=== PATIENT | female | born 1940 | race Caucasian/White ===

== ENCOUNTER → 2017-12-23 03:14 | Outpatient (CLI) | payer MEDICARE, OTHER, SELFPAY ==
[2017-12-23 12:11] LABS: TSH (W/Ref FT4) 1.69 uIU/mL (0.358-3.74)
--- NOTE | 2018-01-15 17:05 | ZIOP_ITS ---
ZIO PATCH REPORT Prescribing Clinician: Matheus Santana M.D. Primary Indication: I49.3 Enrollment: 12/23/17 until 01/05/18 Findings: 1. Baseline sinus rhythm, 47-154 bpm, average 70 bpm. 2. Rare PAC, < 1%, 18 SVT runs, fastest 11 beats at 146 bpm, longest 13 beats at 101 bpm, no atrial fibrillation. 3. Rare PVC, < 1%, one ventricular run, 5 beats, 88-154 bpm. 4. No significant pauses. 5. 40 trigger events, all sinus rhythm, 9 with brief SVT runs. 6. Symptoms: Three episodes: 2x fluttering/racing with sinus rhythm, 64 and 77 bpm, 1x skipped beats/shortness of breath, with sinus rhythm 67 bpm.
== END ==
PROVIDERS: PCP Family Medicine; Visit Provider Family Medicine
DX: I10 Essential (primary) hypertension (principal); E03.9 Hypothyroidism, unspecified; R79.89 Other specified abnormal findings of blood chemistry; R00.0 Tachycardia, unspecified; I49.3 Ventricular premature depolarization; R06.02 Shortness of breath
CPT/HCPCS: 0296T; 36415; 93225; 84443

== ENCOUNTER 2018-01-14 19:51 | Outpatient (CLI) | payer MEDICARE, OTHER, SELFPAY | END 2018-01-14 20:11 | PROVIDERS: PCP Family Medicine; Referring Provider Family Medicine; Visit Provider Internal Medicine Cardiovascular Disease | DX: I49.3 Ventricular premature depolarization (principal); I10 Essential (primary) hypertension; R00.0 Tachycardia, unspecified; E03.9 Hypothyroidism, unspecified | CPT/HCPCS: 0298T ==

== ENCOUNTER 2018-01-16 12:46 | Emergency (ER) | payer MEDICARE, OTHER, SELFPAY ==
[2018-01-16] VITALS (16 sets, daily range): BP systolic 126–184; BP diastolic 65–86; PULSE 54–78; RESP 13–29; TEMP 36.6–37.2; O2SAT 93–98
[2018-01-16 13:14] LABS: Abs Immature Grans 0.11 k/cumm (0.0-0.09); Absolute Basophil Count 0.07 k/cumm (0.0-0.2); Absolute Eosinophil Count 0.23 k/cumm (0.0-0.7); Absolute Lymphocyte Count 1.97 k/cumm (1.2-3.4); Absolute Monocyte Count 0.62 k/cumm (0.11-0.7); Basophils % 0.6; HGB 13.9 g/dL (12.0-15.5); Lymphocytes % 17.1; Mean Corp. HGB Concentration 32.3 g/dL (32.0-36.0); Mean Corpuscular Hemoglobin 28.3 pg (27.0-33.0); Mean Corpuscular Volume 87.4 fL (80-95); Mean Platelet Volume 11.8 fL (8.0-11.0); Monocytes % 5.4; Neutrophils % 73.9; Platelet Count 314 x1000/uL (130-400); RBC 4.92 m/cumm (4.00-5.20); RBC Distribution Width 16.2 % (11.7-14.6); White Blood Cell Count 11.54 k/cumm (4.4-10.8)
[2018-01-16 13:15] LABS: Absolute Neutrophil Count 8.53 k/cumm (1.2-6.7)
--- NOTE | 2018-01-16 13:20 | ED.GENADUL_ITS ---
Discharge Plan Disposition Patient Disposition: HOME Condition: Stable Discharge Details Chief Complaint: Palpitatns Clinical Impression: Palpitation Primary Care Provider: Joann Arreola ED Provider: Zhen Pichardo Home Meds and New Rx's Prescriptions: Continue aspirin [Ecotrin Low Strength] 81 MG tablet,delayed release (DR/EC) 81 mg PO DAILY RF: 0 nystatin 60 GM powder Topical BID Qty: 60 RF: 12 estradiol [Estrace] 42.5 GM cream 4 g Topical 2X /week Qty: 5 RF: 4 fluticasone [Flovent HFA] 12 GM HFA aerosol inhaler 110 mcg Inhalation 1 PUFF HS Qty: 3 RF: 4 rabeprazole [Aciphex] 20 MG tablet,delayed release (DR/EC) 20 mg PO BID Qty: 180 RF: 12 diltiazem HCl 120 MG capsule,extended release 12 hr 120 mg PO BID Qty: 180 RF: 4 escitalopram oxalate [Lexapro] 5 MG tablet 1 tab PO DAILY Qty: 180 RF: 12 magnesium oxide 400 MG capsule 400 mg PO DAILY Qty: 180 RF: 12 albuterol sulfate 2.5 MG/3 ML solution for nebulization 2.5 mg Inhalation QID PRNQty: 100 RF: 12 meloxicam 7.5 MG tablet 7.5 mg PO DAILY Qty: 90 RF: 12 albuterol sulfate [ProAir HFA] 8.5 GM HFA aerosol inhaler 1 - 2 puff Inhalation Q4H PRN Qty: 1 RF: 12 triamcinolone acetonide 80 GM ointment 2 - 4 gm Topical BID PRNQty: 80 RF: 2 lorazepam 0.5 MG tablet 0.5 mg PO HS PRNQty: 90 RF: 2 levothyroxine 75 MCG tablet 75 mcg PO DAILY Qty: 90 RF: 12 nebulizer and compressor [PulmoNeb LT Compressor Nebul] 1 EACH device 1 ea Miscellaneous PRN PRNRF: 0 Discharge Instructions Instructions: Palpitations (ED) Additional Instructions: You have premature atrial contractions that could be causing your symptoms if you have severe chest pain or pressure or difficulty breathing, return to the emergency department Discharge Data Discharge Physician: Zhen Pichardo Medical Decision Making MDM Narrative Medical decision making narrative: 77 yo female with hx of svt comes in with 2 weeks or so of palpitations. She states she feels her heart racing fast intermittently and intermittent skipped beats and is frustrated with the symptoms. Denies pain or pressur ein the chest, sob, fevers, cough, leg swelling. She is in no distress on exam laughing and joking and walking on her own with no pain or respiratory distress. she just had outpatient cardiac event monitor that did show she had pac's and intermittent svt. I suspect she is feeling her svt and pacs but on the monitor did notify that she was feeling palpitations with normal tele monitoring. No pain or pressure and no acute ischemic findings on ecg so doubt acs. No evidence of dvt, tachycardia or pleuritic chest pain or hypoxia so doubt pe. Will eval for anemia and electrolyte abnormalities and monitor pt remains stable, normal tele, labs unremarkable. Do not feel further testing indicated. she is still in no distress, ambulating with no symptoms and laughing in no distress. will have her f/u with pcp and return precautions given Differential Diagnosis svt, pac, afib Lab Data Lab results reviewed: Yes I reviewed the patient's lab results. Lab Results 01/16/18 Range/Units 12:55 WBC 11.54 H (4.4-10.8) k/cumm RBC 4.92 (4.00-5.20) m/cumm Hgb 13.9 (12.0-15.5) g/dL Hct 43.0 (36.0-46.0) % MCV 87.4 (80-95) fL MCH 28.3 (27.0-33.0) pg MCHC 32.3 (32.0-36.0) g/dL RDW 16.2 H (11.7-14.6) % Plt Count 314 (130-400) x1000/uL MPV 11.8 H (8.0-11.0) fL Immature Gran % 1.0 Neutrophils % 73.9 Lymphocytes % 17.1 Monocytes % 5.4 Eosinophils % 2.0 Basophils % 0.6 Absolute Neutrophils 8.53 H (1.2-6.7) k/cumm Absolute Lymphocytes 1.97 (1.2-3.4) k/cumm Absolute Monocytes 0.62 (0.11-0.7) k/cumm Absolute Eosinophils 0.23 (0.0-0.7) k/cumm Absolute Basophils 0.07 (0.0-0.2) k/cumm ECG Data Attestation: I personally reviewed and interpreted this ECG (s) as follows: Prior ECG tracings: not available for review Interpretation: normal sinus rhythm, rate of 72, normal pr, no acute st t wave changes HPI - General Adult General Mode of arrival: ambulatory . Date/Time Provider Initiated Documentation: 01/16/18 13:02 . Limitations to Documentation: no limitations . Information obtained by: patient . History of Present Illness 77 year old F presents to the emergency department with the chief complaint of palpitations, described as mild, with intensity rated at 2. Quality is described as other (intermittent skipping beats), and is localized to the chest. Patient reports no radiation. Patient started experiencing this week( s) (2) and it has been constant. No relieving factors improve symptom(s), No exacerbating factors reported . Patient notes no other symptoms.. Patient did receive the following treatments prior to arrival, none Related Data Home Medications Medication Instructions Recorded Confirmed aspirin [Ecotrin Low Strength] 81 mg PO DAILY 08/20/12 01/16/18 nebulizer and compressor [PulmoNeb 02/07/16 11/21/17 LT Compressor Nebul] Allergies Allergy/AdvReac Type Severity Reaction Status Date / Time hylan G-F 20 Allergy SWELLING Unverified 01/16/18 13:03 AND PAIN metronidazole [From Flagyl] Allergy Skin Rash Unverified 01/16/18 13:03 Pyrazoles Allergy Unverified 01/16/18 13:03 tolterodine Allergy DIFFICULTY Unverified 01/16/18 13:03 BREATHING hydromorphone AdvReac Mild Nausea Unverified 01/16/18 13:03 amitriptyline AdvReac NAUSEA Unverified 01/16/18 13:03 aspartame AdvReac HEART Unverified 01/16/18 13:03 RACING ondansetron HCl [From Zofran] AdvReac HALLUCINATI Unverified 01/16/18 13:03 ON General Stated Complaint: Palpitatns MANDY: 2 Review of Systems Review of Systems All systems reviewed & are unremarkable except as noted in HPI and below Constitutional Denies chills, Denies fever(s) and Denies weakness Eyes Patient Denies loss of vision ENT Denies change in voice Cardiovascular Denies chest pain and Denies dyspnea Respiratory Denies dyspnea Gastrointestinal Denies abdominal pain, Denies nausea and Denies vomiting Genitourinary Denies dysuria Musculoskeletal Denies joint swelling Integumentary/Breasts Denies rash Neurologic Denies loss of vision and Denies weakness Psychiatric Denies depression Endocrine Denies cold intolerance and Denies heat intolerance Allergic/Immunologic Reports urticaria PFSH Family History Mother Cerebrovascular accident Father Diabetes GI bleed Heart disease Sister Diabetes Essential hypertension Neoplasm Brother Macular degeneration Grandfather Heart disease Neoplasm Grandfather No problems noted. Grandmother Heart disease Grandmother Neoplasm Son Neoplasm Son No problems noted. Daughter Neoplasm Daughter No problems noted. Child No problems noted. Medical History Anxiety disorder Asthma Depressive disorder Diverticulosis Essential hypertension GERD (gastroesophageal reflux disease) CELINA (obstructive sleep apnea) SVT (supraventricular tachycardia) Thyroid malignant neoplasm Social History Smoking/Tobacco Use Status: Never Surgical History Arthroplasty of knee Cholecystectomy Colonoscopy - MAC Hysterectomy, Laproscopic Rotator Cuff Repair STOMACH STITCH (~08/2014) Thyroid (~09/2014) Exam Const General: no acute distress Orientation: alert [facility] Head: normal to inspection Ears: external ears normal General nose exam: external nose normal Mouth: moist mucous membranes Eyes General: appearance normal, both eyes and all related structures Neck Neck: normal visual inspection Resp Effort & Inspection: normal respiratory effort and able to speak in complete sentences Cardio Rate: regular rate Rhythm: regular rhythm Heart Sounds: no murmurs Skin General skin exam: no rashes or lesions noted Neuro General: alert and oriented x3 Extrem General: normal to inspection Psych Mental Status: mental status grossly normal Course Vital Signs Temperature 37.2 C 01/16/18 12:47 Pulse 64 01/16/18 12:47 Respiratory Rate 13 01/16/18 12:47 Blood Pressure 184/86 H 01/16/18 12:47 Pulse Oximetry 97 01/16/18 12:47 Temperature 37.2 C 01/16/18 12:47 Pulse 64 01/16/18 12:47 Respiratory Rate 13 01/16/18 12:47 Blood Pressure 184/86 H 01/16/18 12:47 Pulse Oximetry 97 01/16/18 12:47 Lab/Test Results Lab/Test Results: Laboratory Tests 01/16/18 12:55 WBC 11.54 H RBC 4.92 Hgb 13.9 Hct 43.0 MCV 87.4 MCH 28.3 MCHC 32.3 RDW 16.2 H Plt Count 314 MPV 11.8 H Immature Gran % 1.0 Neutrophils % 73.9 Lymphocytes % 17.1 Monocytes % 5.4 Eosinophils % 2.0 Basophils % 0.6 Absolute Neutrophils 8.53 H Absolute Lymphocytes 1.97 Absolute Monocytes 0.62 Absolute Eosinophils 0.23 Absolute Basophils 0.07
[2018-01-16 13:29] LABS: ALT 20 U/L (12-78); AST 14 U/L (15-37); Albumin 3.6 g/dL (3.4-5.0); Alkaline Phosphatase 98 U/L (46-116); Anion Gap 7.4 mmol/L (3-11); BUN 13 mg/dL (7-18); Bilirubin, Total 0.3 mg/dL (0.2-1.0); CO2 26.6 mmol/L (21.0-32.0); CREATININE 0.85 mg/dL (0.55-1.02); Chloride 105 mmol/L (98-107); Glucose 137 mg/dL (70-100); Magnesium 1.5 mg/dL (1.8-2.4); Potassium 3.4 mmol/L (3.5-5.1); Sodium 139 mmol/L (136-145); Total Protein 8.2 g/dL (6.4-8.2)
[2018-01-16 13:31] LABS: Troponin I < 0.02 ng/mL (0.00-0.06)
== END 2018-01-16 14:26 | disposition home or self-care (01) ==
PROVIDERS: Emergency Provider Emergency Medicine; PCP Family Medicine
DX: R00.2 Palpitations (principal); I10 Essential (primary) hypertension
CPT/HCPCS: 36415; 80053; 93005; 99284; 83735; 84484; 85025; 93010

== ENCOUNTER → 2018-02-10 09:01 | Outpatient (BNVA) | payer MEDICARE, OTHER, SELFPAY | PROVIDERS: Visit Provider Orthopaedic Surgery | DX: M17.11 Unilateral primary osteoarthritis, right knee (principal); M17.12 Unilateral primary osteoarthritis, left knee | CPT/HCPCS: 20610; 99211; 99213; J1040 ==

== ENCOUNTER 2018-03-13 10:54 | Day surgery (SDC) | payer MEDICARE, OTHER, SELFPAY ==
--- NOTE | 2018-03-12 12:28 | W.PIPPEYE ---
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 She presented with complaints of progressive decreased vision in both eyes over the past month. On examination she was noted to have moderate nuclear cataracts with mild cortical and posterior subcapsular cataracts OU. Visual acuity measured 20/30 right eye, 20/50 left eye. The option of cataract surgery was offered to the patient and she felt she was symptomatic enough that she wished to proceed. NOTE: The Chief Complaint, HPI, Past Medical History, Past Surgical History, Family History, Social History, Medications, and complete Ophthalmic Exam with detailed Assessment and Plan have already been documented in the patient's outpatient ophthalmic record and are not covered again in detail here. Meds Home Medications Medication Instructions Recorded Confirmed Type aspirin [Ecotrin Low Strength] 81 mg PO HS 08/20/12 03/11/18 History nystatin 0 TOPICAL BID #60 gm 12/04/15 02/24/18 History nebulizer and compressor [PulmoNeb 02/07/16 02/24/18 History LT Compressor Nebul] estradiol [Estrace] 4 g TOPICAL 2X /week #5 tube 10/17/16 03/10/18 History fluticasone [Flovent HFA] 110 mcg INHALATION 1 PUFF HS #3 11/13/16 03/10/18 History puff rabeprazole [Aciphex] 20 mg PO BID #180 tab 02/10/17 03/10/18 Rx diltiazem HCl 120 mg PO BID #180 tab-cap 05/30/17 03/10/18 Rx albuterol sulfate 2.5 mg INHALATION QID PRN #100 dose 07/01/17 03/10/18 History albuterol sulfate [ProAir HFA] 1 - 2 puff INHALATION Q4H PRN #1 07/01/17 03/10/18 Rx inhaler escitalopram oxalate [Lexapro] 1 tab PO DAILY #180 tab 07/01/17 03/10/18 Rx magnesium oxide 400 mg PO DAILY #180 tab 07/01/17 03/10/18 Rx triamcinolone acetonide 2 - 4 gm TOPICAL BID PRN #80 gm 10/07/17 03/10/18 History lorazepam 0.5 mg PO HS PRN #90 tab-cap 10/26/17 03/10/18 History levothyroxine 75 mcg PO DAILY #90 tab-cap 12/19/17 03/10/18 Rx buspirone 10 mg tablet 5 mg PO BID #60 tab 01/30/18 03/11/18 Rx terbinafine HCl 250 mg tablet 0.5 tab PO DAILY 02/24/18 03/11/18 History ascorbic acid (vitamin C) [Vitamin 500 mg PO DAILY 03/11/18 03/11/18 History C] cholecalciferol (vitamin D3) 2,000 unit PO DAILY 03/11/18 03/11/18 History [Vitamin D3] garlic 1,000 mg PO DAILY 03/11/18 03/11/18 History meloxicam 7.5 mg PO HS 03/11/18 03/11/18 History Allergies Allergy/AdvReac Type Severity Reaction Status Date / Time hylan G-F 20 Allergy SWELLING Unverified 03/11/18 10:21 AND PAIN metronidazole [From Flagyl] Allergy Skin Rash Unverified 03/11/18 10:21 Pyrazoles Allergy Unverified 03/11/18 10:21 tolterodine Allergy DIFFICULTY Unverified 03/11/18 10:21 BREATHING hydromorphone AdvReac Mild Nausea Unverified 03/11/18 10:21 amitriptyline AdvReac NAUSEA Unverified 03/11/18 10:21 aspartame AdvReac HEART Unverified 03/11/18 10:21 RACING ondansetron HCl [From Zofran] AdvReac HALLUCINATI Unverified 03/11/18 10:21 ON Exam OCULAR EXAM:: Visual acuity at distance: Corrected to 20/30 right eye, 20/40 left eye Pupils: Pupils equal, round, and reactive without afferent pupillary defect IOP: 15 OD 16 OS Extraocular Motility: Normal Pertinent Slit Lamp Findings: Significant for pupils dilating to 6 mm OU. 2+ nuclear with 1+ cortical cataract OU with trace central posterior subcapsular cataracts OU. Dilated Funduscopic Examination: Disc cupping is 0.1 OD 0.2 OS with good color. The optic nerves have good perfusion and normal color. The retinal vasculature is normal without significant tortuosity or abnormality. The maculas are normal in appearance with normal contour and foveal reflex appropriate for age. The peripheral retina and vitreous are normal. BRIGHTNESS ACUITY TESTING (BAT):: Off left eye 20/40 Low: 20/80 Medium: 20/100 High: 20/200 Assessment and Plan (1) Posterior subcapsular age-related cataract of left eye: Current visit: No Status: Acute Assessment: Visually significant cataract, left eye. Plan: Cataract extraction with intraocular lens implantation, left eye (2) Nuclear sclerotic cataract of left eye: Current visit: No Status: Acute Assessment: Visually significant cataract, left eye. Plan: Cataract extraction with intraocular lens implantation, left eye (3) Cortical cataract of left eye: Current visit: No Status: Acute Assessment: Visually significant cataract, left eye. Plan: Cataract extraction with intraocular lens implantation, left eye Note: NOTE:: The details of the planned surgery, including the risks, indications,limitations,expectations,outcome and possible complications were explained to the patient. The patient understands the complications including, but not limited to: infection, hemorrhage, posterior dislocation of the lens or nuclear fragments which may require the intervention of a vitreoretinal surgeon, possible loss of the eye, or from anesthetic complications. The patient has been made aware of the option of not having surgery, that vision following surgery may not be equal to that prior to surgery, and that the planned surgery may not achieve the intended results. Following this discussion, which the patient appeared to understand, the patient wishes to proceed with cataract surgery with lens implantation of the affected eye to improve and maximize vision.
--- NOTE | 2018-03-13 07:30 | W.PM.DSUDISC ---
Discharge Plan Discharge Details Reason For Visit: CATARACT OS Attending Provider: Leonardo Reyes Primary Care Provider: Joann Arreola Home Meds and New Rx's Prescriptions: No Action terbinafine HCl 250 mg tablet 0.5 tab PO DAILY RF: 0 buspirone 10 mg tablet 5 mg PO BID Qty: 60 RF: 11 aspirin [Ecotrin Low Strength] 81 MG tablet,delayed release (DR/EC) 81 mg PO HS RF: 0 nystatin 60 GM powder Topical BID Qty: 60 RF: 12 estradiol [Estrace] 42.5 GM cream 4 g Topical 2X /week Qty: 5 RF: 4 fluticasone [Flovent HFA] 12 GM HFA aerosol inhaler 110 mcg Inhalation 1 PUFF HS Qty: 3 RF: 4 rabeprazole [Aciphex] 20 MG tablet,delayed release (DR/EC) 20 mg PO BID Qty: 180 RF: 12 diltiazem HCl 120 MG capsule,extended release 12 hr 120 mg PO BID Qty: 180 RF: 4 escitalopram oxalate [Lexapro] 5 MG tablet 1 tab PO DAILY Qty: 180 RF: 12 magnesium oxide 400 MG capsule 400 mg PO DAILY Qty: 180 RF: 12 albuterol sulfate 2.5 MG/3 ML solution for nebulization 2.5 mg Inhalation QID PRNQty: 100 RF: 12 albuterol sulfate [ProAir HFA] 8.5 GM HFA aerosol inhaler 1 - 2 puff Inhalation Q4H PRN Qty: 1 RF: 12 triamcinolone acetonide 80 GM ointment 2 - 4 gm Topical BID PRNQty: 80 RF: 2 lorazepam 0.5 MG tablet 0.5 mg PO HS PRNQty: 90 RF: 2 levothyroxine 75 MCG tablet 75 mcg PO DAILY Qty: 90 RF: 12 nebulizer and compressor [PulmoNeb LT Compressor Nebul] 1 EACH device 1 ea Miscellaneous PRN PRNRF: 0 meloxicam 7.5 MG tablet 7.5 mg PO HS RF: 0 garlic 1,000 mg Capsule 1,000 mg PO DAILY RF: 0 ascorbic acid (vitamin C) [Vitamin C] 500 mg Tablet 500 mg PO DAILY RF: 0 cholecalciferol (vitamin D3) [Vitamin D3] 2,000 unit Capsule 2,000 unit PO DAILY RF: 0 Discharge Instructions Stand Alone Forms: Post-op Topical Cataract, Keegan Duran (DSU) DS: Diagnosis Discharge Diagnosis (1) Posterior subcapsular age-related cataract of left eye: Status: Resolved (2) Nuclear sclerotic cataract of left eye: Status: Resolved (3) Cortical cataract of left eye: Status: Resolved (4) Status post cataract extraction and insertion of intraocular lens of left eye: Status: Chronic
--- NOTE | 2018-03-13 07:42 | W.PM.OP ---
Date of service: 03/13/18 Operative Note DATE OF PROCEDURE: 03/13/18 PRE-OP DIAGNOSIS: Cataract, left eye POST-OP DIAGNOSIS: same PROCEDURE: Cataract extraction using phacoemulsification with intraocular lens implant, left eye SURGEON: Leonardo Reyes ANESTHESIA: MAC and local (sub-tenon's anesthetic infiltration) PATHOLOGY: none sent COMPLICATIONS: None Patient was transported to: same day Patient's condition: stable Implants: [employer] / [employer] Tecnis [id number] Indications: Progressive decreased vision due to cataract, left eye Procedure Description: CATARACT SURGERY OPERATIVE REPORT PREOPERATIVE DIAGNOSIS: Nuclear/cortical/posterior subcapsular cataract, left eye POSTOPERATIVE DIAGNOSIS: Same OPERATION: Cataract extraction using phacoemulsification with posterior chamber intraocular lens implant, left eye. IOL: IOL Menagerie Superintendent/Model: [employer] / LEX Tecnis [id number] IOL Power: + 21.0 diopters IOL Serial Number: [id number] Optic Diameter: 6.0mm Haptic/Overall Diameter: 13.0mm PHACO INFO: Brav[employer]on Vision System with OZil and Active Fluidics Cumulative Dispersed Energy (CDE): 7.90 seconds SURGEON: Leonardo Reyes MD, FADI ANESTHESIA: Monitored Anesthesia Care (MAC), with local sub-tenon's anesthetic infiltration COMPLICATIONS: None SPECIMENS: None INDICATIONS FOR PROCEDURE: The patient is a 77-year-old lady with history of progressive decreased vision in both eyes secondary to the development of bilateral nuclear cortical and posterior subcapsular cataract. She was significant a symptomatic that she desired to proceed with cataract surgery. PROCEDURE: The correct surgical eye was identified and marked as the left eye and the pupil was dilated in the preoperative area using mydriatics, cycloplegics, and NSAIDS (except in aspirin allergic patients). The dilated pupil size was 7.0 mm. The patient elected to proceed without oral sedation. The patient was brought to the operating room where cardiopulmonary monitoring was instituted and surgical time-out was performed, confirming the correct operative eye and IOL power. Topical anesthesia was administered and ophthalmic povidone-iodine 5% was instilled into the conjunctival fornices. Lidocaine gel was applied to the cornea and the elsi-ocular area was prepped with Betadine 10% solution and draped in the usual sterile fashion for intraocular surgery. Steri-strips were used to cover the lashes and lid margins and an adhesive eye drape was placed. Care was taken to isolate the lashes and lid margins under the Steri-strips and adhesive eye drape. A lid speculum was placed between the lids of the operative eye and the Pretty-Stephany operating microscope was maneuvered into position. [place] scissors were then used to make a conjunctival buttonhole approximately 6mm posterior to the limbus in the inferonasal quadrant. Blunt dissection was carried out to expose bare sclera, and a blunt-tipped sub-tenon?s anesthesia cannula was introduced and passed posteriorly along the globe where non-preserved plain lidocaine was injected into posterior sub-Tenon?s space. A sideport knife was used to make a paracentesis port at the 12:00 postion and the anterior chamber was filled with [place]al[place] GV. A 2.4mm keratome knife was used to create a half-thickness groove at the limbus and then to construct a three-plane near-clear corneal tunnel extending 2.0mm into clear cornea at the 3:00 position. A flap was raised on the anterior capsule and capsulorhexis forceps were used to complete a continuous curvilinear capsulorhexis of 5.0 mm. Balanced salt solution was then used to perform cortical cleaving hydrodissection and nuclear hydrodelineation until the lens could be freely rotated within the capsular bag. The lens nucleus was then disassembled and removed within the capsular bag and iris plane using phacoemulsification. Residual cortical material was removed using the 45-degree angled silicone I/A tip with 0.3mm port. The posterior capsule was carefully polished to remove as much residual lens epithelial cells as safely possible. The capsular bag was then inflated and the anterior chamber deepened with viscoelastic. The lens implant described above was inserted into the capsular bag using the LEX [place] Injector. A Kuglen hook was used to dial the IOL into position. Residual viscoelastic was then removed first from posterior to the IOL, then from the anterior chamber using the I/A handpiece. The lens implant was noted to center nicely within the capsular bag. The incisions were stromally hydrated, and the anterior chamber was reformed using BSS. Then 0.4cc of moxifloxacin 1.5mg/ml were injected into the capsular bag and anterior chamber. The incisions were checked with a Weck spear and found to be secure. Several drops of ophthalmic povidone-iodine 5% were then applied to the eye followed by two drops of Imprimis combination moxifloxacin/dexamethasone solution. The drapes were removed and a clear plastic protective eye shield was placed over the eye. The patient was then returned to Same Day Surgery in stable condition.
[2018-03-13 12:09] VITALS: BP 150/71; PULSE 62; RESP 18; TEMP 36.4; O2SAT 96
[2018-03-13] MEDS: Lidocaine 2% Jelly 6 ML SYR (14:07)
[2018-03-13] MEDS: Balanced Salt Soln.-PLUS 500 ML BAG (14:10)
[2018-03-13] MEDS: Povidone-Iodine Ophth 30 ML BTL (14:10)
[2018-03-13] MEDS: Lidocaine 1% Pres-Free 5 ML VIAL (14:10)
== END 2018-03-13 15:05 | disposition home or self-care (01) ==
LOC: SUR 10:54
PROVIDERS: PCP Family Medicine; Visit Provider Ophthalmology
PROC: (CPT 66984; principal; 2018-03-13 14:00)
DX: H25.812 Combined forms of age-related cataract, left eye (principal); G47.33 Obstructive sleep apnea (adult) (pediatric); I10 Essential (primary) hypertension
CPT/HCPCS: 66984; V2632

== ENCOUNTER 2018-03-27 09:29 | Day surgery (SDC) | payer MEDICARE, OTHER, SELFPAY ==
--- NOTE | 2018-03-26 13:16 | W.PIPPEYE ---
History of Present Illness Chief Complaint: Progressive decreased vision, right eye Narrative: The patient is a 77-year-old female with history of diminished visual acuity in both eyes at both distance and near. On examination she was noted to have bilateral nuclear cortical and posterior subcapsular cataracts in both eyes. 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 She underwent cataract surgery in the left eye on 03-29. Postoperatively she has regained uncorrected visual acuity of 20/20 in the left eye. She now presents for cataract surgery in the right eye. NOTE: The Chief Complaint, HPI, Past Medical History, Past Surgical History, Family History, Social History, Medications, and complete Ophthalmic Exam with detailed Assessment and Plan have already been documented in the patient's outpatient ophthalmic record and are not covered again in detail here. Meds Home Medications Medication Instructions Recorded Confirmed Type aspirin [Ecotrin Low Strength] 81 mg PO HS 08/20/12 03/13/18 History nystatin 0 TOPICAL BID #60 gm 12/04/15 02/24/18 History nebulizer and compressor [PulmoNeb 02/07/16 02/24/18 History LT Compressor Nebul] estradiol [Estrace] 4 g TOPICAL 2X /week #5 tube 10/17/16 03/13/18 History fluticasone [Flovent HFA] 110 mcg INHALATION 1 PUFF HS #3 11/13/16 03/13/18 History puff rabeprazole [Aciphex] 20 mg PO BID #180 tab 02/10/17 03/13/18 Rx diltiazem HCl 120 mg PO BID #180 tab-cap 05/30/17 03/13/18 Rx albuterol sulfate 2.5 mg INHALATION QID PRN #100 dose 07/01/17 03/13/18 History albuterol sulfate [ProAir HFA] 1 - 2 puff INHALATION Q4H PRN #1 07/01/17 03/13/18 Rx inhaler escitalopram oxalate [Lexapro] 1 tab PO DAILY #180 tab 07/01/17 03/13/18 Rx magnesium oxide 400 mg PO DAILY #180 tab 07/01/17 03/13/18 Rx triamcinolone acetonide 2 - 4 gm TOPICAL BID PRN #80 gm 10/07/17 03/13/18 History lorazepam 0.5 mg PO HS PRN #90 tab-cap 10/26/17 03/13/18 History levothyroxine 75 mcg PO DAILY #90 tab-cap 12/19/17 03/13/18 Rx buspirone 10 mg tablet 5 mg PO BID #60 tab 01/30/18 03/13/18 Rx terbinafine HCl 250 mg tablet 0.5 tab PO DAILY 02/24/18 03/13/18 History ascorbic acid (vitamin C) [Vitamin 500 mg PO DAILY 03/11/18 03/13/18 History C] cholecalciferol (vitamin D3) 2,000 unit PO DAILY 03/11/18 03/13/18 History [Vitamin D3] garlic 1,000 mg PO DAILY 03/11/18 03/13/18 History meloxicam 7.5 mg PO HS 03/11/18 03/13/18 History Allergies Allergy/AdvReac Type Severity Reaction Status Date / Time hylan G-F 20 Allergy SWELLING Unverified 03/11/18 10:21 AND PAIN metronidazole [From Flagyl] Allergy Skin Rash Unverified 03/11/18 10:21 Pyrazoles Allergy Unverified 03/11/18 10:21 tolterodine Allergy DIFFICULTY Unverified 03/11/18 10:21 BREATHING hydromorphone AdvReac Mild Nausea Unverified 03/11/18 10:21 amitriptyline AdvReac NAUSEA Unverified 03/11/18 10:21 aspartame AdvReac HEART Unverified 03/11/18 10:21 RACING ondansetron HCl [From Zofran] AdvReac HALLUCINATI Unverified 03/11/18 10:21 ON Exam OCULAR EXAM:: Visual acuity at distance: Corrected visual acuity is 20/50 OD, 20/20 OS. Pupils: Pupils equal, round, and reactive without afferent pupillary defect IOP: 15 OD 12 OS Extraocular Motility: Normal Pertinent Slit Lamp Findings: Significant for a well-positioned PCIOL OS with trace residual posterior capsular haze. Conjunctival chalasis is present temporally OU. 82+ nuclear with 1+ cortical and trace posterior subcapsular cataract is present OD. Dilated Funduscopic Examination: Disc cupping is 0.1 OD 0.2 OS with good color. There is an epiretinal membrane in the right macula with an absent foveal reflex. The left macula is normal. Peripheral retina and vitreous are normal. BRIGHTNESS ACUITY TESTING (BAT):: Off right eye 20/30 Low: 20/60 Medium: 20/80 High: 20/100 Assessment and Plan (1) Posterior subcapsular age-related cataract, right eye: Current visit: No Status: Acute Assessment: Visually significant cataract, right eye. Plan: Cataract extraction with intraocular lens implantation, right eye (2) Nuclear sclerotic cataract of right eye: Current visit: No Status: Acute Assessment: Visually significant cataract, right eye. Plan: Cataract extraction with intraocular lens implantation, right eye (3) Cortical cataract of right eye: Current visit: No Status: Acute Assessment: Visually significant cataract, right eye. Plan: Cataract extraction with intraocular lens implantation, right eye Note: NOTE:: The details of the planned surgery, including the risks, indications,limitations,expectations,outcome and possible complications were explained to the patient. The patient understands the complications including, but not limited to: infection, hemorrhage, posterior dislocation of the lens or nuclear fragments which may require the intervention of a vitreoretinal surgeon, possible loss of the eye, or from anesthetic complications. The patient has been made aware of the option of not having surgery, that vision following surgery may not be equal to that prior to surgery, and that the planned surgery may not achieve the intended results. Following this discussion, which the patient appeared to understand, the patient wishes to proceed with cataract surgery with lens implantation of the affected eye to improve and maximize vision.
[2018-03-27 09:35] VITALS: BP 151/59; PULSE 60; RESP 18; TEMP 36.6; O2SAT 94
[2018-03-27] MEDS: Tetracaine 0.5% 4 ML BTL OD ×4 (10:09→11:00)
[2018-03-27] MEDS: Lidocaine 2% Jelly 6 ML SYR (11:00)
[2018-03-27] MEDS: Balanced Salt Soln.-PLUS 500 ML BAG (11:07)
[2018-03-27] MEDS: Lidocaine 1% Pres-Free 5 ML VIAL (11:07)
[2018-03-27] MEDS: Povidone-Iodine Ophth 30 ML BTL (11:20)
--- NOTE | 2018-03-27 11:27 | W.PM.DSUDISC ---
Discharge Plan Discharge Details Reason For Visit: CATARACT OD Attending Provider: Leonardo Reyes Primary Care Provider: Joann Arreola Home Meds and New Rx's Prescriptions: No Action terbinafine HCl 250 mg tablet 0.5 tab PO DAILY RF: 0 buspirone 10 mg tablet 5 mg PO BID Qty: 60 RF: 11 aspirin [Ecotrin Low Strength] 81 MG tablet,delayed release (DR/EC) 81 mg PO HS RF: 0 nystatin 60 GM powder Topical BID Qty: 60 RF: 12 estradiol [Estrace] 42.5 GM cream 4 g Topical 2X /week Qty: 5 RF: 4 fluticasone [Flovent HFA] 12 GM HFA aerosol inhaler 110 mcg Inhalation 1 PUFF HS Qty: 3 RF: 4 rabeprazole [Aciphex] 20 MG tablet,delayed release (DR/EC) 20 mg PO BID Qty: 180 RF: 12 diltiazem HCl 120 MG capsule,extended release 12 hr 120 mg PO BID Qty: 180 RF: 4 escitalopram oxalate [Lexapro] 5 MG tablet 1 tab PO DAILY Qty: 180 RF: 12 magnesium oxide 400 MG capsule 400 mg PO DAILY Qty: 180 RF: 12 albuterol sulfate 2.5 MG/3 ML solution for nebulization 2.5 mg Inhalation QID PRNQty: 100 RF: 12 albuterol sulfate [ProAir HFA] 8.5 GM HFA aerosol inhaler 1 - 2 puff Inhalation Q4H PRN Qty: 1 RF: 12 triamcinolone acetonide 80 GM ointment 2 - 4 gm Topical BID PRNQty: 80 RF: 2 lorazepam 0.5 MG tablet 0.5 mg PO HS PRNQty: 90 RF: 2 levothyroxine 75 MCG tablet 75 mcg PO DAILY Qty: 90 RF: 12 nebulizer and compressor [PulmoNeb LT Compressor Nebul] 1 EACH device 1 ea Miscellaneous PRN PRNRF: 0 meloxicam 7.5 MG tablet 7.5 mg PO HS RF: 0 garlic 1,000 mg Capsule 1,000 mg PO DAILY RF: 0 ascorbic acid (vitamin C) [Vitamin C] 500 mg Tablet 500 mg PO DAILY RF: 0 cholecalciferol (vitamin D3) [Vitamin D3] 2,000 unit Capsule 2,000 unit PO DAILY RF: 0 Discharge Instructions Stand Alone Forms: Post-op Topical Cataract, Keegan Duran (DSU) DS: Diagnosis Discharge Diagnosis (1) Posterior subcapsular age-related cataract, right eye: Status: Resolved (2) Nuclear sclerotic cataract of right eye: Status: Resolved (3) Cortical cataract of right eye: Status: Resolved (4) Status post cataract extraction and insertion of intraocular lens of right eye: Status: Acute
--- NOTE | 2018-03-27 11:28 | W.PM.OP ---
Date of service: 03/27/18 Time of Service: 11:28 Operative Note DATE OF PROCEDURE: 03/27/18 PRE-OP DIAGNOSIS: Cataract, right eye POST-OP DIAGNOSIS: same SURGEON: Leonardo Reyes ANESTHESIA: MAC and local (sub-tenon's anesthetic infiltration) PATHOLOGY: none sent COMPLICATIONS: None Patient was transported to: same day Patient's condition: stable Implants: Dustin and Dustin Vision / [employer] Tecnis [id number] Indications: Progressive decreased vision due to cataract, right eye Procedure Description: CATARACT SURGERY OPERATIVE REPORT PREOPERATIVE DIAGNOSIS: Nuclear/cortical/posterior subcapsular cataract, right POSTOPERATIVE DIAGNOSIS: Same OPERATION: Cataract extraction using phacoemulsification with posterior chamber intraocular lens implant, right eye. IOL: IOL Wallboard Worker/Model: [employer]J Vision / LEX Tecnis ZCB00 IOL Power: + 21.0 diopters IOL Serial Number: [id number] Optic Diameter: 6.0mm Haptic/Overall Diameter: 13.0mm PHACO INFO: Bravo Kitwareon Vision System with OZil and Active Fluidics Cumulative Dispersed Energy (CDE): Seven-point seconds SURGEON: Leonardo Reyes MD, FADI ANESTHESIA: Monitored Anesthesia Care (MAC), with local sub-tenon's anesthetic infiltration COMPLICATIONS: None SPECIMENS: None INDICATIONS FOR PROCEDURE: The patient is a 77-year-old female with history of epiretinal membrane and lamellar macular hole of the right eye. She has developed bilateral nuclear, cortical, and posterior subcapsular cataracts. She has already undergone cataract surgery in her left eye and is doing well postoperatively. She now presents for cataract surgery in her right eye. She understands that postoperative visual acuity will be limited by the presence of her pre-existing maculopathy PROCEDURE: The correct surgical eye was identified and marked as the right eye and the pupil was dilated in the preoperative area using mydriatics and cycloplegics. The dilated pupil size was 6.5 mm. The patient elected to proceed without oral sedation. The patient was brought to the operating room where cardiopulmonary monitoring was instituted and surgical time-out was performed, confirming the correct operative eye and IOL power. Topical anesthesia was administered and ophthalmic povidone-iodine 5% was instilled into the conjunctival fornices. Lidocaine gel was applied to the cornea and the elsi-ocular area was prepped with Betadine 10% solution and draped in the usual sterile fashion for intraocular surgery. Steri-strips were used to cover the lashes and lid margins and an adhesive eye drape was placed. Care was taken to isolate the lashes and lid margins under the Steri-strips and adhesive eye drape. A lid speculum was placed between the lids of the operative eye and the Pretty-Stephany operating microscope was maneuvered into position. Paris scissors were then used to make a conjunctival buttonhole approximately 6mm posterior to the limbus in the inferonasal quadrant. Blunt dissection was carried out to expose bare sclera, and a blunt-tipped sub-tenon?s anesthesia cannula was introduced and passed posteriorly along the globe where non-preserved plain lidocaine was injected into posterior sub-Tenon?s space. A sideport knife was used to make a paracentesis port at the 7:00 postion and the anterior chamber was filled with Healon GV. A 2.4mm keratome knife was used to create a half-thickness groove at the limbus and then to construct a three-plane near-clear corneal tunnel extending 2.0mm into clear cornea at the 10:00 position. A flap was raised on the anterior capsule and capsulorhexis forceps were used to complete a continuous curvilinear capsulorhexis of 4.5mm, slightly horizontally oval P Balanced salt solution was then used to perform cortical cleaving hydrodissection and nuclear hydrodelineation until the lens could be freely rotated within the capsular bag. The lens nucleus was then disassembled and removed within the capsular bag and iris plane using phacoemulsification. Residual cortical material was removed using the 45-degree angled silicone I/A tip with 0.3mm port. The posterior capsule was carefully polished to remove as much residual lens epithelial cells as safely possible. The capsular bag was then inflated and the anterior chamber deepened with viscoelastic. The lens implant described above was inserted into the capsular bag using the LEX [place] Injector. A Kuglen hook was used to dial the IOL into position. Residual viscoelastic was then removed first from posterior to the IOL, then from the anterior chamber using the I/A handpiece. The lens implant was noted to center nicely within the capsular bag. The incisions were stromally hydrated, and the anterior chamber was reformed using BSS. Then 0.4cc of moxifloxacin 1.5mg/ml were injected into the capsular bag and anterior chamber. The incisions were checked with a Weck spear and found to be secure. Several drops of ophthalmic povidone-iodine 5% were then applied to the eye followed by two drops of Imprimis combination moxifloxacin/dexamethasone solution. The drapes were removed and a clear plastic protective eye shield was placed over the eye. The patient was then returned to Same Day Surgery in stable condition.
--- NOTE | 2018-03-27 11:32 | ROE_ITS ---
Date of service: 03/27/18 Time of Service: 11:28 Operative Note DATE OF PROCEDURE: 03/27/18 PRE-OP DIAGNOSIS: Cataract, right eye POST-OP DIAGNOSIS: same SURGEON: Leonardo Reyes ANESTHESIA: MAC and local (sub-tenon's anesthetic infiltration) PATHOLOGY: none sent COMPLICATIONS: None Patient was transported to: same day Patient's condition: stable Implants: Dustin and Dustin Vision / [employer] Tecnis [id number] Indications: Progressive decreased vision due to cataract, right eye Procedure Description: CATARACT SURGERY OPERATIVE REPORT PREOPERATIVE DIAGNOSIS: Nuclear/cortical/posterior subcapsular cataract, right POSTOPERATIVE DIAGNOSIS: Same OPERATION: Cataract extraction using phacoemulsification with posterior chamber intraocular lens implant, right eye. IOL: IOL Electric Switch Tester/Model: J&J Vision / LEX Tecnis ZCB00 IOL Power: + 21.0 diopters IOL Serial Number: [id number] Optic Diameter: 6.0mm Haptic/Overall Diameter: 13.0mm PHACO INFO: Bravo Chlorogenon Vision System with OZil and Active Fluidics Cumulative Dispersed Energy (CDE): Seven-point seconds SURGEON: Leonardo Reyes MD, FADI ANESTHESIA: Monitored Anesthesia Care (MAC), with local sub-tenon's anesthetic infiltration COMPLICATIONS: None SPECIMENS: None INDICATIONS FOR PROCEDURE: The patient is a 77-year-old female with history of epiretinal membrane and lamellar macular hole of the right eye. She has developed bilateral nuclear, cortical, and posterior subcapsular cataracts. She has already undergone cataract surgery in her left eye and is doing well postoperatively. She now presents for cataract surgery in her right eye. She understands that postoperative visual acuity will be limited by the presence of her pre-existing maculopathy PROCEDURE: The correct surgical eye was identified and marked as the right eye and the pupil was dilated in the preoperative area using mydriatics and cycloplegics. The dilated pupil size was 6.5 mm. The patient elected to proceed without oral sedation. The patient was brought to the operating room where cardiopulmonary monitoring was instituted and surgical time-out was performed, confirming the correct operative eye and IOL power. Topical anesthesia was administered and ophthalmic povidone-iodine 5% was instilled into the conjunctival fornices. Lidocaine gel was applied to the cornea and the elsi-ocular area was prepped with Betadine 10% solution and draped in the usual sterile fashion for intraocular surgery. Steri-strips were used to cover the lashes and lid margins and an adhesive eye drape was placed. Care was taken to isolate the lashes and lid margins under the Steri-strips and adhesive eye drape. A lid speculum was placed between the lids of the operative eye and the Pretty-Stephany operating microscope was maneuvered into position. Paris scissors were then used to make a conjunctival buttonhole approximately 6mm posterior to the limbus in the inferonasal quadrant. Blunt dissection was carried out to expose bare sclera, and a blunt-tipped sub-tenon? s anesthesia cannula was introduced and passed posteriorly along the globe where non-preserved plain lidocaine was injected into posterior sub-Tenon?s space. A sideport knife was used to make a paracentesis port at the 7:00 postion and the anterior chamber was filled with Healon GV. A 2.4mm keratome knife was used to create a half-thickness groove at the limbus and then to construct a three-plane near-clear corneal tunnel extending 2.0mm into clear cornea at the 10:00 position. A flap was raised on the anterior capsule and capsulorhexis forceps were used to complete a continuous curvilinear capsulorhexis of 4.5mm, slightly horizontally oval P Balanced salt solution was then used to perform cortical cleaving hydrodissection and nuclear hydrodelineation until the lens could be freely rotated within the capsular bag. The lens nucleus was then disassembled and removed within the capsular bag and iris plane using phacoemulsification. Residual cortical material was removed using the 45-degree angled silicone I/A tip with 0.3mm port. The posterior capsule was carefully polished to remove as much residual lens epithelial cells as safely possible. The capsular bag was then inflated and the anterior chamber deepened with viscoelastic. The lens implant described above was inserted into the capsular bag using the LEX [place] Injector. A Kuglen hook was used to dial the IOL into position. Residual viscoelastic was then removed first from posterior to the IOL, then from the anterior chamber using the I/A handpiece. The lens implant was noted to center nicely within the capsular bag. The incisions were stromally hydrated , and the anterior chamber was reformed using BSS. Then 0.4cc of moxifloxacin 1.5mg/ml were injected into the capsular bag and anterior chamber. The incisions were checked with a Weck spear and found to be secure. Several drops of ophthalmic povidone-iodine 5% were then applied to the eye followed by two drops of Imprimis combination moxifloxacin/dexamethasone solution. The drapes were removed and a clear plastic protective eye shield was placed over the eye. The patient was then returned to Same Day Surgery in stable condition.
== END 2018-03-27 12:05 | disposition home or self-care (01) ==
LOC: SUR 09:31
PROVIDERS: PCP Family Medicine; Visit Provider Ophthalmology
PROC: (CPT 66984; principal; 2018-03-27 12:30)
DX: H25.811 Combined forms of age-related cataract, right eye (principal); Z98.42 Cataract extraction status, left eye; Z96.1 Presence of intraocular lens; G47.33 Obstructive sleep apnea (adult) (pediatric); I10 Essential (primary) hypertension
CPT/HCPCS: 66984; V2632

== ENCOUNTER 2018-04-14 01:11 | Outpatient (CLI) | payer MEDICARE, OTHER, SELFPAY ==
[2018-04-14 11:53] LABS: HCT 43.6 % (36.0-46.0); HGB 13.9 g/dL (12.0-15.5); Mean Corp. HGB Concentration 31.9 g/dL (32.0-36.0); Mean Corpuscular Hemoglobin 28.1 pg (27.0-33.0); Mean Corpuscular Volume 88.3 fL (80-95); Mean Platelet Volume 11.4 fL (8.0-11.0); Platelet Count 295 x1000/uL (130-400); RBC 4.94 m/cumm (4.00-5.20); RBC Distribution Width 16.5 % (11.7-14.6); White Blood Cell Count 12.74 k/cumm (4.4-10.8)
[2018-04-14 12:32] LABS: ALT 28 U/L (12-78); AST 11 U/L (15-37); Alkaline Phosphatase 69 U/L (46-116); Anion Gap 6.5 mmol/L (3-11); BUN 16 mg/dL (7-18); Bilirubin, Total 0.2 mg/dL (0.2-1.0); CO2 32.5 mmol/L (21.0-32.0); CREATININE 0.64 mg/dL (0.55-1.02); Calcium 9.4 mg/dL (8.5-10.1); Chloride 101 mmol/L (98-107); Glucose 94 mg/dL (70-100); Potassium 4.3 mmol/L (3.5-5.1); Sodium 140 mmol/L (136-145); Total Protein 6.4 g/dL (6.4-8.2)
== END 2018-04-14 01:31 ==
PROVIDERS: PCP Family Medicine; Visit Provider Family Medicine
DX: E03.9 Hypothyroidism, unspecified (principal); I10 Essential (primary) hypertension
CPT/HCPCS: 36415; 80053; 85027; 84439; 84443

== ENCOUNTER 2018-05-11 09:50 | Outpatient (CLI) | payer MEDICARE, OTHER, SELFPAY ==
[2018-05-11 11:21] LABS: HCT 41.8 % (36.0-46.0); HGB 13.4 g/dL (12.0-15.5); Mean Corp. HGB Concentration 32.1 g/dL (32.0-36.0); Mean Corpuscular Volume 87.4 fL (80-95); Mean Platelet Volume 12.6 fL (8.0-11.0); Platelet Count 331 x1000/uL (130-400); RBC 4.78 m/cumm (4.00-5.20); RBC Distribution Width 16.6 % (11.7-14.6); White Blood Cell Count 11.28 k/cumm (4.4-10.8)
[2018-05-11 11:36] LABS: ALT 23 U/L (12-78); AST 17 U/L (15-37); Albumin 3.3 g/dL (3.4-5.0); Alkaline Phosphatase 91 U/L (46-116); Anion Gap 10.4 mmol/L (3-11); BUN 8 mg/dL (7-18); Bilirubin, Total 0.3 mg/dL (0.2-1.0); CO2 29.6 mmol/L (21.0-32.0); CREATININE 0.72 mg/dL (0.55-1.02); Calcium 9.3 mg/dL (8.5-10.1); Chloride 103 mmol/L (98-107); Glucose 119 mg/dL (70-100); Potassium 4.3 mmol/L (3.5-5.1); Sodium 143 mmol/L (136-145); TSH (W/Ref FT4) 0.54 uIU/mL (0.358-3.74); Total Protein 6.9 g/dL (6.4-8.2)
== END 2018-05-11 10:10 ==
PROVIDERS: PCP Family Medicine; Visit Provider Family Medicine
DX: E03.9 Hypothyroidism, unspecified (principal); R10.9 Unspecified abdominal pain
CPT/HCPCS: 36415; 80053; 85027; 84443

== ENCOUNTER 2018-05-13 00:27 | Outpatient (CLI) | payer MEDICARE, OTHER, SELFPAY ==
--- NOTE | 2018-05-13 11:12 | DI.US_ITS ---
SYMPTOMS/DIAGNOSIS: EPIGASTRIC PAIN, RT ADRENAL MASS, R10.13, E27.9 ABDOMEN ULTRASOUND: Comparison is made with [id number]. The patient is status post cholecystectomy. No biliary dilatation or focal liver lesions are seen. There are a few small renal cysts. There is no evidence of hydronephrosis or large calculi. The aorta is normal in diameter. The spleen is normal in size. IMPRESSION: Status post cholecystectomy. No acute abnormality.
== END 2018-05-13 00:47 ==
PROVIDERS: PCP Family Medicine; Visit Provider Family Medicine
DX: R10.13 Epigastric pain (principal); E27.9 Disorder of adrenal gland, unspecified; Z90.49 Acquired absence of other specified parts of digestive tract
CPT/HCPCS: 76700

== ENCOUNTER → 2018-05-15 09:46 | Outpatient (BNVA) | payer MEDICARE, OTHER, SELFPAY | PROVIDERS: PCP Family Medicine; Referring Provider Family Medicine; Visit Provider Surgery | DX: R10.13 Epigastric pain (principal); R11.0 Nausea; I10 Essential (primary) hypertension; Z87.19 Personal history of other diseases of the digestive system | CPT/HCPCS: 99203; 99214 ==

== ENCOUNTER 2018-05-28 09:12 | Day surgery (SDC) | payer MEDICARE, OTHER, SELFPAY ==
[2018-05-28 09:47] VITALS: BP 152/72; PULSE 77; RESP 18; TEMP 36.8; O2SAT 94
[2018-05-28] MEDS: Lactated Ringers 1,000 ML 80 ML IV (10:06)
--- NOTE | 2018-05-28 11:11 | PDOC.DSDIS_ITS ---
Discharge Plan Disposition Patient Disposition: HOME Condition: Good Discharge Details Reason For Visit: Nausea Attending Provider: Delores Araujo Primary Care Provider: Joann Arreola Home Meds and New Rx's Prescriptions: New ranitidine HCl 300 mg capsule 300 mg PO HS Qty: 30 RF: 5 sucralfate [Carafate] 1 gram tablet 1 gm PO QID Qty: 56 RF: 0 Continued escitalopram oxalate [Lexapro] 5 mg tablet 5 mg PO DAILY Qty: 90 RF: 0 aspirin [Ecotrin Low Strength] 81 MG tablet,delayed release (DR/EC) 81 mg PO HS RF: 0 nystatin 60 GM powder Topical BID Qty: 60 RF: 12 estradiol [Estrace] 42.5 GM cream 4 g Topical 2X /week Qty: 5 RF: 4 Flovent HFA 12 GM HFA aerosol inhaler 110 mcg Inhalation 1 PUFF HS Qty: 3 RF: 4 magnesium oxide 400 MG capsule 400 mg PO DAILY Qty: 180 RF: 12 albuterol sulfate 2.5 MG/3 ML solution for nebulization 2.5 mg Inhalation QID PRNQty: 100 RF: 12 ProAir HFA 8.5 GM HFA aerosol inhaler 1 - 2 puff Inhalation Q4H PRN Qty: 1 RF: 12 triamcinolone acetonide 80 GM ointment 2 - 4 gm Topical BID PRNQty: 80 RF: 2 lorazepam 0.5 MG tablet 0.5 mg PO HS PRNQty: 90 RF: 2 diltiazem HCl 120 mg capsule,extended release 12 hr 120 mg PO BID Qty: 14 RF: 4 PulmoNeb LT Compressor Nebul 1 EACH device 1 ea Miscellaneous PRN PRNRF: 0 levothyroxine 75 mcg Tablet 75 mcg PO DAILY RF: 0 meloxicam 7.5 MG tablet 7.5 mg PO HS RF: 0 garlic 1,000 mg Capsule 1,000 mg PO DAILY RF: 0 ascorbic acid (vitamin C) [Vitamin C] 500 mg Tablet 500 mg PO DAILY RF: 0 cholecalciferol (vitamin D3) [Vitamin D3] 2,000 unit Capsule 2,000 unit PO DAILY RF: 0 Changed rabeprazole [Aciphex] 20 mg tablet,delayed release (DR/EC) 20 mg PO DAILY Qty: 180 RF: 12 Discharge Instructions Instructions: Upper Endoscopy (DC), Diet for Stomach Ulcers and Gastritis (GEN) Additional Instructions: Findings: Polyps in the stomach- these are usually due to chronic inflammation or taking Antacids for a long time Mild inflammation in the stomach Mild inflammation in the esophagus Follow up: 2-3 weeks in the office New Medications: Change Aciphex to daily in the morning Start Ranitidine (Zantac) in the evening Carafate 1 tab before meals and at bedtime Please call if you develop: fevers >101.5 Nausea or Vomiting Abdominal pain that is not transient DAY SURGERY UNIT POST COLONOSCOPY INSTRUCTIONS 1. Because there will be medication in your system for the next 24 hours, you may feel a little sleepy. Your coordination will be affected. Therefore: a. Do not drive or operate dangerous equipment for 24 hours. b. Do not drink alcohol beverages for 24 hours (not even beer). c. Plan to go home and rest for the day. 2. Generally there are no restrictions on your activity after a day or so has gone by, but you may feel a bit fatigued for a few days. 3 After you arrive home you may have a light meal and return to a normal diet as you can tolerate it without feeling sick to your stomach. 4. After surgery, you may feel pain or discomfort. This should be only transient, but if it persists please contact your doctor. 5. If there are any questions regarding the findings of your procedure, please feel free to contact your doctor. 6. If you are unable to contact your doctor with a problem, contact the hospital at [phone]. 7. Continue all your regular medications unless directed otherwise. I understand the above instructions and have no questions. Signature of Patient or Responsible Adult Escort Date/Time Name of Responsible Adult Escort Signature of Nurse Date/Time Referrals: Delores Araujo MD [ [facility] STAFF PHYSICIAN] - (2-3 weeks) Activity:: Activity as Tolerated Diet:: low acid Discharge Orders Discharge Orders: Discharge Order (Routine); Ordered 05/28/18 Ordered By: Delores Araujo DS: Diagnosis Discharge Diagnosis (1) Multiple gastric polyps: Status: Acute (2) Gastroesophageal reflux disease: Status: Chronic (3) H/O esophagogastroduodenoscopy: Status: Chronic
--- NOTE | 2018-05-28 11:12 | W.PM.ENDDOP ---
Date of service: 05/28/18 Time of Service: 11:49 Endoscopy Report DATE OF PROCEDURE: 05/28/18 PRE-OP DIAGNOSIS: Nausea POST-OP DIAGNOSIS: other (Gastric polyps, mild gastritis, mild esophagitis) PROCEDURE: Upper Endoscopy with bx SURGEON: Delores Araujo ANESTHESIA: MAC (Dorina Singh, [employer]/ ASA 2) ESTIMATED BLOOD LOSS: 5 PATHOLOGY: other (Gastric polyps, antral bx, GE junction bx) COMPLICATIONS: None DISPOSITION: same day INDICATIONS: Mrs. Gandara is a pleasant 77 year old female who was seen in the Office for nausea and I just do not feel well. EGD was recommended. Risks, benefits and complications have been reviewed. Complications include but are not limited to bleeding, pain, perforation, sore throat, aspiration, and adverse reaction to the medications. Questions were entertained and answered to their satisfaction and they wished to proceed. No guarantees were given or implied. FINDINGS: 1. Mild inflammation of the stomach with multiple polyps throughout her stomach. They appeared benign. Multiple bx done 2. Mild inflammation in the esophagus PROCEDURE DESCRIPTION: After informed consent was obtained the patient was take to the procedure room and placed in a supine position. Monitors were applied and a time out was done. The patients name, date of , procedure type, allergies to medications and metal in their body was reviewed. A bite block was placed and the patient was sedated. Once sedated and comfortable the gastroscope was advanced through the oropharynx which was grossly normal into the esophagus. The proximal and mid-esophagus were normal. In the distal esophagus there was some mild inflammation noted. The scope was advanced into the stomach and through the pylorus into the 3rd portion of the duodenum. The duodenum was noted to be normal. The scope was retracted back into the stomach and biopsies of the antrum were done to rule out H. pylori. There were no ulcers. There were nummerous gastric polyps scattered throughout her stomach. Randome bx were done. The scope was retroflexed. The cardia and fundus were noted to be normal. There was no hiatal hernia noted. The scope was retracted back into the esophagus and biopsies were done of the GE junction to rule out Presley's. The Z line was irregular at 32 to 35. The GE junction was at 35 cm. The scope was removed and the patient was woken up and taken back to [facility] in stable condition. Follow up: 2 weeks. Patient will be started on Carafate and Ranitidine at night. Change Aciphex to am only
--- NOTE | 2018-05-28 11:23 | STOM_PTH ---
PATIENT: Kacey Gandara LOC: [facility] U#:[id number] AGE/SX: 77/F ROOM: RE05/28/[address]: Delores Araujo MD : [id number] BED: DIS: 05/28/2018 SPEC #: [id number] RECD: 05/28/18 12:58 STATUS: FADIA REQ #: [id number] JONE: 05/28/18 11:[address]: Delores Araujo DEPT: Surgical Specimen RECD BY: Alena Dickson ENTERED: 05/28/18 13:06 SP TYPE: STOMACH OTHR DR: Joann Arreola MD, DC Tissues: 1 - STOMACH BIOPSY 2 - STOMACH BIOPSY 3 - ESOPHAGUS BIOPSY Procedures: GROSS AND MICRO LEVEL 4 IMMUNOPEROXIDASE STAIN Comments: [id number]
[2018-05-28 12:25] VITALS: BP 161/69; PULSE 65; RESP 16; TEMP 36.3; O2SAT 96
== END 2018-05-28 12:40 | disposition home or self-care (01) ==
PROVIDERS: PCP Family Medicine; Visit Provider Surgery
PROC: 0DJ68ZZ Inspection of Stomach, Via Natural or Artificial Opening Endoscopic (ICD-10-PCS; CPT 43235; principal; 2018-05-28 10:45)
DX: R11.0 Nausea (principal); K29.50 Unspecified chronic gastritis without bleeding; K31.7 Polyp of stomach and duodenum; K31.9 Disease of stomach and duodenum, unspecified; K21.0 Gastro-esophageal reflux disease with esophagitis
CPT/HCPCS: 43239; 88305; 88361

== ENCOUNTER 2018-06-02 11:04 | Outpatient (CLI) | payer MEDICARE, OTHER, SELFPAY ==
[2018-06-02 16:06] LABS: Abs Immature Grans 0.04 k/cumm (0.0-0.09); Absolute Basophil Count 0.09 k/cumm (0.0-0.2); Absolute Eosinophil Count 0.43 k/cumm (0.0-0.7); Absolute Lymphocyte Count 1.87 k/cumm (1.2-3.4); Absolute Monocyte Count 1.02 k/cumm (0.11-0.7); Basophils % 0.7; Eosinophils % 3.5; HCT 40.5 % (36.0-46.0); Immature Grans % 0.3; Lymphocytes % 15.2; Mean Corp. HGB Concentration 32.1 g/dL (32.0-36.0); Mean Corpuscular Hemoglobin 28.3 pg (27.0-33.0); Mean Corpuscular Volume 88.2 fL (80-95); Monocytes % 8.3; Platelet Count 326 x1000/uL (130-400); RBC 4.59 m/cumm (4.00-5.20); RBC Distribution Width 15.7 % (11.7-14.6); White Blood Cell Count 12.27 k/cumm (4.4-10.8)
[2018-06-02 16:12] LABS: Absolute Neutrophil Count 8.83 k/cumm (1.2-6.7)
[2018-06-02 17:40] LABS: ALT 20 U/L (12-78); AST 13 U/L (15-37); Albumin 3.3 g/dL (3.4-5.0); Alkaline Phosphatase 87 U/L (46-116); Anion Gap 8.6 mmol/L (3-11); BUN 9 mg/dL (7-18); Bilirubin, Total 0.3 mg/dL (0.2-1.0); CO2 30.4 mmol/L (21.0-32.0); CREATININE 0.69 mg/dL (0.55-1.02); Calcium 9.6 mg/dL (8.5-10.1); Chloride 105 mmol/L (98-107); Glucose 90 mg/dL (70-100); Potassium 3.6 mmol/L (3.5-5.1); Sodium 144 mmol/L (136-145); Total Protein 6.9 g/dL (6.4-8.2)
[2018-06-02 17:48] LABS: TSH (W/Ref FT4) 0.55 uIU/mL (0.358-3.74)
== END 2018-06-02 11:24 ==
PROVIDERS: Internal Medicine; PCP Family Medicine; Visit Provider Family Medicine
DX: F41.1 Generalized anxiety disorder (principal); R11.2 Nausea with vomiting, unspecified
CPT/HCPCS: 36415; 80053; 84443; 85025

== ENCOUNTER 2018-06-02 12:44 | Emergency (ER) | payer MEDICARE, OTHER, SELFPAY ==
[2018-06-02 12:48] VITALS: BP 115/58; PULSE 66; RESP 18; TEMP 37; O2SAT 95
--- NOTE | 2018-06-02 13:34 | DI.RAD_ITS ---
SYMPTOMS/DIAGNOSIS: PAIN, SWELLING LATERAL, TENDERNESS TO PALPATION LATERAL RIGHT ANKLE: Three views. Comparison 02/24/14. No acute fracture or dislocation is seen. Well-corticated osseous fragments are again seen at the tips of the medial and lateral malleoli, which appear stable. There is unchanged widening of the lateral aspect of the ankle joint. No acute fracture or dislocation is seen. The soft tissues appear grossly unremarkable and unchanged. IMPRESSION: No significant change in appearance of the right ankle since 02/24/14.
--- NOTE | 2018-06-02 13:44 | ED.GENADUL_ITS ---
Discharge Plan Disposition Patient Disposition: HOME Discharge Details Chief Complaint: Orthopedic Clinical Impression: Right ankle sprain Primary Care Provider: Joann Arreola ED Provider: Dalton Presley Home Meds and New Rx's Prescriptions: Continued escitalopram oxalate [Lexapro] 5 mg tablet 5 mg PO DAILY Qty: 90 RF: 0 ondansetron 8 mg tablet,disintegrating 8 mg PO BID PRN (Reason: nausea and vomiting) Qty: 14 RF: 2 aspirin [Ecotrin Low Strength] 81 MG tablet,delayed release (DR/EC) 81 mg PO HS RF: 0 nystatin 60 GM powder Topical BID Qty: 60 RF: 12 estradiol [Estrace] 42.5 GM cream 4 g Topical 2X /week Qty: 5 RF: 4 Flovent HFA 12 GM HFA aerosol inhaler 110 mcg Inhalation 1 PUFF HS Qty: 3 RF: 4 magnesium oxide 400 MG capsule 400 mg PO DAILY Qty: 180 RF: 12 albuterol sulfate 2.5 MG/3 ML solution for nebulization 2.5 mg Inhalation QID PRNQty: 100 RF: 12 ProAir HFA 8.5 GM HFA aerosol inhaler 1 - 2 puff Inhalation Q4H PRN Qty: 1 RF: 12 triamcinolone acetonide 80 GM ointment 2 - 4 gm Topical BID PRNQty: 80 RF: 2 lorazepam 0.5 MG tablet 0.5 mg PO HS PRNQty: 90 RF: 2 diltiazem HCl 120 mg capsule,extended release 12 hr 120 mg PO BID Qty: 14 RF: 4 PulmoNeb LT Compressor Nebul 1 EACH device 1 ea Miscellaneous PRN PRNRF: 0 levothyroxine 75 mcg Tablet 75 mcg PO DAILY RF: 0 ranitidine HCl 300 mg capsule 300 mg PO HS Qty: 30 RF: 5 sucralfate [Carafate] 1 gram tablet 1 gm PO QID Qty: 56 RF: 0 rabeprazole [Aciphex] 20 mg tablet,delayed release (DR/EC) 20 mg PO DAILY Qty: 180 RF: 12 garlic 1,000 mg Capsule 1,000 mg PO DAILY RF: 0 ascorbic acid (vitamin C) [Vitamin C] 500 mg Tablet 500 mg PO DAILY RF: 0 cholecalciferol (vitamin D3) [Vitamin D3] 2,000 unit Capsule 2,000 unit PO DAILY RF: 0 Discharge Instructions Instructions: Ankle Sprain (ED) Additional Instructions: Use lace up ankle splint to provide support your ankle. Please contact your primary care physician to arrange follow-up. Return to the ER for any worsening or new concerning symptoms. Referrals: Joann Arreola MD, [place] [Primary Care Provider] - Discharge Data Discharge Date/Time-TO BE ENTERED AT DEPARTURE: 06/02/18 15:20 Medical Decision Making 14:40 --77-year-old female here with swelling and tenderness of her anterior lateral right ankle that started upon waking this morning. She slept in a recliner last night and thinks she may have had her ankle in an odd position and may have twisted it. Concern for sprain versus less likely fracture. Plan for x-ray. Offered Tylenol and patient declined. --X-ray of the ankle interpreted by radiology: No acute fracture. Ankle lace up stabilizer was applied. Patient was instructed to use her walker and rest ice and elevate her ankle over the next few days. She was encouraged to follow-up with her primary care physician and return should have any worsening or new concerning symptoms. Usual and customary discharge instructions were provided. HPI General Mode of arrival: ambulatory . Date/Time Provider Initiated Documentation: 06/02/18 12:55 . Limitations to Documentation: no limitations . Information obtained by: patient . HPI Narrative: 77-year-old female presents with chief complaint of right ankle pain. Patient notes that she slept last night in her recliner and thinks she had her foot in an odd position or may have twisted her foot in her sleep. When she woke up this morning she had pain and swelling in her lateral right ankle. Pain is moderate and worse on ambulation and on palpation. No associated numbness. No warmth or redness. Related Data Home Medications Medication Instructions Recorded Confirmed aspirin [Ecotrin Low Strength] 81 mg PO HS 08/20/12 06/02/18 nystatin 0 TOPICAL BID #60 gm 12/04/15 06/01/18 PulmoNeb LT Compressor Nebul 02/07/16 06/01/18 estradiol [Estrace] 4 g TOPICAL 2X /week #5 tube 10/17/16 06/02/18 Flovent HFA 110 mcg INHALATION 1 PUFF HS #3 11/13/16 06/02/18 puff ProAir HFA 1 - 2 puff INHALATION Q4H PRN #1 07/01/17 06/02/18 inhaler albuterol sulfate 2.5 mg INHALATION QID PRN #100 dose 07/01/17 06/02/18 magnesium oxide 400 mg PO DAILY #180 tab 07/01/17 06/02/18 triamcinolone acetonide 2 - 4 gm TOPICAL BID PRN #80 gm 10/07/17 06/02/18 lorazepam 0.5 mg PO HS PRN #90 tab-cap 10/26/17 06/02/18 ascorbic acid (vitamin C) [Vitamin 500 mg PO DAILY 03/11/18 06/02/18 C] cholecalciferol (vitamin D3) 2,000 unit PO DAILY 03/11/18 06/02/18 [Vitamin D3] garlic 1,000 mg PO DAILY 03/11/18 06/02/18 diltiazem ER 120 mg 120 mg PO BID #14 cap 04/07/18 06/02/18 capsule,extended release 12 hr escitalopram 5 mg tablet 5 mg PO DAILY #90 tab 04/15/18 06/02/18 levothyroxine 75 mcg PO DAILY 05/28/18 06/02/18 rabeprazole [Aciphex] 20 mg PO DAILY #180 tab 05/28/18 06/02/18 ranitidine HCl 300 mg PO HS #30 cap 05/28/18 06/02/18 sucralfate [Carafate] 1 gm PO QID #56 tab 05/28/18 06/02/18 ondansetron 8 mg disintegrating 8 mg PO BID PRN #14 tab 06/01/18 06/02/18 tablet Previous Rx's Medication Instructions Recorded ProAir HFA 1 - 2 puff INHALATION Q4H PRN #1 07/01/17 inhaler magnesium oxide 400 mg PO DAILY #180 tab 07/01/17 diltiazem ER 120 mg 120 mg PO BID #14 cap 04/07/18 capsule,extended release 12 hr escitalopram 5 mg tablet 5 mg PO DAILY #90 tab 04/15/18 rabeprazole [Aciphex] 20 mg PO DAILY #180 tab 05/28/18 ranitidine HCl 300 mg PO HS #30 cap 05/28/18 sucralfate [Carafate] 1 gm PO QID #56 tab 05/28/18 ondansetron 8 mg disintegrating 8 mg PO BID PRN #14 tab 06/01/18 tablet Allergies Allergy/AdvReac Type Severity Reaction Status Date / Time hylan G-F 20 Allergy SWELLING Verified 06/02/18 12:56 AND PAIN metronidazole [From Flagyl] Allergy Skin Rash Verified 06/02/18 12:56 Pyrazoles Allergy Verified 06/02/18 12:56 tolterodine Allergy DIFFICULTY Verified 06/02/18 12:56 BREATHING methylprednisolone AdvReac Intermediate weakness Verified 06/02/18 12:56 and unable mood. hydromorphone AdvReac Mild Nausea Verified 06/02/18 12:56 amitriptyline AdvReac NAUSEA Verified 06/02/18 12:56 aspartame AdvReac HEART Verified 06/02/18 12:56 RACING ondansetron HCl [From Zofran] AdvReac HALLUCINATI Verified 06/02/18 12:56 ON General Stated Complaint: Orthopedic MANDY: 4 Review of Systems Gastrointestinal Reports abdominal pain (not present currently) and Reports dyspepsia (not present currently) Musculoskeletal Reports as per HPI Integumentary/Breasts Reports as per HPI [facility] Medical History Epiretinal membrane (ERM) of right eye (Chronic) 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) Obstructive sleep apnea syndrome (Chronic 06/16/12) 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) Knee pain (Chronic) 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) Hypothyroidism (Chronic 12/20/14) Hypercholesterolemia (Chronic 09/21/13) Herpetic vulvovaginitis (Chronic 04/24/11) Herpes zoster without complication (Chronic 09/01/17) Gum lesion (Chronic 03/06/15) Gastroesophageal reflux disease (Chronic) Essential hypertension (Chronic 02/19/13) Elevated fasting glucose (Chronic 06/27/14) Diverticulosis of colon without diverticulitis (Chronic) Depressive disorder (Chronic) Asthma (Chronic) Arthritis (Chronic) Anxiety (Chronic) Allergic eosinophilia (Chronic) Adrenal mass, right (Chronic 12/11/16) Primary osteoarthritis of both knees (Chronic) MARILYN (generalized anxiety disorder) (Chronic) Cortical cataract of left eye (Resolved) Cortical cataract of right eye (Resolved) Nuclear sclerotic cataract of left eye (Resolved) Nuclear sclerotic cataract of right eye (Resolved) Posterior subcapsular age-related cataract of left eye (Resolved) Posterior subcapsular age-related cataract, right eye (Resolved) Anxiety disorder Asthma Depressive disorder Diverticulosis Essential hypertension GERD (gastroesophageal reflux disease) CELINA (obstructive sleep apnea) SVT (supraventricular tachycardia) Thyroid malignant neoplasm Surgical History Status post cataract extraction and insertion of intraocular lens of right eye (Chronic 03/27/18) Status post cataract extraction and insertion of intraocular lens of left eye (Chronic 03/13/18) Arthroplasty of knee Cholecystectomy Colonoscopy - MAC Hysterectomy, Laproscopic Rotator Cuff Repair STOMACH STITCH (~08/2014) Thyroid (~09/2014) Family History Mother Stroke Father Diabetes GI bleed Heart disease Sister Diabetes Essential hypertension Neoplasm Brother Macular degeneration Grandfather Heart disease Neoplasm Grandfather No problems noted. Grandmother Heart disease Grandmother Neoplasm Son Neoplasm Son No problems noted. Daughter Neoplasm Daughter No problems noted. Child No problems noted. Social History current occupational status: retired pets and animals: Yes pets and animals: cat(s) and dog(s) Smoking/Tobacco Use Status: Never substance use type: does not use emily/adventism: Anabaptist special emily needs: No Exam Const General: cooperative and no acute distress HENMT Mouth: moist mucous membranes Eyes Conjunctivae: normal conjunctivae Sclera: normal sclerae Cardio Rate: regular rate Rhythm: regular rhythm Pulses: dorsalis pedis pulses present on the right 2+ Skin General skin exam: no rashes or lesions noted Neuro General: alert, awake and oriented x3 Extrem General: no calf tenderness and no edema Right lower extremity: ankle (tenderness and swelling lateral ankle talofibular ligament) Details: tenderness, swelling and other (pain with inversion); no unusual warmth and no ecchymosis Course Vital Signs Temperature 37 C 06/02/18 12:48 Pulse 66 06/02/18 12:48 Respiratory Rate 18 06/02/18 12:48 Blood Pressure 115/58 L 06/02/18 12:48 Pulse Oximetry 95 06/02/18 12:48 Temperature 37 C 06/02/18 12:48 Temperature Source Temporal Artery Scan 06/02/18 12:48 Pulse 66 06/02/18 12:48 Respiratory Rate 18 06/02/18 12:48 Respiratory Effort Non-Labored 06/02/18 12:55 Blood Pressure 115/58 L 06/02/18 12:48 Blood Pressure Position Sitting 06/02/18 12:48 Pulse Oximetry 95 06/02/18 12:48 Oxygen Delivery Method Room Air 06/02/18 12:48 Oxygen Flow Rate 0 06/02/18 12:48 Pain Level 8 06/02/18 13:01
== END 2018-06-02 15:20 | disposition home or self-care (01) ==
PROVIDERS: Emergency Provider Student in an Organized Health Care Education/Training Program; PCP Family Medicine
DX: S93.401A Sprain of unspecified ligament of right ankle, initial encounter (principal); X50.1XXA Overexertion from prolonged static or awkward postures, initial encounter
CPT/HCPCS: 29515; 36415; 80053; 99283; 73610; 84443; 85025; 99282; L1902

== ENCOUNTER 2018-06-05 00:19 | Outpatient (CLI) | payer MEDICARE, OTHER, SELFPAY ==
--- NOTE | 2018-06-05 08:00 | DI.US_ITS ---
SYMPTOMS/DIAGNOSIS: NAUSEA/BACK PAIN, R11.2 ABDOMINAL ULTRASOUND: Comparison examination is from 05/13/18. The aorta and IVC are unremarkable. The liver is unremarkable. The patient is status post cholecystectomy. The common duct measures .8 cm. The pancreas is echogenic but otherwise unremarkable. The spleen has a normal appearance. 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 This was visualized on the CT scan of the abdomen and pelvis from 05/15/17. The kidneys are unremarkable except for bilateral renal cysts. IMPRESSION: Status post cholecystectomy. No acute findings seen on the ultrasound of the abdomen.
== END 2018-06-05 00:39 ==
PROVIDERS: PCP Family Medicine; Visit Provider Internal Medicine
DX: R11.2 Nausea with vomiting, unspecified (principal); M54.5 Low back pain; Z90.49 Acquired absence of other specified parts of digestive tract
CPT/HCPCS: 76700

== ENCOUNTER 2018-06-09 01:38 | Outpatient (CLI) | payer MEDICARE, OTHER, SELFPAY ==
[2018-06-09 13:23] LABS: Abs Immature Grans 0.05 k/cumm (0.0-0.09); Absolute Eosinophil Count 0.74 k/cumm (0.0-0.7); Absolute Lymphocyte Count 1.92 k/cumm (1.2-3.4); Absolute Monocyte Count 0.75 k/cumm (0.11-0.7); Absolute Neutrophil Count 6.48 k/cumm (1.2-6.7); Eosinophils % 7.4; HCT 39.2 % (36.0-46.0); HGB 12.6 g/dL (12.0-15.5); Immature Grans % 0.5; Lymphocytes % 19.1; Mean Corp. HGB Concentration 32.1 g/dL (32.0-36.0); Mean Corpuscular Hemoglobin 28.3 pg (27.0-33.0); Mean Corpuscular Volume 87.9 fL (80-95); Mean Platelet Volume 11.7 fL (8.0-11.0); Monocytes % 7.5; Neutrophils % 64.5; Platelet Count 311 x1000/uL (130-400); RBC 4.46 m/cumm (4.00-5.20); RBC Distribution Width 15.1 % (11.7-14.6); White Blood Cell Count 10.04 k/cumm (4.4-10.8)
[2018-06-09 14:02] LABS: Iron 31 ug/dL (50-175); Total Iron Binding Capacity 311 ug/dL (250-450); Transferrin Sat 10 % (15-50)
[2018-06-09 14:29] LABS: Folate 15.4 ng/mL (8.6-20.0); Vitamin B12 389 pg/mL (193-986)
== END 2018-06-09 01:58 ==
PROVIDERS: PCP Family Medicine; Visit Provider Internal Medicine
DX: R11.2 Nausea with vomiting, unspecified (principal); D72.829 Elevated white blood cell count, unspecified; D72.9 Disorder of white blood cells, unspecified; R79.89 Other specified abnormal findings of blood chemistry; K20.9 Esophagitis, unspecified; K29.00 Acute gastritis without bleeding; K64.8 Other hemorrhoids; F41.1 Generalized anxiety disorder
CPT/HCPCS: 36415; 99212; 99213; 82607; 82746; 83540; 83550; 85025

== ENCOUNTER → 2018-06-15 10:53 | Outpatient (BNVA) | payer MEDICARE, OTHER, SELFPAY | PROVIDERS: PCP Family Medicine; Referring Provider Family Medicine; Visit Provider Internal Medicine Cardiovascular Disease | DX: I47.1 Supraventricular tachycardia (principal); E78.5 Hyperlipidemia, unspecified; I10 Essential (primary) hypertension | CPT/HCPCS: 99213 ==

== ENCOUNTER 2018-06-26 00:56 | Outpatient (CLI) | payer MEDICARE, OTHER, SELFPAY ==
--- NOTE | 2018-06-26 10:05 | DI.RAD_ITS ---
SYMPTOM/DIAGNOSIS: LOW BACK PAIN, DORSALGIA, M54.9 LUMBAR SPINE: AP, lateral and bilateral oblique views. Comparison is made with CT scan of the lumbar spine from 05/15/17. There are five lumbar type vertebral bodies. There is mild straightening of the normal lumbar lordosis. No acute fractures or subluxations are seen. There is a Schmorl's node seen in the superior endplate of L 2 which is unchanged. There is disc space narrowing and vacuum discs at L 1-2, L 3-4, L 4-5 and L 5-S 1. There are endplate osteophytes throughout the lumbar spine. No spondylolysis or spondylolisthesis is seen. Degenerative changes of the facets are present throughout the lumbar spine. IMPRESSION: Moderate degenerative changes of the lumbar spine. No acute abnormality.
== END 2018-06-26 01:16 ==
PROVIDERS: PCP Family Medicine; Visit Provider Family Medicine
DX: M54.5 Low back pain (principal); M51.36 Other intervertebral disc degeneration, lumbar region
CPT/HCPCS: 72110

== ENCOUNTER → 2018-07-14 10:36 | Outpatient (BNVA) | payer MEDICARE, OTHER, SELFPAY | PROVIDERS: PCP Family Medicine; Referring Provider Family Medicine; Visit Provider Orthopaedic Surgery | DX: M17.11 Unilateral primary osteoarthritis, right knee (principal); M17.12 Unilateral primary osteoarthritis, left knee; I10 Essential (primary) hypertension | CPT/HCPCS: 20610; 99211; 99213; J1040 ==

== ENCOUNTER 2018-08-04 02:02 | Outpatient (CLI) | payer MEDICARE, OTHER, SELFPAY ==
[2018-08-04 11:35] LABS: HCT 40.9 % (36.0-46.0); HGB 12.9 g/dL (12.0-15.5); Mean Corp. HGB Concentration 31.5 g/dL (32.0-36.0); Mean Corpuscular Volume 88.9 fL (80-95); Mean Platelet Volume 12.2 fL (8.0-11.0); Platelet Count 263 x1000/uL (130-400); RBC Distribution Width 17.3 % (11.7-14.6); White Blood Cell Count 9.59 k/cumm (4.4-10.8)
[2018-08-04 11:39] LABS: Iron 48 ug/dL (50-175)
== END 2018-08-04 02:22 ==
PROVIDERS: PCP Family Medicine; Visit Provider Family Medicine
DX: D64.9 Anemia, unspecified (principal)
CPT/HCPCS: 36415; 85027; 83540

== ENCOUNTER 2018-08-11 16:41 | Outpatient (CLI) | payer MEDICARE, OTHER, SELFPAY ==
--- NOTE | 2018-08-11 16:00 | DI.RAD_ITS ---
SYMPTOM/DIAGNOSIS: ANKLE PAIN, H/O SCREWS, M25.572 LEFT ANKLE: The patient is status post ankle fusion with screws transfixing the tibiotalar joint. Note is made of resection of the distal fibula. As visualized, the talocalcaneal joint appears intact. Soft tissue swelling is identified about the ankle. There is no evidence of an acute fracture or dislocation.
== END 2018-08-11 17:01 ==
PROVIDERS: PCP Family Medicine; Visit Provider Family Medicine
DX: M25.572 Pain in left ankle and joints of left foot (principal); Z98.1 Arthrodesis status; M79.89 Other specified soft tissue disorders
CPT/HCPCS: 73610

== ENCOUNTER 2018-08-20 08:23 | Emergency (ER) | payer MEDICARE, OTHER, SELFPAY ==
[2018-08-20 08:28] VITALS: BP 138/68; PULSE 64; RESP 18; TEMP 36.4; O2SAT 97
--- NOTE | 2018-08-20 08:57 | W.ED.GENAD ---
Discharge Plan Disposition Patient Disposition: HOME Condition: Fair Discharge Details Chief Complaint: Orthopedic Clinical Impression: Ankle pain, right, Osteoarthritis Primary Care Provider: Joann Arreola ED Provider: Sumi Hurtado Home Meds and New Rx's Prescriptions: Continued rabeprazole [Aciphex] 20 mg tablet,delayed release (DR/EC) 20 mg PO BID Qty: 180 RF: 12 ranitidine HCl 150 mg capsule 150 mg PO HS Qty: 90 RF: 3 acetaminophen [Tylenol Extra Strength] 500 mg tablet 1,000 mg PO TID RF: 0 escitalopram oxalate 10 mg tablet 10 mg PO DAILY Qty: 90 RF: 5 buspirone 10 mg tablet 10 mg PO BID Qty: 180 RF: 5 ondansetron 8 mg tablet,disintegrating 8 mg PO BID PRN (Reason: nausea and vomiting) Qty: 14 RF: 2 aspirin [Ecotrin Low Strength] 81 MG tablet,delayed release (DR/EC) 81 mg PO HS RF: 0 nystatin 60 GM powder Topical BID Qty: 60 RF: 12 estradiol [Estrace] 42.5 GM cream 4 g Topical 2X /week Qty: 5 RF: 4 albuterol sulfate 2.5 MG/3 ML solution for nebulization 2.5 mg Inhalation QID PRNQty: 100 RF: 12 albuterol sulfate [ProAir HFA] 8.5 GM HFA aerosol inhaler 1 - 2 puff Inhalation Q4H PRN Qty: 1 RF: 12 lorazepam 0.5 MG tablet 0.5 mg PO HS PRNQty: 90 RF: 2 Flovent HFA 110 mcg/actuation HFA aerosol inhaler 1 puff Inhalation 1 PUFF HS Qty: 12 RF: 1 diltiazem HCl 120 mg capsule,extended release 12 hr 120 mg PO BID Qty: 90 RF: 4 PulmoNeb LT Compressor Nebul 1 EACH device 1 ea Miscellaneous PRN PRNRF: 0 levothyroxine 75 mcg Tablet 75 mcg PO DAILY RF: 0 garlic 1,000 mg Capsule 1,000 mg PO DAILY RF: 0 cholecalciferol (vitamin D3) [Vitamin D3] 2,000 unit Capsule 2,000 unit PO DAILY RF: 0 Discharge Instructions Instructions: Arthritis (ED) Additional Instructions: Encourage rest, ice, elevation. Tylenol as needed for discomfort. Continue with ankle brace and use a walker to help with ambulation. Please follow-up with primary care, you have an appointment August 25 at 11:40 AM. If your ankle becomes red, warm, you develop fever/chills or other new/worsening symptoms please seek care urgently once again. Referrals: Joann Arreola [place], [place] [Primary Care Provider] - 08/25/18 11:40 am Medical Decision Making Patient is a 77 year old female with c/c of right ankle pain. She reports that she awoke with discomfort this morning, pain with weight bearing activities. Denies trauma, states she was working around the house yesterday. Believes she can feel a bone sticking out from the lateral aspect of the ankle. No recent illness, no feves/chills. No erythema or warmth. Pain does not radiate. Takes Tylenol daily, took this AM. Had surgery on the contralateral ankle. Story changes, she had told nursing staff she was undergoing PT for ankles, advised myself that PT was for her back. Had advised myself that she had not previously had issues with the right ankle but told nursing staff she had brace for ankle from previous injury. Patient was in lace up ankle brace at time of arrival. On exam, patient is noted to have small amount of swelling laterally. No palpable defect. Pain maximal over the posterior talofibular ligament and calcaneofibular ligament. no erthema or warmth. No break in the skin. No pain with palpation proximal to this. No evidence at this time for fracture but patient is very concerned for bony abnormality and has had fractures historically, will obtain XR to evaluate further. Reviewed previous notes, patient was here for the same issue on 06/02/18 at which time XR was negative and she was given lace up ankle brace. Consulted with radiologist who advised no acute changes compared to previous. Osteoarthritic changes noted. Discussed findings with the patient and her friend. She has undergone left ankle fusion for OA. Has orthopedic physician in [place] she would like to f/u with. She has a brace and walker already. She expressed her concern for driving and I did offer to have our child care attendant school help facilitate this but she believes that her neighbor will be able to drive her to appointments and declines further consultation. I did advise follow-up with primary care, appointment was made by myself. We discussed new/worsening symptoms when to seek care urgently once again. Encourage rest, ice, elevation. All of her questions and concerns were addressed and she is in agreement this plan HPI General Mode of arrival: wheelchair. Date/Time Provider Initiated Documentation: 08/20/18 08:37. Limitations to Documentation: no limitations. Information obtained by: patient, family and RN notes reviewed. History of Present Illness 77 year old F presents to the emergency department with the chief complaint of lateral right ankle pain, described as severe, Quality is described as burning, and is localized to the right and lower extremity. Patient reports no radiation. Patient started experiencing this hour(s) and it has been constant. Immobilization improves symptom(s), Movement worsens symptoms (weight bearing activities) . Patient notes no other symptoms.; denies chest pain, cough, fever/chills, rash and weakness. Patient did receive the following treatments prior to arrival, other (takes tylenol daily) Related Data Home Medications Medication Instructions Recorded Confirmed aspirin [Ecotrin Low Strength] 81 mg PO HS 08/20/12 08/20/18 nystatin 0 TOPICAL BID #60 gm 12/04/15 08/11/18 PulmoNeb LT Compressor Nebul 02/07/16 08/11/18 estradiol [Estrace] 4 g TOPICAL 2X /week #5 tube 10/17/16 08/20/18 albuterol sulfate 2.5 mg INHALATION QID PRN #100 dose 07/01/17 08/20/18 albuterol sulfate [ProAir HFA] 1 - 2 puff INHALATION Q4H PRN #1 07/01/17 08/20/18 inhaler lorazepam 0.5 mg PO HS PRN #90 tab-cap 10/26/17 08/20/18 cholecalciferol (vitamin D3) 2,000 unit PO DAILY 03/11/18 08/20/18 [Vitamin D3] garlic 1,000 mg PO DAILY 03/11/18 08/20/18 levothyroxine 75 mcg PO DAILY 05/28/18 08/20/18 ondansetron 8 mg disintegrating 8 mg PO BID PRN #14 tab 06/01/18 08/20/18 tablet fluticasone propionate 110 1 puff INHALATION 1 PUFF HS #12 gm 06/16/18 08/20/18 mcg/actuation HFA aerosol inhaler acetaminophen 500 mg tablet 1,000 mg PO TID tab 07/01/18 08/20/18 buspirone 10 mg tablet 10 mg PO BID #180 tab 07/01/18 08/20/18 escitalopram 10 mg tablet 10 mg PO DAILY #90 tab 07/01/18 08/20/18 diltiazem ER 120 mg 120 mg PO BID #90 cap 07/14/18 08/20/18 capsule,extended release 12 hr rabeprazole 20 mg tablet,delayed 20 mg PO BID #180 tab 08/11/18 08/20/18 release ranitidine 150 mg capsule 150 mg PO HS #90 cap 08/11/18 08/20/18 Previous Rx's Medication Instructions Recorded albuterol sulfate [ProAir HFA] 1 - 2 puff INHALATION Q4H PRN #1 07/01/17 inhaler ondansetron 8 mg disintegrating 8 mg PO BID PRN #14 tab 06/01/18 tablet fluticasone propionate 110 1 puff INHALATION 1 PUFF HS #12 gm 06/16/18 mcg/actuation HFA aerosol inhaler buspirone 10 mg tablet 10 mg PO BID #180 tab 07/01/18 escitalopram 10 mg tablet 10 mg PO DAILY #90 tab 07/01/18 diltiazem ER 120 mg 120 mg PO BID #90 cap 07/14/18 capsule,extended release 12 hr rabeprazole 20 mg tablet,delayed 20 mg PO BID #180 tab 08/11/18 release ranitidine 150 mg capsule 150 mg PO HS #90 cap 08/11/18 Allergies Allergy/AdvReac Type Severity Reaction Status Date / Time hylan G-F 20 Allergy SWELLING Verified 08/20/18 08:35 AND PAIN metronidazole [From Flagyl] Allergy Skin Rash Verified 08/20/18 08:35 Pyrazoles Allergy Verified 08/20/18 08:35 tolterodine Allergy DIFFICULTY Verified 08/20/18 08:35 BREATHING methylprednisolone AdvReac Intermediate weakness Verified 08/20/18 08:35 and unable mood. hydromorphone AdvReac Mild Nausea Verified 08/20/18 08:35 amitriptyline AdvReac NAUSEA Verified 08/20/18 08:35 aspartame AdvReac HEART Verified 08/20/18 08:35 RACING ondansetron HCl [From Zofran] AdvReac HALLUCINATI Verified 08/20/18 08:35 ON General Stated Complaint: Orthopedic MANDY: 4 Review of Systems Constitutional Reports as per HPI, Denies chills, Denies fever(s), Denies headache(s) and Denies weakness ENT Denies headache(s) Cardiovascular Reports as per HPI Respiratory Reports as per HPI and Denies cough Musculoskeletal Reports as per HPI and Denies tingling Integumentary/Breasts Reports as per HPI, Denies rash and Denies wounds Neurologic Reports as per HPI, Denies headache(s), Denies tingling, Denies paresthesias and Denies weakness [facility] Medical History Multiple gastric polyps (Chronic) Epigastric pain (Chronic) Epiretinal membrane (ERM) of right eye (Chronic) 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) Obstructive sleep apnea syndrome (Chronic 06/16/12) 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) Knee pain (Chronic) 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) Hypothyroidism (Chronic 12/20/14) Hypercholesterolemia (Chronic 09/21/13) Herpetic vulvovaginitis (Chronic 04/24/11) Herpes zoster without complication (Chronic 09/01/17) Gum lesion (Resolved 03/06/15) Gastroesophageal reflux disease (Chronic) Essential hypertension (Chronic 02/19/13) Elevated fasting glucose (Chronic 06/27/14) Diverticulosis of colon without diverticulitis (Chronic) Depressive disorder (Chronic) Asthma (Chronic) Arthritis (Chronic) Anxiety (Chronic) Allergic eosinophilia (Chronic) Adrenal mass, right (Chronic 12/11/16) Primary osteoarthritis of both knees (Chronic) MARILYN (generalized anxiety disorder) (Chronic) Cortical cataract of left eye (Resolved) Cortical cataract of right eye (Resolved) Nuclear sclerotic cataract of left eye (Resolved) Nuclear sclerotic cataract of right eye (Resolved) Posterior subcapsular age-related cataract of left eye (Resolved) Posterior subcapsular age-related cataract, right eye (Resolved) Anxiety disorder Asthma Depressive disorder Diverticulosis Essential hypertension GERD (gastroesophageal reflux disease) CELINA (obstructive sleep apnea) SVT (supraventricular tachycardia) Thyroid malignant neoplasm Surgical History Status post cataract extraction and insertion of intraocular lens of right eye (Chronic 03/27/18) Status post cataract extraction and insertion of intraocular lens of left eye (Chronic 03/13/18) Arthroplasty of knee Cholecystectomy Colonoscopy - MAC Hysterectomy, Laproscopic Rotator Cuff Repair STOMACH STITCH (~08/2014) Thyroid (~09/2014) Social History Smoking/Tobacco Use Status: Never Alcohol Intake: never Drug use: Never Substance use type: does not use Pets and animals: Yes Pets and animals: cat(s) and dog(s) What type of physical activity do you participate in: none Li/Quaker: Uatsdin Special li needs: No Do you feel safe at home: Yes Do you feel safe in your relationship?: Yes Exam Const General: cooperative, healthy appearing, comfortable, no acute distress, well developed and well groomed Nutritional Appearance: average body habitus and well nourished Orientation: alert and awake Resp Effort & Inspection: normal respiratory effort, able to speak in complete sentences and no respiratory distress Cardio Rate: regular rate Rhythm: regular rhythm Skin General skin exam: no rashes or lesions noted Lesions: no lesions Rashes: no rashes Trauma: no lacerations or abrasions Neuro General: alert and awake Cognition: normal cognition Speech: speech normal Gait: normal gait Motor: muscle tone normal throughout Sensory Exam: no sensory deficits noted Extrem Right lower extremity: full ROM, normal capillary refill, knee Details: normal to inspection, lower leg Details: normal to inspection and no edema; no erythema, no tenderness, no palpable cords, no deformity and no unusual warmth and ankle Details: tenderness Location: of the lateral malleolus and anterolaterally, swelling Details: laterally, no edema and normal ROM (no pain with ROM); no unusual warmth, no abrasions, no lacerations, no ecchymosis, no crepitus, no foreign bodies and achilles tendon exam normal; abnormal to inspection (small amount of swelling noted to left lateral ankle. No erythema, warmth), no cyanosis and no edema Psych Appearance: grossly normal and well kempt Mental Status: mental status grossly normal Speech and Movement: speech and movement normal Course Vital Signs Temperature 36.4 C L 08/20/18 08:28 Pulse 64 08/20/18 08:28 Respiratory Rate 18 08/20/18 08:28 Blood Pressure 138/68 08/20/18 08:28 Pulse Oximetry 97 08/20/18 08:28 Temperature 36.4 C L 08/20/18 08:28 Temperature Source Temporal Artery Scan 08/20/18 08:28 Pulse 64 08/20/18 08:28 Respiratory Rate 18 08/20/18 08:28 Respiratory Effort Non-Labored 08/20/18 08:33 Blood Pressure 138/68 08/20/18 08:28 Blood Pressure Position Supine 08/20/18 08:28 Pulse Oximetry 97 08/20/18 08:28 Oxygen Delivery Method Room Air 08/20/18 08:28 Oxygen Flow Rate 0 08/20/18 08:28 Pain Level 10 08/20/18 08:33
--- NOTE | 2018-08-20 09:05 | DI.RAD_ITS ---
SYMPTOMS/DIAGNOSIS: PAIN LATERAL MALLEOLUS RIGHT ANKLE: Three views were obtained. There are marked degenerative changes of the joints of the ankle. The ankle mortise appears fairly well maintained although the cartilaginous joint space is thinned anteriorly and laterally. No acute fracture seen.
--- NOTE | 2018-08-20 09:11 | ED.GENADUL_ITS ---
Discharge Plan Disposition Patient Disposition: HOME Condition: Fair Discharge Details Chief Complaint: Orthopedic Clinical Impression: Ankle pain, right, Osteoarthritis Primary Care Provider: Joann Arreola ED Provider: Sumi Hurtado Home Meds and New Rx's Prescriptions: Continued rabeprazole [Aciphex] 20 mg tablet,delayed release (DR/EC) 20 mg PO BID Qty: 180 RF: 12 ranitidine HCl 150 mg capsule 150 mg PO HS Qty: 90 RF: 3 acetaminophen [Tylenol Extra Strength] 500 mg tablet 1,000 mg PO TID RF: 0 escitalopram oxalate 10 mg tablet 10 mg PO DAILY Qty: 90 RF: 5 buspirone 10 mg tablet 10 mg PO BID Qty: 180 RF: 5 ondansetron 8 mg tablet,disintegrating 8 mg PO BID PRN (Reason: nausea and vomiting) Qty: 14 RF: 2 aspirin [Ecotrin Low Strength] 81 MG tablet,delayed release (DR/EC) 81 mg PO HS RF: 0 nystatin 60 GM powder Topical BID Qty: 60 RF: 12 estradiol [Estrace] 42.5 GM cream 4 g Topical 2X /week Qty: 5 RF: 4 albuterol sulfate 2.5 MG/3 ML solution for nebulization 2.5 mg Inhalation QID PRNQty: 100 RF: 12 albuterol sulfate [ProAir HFA] 8.5 GM HFA aerosol inhaler 1 - 2 puff Inhalation Q4H PRN Qty: 1 RF: 12 lorazepam 0.5 MG tablet 0.5 mg PO HS PRNQty: 90 RF: 2 Flovent HFA 110 mcg/actuation HFA aerosol inhaler 1 puff Inhalation 1 PUFF HS Qty: 12 RF: 1 diltiazem HCl 120 mg capsule,extended release 12 hr 120 mg PO BID Qty: 90 RF: 4 PulmoNeb LT Compressor Nebul 1 EACH device 1 ea Miscellaneous PRN PRNRF: 0 levothyroxine 75 mcg Tablet 75 mcg PO DAILY RF: 0 garlic 1,000 mg Capsule 1,000 mg PO DAILY RF: 0 cholecalciferol (vitamin D3) [Vitamin D3] 2,000 unit Capsule 2,000 unit PO DAILY RF: 0 Discharge Instructions Instructions: Arthritis (ED) Additional Instructions: Encourage rest, ice, elevation. Tylenol as needed for discomfort. Continue with ankle brace and use a walker to help with ambulation. Please follow-up with primary care, you have an appointment August 25 at 11:40 AM. If your ankle becomes red, warm, you develop fever/chills or other new/worsening symptoms please seek care urgently once again. Referrals: Joann Arreola [place], [place] [Primary Care Provider] - 08/25/18 11:40 am Medical Decision Making Patient is a 77 year old female with c/c of right ankle pain. She reports that she awoke with discomfort this morning, pain with weight bearing activities. Denies trauma, states she was working around the house yesterday. Believes she can feel a bone sticking out from the lateral aspect of the ankle. No recent illness, no feves/chills. No erythema or warmth. Pain does not radiate. Takes Tylenol daily, took this AM. Had surgery on the contralateral ankle. [facility], she had told nursing staff she was undergoing PT for ankles, advised myself that PT was for her back. Had advised myself that she had not previously had issues with the right ankle but told nursing staff she had brace for ankle from previous injury. Patient was in lace up ankle brace at time of arrival. On exam, patient is noted to have small amount of swelling laterally. No palpable defect. Pain maximal over the posterior talofibular ligament and calcaneofibular ligament. no erthema or warmth. No break in the skin. No pain with palpation proximal to this. No evidence at this time for fracture but patient is very concerned for bony abnormality and has had fractures historically, will obtain XR to evaluate further. Reviewed previous notes, patient was here for the same issue on 06/02/18 at which time XR was negative and she was given lace up ankle brace. Consulted with radiologist who advised no acute changes compared to previous. Osteoarthritic changes noted. Discussed findings with the patient and her friend. She has undergone left ankle fusion for OA. Has orthopedic physician in [place] she would like to f/u with. She has a brace and walker already. She expressed her concern for driving and I did offer to have our care transition mgr help facilitate this but she believes that her neighbor will be able to drive her to appointments and declines further consultation. I did advise follow-up with primary care, appointment was made by myself. We discussed new/worsening symptoms when to seek care urgently once again. Encourage rest, ice, elevation. All of her questions and concerns were addressed and she is in agreement this plan HPI General Mode of arrival: wheelchair . Date/Time Provider Initiated Documentation: 08/20/18 08:37 . Limitations to Documentation: no limitations . Information obtained by: patient, family and RN notes reviewed . History of Present Illness 77 year old F presents to the emergency department with the chief complaint of lateral right ankle pain, described as severe, Quality is described as burning, and is localized to the right and lower extremity. Patient reports no radiation. Patient started experiencing this hour(s) and it has been constant. Immobilization improves symptom(s), Movement worsens symptoms (weight bearing activities) . Patient notes no other symptoms.; denie s chest pain, cough, fever/chills, rash and weakness. Patient did receive the following treatments prior to arrival, other (takes tylenol daily) Related Data Home Medications Medication Instructions Recorded Confirmed aspirin [Ecotrin Low Strength] 81 mg PO HS 08/20/12 08/20/18 nystatin 0 TOPICAL BID #60 gm 12/04/15 08/11/18 PulmoNeb LT Compressor Nebul 02/07/16 08/11/18 estradiol [Estrace] 4 g TOPICAL 2X /week #5 tube 10/17/16 08/20/18 albuterol sulfate 2.5 mg INHALATION QID PRN #100 dose 07/01/17 08/20/18 albuterol sulfate [ProAir HFA] 1 - 2 puff INHALATION Q4H PRN #1 07/01/17 08/20/18 inhaler lorazepam 0.5 mg PO HS PRN #90 tab-cap 10/26/17 08/20/18 cholecalciferol (vitamin D3) 2,000 unit PO DAILY 03/11/18 08/20/18 [Vitamin D3] garlic 1,000 mg PO DAILY 03/11/18 08/20/18 levothyroxine 75 mcg PO DAILY 05/28/18 08/20/18 ondansetron 8 mg disintegrating 8 mg PO BID PRN #14 tab 06/01/18 08/20/18 tablet fluticasone propionate 110 1 puff INHALATION 1 PUFF HS #12 gm 06/16/18 08/20/18 mcg/actuation HFA aerosol inhaler acetaminophen 500 mg tablet 1,000 mg PO TID tab 07/01/18 08/20/18 buspirone 10 mg tablet 10 mg PO BID #180 tab 07/01/18 08/20/18 escitalopram 10 mg tablet 10 mg PO DAILY #90 tab 07/01/18 08/20/18 diltiazem ER 120 mg 120 mg PO BID #90 cap 07/14/18 08/20/18 capsule,extended release 12 hr rabeprazole 20 mg tablet,delayed 20 mg PO BID #180 tab 08/11/18 08/20/18 release ranitidine 150 mg capsule 150 mg PO HS #90 cap 08/11/18 08/20/18 Previous Rx's Medication Instructions Recorded albuterol sulfate [ProAir HFA] 1 - 2 puff INHALATION Q4H PRN #1 07/01/17 inhaler ondansetron 8 mg disintegrating 8 mg PO BID PRN #14 tab 06/01/18 tablet fluticasone propionate 110 1 puff INHALATION 1 PUFF HS #12 gm 06/16/18 mcg/actuation HFA aerosol inhaler buspirone 10 mg tablet 10 mg PO BID #180 tab 07/01/18 escitalopram 10 mg tablet 10 mg PO DAILY #90 tab 07/01/18 diltiazem ER 120 mg 120 mg PO BID #90 cap 07/14/18 capsule,extended release 12 hr rabeprazole 20 mg tablet,delayed 20 mg PO BID #180 tab 08/11/18 release ranitidine 150 mg capsule 150 mg PO HS #90 cap 08/11/18 Allergies Allergy/AdvReac Type Severity Reaction Status Date / Time hylan G- 20 Allergy SWELLING Verified 08/20/18 08:35 AND PAIN metronidazole [From Flagyl] Allergy Skin Rash Verified 08/20/18 08:35 Pyrazoles Allergy Verified 08/20/18 08:35 tolterodine Allergy DIFFICULTY Verified 08/20/18 08:35 BREATHING methylprednisolone AdvReac Intermediate weakness Verified 08/20/18 08:35 and unable mood. hydromorphone AdvReac Mild Nausea Verified 08/20/18 08:35 amitriptyline AdvReac NAUSEA Verified 08/20/18 08:35 aspartame AdvReac HEART Verified 08/20/18 08:35 RACING ondansetron HCl [From Zofran] AdvReac HALLUCINATI Verified 08/20/18 08:35 ON General Stated Complaint: Orthopedic MANDY: 4 Review of Systems Constitutional Reports as per HPI, Denies chills, Denies fever(s), Denies headache(s) and Denies weakness ENT Denies headache(s) Cardiovascular Reports as per HPI Respiratory Reports as per HPI and Denies cough Musculoskeletal Reports as per HPI and Denies tingling Integumentary/Breasts Reports as per HPI, Denies rash and Denies wounds Neurologic Reports as per HPI, Denies headache(s), Denies tingling, Denies paresthesias and Denies weakness FOR[facility]LY [facility] Medical History Multiple gastric polyps (Chronic) Epigastric pain (Chronic) Epiretinal membrane (ERM) of right eye (Chronic) 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) Obstructive sleep apnea syndrome (Chronic 06/16/12) 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) Knee pain (Chronic) 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) Hypothyroidism (Chronic 12/20/14) Hypercholesterolemia (Chronic 09/21/13) Herpetic vulvovaginitis (Chronic 04/24/11) Herpes zoster without complication (Chronic 09/01/17) Gum lesion (Resolved 03/06/15) Gastroesophageal reflux disease (Chronic) Essential hypertension (Chronic 02/19/13) Elevated fasting glucose (Chronic 06/27/14) Diverticulosis of colon without diverticulitis (Chronic) Depressive disorder (Chronic) Asthma (Chronic) Arthritis (Chronic) Anxiety (Chronic) Allergic eosinophilia (Chronic) Adrenal mass, right (Chronic 12/11/16) Primary osteoarthritis of both knees (Chronic) MARILYN (generalized anxiety disorder) (Chronic) Cortical cataract of left eye (Resolved) Cortical cataract of right eye (Resolved) Nuclear sclerotic cataract of left eye (Resolved) Nuclear sclerotic cataract of right eye (Resolved) Posterior subcapsular age-related cataract of left eye (Resolved) Posterior subcapsular age-related cataract, right eye (Resolved) Anxiety disorder Asthma Depressive disorder Diverticulosis Essential hypertension GERD (gastroesophageal reflux disease) CELINA (obstructive sleep apnea) SVT (supraventricular tachycardia) Thyroid malignant neoplasm Surgical History Status post cataract extraction and insertion of intraocular lens of right eye (Chronic 03/27/18) Status post cataract extraction and insertion of intraocular lens of left eye (Chronic 03/13/18) Arthroplasty of knee Cholecystectomy Colonoscopy - MAC Hysterectomy, Laproscopic Rotator Cuff Repair STOMACH STITCH (~08/2014) Thyroid (~09/2014) Social History Smoking/Tobacco Use Status: Never Alcohol Intake: never Drug use: Never Substance use type: does not use Pets and animals: Yes Pets and animals: cat(s) and dog(s) What type of physical activity do you participate in: none Li/Zoroastrianism: Yarsani Special li needs: No Do you feel safe at home: Yes Do you feel safe in your relationship?: Yes Exam Const General: cooperative, healthy appearing, comfortable, no acute distress, well developed and well groomed Nutritional Appearance: average body habitus and well nourished Orientation: alert and awake Resp Effort & Inspection: normal respiratory effort, able to speak in complete sentences and no respiratory distress Cardio Rate: regular rate Rhythm: regular rhythm Skin General skin exam: no rashes or lesions noted Lesions: no lesions Rashes: no rashes Trauma: no lacerations or abrasions Neuro General: alert and awake Cognition: normal cognition Speech: speech normal Gait: normal gait Motor: muscle tone normal throughout Sensory Exam: no sensory deficits noted Extrem Right lower extremity: full ROM, normal capillary refill, knee Details: normal to inspection, lower leg Details: normal to inspection and no edema; no erythema, no tenderness, no palpable cords, no deformity and no unusual warmth and ankle Details: tenderness Location: of the lateral malleolus and anterolaterally, swelling Details: laterally, no edema and normal ROM (no pain with ROM); no unusual warmth, no abrasions, no lacerations, no ecchymosis, no crepitus, no foreign bodies and achilles tendon exam normal; abnormal to inspection (small amount of swelling noted to left lateral ankle. No erythema, warmth), no cyanosis and no edema Psych Appearance: grossly normal and well kempt Mental Status: mental status grossly normal Speech and Movement: speech and movement normal Course Vital Signs Temperature 36.4 C L 08/20/18 08:28 Pulse 64 04/11/19 08:28 Respiratory Rate 18 08/20/18 08:28 Blood Pressure 138/68 08/20/18 08:28 Pulse Oximetry 97 08/20/18 08:28 Temperature 36.4 C L 08/20/18 08:28 Temperature Source Temporal Artery Scan 08/20/18 08:28 Pulse 64 08/20/18 08:28 Respiratory Rate 18 08/20/18 08:28 Respiratory Effort Non-Labored 08/20/18 08:33 Blood Pressure 138/68 08/20/18 08:28 Blood Pressure Position Supine 08/20/18 08:28 Pulse Oximetry 97 08/20/18 08:28 Oxygen Delivery Method Room Air 08/20/18 08:28 Oxygen Flow Rate 0 08/20/18 08:28 Pain Level 10 08/20/18 08:33
[2018-08-20 09:59] VITALS: BP 136/70; PULSE 64; RESP 16; TEMP 36.9; O2SAT 95
[2018-08-20 10:00] VITALS: BP 136/70; PULSE 64; RESP 16; TEMP 36.9; O2SAT 95
== END 2018-08-20 10:06 | disposition home or self-care (01) ==
PROVIDERS: Emergency Provider Physician Assistant; PCP Family Medicine
DX: M25.571 Pain in right ankle and joints of right foot (principal); M19.90 Unspecified osteoarthritis, unspecified site
CPT/HCPCS: 99283; 73610; 99282

== ENCOUNTER 2018-08-27 00:32 | Outpatient (CLI) | payer MEDICARE, OTHER, SELFPAY ==
--- NOTE | 2018-08-27 15:03 | DI.US_ITS ---
SYMPTOM/DIAGNOSIS: RT LOWER LEG SWELLING, PAIN, M79.661, M7989, SOFT TISSUE DISORDER DUPLEX VENOUS ULTRASOUND RIGHT LOWER EXTREMITY: Duplex evaluation of the deep venous system of the right lower extremity was performed according to the usual protocol. There is no evidence of deep venous thrombosis. Please note there is superficial thrombus in superficial veins at the level of the lateral malleolus. No proximal superficial thrombus identified.
== END 2018-08-27 00:52 ==
PROVIDERS: PCP Family Medicine; Visit Provider Family Medicine
DX: M79.661 Pain in right lower leg (principal); R22.41 Localized swelling, mass and lump, right lower limb; I82.811 Embolism and thrombosis of superficial veins of right lower extremity
CPT/HCPCS: 93971

== ENCOUNTER 2018-09-21 16:24 | Outpatient (CLI) | payer MEDICARE, OTHER, SELFPAY ==
--- NOTE | 2018-09-21 14:15 | DI.RAD_ITS ---
SYMPTOM/DIAGNOSIS: COUGH, WHEEZING, H/O ASTHMA, R05,R06.2 PA AND LATERAL CHEST: Comparison is made with 06/13/17. The heart size is within normal limits. There is a question of tiny bilateral pleural effusions. There is a prominent pericardial fat pad. The lungs are otherwise clear. IMPRESSION: Question of tiny pleural effusions.
== END 2018-09-21 16:44 ==
PROVIDERS: PCP Family Medicine
DX: J06.9 Acute upper respiratory infection, unspecified (principal); R05 Cough; R06.2 Wheezing
CPT/HCPCS: 71046

== ENCOUNTER 2018-09-23 10:26 | Emergency (ER) | payer MEDICARE, OTHER, SELFPAY ==
[2018-09-23 10:34] VITALS: BP 144/83; PULSE 80; RESP 20; TEMP 36.6; O2SAT 95
[2018-09-23] MEDS: Albuterol/Ipratropium 3 ML UPD VIAL (10:48)
--- NOTE | 2018-09-23 10:55 | ED.GENADUL_ITS ---
Discharge Plan Disposition Patient Disposition: HOME Condition: Good Discharge Details Chief Complaint: RespSymp Clinical Impression: Pneumonia Primary Care Provider: Joann Arreola ED Provider: Rajesh Orona Home Meds and New Rx's Prescriptions: New amoxicillin-pot clavulanate [Augmentin] 875-125 mg tablet 1 tab PO BID 10 Days Qty: 20 RF: 0 No Action rabeprazole [Aciphex] 20 mg tablet,delayed release (DR/EC) 20 mg PO BID Qty: 180 RF: 12 acetaminophen [Tylenol Extra Strength] 500 mg tablet 1,000 mg PO TID RF: 0 escitalopram oxalate 10 mg tablet 10 mg PO DAILY Qty: 90 RF: 5 buspirone 10 mg tablet 5 mg PO BID Qty: 180 RF: 5 aspirin [Ecotrin Low Strength] 81 MG tablet,delayed release (DR/EC) 81 mg PO HS RF: 0 nystatin 60 GM powder Topical BID Qty: 60 RF: 12 estradiol [Estrace] 42.5 GM cream 4 g Topical 2X /week Qty: 5 RF: 4 albuterol sulfate 2.5 MG/3 ML solution for nebulization 2.5 mg Inhalation QID PRNQty: 100 RF: 12 albuterol sulfate [ProAir HFA] 8.5 GM HFA aerosol inhaler 1 - 2 puff Inhalation Q4H PRN Qty: 1 RF: 12 lorazepam 0.5 MG tablet 0.5 mg PO PRN PRNQty: 90 RF: 2 Flovent HFA 110 mcg/actuation HFA aerosol inhaler 1 puff Inhalation 1 PUFF HS Qty: 12 RF: 1 diltiazem HCl 120 mg capsule,extended release 12 hr 120 mg PO BID Qty: 90 RF: 4 PulmoNeb LT Compressor Nebul 1 EACH device 1 ea Miscellaneous PRN PRNRF: 0 levothyroxine 75 mcg Tablet 75 mcg PO DAILY RF: 0 garlic 1,000 mg Capsule 1,000 mg PO DAILY RF: 0 cholecalciferol (vitamin D3) [Vitamin D3] 2,000 unit Capsule 2,000 unit PO DAILY RF: 0 benzonatate [Tessalon Perles] 100 mg Capsule 100 mg TID PRN PRNRF: 0 ferrous sulfate [iron] 325 mg (65 mg iron) Tablet 64 mg RF: 0 ranitidine HCl 150 mg capsule 300 mg PO HS RF: 0 Discharge Instructions Instructions: Pneumonia (ED) Additional Instructions: Please take the antibiotic as directed. Please follow-up closely with your primary care provider. Please use your breathing treatments every 4-6 hours for the next 2 to 3 days. If you notice any worsening of your symptoms, or any new symptoms such as vomiting, diarrhea, fever, chills, shortness of breath, chest pain, numbness, weakness, or fainting , please return immediately to the emergency department for reevaluation. Please follow up with your primary care provider as soon as possible for reassessment and reevaluation. As always, it was a pleasure participating in your medical care today. Referrals: Joann Arreola MD, [place] [Primary Care Provider] - Medical Decision Making This is a 78-year-old female who presents today with a chief complaint of cough for the last week, with productive yellow sputum. She was seen and assessed by her PCP, x-ray was ordered and showed questionable small pleural effusions at the bases but no evidence of focal infiltrate. She is discharged, however since then she has had continued worsening of her cough. She has productive yellow sputum. She denies fever, chills, chest pain, arm neck or shoulder pain or pressure. She denies any vomiting or diarrhea. No concerning red flags of hypoxemia, tachycardia, or fever. Bedside exam demonstrates minimal crackles in the right base, bedside limited ultrasound demonstrates B- lines consistent with the area of a auscultated abnormality. No pleural effusions whatsoever. There is mild amounts of consolidation also noted in the right lower lung amaya. With no chest pain, no cardiac symptomatology and her signs and symptoms are clinically inconsistent with ACS, sepsis or severe pneumonia or PE. I do not think that any additional work-up is clinically indicated at this time with notably reassuring vital signs and signs and symptoms clinically consistent with mild pneumonia. Breathing treatment was given, the patient did have minimal to mild improvement with this. Recommend continued breathing treatments at home every 4-6 hours, as well as antibiotics for mild community-acquired pneumonia. We will give the first dose of Augmentin here. I have extensively reviewed the treatment plan and discharge instructions with the patient. I have addressed all patient concerns at this time. The patient was made aware of what symptoms to monitor for that would warrant a return to the emergency department. Discussed the plan with the patient, they demonstrate verbal understanding and agreement with our assessment and plan at this time. Antibiotic choice: We have chosen to give Augmentin here for the patient's pneumonia. Recent resistant pattern studies from our hospital as well as other local facilities have both demonstrated significant resistance to azithromycin, and notable susceptibility to common community-acquired pneumonia organisms for both amoxicillin, and Augmentin. HPI General Date/Time Provider Initiated Documentation: 09/23/18 10:27 . HPI Narrative: This is a 78-year-old female who presents today with a chief complaint of cough for the last week. She was initially seen and assessed by her primary care provider, who at that time get a chest x-ray, which showed questionable tiny pleural effusions but no evidence of pneumonia. She was discharged home. Since then her cough is continued, she has had mild productivity sputum with yellow sputum. She denies any chest pain, chest tightness, chest heaviness, arm, neck, or shoulder pain. Her cough is continued to progress. She denies any hemoptysis. She denies any vomiting, diarrhea, fever or chills. She denies any history of DVTs. She does have a history of a very small superficial ankle clot, but no deep vein thrombosis. She does have a nebulizer at home but did not use this today. She denies any other complaints. No other modifying factors. She denies any recent antibiotic use. Related Data Home Medications Medication Instructions Recorded Confirmed aspirin [Ecotrin Low Strength] 81 mg PO HS 08/20/12 09/21/18 nystatin 0 TOPICAL BID #60 gm 12/04/15 09/21/18 PulmoNeb LT Compressor Nebul 02/07/16 09/21/18 estradiol [Estrace] 4 g TOPICAL 2X /week #5 tube 10/17/16 09/21/18 albuterol sulfate 2.5 mg INHALATION QID PRN #100 dose 07/01/17 09/21/18 albuterol sulfate [ProAir HFA] 1 - 2 puff INHALATION Q4H PRN #1 07/01/17 09/21/18 inhaler lorazepam 0.5 mg PO HS PRN #90 tab-cap 10/26/17 09/21/18 cholecalciferol (vitamin D3) 2,000 unit PO DAILY 03/11/18 09/21/18 [Vitamin D3] garlic 1,000 mg PO DAILY 03/11/18 09/21/18 levothyroxine 75 mcg PO DAILY 05/28/18 09/21/18 fluticasone propionate 110 1 puff INHALATION 1 PUFF HS #12 gm 06/16/18 09/21/18 mcg/actuation HFA aerosol inhaler acetaminophen 500 mg tablet 1,000 mg PO TID tab 07/01/18 09/21/18 escitalopram 10 mg tablet 10 mg PO DAILY #90 tab 07/01/18 09/21/18 diltiazem ER 120 mg 120 mg PO BID #90 cap 07/14/18 09/21/18 capsule,extended release 12 hr rabeprazole 20 mg tablet,delayed 20 mg PO BID #180 tab 08/11/18 09/21/18 release buspirone 10 mg tablet 5 mg PO BID #180 tab 08/25/18 09/21/18 amoxicillin-pot clavulanate 1 tab PO BID 10 Days #20 tab 09/23/18 [Augmentin] benzonatate [Tessalon Perles] 100 mg TID PRN PRN 09/23/18 09/23/18 ferrous sulfate [iron] 64 mg 09/23/18 ranitidine HCl 300 mg PO HS 09/23/18 09/23/18 Previous Rx's Medication Instructions Recorded albuterol sulfate [ProAir HFA] 1 - 2 puff INHALATION Q4H PRN #1 07/01/17 inhaler fluticasone propionate 110 1 puff INHALATION 1 PUFF HS #12 gm 06/16/18 mcg/actuation HFA aerosol inhaler escitalopram 10 mg tablet 10 mg PO DAILY #90 tab 07/01/18 diltiazem ER 120 mg 120 mg PO BID #90 cap 07/14/18 capsule,extended release 12 hr rabeprazole 20 mg tablet,delayed 20 mg PO BID #180 tab 08/11/18 release buspirone 10 mg tablet 5 mg PO BID #180 tab 08/25/18 amoxicillin-pot clavulanate 1 tab PO BID 10 Days #20 tab 09/23/18 [Augmentin] Allergies Allergy/AdvReac Type Severity Reaction Status Date / Time hylan G-F 20 Allergy SWELLING Verified 09/21/18 12:57 AND PAIN metronidazole [From Flagyl] Allergy Skin Rash Verified 09/21/18 12:57 Pyrazoles Allergy Verified 09/21/18 12:57 tolterodine Allergy DIFFICULTY Verified 09/21/18 12:57 BREATHING methylprednisolone AdvReac Intermediate weakness Verified 09/21/18 12:57 and unable mood. hydromorphone AdvReac Mild Nausea Verified 09/21/18 12:57 amitriptyline AdvReac NAUSEA Verified 09/21/18 12:57 aspartame AdvReac HEART Verified 09/08/18 11:36 RACING ondansetron HCl [From Zofran] AdvReac HALLUCINATI Verified 09/08/18 11:36 ON General Stated Complaint: RespSymp MANDY: 3 Review of Systems Review of Systems All systems reviewed & are unremarkable except as noted in HPI and below PFSH Social History Smoking/Tobacco Use Status: Never Alcohol Intake: never Drug use: Never Substance use type: does not use Pets and animals: Yes Pets and animals: cat(s) and dog(s) What type of physical activity do you participate in: none Li/Rastafari: [employer] Special li needs: No Do you feel safe at home: Yes Do you feel safe in your relationship?: Yes Exam Narrative Exam Narrative: 1.Const: Well-nourished, Well-developed, appearing stated age 2.Eyes: PERRL, no conjunctival injection, and symmetrical lids. 3.ENT: Atraumatic external nose and ears. Moist MM. Neck: Symmetric, trachea midline, No thyromegaly. 4.CVS: +S1/S2, No murmurs or gallops. Peripheral pulses 2+ and equal in all extremities. Brisk capillary refill in all extremities. 5.RESP: Unlabored respiratory effort. Minimal crackles in the right base, no significant rhonchi. No significant wheeze. 6.GI: Soft, Nontender/Nondistended, No hepatosplenomegaly. No guarding or rebound. 7.MSK: Normocephalic/Atraumatic, Extremities w/o deformity or ttp No cyanosis or clubbing, Normal movement of all extremities, no calf tenderness. No unilateral swelling, no pretibial edema 8.Skin: Warm, Dry. No rashes or lesions. 9.Neuro: db2 systems programmer II-XII grossly intact. Sensation grossly intact, no focal neurologic deficits. 10.Psych: (AAO) x3. Appropriate mood and affect Course Vital Signs Temperature 36.6 C 09/23/18 10:34 Pulse 80 09/23/18 10:34 Respiratory Rate 20 09/23/18 10:34 Blood Pressure 144/83 H 09/23/18 10:34 Pulse Oximetry 95 09/23/18 10:34 Temperature 36.6 C 09/23/18 10:34 Temperature Source Skin 09/23/18 10:34 Pulse 80 09/23/18 10:34 Respiratory Rate 20 09/23/18 10:34 Respiratory Effort Non-Labored 09/23/18 10:42 Respiratory Depth Normal 09/23/18 10:42 Blood Pressure 144/83 H 09/23/18 10:34 Blood Pressure Position Sitting 09/23/18 10:34 Pulse Oximetry 95 09/23/18 10:34 Oxygen Delivery Method Room Air 09/23/18 10:34 Oxygen Flow Rate 0 09/23/18 10:34 Pain Level 0 09/23/18 10:34
[2018-09-23] MEDS: Amoxicillin 875/Clav. 125 TAB PO (11:03)
== END 2018-09-23 11:09 | disposition home or self-care (01) ==
LOC: ER 10:59
PROVIDERS: Emergency Provider Student in an Organized Health Care Education/Training Program; PCP Family Medicine
DX: J18.9 Pneumonia, unspecified organism (principal); I10 Essential (primary) hypertension
CPT/HCPCS: 99283; J7620

== ENCOUNTER → 2018-10-15 09:22 | Outpatient (BNVA) | payer MEDICARE, OTHER, SELFPAY | PROVIDERS: PCP Family Medicine; Referring Provider Family Medicine; Visit Provider Orthopaedic Surgery | DX: M17.11 Unilateral primary osteoarthritis, right knee (principal); M17.12 Unilateral primary osteoarthritis, left knee; I10 Essential (primary) hypertension | CPT/HCPCS: 20610; 99211; 99212; J1040 ==

== ENCOUNTER 2018-10-20 09:16 | Outpatient (CLI) | payer MEDICARE, OTHER, SELFPAY ==
[2018-10-20 11:01] LABS: HCT 40.2 % (36.0-46.0); HGB 13.2 g/dL (12.0-15.5); Mean Corp. HGB Concentration 32.8 g/dL (32.0-36.0); Mean Corpuscular Hemoglobin 29.9 pg (27.0-33.0); Mean Corpuscular Volume 91.2 fL (80-95); Mean Platelet Volume 12.4 fL (8.0-11.0); Platelet Count 302 x1000/uL (130-400); RBC 4.41 m/cumm (4.00-5.20); RBC Distribution Width 16.3 % (11.7-14.6); White Blood Cell Count 9.65 k/cumm (4.4-10.8)
[2018-10-20 11:41] LABS: ALT 31 U/L (12-78); AST 13 U/L (15-37); Albumin 3.3 g/dL (3.4-5.0); Alkaline Phosphatase 66 U/L (46-116); Anion Gap 10.6 mmol/L (3-11); BUN 13 mg/dL (7-18); Bilirubin, Total 0.3 mg/dL (0.2-1.0); CO2 28.4 mmol/L (21.0-32.0); CREATININE 0.66 mg/dL (0.55-1.02); Chloride 102 mmol/L (98-107); Glucose 114 mg/dL (70-100); Potassium 3.8 mmol/L (3.5-5.1); Sodium 141 mmol/L (136-145); Total Protein 6.7 g/dL (6.4-8.2)
== END 2018-10-20 09:36 ==
PROVIDERS: PCP Family Medicine; Visit Provider Family Medicine
DX: K92.1 Melena (principal)
CPT/HCPCS: 36415; 80053; 85027

== ENCOUNTER 2018-10-21 01:00 | Outpatient (CLI) | payer MEDICARE, OTHER, SELFPAY ==
--- NOTE | 2018-10-21 10:34 | DI.US_ITS ---
SYMPTOMS/DIAGNOSIS: LOCALIZED RT UPPER QUADRANT PAIN WITH TENDERNESS, R10.9, K43.2, INCISIONAL HERNIA W/O OBSTRUCTION OR GANGRENE SOFT TISSUE ULTRASOUND: Sonographic evaluation of the right upper quadrant was performed. The area evaluated is in the site of an old cholecystectomy incision site. No cystic or solid masses are seen in the region. No findings to suggest a hernia are present. IMPRESSION: Negative examination. No evidence of an incisional hernia.
== END 2018-10-21 01:20 ==
PROVIDERS: PCP Family Medicine; Visit Provider Family Medicine
DX: R10.9 Unspecified abdominal pain; K43.2 Incisional hernia without obstruction or gangrene
CPT/HCPCS: 76705

== ENCOUNTER 2018-10-29 00:25 | Outpatient (CLI) | payer MEDICARE, OTHER, SELFPAY ==
--- NOTE | 2018-10-29 10:05 | DI.RAD_ITS ---
SYMPTOM/DIAGNOSIS: QUESTION OF TINY PLEURL EFFUSIONS ON PRIOR CXR R93.89 PA AND LATERAL CHEST: The lungs are well expanded and free of infiltrate. There is no evidence of a pleural effusion. The cardiovascular structures are intact. SUMMARY: Normal chest.
== END 2018-10-29 00:45 ==
PROVIDERS: PCP Family Medicine; Visit Provider Family Medicine
DX: R93.89 Abnormal findings on diagnostic imaging of other specified body structures (principal); J90 Pleural effusion, not elsewhere classified
CPT/HCPCS: 71046

== ENCOUNTER → 2018-12-21 10:18 | Outpatient (CLI) | payer MEDICARE, OTHER, SELFPAY ==
--- NOTE | 2018-12-21 10:11 | DI.RAD_ITS ---
SYMPTOM/DIAGNOSIS: Z91.81, H/O FALLING LEFT ANKLE: 12/21 Three views were obtained and show prior tibiotalar fusion with apparent resection of the distal fibula. Alignment appears essentially unchanged in comparison with previous examination of 08/11/18.
== END ==
PROVIDERS: PCP Family Medicine; Visit Provider Family Medicine
DX: Z91.81 History of falling (principal); Z98.1 Arthrodesis status; M25.572 Pain in left ankle and joints of left foot
CPT/HCPCS: 73610

== ENCOUNTER 2019-01-12 19:56 | Outpatient (REF) | payer MEDICARE, OTHER, SELFPAY | END 2019-01-12 20:16 | LOC: LBN 19:56 | PROVIDERS: PCP Family Medicine; Visit Provider Internal Medicine Gastroenterology | DX: K92.2 Gastrointestinal hemorrhage, unspecified (principal) | CPT/HCPCS: 83630; 87324 ==

== ENCOUNTER 2019-01-14 09:54 | Outpatient (CLI) | payer MEDICARE, OTHER, SELFPAY ==
--- NOTE | 2019-01-14 09:30 | DI.RAD_ITS ---
SYMPTOM/DIAGNOSIS: PAIN RIGHT KNEE: 01/14 Three views were obtained. There is marked narrowing of the medial tibiofemoral cartilaginous joint space and mild medial subluxation of the femur on the tibia. There is subchondral sclerosis and deformity of medial femoral condyle and medial tibial plateau. Moderate hypertrophic marginal spurring noted at medial tibiofemoral joint and also at patellofemoral joint and to a lesser degree the lateral tibiofemoral joint. CONCLUSION: Severe DJD predominantly involving medial tibiofemoral joint.
--- NOTE | 2019-01-14 09:30 | DI.RAD_ITS ---
SYMPTOM/DIAGNOSIS: PAIN LEFT KNEE: 01/14 Three views were obtained. There is narrowing of the medial tibiofemoral cartilaginous joint space. There is flattening and subchondral sclerosis of the medial tibial plateau. Moderate hypertrophic spurring noted involving the joints of the knee. CONCLUSION: DJD predominantly involving medial tibiofemoral joint.
== END 2019-01-14 10:14 ==
PROVIDERS: PCP Family Medicine; Referring Provider Family Medicine; Visit Provider Student in an Organized Health Care Education/Training Program
DX: M25.562 Pain in left knee (principal); M17.0 Bilateral primary osteoarthritis of knee; M25.561 Pain in right knee
CPT/HCPCS: 73562; 99213; L1820

== ENCOUNTER 2019-01-30 15:09 | Outpatient (REF) | payer MEDICARE, OTHER, SELFPAY | END 2019-01-30 15:29 | LOC: LBN 15:09 | PROVIDERS: PCP Family Medicine; Visit Provider Family Medicine | DX: K52.9 Noninfective gastroenteritis and colitis, unspecified (principal); R15.1 Fecal smearing; K92.2 Gastrointestinal hemorrhage, unspecified | CPT/HCPCS: 87177 ==

== ENCOUNTER 2019-02-16 01:45 | Outpatient (CLI) | payer MEDICARE, OTHER, SELFPAY ==
--- NOTE | 2019-02-16 10:44 | DI.RAD_ITS ---
EXAM: RF BARIUM SWALLOW CLINICAL HISTORY: DYSPHAGIA, R13.10 TECHNIQUE: 2D and realtime digital imaging was performed. Fluoro time: 34 sec CONTRAST MATERIAL: Oral barium Oral water soluble contrast was administered. COMPARISON: No exams were available for comparison FINDINGS: Initial plain film of the chest reveals normal heart size and clear lung amaya. Esophagus: The patient swallowed barium without difficulty. No aspiration was observed during the e xam. There is mild narrowing at the distal esophagus. The barium tablet stuck in this location. No visible focal stricture is seen. There is no evidence of ulceration or mass. Gastroesophageal refl ux occurred when the patient was placed supine. Tertiary contractions were observed after the swallo w. IMPRESSION: Narrowing of the distal esophagus without evidence of focal stricture. The barium tablet did not pa ss into the stomach. Gastroesophageal reflux.
[2019-02-16] MEDS: Barium Sulfate 60% W/V 355 ML BTL PO (11:11)
[2019-02-16] MEDS: Barium Sulfate 700 MG TAB PO (11:12)
== END 2019-02-16 02:05 ==
PROVIDERS: PCP Family Medicine; Visit Provider Internal Medicine Gastroenterology
DX: R13.10 Dysphagia, unspecified (principal); K21.9 Gastro-esophageal reflux disease without esophagitis; K22.2 Esophageal obstruction
CPT/HCPCS: 74220; J3490

== ENCOUNTER 2019-02-16 22:17 | Outpatient (REF) | payer MEDICARE, OTHER, SELFPAY | END 2019-02-16 22:37 | LOC: LBN 22:17 | PROVIDERS: PCP Family Medicine; Visit Provider Internal Medicine Gastroenterology | DX: K52.9 Noninfective gastroenteritis and colitis, unspecified (principal); K92.2 Gastrointestinal hemorrhage, unspecified; R15.1 Fecal smearing | CPT/HCPCS: 87329 ==

== ENCOUNTER 2019-02-27 14:38 | Outpatient (REF) | payer MEDICARE, OTHER, SELFPAY ==
[2019-03-05 12:10] LABS: Total Fat/24 Hr 4 g/24 h (2 - 7)
== END 2019-02-27 14:58 ==
LOC: LBN 14:38
PROVIDERS: PCP Family Medicine; Visit Provider Internal Medicine Gastroenterology
DX: K52.9 Noninfective gastroenteritis and colitis, unspecified (principal); K92.2 Gastrointestinal hemorrhage, unspecified
CPT/HCPCS: 82710

== ENCOUNTER 2019-03-03 10:27 | Outpatient (CLI) | payer MEDICARE, OTHER, SELFPAY ==
--- NOTE | 2019-03-03 10:18 | DI.RAD_ITS ---
EXAM: XR SHOULDER RT COMPLETE 2+V INDICATION: pain. TECHNIQUE: 2D digital imaging was performed. FINDINGS: There is no evidence of a fracture or dislocation. Mild degenerative changes are noted involving the glenohumeral and AC joints. The humeral head rides high in the glenohumeral joint raising the possi bility of a chronic rotator cuff tear.
== END 2019-03-03 10:47 ==
PROVIDERS: PCP Family Medicine; Visit Provider Orthopaedic Surgery
DX: M25.511 Pain in right shoulder (principal); M19.011 Primary osteoarthritis, right shoulder; S46.911A Strain of unspecified muscle, fascia and tendon at shoulder and upper arm level, right arm, initial encounter
CPT/HCPCS: 99214; 73030

== ENCOUNTER 2019-03-04 19:36 | Outpatient (REF) | payer MEDICARE, OTHER, SELFPAY | END 2019-03-04 19:56 | LOC: LBN 19:36 | PROVIDERS: PCP Family Medicine; Visit Provider Nurse Practitioner | DX: R10.31 Right lower quadrant pain (principal); R10.11 Right upper quadrant pain | CPT/HCPCS: 87086 ==

== ENCOUNTER 2019-03-04 22:23 | Observation (INO) | payer MEDICARE, OTHER, SELFPAY ==
[2019-03-04] VITALS (15 sets, daily range): BP systolic 114–152; BP diastolic 58–71; PULSE 79–93; RESP 13–27; TEMP 37.6; O2SAT 94–97
--- NOTE | 2019-03-04 00:28 | DI.CT_ITS ---
EXAM: CT CHEST PE ABD PELVIS W CLINICAL HISTORY: right pleuritic chest pain TECHNIQUE: CT examination of the chest, abdomen and pelvis was performed utilizing chest CTA protoco l with intravenous infusion of 115 cc of Omnipaque 350 followed by scanning of the abdomen and pelvis as well. Axial CT angiography was performed with multi-slice acquisition and multi-planar and/or 3D reconstruc tions. COMPARISON: ABD PELVIS WITH CONTRAST from 05/15/2017 FINDINGS: The lungs are predominantly clear although hypoventilated with some areas of bibasilar atelectasis. No mediastinal mass or adenopathy. Tracheobronchial tree appears grossly intact. No thoracic aortic aneurysm or dissection. There are pulmonary emboli predominantly involving right lower lobe pulmonary circulation, a few scat tered subsegmental emboli are seen elsewhere. No saddle embolus seen. Abdominal aorta is of normal diameter. Wall calcification of aorta noted without significant stenosi s. Major visceral branch vessels also show no significant stenosis. Hepatic parenchyma is unremarkable. Mild prominence of the biliary ducts post cholecystectomy. Panc reas is normal. Spleen is unremarkable with small presumed splenule. Adrenals appear normal. Small bilateral renal cysts noted without additional evidence of renal or ureteral abnormality. Small fat containing umbilical hernia noted. No other significant hernia. No evidence of appendicit is or diverticulitis. Probable prior appendectomy. Note is made of very high radiodensity material scattered throughout the colon presumably representing ingested material. IMPRESSION: Pulmonary embolic disease predominately involving right lower lobe lobar segmental and subsegmental v essels. No other significant acute findings.
--- NOTE | 2019-03-04 22:18 | W.ED.GENAD ---
Discharge Plan Disposition Patient Disposition: [facility] INPATIENT Condition: Poor Discharge Details Chief Complaint: Chest Pain Clinical Impression: Pulmonary embolism, Hypomagnesemia, Diarrhea, Hypokalemia Primary Care Provider: Joann Arreola ED Provider: Gatito Carter Newsoms Meds and New Rx's Prescriptions: No Action rabeprazole [AcipHex] 20 mg tablet,delayed release (DR/EC) 20 mg PO BID Qty: 180 RF: 12 acetaminophen [Tylenol Extra Strength] 500 mg tablet 1,000 mg PO TID RF: 0 escitalopram oxalate 10 mg tablet 10 mg PO DAILY Qty: 90 RF: 5 buspirone 10 mg tablet 5 mg PO BID Qty: 180 RF: 5 prednisone 5 mg tablet 5 mg PO DAILY Qty: 30 RF: 0 aspirin [Ecotrin Low Strength] 81 MG tablet,delayed release (DR/EC) 81 mg PO HS RF: 0 nystatin 60 GM powder 1 applic Topical BID Qty: 60 RF: 12 estradiol [Estrace] 42.5 GM cream 4 g Topical 2X /week Qty: 5 RF: 4 albuterol sulfate 2.5 MG/3 ML solution for nebulization 2.5 mg Inhalation QID PRNQty: 100 RF: 12 albuterol sulfate [ProAir HFA] 8.5 GM HFA aerosol inhaler 1 - 2 puff Inhalation Q4H PRN Qty: 1 RF: 12 lorazepam 0.5 MG tablet 0.5 mg PO PRN PRNQty: 90 RF: 2 diltiazem HCl 120 mg capsule,extended release 12 hr 120 mg PO BID Qty: 90 RF: 4 Flovent HFA 110 mcg/actuation HFA aerosol inhaler 2 puff Inhalation HS Qty: 12 RF: 6 (DME) PulmoNeb LT Compressor Nebul 1 EACH device 1 ea Miscellaneous PRN RF: 0 levothyroxine 75 mcg Tablet 75 mcg PO DAILY RF: 0 garlic 1,000 mg Capsule 1,000 mg PO DAILY RF: 0 cholecalciferol (vitamin D3) [Vitamin D3] 2,000 unit Capsule 2,000 unit PO DAILY RF: 0 Medical Decision Making <Rajesh Orona DO - Last Filed: 03/04/19 23:44> This is a 78-year-old female with a past medical history of previous adrenal mass in 2017, asthma, anxiety, arthritis, GERD, hypertension, hypothyroidism, SVT on Cardizem, who presents today for evaluation of chest pain. Patient states that yesterday at 1 AM she developed right epigastric chest pain. She describes it as a pressure-like sensation, has associated notable shortness of breath and pain with inspiration. She denies any falls or trauma. She denies any cough or hemoptysis. No previous cardiac CO history. No history of dissection. Physical exam demonstrates slightly decreased breath sounds on the right side, no abdominal tenderness, no other significant abnormality. He has had some diarrhea earlier today. Vital signs are stable. Differential is broad but includes atypical cardiac etiology, less likely PE, less likely dissection. She does have a history of a cholecystectomy, pancreatitis is on the differential but appears less likely. Uncertain as to the exact cause of her symptoms we will evaluate for potential life-threatening etiologies. 11:45 PM Patient's laboratory work-up is returned, notably elevated white count at 18, mild to moderate left shift, potassium low at 3, pending mag. Renal function normal, liver function normal, troponin normal. Lipase normal. TSH normal. We will add urinalysis. Currently pending CT scans. EKG shows no evidence of STEMI. Patient will be signed out to my colleague Dr. Kyle Carter for final disposition and evaluation after CT imaging. EKG 20: 28 Rate 79, intervals normal, sinus rhythm, poor R wave progression, no significant ST elevations or depressions, low voltage throughout, questionable less than 1 mm elevation in V1. Prior EKG on 12/19/2017 demonstrates similar findings. There is a Q wave in V1 and V2 these were noted on prior EKG.. FINDINGS: Lungs: Unremarkable. No consolidation. Pleural space: Unremarkable. No evidence of pneumothorax. Heart/Mediastinum: Unremarkable. Heart size within normal limits for technique. Bones/joints: Unremarkable. IMPRESSION: No acute findings. Thank you for allowing us to participate in the care of your patient. Dictated and Authenticated by: Jose M Yeboah MD 03/04/2019 11:04 PM Eastern Time ([place] & [place]) <Gatito Carter MD - Last Filed: 03/05/19 01:32> Patient signed out to me pending CT results. Had presented with right lower chest upper abdominal pain for the last 24 hours. Laboratory studies significant for hypokalemia and extreme hypomagnesemia. CT scan shows pulmonary emboli of the right lower lobe. There is not significant clot burden and no evidence of strain on CT. Patient is not tachycardic. Saturations are 94 to 96% on room air. Patient made aware of diagnosis. Case discussed with hospitalist. Patient will be admitted to telemetry for further evaluation and management. She was started on Eliquis 10 mg tonight. Potassium and magnesium still being replaced. Lab Data Lab results reviewed: Yes I reviewed the patient's lab results. HPI <Rajesh Orona, - Last Filed: 03/04/19 23:44> General Date/Time Provider Initiated Documentation: 03/04/19 22:28. HPI Narrative: This is a 78-year-old female with a past medical history of previous adrenal mass in 2017, asthma, anxiety, arthritis, GERD, hypertension, hypothyroidism, SVT on Cardizem, who presents today for evaluation of chest pain. Patient states that yesterday at 1 AM she developed right epigastric chest pain. She describes it as a pressure-like sensation, has associated notable shortness of breath and pain with inspiration. She denies any falls or trauma. She denies any cough. She denies any hemoptysis. She does admit to a few episodes of loose stool today which is atypical for her. She denies any recent procedures or foreign travel or antibiotic use. She denies ever having symptoms like this in the past. The pain radiates from the right upper quadrant to the back. She denies any history of dissection, PE or CO. She is not on any blood thinners. She has no other complaints at this time. Related Data Home Medications Medication Instructions Recorded Confirmed aspirin [Ecotrin Low Strength] 81 mg PO HS 08/20/12 03/04/19 nystatin 1 applic TOPICAL BID #60 gm 12/04/15 03/04/19 PulmoNeb LT Compressor Nebul 02/07/16 03/04/19 estradiol [Estrace] 4 g TOPICAL 2X /week #5 tube 10/17/16 03/04/19 albuterol sulfate 2.5 mg INHALATION QID PRN #100 dose 07/01/17 03/04/19 albuterol sulfate [ProAir HFA] 1 - 2 puff INHALATION Q4H PRN #1 07/01/17 03/04/19 inhaler lorazepam 0.5 mg PO PRN PRN #90 tab-cap 10/26/17 03/04/19 cholecalciferol (vitamin D3) 2,000 unit PO DAILY 03/11/18 03/04/19 [Vitamin D3] garlic 1,000 mg PO DAILY 03/11/18 03/04/19 levothyroxine 75 mcg PO DAILY 05/28/18 03/04/19 acetaminophen 500 mg tablet 1,000 mg PO TID tab 07/01/18 03/04/19 escitalopram oxalate 10 mg tablet 10 mg PO DAILY #90 tab 07/01/18 03/04/19 diltiazem HCl 120 mg 120 mg PO BID #90 cap 07/14/18 03/04/19 capsule,extended release 12 hr rabeprazole 20 mg tablet,delayed 20 mg PO BID #180 tab 08/11/18 03/04/19 release buspirone 10 mg tablet 5 mg PO BID #180 tab 08/25/18 03/04/19 fluticasone propionate 110 2 puff INHALATION HS #12 gm 11/25/18 03/04/19 mcg/actuation HFA aerosol inhaler prednisone 5 mg tablet 5 mg PO DAILY #30 tab 03/03/19 03/04/19 Previous Rx's Medication Instructions Recorded albuterol sulfate [ProAir HFA] 1 - 2 puff INHALATION Q4H PRN #1 07/01/17 inhaler escitalopram oxalate 10 mg tablet 10 mg PO DAILY #90 tab 07/01/18 diltiazem HCl 120 mg 120 mg PO BID #90 cap 07/14/18 capsule,extended release 12 hr rabeprazole 20 mg tablet,delayed 20 mg PO BID #180 tab 08/11/18 release buspirone 10 mg tablet 5 mg PO BID #180 tab 08/25/18 fluticasone propionate 110 2 puff INHALATION HS #12 gm 11/25/18 mcg/actuation HFA aerosol inhaler prednisone 5 mg tablet 5 mg PO DAILY #30 tab 03/03/19 Allergies Allergy/AdvReac Type Severity Reaction Status Date / Time hy- Allergy SWELLING Verified 03/04/19 22:42 AND PAIN metronidazole [From Flagyl] Allergy Skin Rash Verified 03/04/19 22:42 Pyrazoles Allergy Verified 03/04/19 22:42 tolterodine Allergy DIFFICULTY Verified 03/04/19 22:42 BREATHING methylprednisolone AdvReac Intermediate weakness Verified 03/04/19 22:42 and unable mood. hydromorphone AdvReac Mild Nausea Verified 03/04/19 22:42 amitriptyline AdvReac NAUSEA Verified 03/04/19 22:42 aspartame AdvReac HEART Verified 03/04/19 22:42 RACING ondansetron HCl [From Zofran] AdvReac HALLUCINATI Verified 03/04/19 22:42 ON General MANDY: 3 Review of Systems <Rajesh Orona DO - Last Filed: 03/04/19 23:44> All systems reviewed & are unremarkable except as noted in HPI and below PFSH <Rajesh Orona DO - Last Filed: 03/04/19 23:44> Medical History (Updated 03/04/19 @ 13:38 by Gladys Aguirre NP) Adrenal mass, right (Chronic 12/11/16) seen on CT Ab 12/26 - STABLE. Will repeat Allergic eosinophilia (Chronic) 09/23/11 COLONOSCOPY BIOPSY SHOWS FOCAL EOSINOPHILIC CRYPTITS Anxiety (Chronic) Anxiety disorder Arthritis (Chronic) both ankles S/P fracture S/P surgery Asthma Asthma (Chronic) Bleeding hemorrhoids (Acute) Cortical cataract of left eye (Resolved) Cortical cataract of right eye (Resolved) Depressive disorder Depressive disorder (Chronic) refuses medication Diverticulosis Diverticulosis of colon without diverticulitis (Chronic) Elevated fasting glucose (Chronic 06/27/14) Epigastric pain (Chronic) Epiretinal membrane (ERM) of right eye (Chronic) Essential hypertension Essential hypertension (Chronic 02/19/13) MARILYN (generalized anxiety disorder) (Chronic) Patient with palpitations with negative Zio patch. She complained of symptoms during normal sinus rhythm on 40 occasions. With anxiety. Intolerant to buspirone. Will start recheck in 2 weeks. Gastroesophageal reflux disease (Chronic) H/o H pylori, neg 07EGD Mitz 07UGI ? 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) RIGHT DELTOID Nuclear sclerotic cataract of left eye (Resolved) Nuclear sclerotic cataract of right eye (Resolved) Obstructive sleep apnea syndrome (Chronic 06/16/12) C-PAP CELINA (obstructive sleep apnea) Posterior subcapsular age-related cataract of left eye (Resolved) Posterior subcapsular age-related cataract, right eye (Resolved) Primary osteoarthritis of both knees (Chronic) SVT (supraventricular tachycardia) 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 MAGALYS [place] SHOULDER 01/25 Status post arthroscopic knee surgery (Acute) 1) RIGHT KNEE; DR. LOPEZ 2) LEFT KNEE; DR. DUNCAN Status post cataract extraction and insertion of intraocular lens of left eye (Chronic 03/13/18) Status post cataract extraction and insertion of intraocular lens of right eye (Chronic 03/27/18) STOMACH STITCH (~08/2014) Thyroid (~09/2014) Social History Smoking/Tobacco Use Status: Never Alcohol Intake: never Drug use: Never Substance use type: does not use Pets and animals: Yes Pets and animals: cat(s) and dog(s) Current gender identity: female What type of physical activity do you participate in: none Li/Jehovah'S Witness: Hindu Special li needs: No Do you feel safe at home: Yes Do you feel safe in your relationship?: Yes Exam <Rajesh Orona DO - Last Filed: 03/04/19 23:44> Narrative Exam Narrative: 1.Const: Well-nourished, Well-developed, appearing stated age 2.Eyes: PERRL, no conjunctival injection, and symmetrical lids. 3.ENT: Atraumatic external nose and ears. Moist MM. Neck: Symmetric, trachea midline, No thyromegaly. 4.CVS: +S1/S2, No murmurs or gallops. Peripheral pulses 2+ and equal in all extremities. Brisk capillary refill in all extremities. Radial pulses +2 bilaterally. 5.RESP: Decreased breath sounds in the right lung field. No significant crackles, no wheezes or rhonchi. No reproducible chest wall tenderness. 6.GI: Soft, Nontender/Nondistended, No hepatosplenomegaly. No guarding or rebound. No epigastric tenderness, no abdominal tenderness. 7.MSK: Normocephalic/Atraumatic, Extremities w/o deformity or ttp No cyanosis or clubbing, Normal movement of all extremities. No calf tenderness, dorsalis pedis pulse and radial pulse +2 bilaterally. 8.Skin: Warm, Dry. No rashes or lesions. 9.Neuro: risk control director II-XII grossly intact. Sensation grossly intact, no focal neurologic deficits. 10.Psych: (AAO) x3. Appropriate mood and affect Sign Out <Rajesh Orona DO - Last Filed: 03/04/19 23:44> Sign Out Data: Sign Out Comment: No relief female presents with epigastric right-sided abdominal pain, pleuritic chest pain, pending CT scan results of the chest abdomen and pelvis. Last updated by Rajesh Orona DO at 03/04/19 23:49
[2019-03-04] MEDS: Normal Saline 500 ML IV (22:37)
[2019-03-04 22:45] LABS: Lactate 0.9 mmol/L (0.6-1.4)
--- NOTE | 2019-03-04 22:52 | DI.RAD_ITS ---
EXAM: XR PORTABLE CHEST AP CLINICAL HISTORY: ruq pain and chest pain TECHNIQUE: COMPARISON: RF BARIUM SWALLOW from 02/16/2019 FINDINGS: Portable AP view was obtained. Cardiac size within normal limits. No gross pulmonary consolidation seen. Please see accompanying chest CT angiography report. IMPRESSION:
[2019-03-04 22:56] LABS: Abs Immature Grans 0.09 k/cumm (0.0-0.09); Absolute Basophil Count 0.05 k/cumm (0.0-0.2); Absolute Eosinophil Count 0.04 k/cumm (0.0-0.7); Absolute Monocyte Count 1.86 k/cumm (0.11-0.7); Absolute Neutrophil Count 13.94 k/cumm (1.2-6.7); Basophils % 0.3; Eosinophils % 0.2; HCT 37.9 % (36.0-46.0); HGB 12.4 g/dL (12.0-15.5); Immature Grans % 0.5; Lymphocytes % 11.6; Mean Corp. HGB Concentration 32.7 g/dL (32.0-36.0); Mean Corpuscular Hemoglobin 30.3 pg (27.0-33.0); Mean Corpuscular Volume 92.7 fL (80-95); Mean Platelet Volume 12.4 fL (8.0-11.0); Monocytes % 10.3; Neutrophils % 77.1; Platelet Count 274 x1000/uL (130-400); RBC 4.09 m/cumm (4.00-5.20); RBC Distribution Width 14.6 % (11.7-14.6); White Blood Cell Count 18.08 k/cumm (4.4-10.8)
--- NOTE | 2019-03-04 23:04 | DI.VRAD_ITS ---
PROCEDURE INFORMATION: Exam: XR Chest, 1 View Exam date and time: 03/04/2019 10:51 PM Clinical history: 78 years old, female; Other: Ruq pain, chest pain TECHNIQUE: Imaging protocol: XR of the chest Views: 1 view. COMPARISON: CR XR CHEST 2V PA LATERAL 10/29/2018 9:52 AM FINDINGS: Lungs: Unremarkable. No consolidation. Pleural space: Unremarkable. No evidence of pneumothorax. Heart/Mediastinum: Unremarkable. Heart size within normal limits for technique. Bones/joints: Unremarkable. IMPRESSION: No acute findings. Dictated and Authenticated by: Jose M Yeboah MD. Ordering:BENITO Mena MD
[2019-03-04 23:09] LABS: Diff Comment Agrees w/ Instrument; RBC Morphology Normal
[2019-03-04 23:10] LABS: INR 1.1 (0.9-1.1); PTT Activated 25.7 sec (21.0-31.4); Prothrombin Time 11.2 sec (9.3-11.0)
[2019-03-04 23:24] LABS: ALT 29 U/L (14-59); AST 17 U/L (15-37); Albumin 3.1 g/dL (3.4-5.0); Alkaline Phosphatase 73 U/L (46-116); Anion Gap 10.2 mmol/L (3-11); BUN 10 mg/dL (7-18); Bilirubin, Total 0.6 mg/dL (0.2-1.0); CO2 29.8 mmol/L (21.0-32.0); CREATININE 0.69 mg/dL (0.55-1.02); Calcium 8.7 mg/dL (8.5-10.1); Chloride 103 mmol/L (98-107); Glucose 134 mg/dL (70-100); Lipase 48 U/L (73-393); NT-proBNP 232 pg/mL; Sodium 143 mmol/L (136-145); TSH (W/Ref FT4) 1.21 uIU/mL (0.36-3.74); Total Protein 7.4 g/dL (6.4-8.2); Troponin I < 0.05 ng/mL (0.00-0.06)
[2019-03-05] VITALS (36 sets, daily range): BP systolic 92–125; BP diastolic 42–72; PULSE 64–91; RESP 12–23; TEMP 36–38.3; O2SAT 85–97
[2019-03-05] MEDS: Potassium Chloride 20 MEQ TABCR 40 MEQ PO (00:37)
[2019-03-05] MEDS: POTASSIUM CHLORIDE 20 MEQ/100 ML BAG 50 MEQ IVPB (00:47)
[2019-03-05] MEDS: MAGNESIUM SULFATE 2 GM/50 ML BAG IVPB (00:47)
[2019-03-05] MEDS: Omnipaque 350 MG/ML 100 ML BTL IJ ×2 (01:00)
--- NOTE | 2019-03-05 01:13 | DI.VRAD_ITS ---
Addendum created by Jose M Yeboah MD on 03/05/2019 1:16:08 AM EDT THIS REPORT CONTAINS FINDINGS THAT MAY BE CRITICAL TO PATIENT CARE. The findings were verbally communicated via telephone conference with Dr. Carter at 1:15 AM EDT on 03/05/2019. The findings were acknowledged and understood. Initial report created on 03/05/2019 1:13:24 AM EDT PROCEDURE INFORMATION: Exam: CT Angiography Chest With Contrast Exam date and time: 03/04/2019 11:47 PM Clinical history: 78 years old, female; Other: Right pleuritic; Abdominal pain; Localized; Right upper quadrant (ruq); Prior surgery; Surgery date: 6+ months; Surgery type: Hysterectomy, gallbladder, appendix TECHNIQUE: Imaging protocol: Computed tomographic angiography of the chest with intravenous contrast. 3D rendering: MIP reconstructed images were created and reviewed. Radiation optimization: All CT scans at this facility use at least one of these dose optimization techniques: automated exposure control; mA and/or kV adjustment per patient size (includes targeted exams where dose is matched to clinical indication); or iterative reconstruction. Contrast material: [id number]; Contrast volume: 115 ml; Contrast route: IV LAC 20G; COMPARISON: CT CHEST WITH CONTRAST 06/06/2014 2:48 PM FINDINGS: Pulmonary arteries: Right lower lobe lobar and segmental pulmonary emboli. Scattered very few sub-segmental emboli elsewhere. Aorta: Unremarkable. No aortic aneurysm. No aortic dissection. Lungs: Small amount of dependent atelectasis. Pleural space: Small right pleural effusion. Heart: Unremarkable. No pericardial effusion. No obvious heart strain. Lymph nodes: Unremarkable. No enlarged lymph nodes. Bones/joints: Unremarkable. No acute fracture. Soft tissues: Unremarkable. IMPRESSION: Pulmonary emboli, predominately in the right lower lobe. Small right pleural effusion. PROCEDURE INFORMATION: Exam: CT Abdomen And Pelvis With Contrast Exam date and time: 03/04/2019 11:47 PM Clinical history: 78 years old, female; Other: Right pleuritic; Abdominal pain; Localized; Right upper quadrant (ruq); Prior surgery; Surgery date: 6+ months; Surgery type: Hysterectomy, gallbladder, appendix TECHNIQUE: Imaging protocol: Computed tomography of the abdomen and pelvis with intravenous contrast. 3D rendering: MIP reconstructed images were created and reviewed. Radiation optimization: All CT scans at this facility use at least one of these dose optimization techniques: automated exposure control; mA and/or kV adjustment per patient size (includes targeted exams where dose is matched to clinical indication); or iterative reconstruction. Contrast material: [id number]; Contrast volume: 115 ml; Contrast route: IV LAC 20G; COMPARISON: CT CHEST WITH CONTRAST 06/06/2014 2:48 PM FINDINGS: Liver: No suspicious lesions. Gallbladder and bile ducts: Cholecystectomy.Prominent bile ducts, likely incedental in post cholecystectomy patient but could be corrilated with direct bili levels if felt to be clinically indicated. Pancreas: Unremarkable. No ductal dilation. Spleen: No suspicious lesions. Adrenals: No suspicious nodule. Kidneys and ureters: No hydro. No suspicious lesions. Stomach and bowel: Many colonic diverticuli. Appendix: No evidence of appendicitis. Intraperitoneal space: No free air. No significant fluid collection. Vasculature: Unremarkable. No acute findings Lymph nodes: Unremarkable. Bladder: Unremarkable as visualized. Reproductive: Unremarkable as visualized. Bones/joints: Unremarkable. No acute fracture. Soft tissues: Unremarkable. IMPRESSION: No acute findings. Dictated and Authenticated by: Jose M Yeboah MD. Ordering:BENITO Mena MD
[2019-03-05] MEDS: Apixaban 5 MG TAB 10 MG PO ×3 (01:34→21:12)
[2019-03-05] MEDS: Acetaminophen 325 MG TAB PO (04:13)
--- NOTE | 2019-03-05 07:03 | HPE_ITS ---
Date of service: 03/05/19 Time of Service: 07:03 Assessment and Plan Assessment and plan (1) Pulmonary embolism: Status: Chronic Assessment and plan: Unprovoked RLL lobar and segmental emboli w/ a few scattered sub-segmental PE's. The patient's risks include decreased mobility from her OA, pre-cancerous colon polyps and possible presence of an inheritable hypercoagulable disorder (daughter has had multiple unprovoked PE's and DVT's, the patient had a still of undetermined cause and the patient has had hx of phlebitis). The quickest and most convenient form of anticoagulation for this patient would be to start on a DOAC. I have chosen Apixaban because of the lack of need for pre-treatment w/ a low molecular weight heparin for 5 to 7 days. I think that once we get her pleuritic CP under control then she can be discharged home. She should follow up w/ a employment specialist/program manager and/or property clerk to decide on further evaluation for an inheritable thrombophilic disorder and to determine length of treatment, i.e. 6 months versus fci/lifetime anticoagulation. I have started her on Apixaban 10 mg BID for next 7 days then she should take 5 mg BID for next 6 months or longer. I have started her on Tramadol for her pleuritic chest pains. Qualifiers: Chronicity: acute Acute cor pulmonale presence: without acute cor pulmonale Pulmonary embolism type: other Qualified Code(s): I26.99 - Other pulmonary embolism without acute cor pulmonale History of Present Illness History of Present Illness Chief Complaint: Chest pain Narrative: 70-year-old female with a history of asthma, thyroid cancer status post thyroidectomy 2014 on levothyroxine replacement, history of precancerous colon polyps (dx by c-scope 6 wks ago), SVT controlled with diltiazem, obstructive sleep apnea for which she wears CPAP, history of phlebitis but no history of DVT or pulmonary emboli. Patient presents emergency department with acute onset of right-sided pleuritic chest pain onset at 1 AM March 04, 2019. She saw her primary care provider yesterday and was told it was probably gas pains and she w as told to get gas-ex. She took this but got no relief of her right sided chest pains. The patient describes her right sided CP as sharp and worse w/ lying down or with deep breaths. Evaluation in the ER included CTA of chest, abdomen and pelvis. CTA of chest demonstrated RLL lobar and segmental PE's and scattered sub-segmental PE's elswhere. CT of abdomen and pelvis did not demonstrate any acute pathology. She was started on Apixaban 10 mg bid with first dose given in the ER. Patient denies any recent long distance travel. She normally walks her dog 1/4 mile twice a day. She has chronic OA w/ bilateral knee pains but no acute swelling of her legs/feet. she has phlebitis but no prior DVT. Review of Systems Constitutional Constitutional: Reports as per HPI Cardiovascular Cardiovascular: Reports chest pain and Denies edema Respiratory Respiratory: Reports pain on inspiration Gastrointestinal Gastrointestinal: Reports diarrhea [facility] Medical History Adrenal mass, right (Chronic 12/11/16) seen on CT Ab 12/26 - STABLE. Will repeat Allergic eosinophilia (Chronic) 09/23/11 COLONOSCOPY BIOPSY SHOWS FOCAL EOSINOPHILIC CRYPTITS Anxiety (Chronic) Anxiety disorder Arthritis (Chronic) both ankles S/P fracture S/P surgery Asthma Asthma (Chronic) Bleeding hemorrhoids (Acute) Cortical cataract of left eye (Resolved) Cortical cataract of right eye (Resolved) Depressive disorder Depressive disorder (Chronic) refuses medication Diverticulosis Diverticulosis of colon without diverticulitis (Chronic) Elevated fasting glucose (Chronic 06/27/14) Epigastric pain (Chronic) Epiretinal membrane (ERM) of right eye (Chronic) Essential hypertension Essential hypertension (Chronic 02/19/13) MARILYN (generalized anxiety disorder) (Chronic) Patient with palpitations with negative Zio patch. She complained of symptoms during normal sinus rhythm on 40 occasions. With anxiety. Intolerant to buspirone. Will start recheck in 2 weeks. Gastroesophageal reflux disease (Chronic) H/o H pylori, neg 07EGD Mitz 07UGI ? 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) RIGHT DELTOID Nuclear sclerotic cataract of left eye (Resolved) Nuclear sclerotic cataract of right eye (Resolved) Obstructive sleep apnea syndrome (Chronic 06/16/12) C-PAP CELINA (obstructive sleep apnea) Posterior subcapsular age-related cataract of left eye (Resolved) Posterior subcapsular age-related cataract, right eye (Resolved) Primary osteoarthritis of both knees (Chronic) SVT (supraventricular tachycardia) 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 DOWELL L SHOULDER 01/25 Status post arthroscopic knee surgery (Acute) 1) RIGHT KNEE; DR. LOPEZ 2) LEFT KNEE; DR. DUNCAN Status post cataract extraction and insertion of intraocular lens of left eye (Chronic 03/13/18) Status post cataract extraction and insertion of intraocular lens of right eye (Chronic 03/27/18) STOMACH STITCH (~08/2014) Thyroid (~09/2014) Family History Mother , OLD AGE at age 95. Stroke Father , GI BLEED at age 85. Diabetes GI bleed Heart disease Sister Diabetes Essential hypertension Neoplasm BREAST Brother Macular degeneration 1 EYE Grandfather Heart disease Neoplasm Grandfather No problems noted. Grandmother Heart disease Grandmother Neoplasm Son Neoplasm BRAIN Son No problems noted. Daughter Neoplasm BREAST Daughter No problems noted. Child No problems noted. Social History Smoking/Tobacco Use Status: Never Alcohol Intake: never Drug use: Never Substance use type: does not use Pets and animals: Yes Pets and animals: cat(s) and dog(s) Current gender identity: female What type of physical activity do you participate in: none Li/Caodaism: Judaism Special li needs: No Do you feel safe at home: Yes Do you feel safe in your relationship?: Yes Meds Home Medications and Allergies Home Medications Medication Instructions Recorded Confirmed Type aspirin [Ecotrin Low Strength] 81 mg PO HS 08/20/12 03/04/19 History nystatin 1 applic TOPICAL BID #60 gm 12/04/15 03/04/19 History PulmoNeb LT Compressor Nebul 02/07/16 03/04/19 History estradiol [Estrace] 4 g TOPICAL 2X /week #5 tube 10/17/16 03/04/19 History albuterol sulfate 2.5 mg INHALATION QID PRN #100 dose 07/01/17 03/04/19 History albuterol sulfate [ProAir HFA] 1 - 2 puff INHALATION Q4H PRN #1 07/01/17 03/04/19 Rx inhaler lorazepam 0.5 mg PO PRN PRN #90 tab-cap 10/26/17 03/04/19 History cholecalciferol (vitamin D3) 2,000 unit PO DAILY 03/11/18 03/04/19 History [Vitamin D3] garlic 1,000 mg PO DAILY 03/11/18 03/04/19 History levothyroxine 75 mcg PO DAILY 05/28/18 03/04/19 History acetaminophen 500 mg tablet 1,000 mg PO TID tab 07/01/18 03/04/19 History escitalopram oxalate 10 mg tablet 10 mg PO DAILY #90 tab 07/01/18 03/04/19 Rx diltiazem HCl 120 mg 120 mg PO BID #90 cap 07/14/18 03/04/19 Rx capsule,extended release 12 hr rabeprazole 20 mg tablet,delayed 20 mg PO BID #180 tab 08/11/18 03/04/19 Rx release buspirone 10 mg tablet 5 mg PO BID #180 tab 08/25/18 03/04/19 Rx fluticasone propionate 110 2 puff INHALATION HS #12 gm 11/25/18 03/04/19 Rx mcg/actuation HFA aerosol inhaler prednisone 5 mg tablet 5 mg PO DAILY #30 tab 03/03/19 03/04/19 Rx Allergies Allergy/AdvReac Type Severity Reaction Status Date / Time hylan G-F 20 Allergy SWELLING Verified 03/04/19 22:42 AND PAIN metronidazole [From Flagyl] Allergy Skin Rash Verified 03/04/19 22:42 Pyrazoles Allergy Verified 03/04/19 22:42 tolterodine Allergy DIFFICULTY Verified 03/04/19 22:42 BREATHING methylprednisolone AdvReac Intermediate weakness Verified 03/04/19 22:42 and unable mood. hydromorphone AdvReac Mild Nausea Verified 03/04/19 22:42 amitriptyline AdvReac NAUSEA Verified 03/04/19 22:42 aspartame AdvReac HEART Verified 03/04/19 22:42 RACING ondansetron HCl [From Zofran] AdvReac HALLUCINATI Verified 03/04/19 22:42 ON Exam Const General: cooperative, no acute distress and well groomed Nutritional Appearance: overweight Orientation: alert, awake and oriented x3 Neck Neck: full ROM, no lymphadenopathy, trachea midline, supple, no JVD and other (anterior cervical scar) Thyroid: other (nonpalpable) Carotids: normal carotid upstroke Lymphatic: no lymphadenopathy noted Resp Effort & Inspection: normal respiratory effort and able to speak in complete sentences Auscultation: clear to auscultation bilaterally, crackles on the right at the base, no rhonchi and no wheezes Cardio Jugular venous pressure: no JVD Palpation: normal PMI Rate: regular rate Rhythm: regular rhythm Heart Sounds: S1 normal, S2 normal, normal, physiologic split S2, no gallops, no murmurs and no rubs Bruits: no carotid bruits Pulses: normal peripheral pulses GI Inspection: non-distended and obesity Palpation: soft, no hepatosplenomegaly, no guarding and nontender Percussion: normal to percussion Auscultation: normal bowel sounds Rectal Exam - female: deferred Back/Spine/Pelvis Back: no CVA tenderness Skin General skin exam: no rashes or lesions noted Extrem General: full ROM, no clubbing, cyanosis or edema, no pedal edema and no calf tenderness Right lower extremity: lower leg Details: other (varicose veins) Left lower extremity: lower leg (varicose veins) Psych Appearance: grossly normal Mental Status: mental status grossly normal Speech and Movement: speech and movement normal Mood: anxious mood Affect: anxious affect Attitude: cooperative Thought Process: normal Thought Content: normal Insight: insight good Judgment: judgment good Results Imaging Abdomen CT scan report/results: report reviewed CT scan - chest: report reviewed CT scan - pelvis: report reviewed EKG: image reviewed Labs Result diagrams: 03/05/19 06:55 03/05/19 06:55 Labs: Laboratory Results - last 24 hr 03/04/19 03/04/19 03/04/19 22:35 22:35 22:35 WBC RBC Hgb Hct MCV MCH MCHC RDW Plt Count MPV Immature Gran % Neutrophils % Lymphocytes % Monocytes % Eosinophils % Basophils % Absolute Neutrophils Absolute Lymphocytes Absolute Monocytes Absolute Eosinophils Absolute Basophils Differential Comment RBC Morphology PT INR APTT Sodium 143 Potassium 3.0 L Chloride 103 Carbon Dioxide 29.8 Anion Gap 10.2 BUN 10 Creatinine 0.69 Estimated GFR/1.73 m2 >= 60.00 Glucose 134 H Lactate 0.9 Calcium 8.7 Magnesium Total Bilirubin 0.6 AST 17 ALT 29 Alkaline Phosphatase 73 Troponin I < 0.05 NT-Pro-B Natriuret Pep 232 Total Protein 7.4 Albumin 3.1 L Lipase 48 L TSH 1.21 03/04/19 03/04/19 03/04/19 22:35 22:35 22:35 WBC 18.08 H RBC 4.09 Hgb 12.4 Hct 37.9 MCV 92.7 MCH 30.3 MCHC 32.7 RDW 14.6 Plt Count 274 MPV 12.4 H Immature Gran % 0.5 Neutrophils % 77.1 Lymphocytes % 11.6 Monocytes % 10.3 Eosinophils % 0.2 Basophils % 0.3 Absolute Neutrophils 13.94 H Absolute Lymphocytes 2.10 Absolute Monocytes 1.86 H Absolute Eosinophils 0.04 Absolute Basophils 0.05 Differential Comment Agrees w/ instrument RBC Morphology Normal PT 11.2 H INR 1.1 APTT 25.7 Sodium Potassium Chloride Carbon Dioxide Anion Gap BUN Creatinine Estimated GFR/1.73 m2 Glucose Lactate Calcium Magnesium 1.0 L Total Bilirubin AST ALT Alkaline Phosphatase Troponin I NT-Pro-B Natriuret Pep Total Protein Albumin Lipase TSH Last Vital Signs Temp 36.7 C 03/05/19 04:15 Pulse 86 03/05/19 04:15 Resp 18 03/05/19 04:15 BP 120/67 03/05/19 04:15 Pulse Ox 96 03/05/19 04:15
[2019-03-05 07:20] LABS: Abs Immature Grans 0.07 k/cumm (0.0-0.09); Absolute Basophil Count 0.05 k/cumm (0.0-0.2); Absolute Eosinophil Count 0.05 k/cumm (0.0-0.7); Absolute Lymphocyte Count 1.81 k/cumm (1.2-3.4); Absolute Monocyte Count 1.65 k/cumm (0.11-0.7); Basophils % 0.4; Eosinophils % 0.4; HCT 36.9 % (36.0-46.0); HGB 11.6 g/dL (12.0-15.5); Immature Grans % 0.5; Lymphocytes % 14.2; Mean Corp. HGB Concentration 31.4 g/dL (32.0-36.0); Mean Corpuscular Hemoglobin 29.4 pg (27.0-33.0); Mean Corpuscular Volume 93.7 fL (80-95); Mean Platelet Volume 12.6 fL (8.0-11.0); Monocytes % 12.9; Neutrophils % 71.6; Platelet Count 258 x1000/uL (130-400); RBC 3.94 m/cumm (4.00-5.20); RBC Distribution Width 14.6 % (11.7-14.6); White Blood Cell Count 12.76 k/cumm (4.4-10.8)
[2019-03-05 07:26] LABS: Absolute Neutrophil Count 9.14 k/cumm (1.2-6.7)
[2019-03-05 07:29] LABS: Anion Gap 8.5 mmol/L (3-11); BUN 6 mg/dL (7-18); CO2 26.5 mmol/L (21.0-32.0); CREATININE 0.61 mg/dL (0.55-1.02); Chloride 106 mmol/L (98-107); Glucose 99 mg/dL (70-100); Magnesium 1.7 mg/dL (1.8-2.4); Potassium 3.9 mmol/L (3.5-5.1); Sodium 141 mmol/L (136-145)
[2019-03-05 07:53] LABS: Diff Comment Diff Reviewed; Polychromasia Present
[2019-03-05] MEDS: Levothyroxine 75 MCG TAB PO (08:02)
[2019-03-05] MEDS: traMADol 50 MG TAB PO (08:18)
[2019-03-05] MEDS: dilTIAZem CD 120 MG CAPCR PO ×2 (09:02→21:13)
[2019-03-05] MEDS: Cholecalciferol (Vitamin D3) 1,000 UNIT TAB 2000 UNITS PO (09:02)
[2019-03-05] MEDS: Magnesium Gluconate 500 MG TAB PO ×2 (09:03→21:13)
[2019-03-05] MEDS: Potassium Chloride 10 MEQ CAPCR 20 MEQ PO (09:05)
[2019-03-05] MEDS: busPIRone 5 MG TAB PO ×2 (10:40→21:13)
[2019-03-05] MEDS: oxyCODONE 5 MG TAB PO (10:40)
[2019-03-05] MEDS: Escitalopram 10 MG TAB PO (11:03)
[2019-03-05] MEDS: Lidocaine 5% Patch 1 PATCH TP (11:03)
[2019-03-05] MEDS: LORazepam 0.5 MG TAB PO (11:42)
--- NOTE | 2019-03-05 11:45 | PT.INNT ---
Date of service: 03/05/19 Time of Service: 11:39 PT Notes Patient is at laboratory testing and is unavailable. Will revisit this afternoon for PT evalaution. Thank you very much for this referral. Farida Cabrera PT, DPT, CLT [facility]
--- NOTE | 2019-03-05 12:30 | DI.US_ITS ---
APPROVED REPORT Conclusion Left Ventricle : The left ventricle is normal size. There is normal left ventricular wall thickness. LVEF is 60-65%. There is flattening of the interventricular septum during systole suggestive of RV pr essure overload. There are no other segmental wall motion abnormalities The left ventricular diastol ic function is normal. Right Ventricle : Right ventricle is mildly dilated. The right ventricular systolic function is deejay l. There is no evidence of RV strain. Atria : The left atrium size is normal. The right atrium size is normal. Aortic Valve : The aortic valve is normal in structure. Aortic valve is trileaflet. There is normal a ortic valve excursion. No aortic regurgitation is present. Mitral Valve : Mitral valve is normal in structure. Trace to mild mitral regurgitation. No evidence o f mitral valve stenosis. Tricuspid Valve : The tricuspid valve is normal in structure. Mild tricuspid regurgitation. The RVSP is 40-45 mmHg. Pulmonic Valve : Pulmonic valve is not well visualized. Great Vessels : IVC is normal in size and collapses >50% with inspiration. There are no prior echocardiograms available for comparison. EXAM: Comprehensive 2D, Doppler, and color-flow Echocardiogram Patient Location: In-Patient Bundle Cutter: REGINE Esposito (AE) Indications: PE evaluate LV function Left Ventricle The left ventricle is normal size. The left ventricular systolic function is normal. There is normal left ventricular wall thickness. There is flattening of the interventricular septum during systole mcclain ggestive of RV pressure overload. There are no other segmental wall motion abnormalities The left magy tricular diastolic function is normal. LVEF is 60-65%. Right Ventricle Right ventricle is mildly dilated. The right ventricular systolic function is normal. There is no rachell dence of RV strain. Atria The left atrium size is normal. The right atrium size is normal. Aortic Valve The aortic valve is normal in structure. Aortic valve is trileaflet. There is normal aortic valve exc ursion. No aortic regurgitation is present. Mitral Valve Mitral valve is normal in structure. No evidence of mitral valve stenosis. Trace to mild mitral regur gitation. Tricuspid Valve The tricuspid valve is normal in structure. Mild tricuspid regurgitation. The RVSP is 40-45 mmHg. Pulmonic Valve Pulmonic valve is not well visualized. Great Vessels The aortic root is normal in size. IVC is normal in size and collapses >50% with inspiration. Pericardium Prominent anterior epicardial fat pad is present. 2D Dimensions IVSd 0.82 cm F: 0.6-1.0 LV EDV A2C 83.90 mL PWd 0.96 cm F: 0.6 - 1.0 LV EDV A4C 87.00 mL LVDd 3.80 cm F: 3.9 - 5.3 LA Volume Index A2C 24.20 mL/m2 LVDs 2.26 cm F: 2.2 - 3.5 LA Volume Index A4C 40.57 mL/m2 Aortic Root 2.97 cm F: 2.7 - 3.3 LA Volume Index Biplane 31.84 mL/m2 RVID Base (AP4) 4.37 cm (M/F) 2.5-4.1 LA Area A4C 20.57 cm2 RA Area A4C 16.10 cm2 LA Area A2C 16.14 cm2 LVOT 2.08 cm (M/F) 1.5-2.5 EF AP4 64.14 % Ascending Aorta 2.98 cm F: 2.3 - 3.1 EF AP2 62.46 % LVEF (Teich) 72.00 % EF BP 62.37 % LVEF (Vasques's) 62.37 % F: 54 - 74 FS 40.51 % LV Diastology E Decel Time 170.00 (160-240 msec) E/A Ratio 1.0 MED E' 0.13 (>0.07 m/s) LV E/e MED 7.46 (<14) LAT E' 0.13 (>0.1 m/s) LV E/e LAT 7.17 (<14) Aortic Valve LVOT Area 3.40 cm2 LVOT Peak Ander. 1.20 m/s LVOT Mean Ander. 0.88 m/s LVOT Peak Gr. 5.77 mmHg YISSEL Vmax Index 1.47 cm2/m2 LVOT Mean Gr. 3.47 mmHg LVOT VTI 0.24 m YISSEL Mean Ander. Index 1.41 cm2/m2 AoV Peak Ander. 1.66 (0.5-1.3 m/s) AoV Mean Ander. 1.27 m/s AO Peak GR. 11.05 mmHg AO Mean GR. 6.87 (<5 mmHg) AO VTI 0.35 (0.18-0.25 m) YISSEL (VTI) 2.37 (2.5-4.5 cm2) YISSEL (VTI) Index 1.42 cm/m2 Mitral Valve MV E Max Ander. 0.95 (0.4-1.3 m/s) MV A Velocity 0.97 (0.4-1.3 m/s) E/A Ratio 0.98 MV Decel. Time 169.80 (160-240 msec) MV PHT 49.24 msec MVA PHT 4.47 cm2 Tricuspid Valve TR P. Velocity 3.18 m/s TV Regurg Vmax 3.18 m/s TR P. Gradient 40.39 mmHg
--- NOTE | 2019-03-05 12:41 | DI.US_ITS ---
EXAM: US EXTREMITY VENOUS BI CLINICAL HISTORY: PE, concern for DVT TECHNIQUE: Ultrasound performed using standard protocol. COMPARISON: US soft tiss abd wall/low back from 10/21/2018 FINDINGS: Duplex evaluation of the deep venous system both lower extremities was performed according to the usu al protocol. No visible thrombus. Deep veins are freely compressible throughout. No Moore's cyst. IMPRESSION: No evidence of DVT
[2019-03-05] MEDS: Acetaminophen 500 MG TAB 1000 MG PO ×2 (14:13→21:13)
--- NOTE | 2019-03-05 16:27 | NT_ITS ---
Date of service: 03/05/19 Time of Service: 15:33 PT Notes A second attempt at physical therapy evaluation was done this afternoon. Patient reports that she had a rough day today and is exhausted. She states that she has not been able to lie comfortably on her right side until just a while ago before this PT came in and she did not want to move and do anything. Consulted with RT who stated that patient is currently hypoxic and recommended holding off on any mobility activity at this time while. Will continue to attempt to offer physical theray services per MD order tomorrow, 03/06/2019. Will update PT and MECHANICAL MANUFACTURING ENGINEER medical records receptionist this weekend regarding this matter as well. Thank you very much for this referral. Farida Cabrera PT, DPT, CLT [facility]
--- NOTE | 2019-03-05 16:49 | W.PM.PROGNOT ---
Date of Service Date of service: 03/05/19 Time of Service: 16:49 Subjective Subjective Interval history since last seen: Venous doppler negative for a DVT. Echo with moderate pulmonary hypertension (RVSP 40-45 mmHg), mild tricuspid regurg, normal RV function and no evidence of RV strain. The patient states that she has had an aspiration event - she coughed up abdullahi mariangel. She states she does this at home sometimes, with both liquids and solids. This afternoon she was found to have O2 sats of 84% on RA, so she was placed on oxygen. She states her pain is finally well controlled. We spoke about importance of doing incentive spirometry. I am ordering a CXR. The patient's fever could be due to her PE, but given her aspiration event, I am putting her on zosyn. Objective Objective Clinical Data: Abnormal lab results 03/04/19 03/04/19 03/04/19 Range/Units 22:35 22:35 22:35 WBC 18.08 H (4.4-10.8) k/cumm RBC (4.00-5.20) m/cumm Hgb (12.0-15.5) g/dL MCHC (32.0-36.0) g/dL MPV 12.4 H (8.0-11.0) fL Absolute Neutrophils 13.94 H (1.2-6.7) k/cumm Absolute Monocytes 1.86 H (0.11-0.7) k/cumm PT (9.3-11.0) sec Potassium 3.0 L (3.5-5.1) mmol/L BUN (7-18) mg/dL Glucose 134 H (70-100) mg/dL Calcium (8.5-10.1) mg/dL Magnesium (1.8-2.4) mg/dL Albumin 3.1 L (3.4-5.0) g/dL Lipase 48 L (73-393) U/L 03/04/19 03/04/19 03/05/19 Range/Units 22:35 22:35 06:55 WBC (4.4-10.8) k/cumm RBC (4.00-5.20) m/cumm Hgb (12.0-15.5) g/dL MCHC (32.0-36.0) g/dL MPV (8.0-11.0) fL Absolute Neutrophils (1.2-6.7) k/cumm Absolute Monocytes (0.11-0.7) k/cumm PT 11.2 H (9.3-11.0) sec Potassium (3.5-5.1) mmol/L BUN 6 L (7-18) mg/dL Glucose (70-100) mg/dL Calcium 8.0 L (8.5-10.1) mg/dL Magnesium 1.0 L 1.7 L (1.8-2.4) mg/dL Albumin (3.4-5.0) g/dL Lipase (73-393) U/L 03/05/19 Range/Units 06:55 WBC 12.76 H (4.4-10.8) k/cumm RBC 3.94 L (4.00-5.20) m/cumm Hgb 11.6 L (12.0-15.5) g/dL MCHC 31.4 L (32.0-36.0) g/dL MPV 12.6 H (8.0-11.0) fL Absolute Neutrophils 9.14 H (1.2-6.7) k/cumm Absolute Monocytes 1.65 H (0.11-0.7) k/cumm PT (9.3-11.0) sec Potassium (3.5-5.1) mmol/L BUN (7-18) mg/dL Glucose (70-100) mg/dL Calcium (8.5-10.1) mg/dL Magnesium (1.8-2.4) mg/dL Albumin (3.4-5.0) g/dL Lipase (73-393) U/L Vital Signs Temperature 38.3 C H 03/05/19 15:50 Temperature Source Tympanic 03/05/19 15:50 Pulse 91 H 03/05/19 15:50 Pulse Rhythm Regular 03/05/19 16:32 Pulse 82 03/05/19 01:50 Respiratory Rate 16 03/05/19 15:50 Respiratory Effort 03/05/19 16:32 Respiratory Depth Shallow 03/05/19 16:32 Respiratory Pattern Normal 03/05/19 16:32 Blood Pressure 100/60 03/05/19 15:50 Blood Pressure Mean 68 03/05/19 01:45 Pulse Oximetry 93 L 03/05/19 16:15 Oxygen Delivery Method Nasal Cannula 03/05/19 16:15 Oxygen Flow Rate 2 03/05/19 16:15 Pain Level 0 03/05/19 15:50 Comment 03/05/19 16:15 Intake & Output 03/04/19 03/05/19 03/05/19 23:59 11:59 23:59 Intake Total 500 / 500 1430.000 / 1430.000 Output Total 250 / 250 Balance 500 / 500 1180.000 / 1180.000 Weight 74.6 kg 71.4 kg Intake: IV 500 / 500 150.000 / 150.000 Oral 1280 / 1280 Output: Urine 250 / 250 Other: Urine Color Yellow Urine Appearance Clear Clear Urine Odor Normal Voiding Methods Bedpan Laboratory Results WBC 12.76 k/cumm (4.4-10.8) H 03/05/19 06:55 RBC 3.94 m/cumm (4.00-5.20) L 03/05/19 06:55 Hgb 11.6 g/dL (12.0-15.5) L 03/05/19 06:55 Hct 36.9 % (36.0-46.0) 03/05/19 06:55 MCV 93.7 fL (80-95) 03/05/19 06:55 MCH 29.4 pg (27.0-33.0) 03/05/19 06:55 MCHC 31.4 g/dL (32.0-36.0) L 03/05/19 06:55 RDW 14.6 % (11.7-14.6) 03/05/19 06:55 Plt Count 258 x1000/uL (130-400) 03/05/19 06:55 MPV 12.6 fL (8.0-11.0) H 03/05/19 06:55 Immature Gran % 0.5 03/05/19 06:55 Neutrophils % 71.6 03/05/19 06:55 Lymphocytes % 14.2 03/05/19 06:55 Monocytes % 12.9 03/05/19 06:55 Eosinophils % 0.4 03/05/19 06:55 Basophils % 0.4 03/05/19 06:55 Absolute Neutrophils 9.14 k/cumm (1.2-6.7) H 03/05/19 06:55 Absolute Lymphocytes 1.81 k/cumm (1.2-3.4) 03/05/19 06:55 Absolute Monocytes 1.65 k/cumm (0.11-0.7) H 03/05/19 06:55 Absolute Eosinophils 0.05 k/cumm (0.0-0.7) 03/05/19 06:55 Absolute Basophils 0.05 k/cumm (0.0-0.2) 03/05/19 06:55 Differential Comment Diff reviewed 03/05/19 06:55 RBC Morphology See below 03/05/19 06:55 Polychromasia Present 03/05/19 06:55 PT 11.2 sec (9.3-11.0) H 03/04/19 22:35 INR 1.1 (0.9-1.1) 03/04/19 22:35 APTT 25.7 sec (21.0-31.4) 03/04/19 22:35 Sodium 141 mmol/L (136-145) 03/05/19 06:55 Potassium 3.9 mmol/L (3.5-5.1) D 03/05/19 06:55 Chloride 106 mmol/L (98-107) 03/05/19 06:55 Carbon Dioxide 26.5 mmol/L (21.0-32.0) 03/05/19 06:55 Anion Gap 8.5 mmol/L (3-11) 03/05/19 06:55 BUN 6 mg/dL (7-18) L 03/05/19 06:55 Creatinine 0.61 mg/dL (0.55-1.02) 03/05/19 06:55 Estimated GFR/1.73 m2 >= 60.00 (mL/min/1.73m2) 03/05/19 06:55 Glucose 99 mg/dL (70-100) 03/05/19 06:55 Lactate 0.9 mmol/L (0.6-1.4) 03/04/19 22:35 Calcium 8.0 mg/dL (8.5-10.1) L 03/05/19 06:55 Magnesium 1.7 mg/dL (1.8-2.4) L 03/05/19 06:55 Total Bilirubin 0.6 mg/dL (0.2-1.0) 03/04/19 22:35 AST 17 U/L (15-37) 03/04/19 22:35 ALT 29 U/L (14-59) 03/04/19 22:35 Alkaline Phosphatase 73 U/L (46-116) 03/04/19 22:35 Troponin I < 0.05 ng/mL (0.00-0.06) 03/04/19 22:35 NT-Pro-B Natriuret Pep 232 pg/mL (-299) 03/04/19 22:35 Total Protein 7.4 g/dL (6.4-8.2) 03/04/19 22:35 Albumin 3.1 g/dL (3.4-5.0) L 03/04/19 22:35 Lipase 48 U/L (73-393) L 03/04/19 22:35 TSH 1.21 uIU/mL (0.36-3.74) 03/04/19 22:35
--- NOTE | 2019-03-05 16:54 | PDOC.CMIN ---
- If Service Date Differs Date of service: 03/05/19 Time of Service: 16:54 Care Management Initial Assess REASON FOR HOSPITALIZATION:: Pulmonary Embolism PAST MEDICAL HISTORY/PAST SURGICAL HISTORY:: Medical History . Adrenal mass, right (Chronic 12/11/16). seen on CT Ab 12/26 - STABLE. Will repeat. Allergic eosinophilia (Chronic). 09/23/11 COLONOSCOPY BIOPSY SHOWS FOCAL EOSINOPHILIC CRYPTITS. Anxiety (Chronic). Anxiety disorder. Arthritis (Chronic). both ankles. S/P fracture. S/P surgery. Asthma. Asthma (Chronic). Bleeding hemorrhoids (Acute). Cortical cataract of left eye (Resolved). Cortical cataract of right eye (Resolved). Depressive disorder. Depressive disorder (Chronic). refuses medication. Diverticulosis. Diverticulosis of colon without diverticulitis (Chronic). Elevated fasting glucose (Chronic 06/27/14). Epigastric pain (Chronic). Epiretinal membrane (ERM) of right eye (Chronic). Essential hypertension. Essential hypertension (Chronic 02/19/13). MARILYN (generalized anxiety disorder) (Chronic). Patient with palpitations with negative Zio patch. She complained of symptoms during normal sinus rhythm on 40 occasions. With anxiety. Intolerant to buspirone. Will start recheck in 2 weeks. Gastroesophageal reflux disease (Chronic). H/o H pylori, neg 07EGD Mitz 07UGI ? stricture, no HH. GERD (gastroesophageal reflux disease). Gum lesion (Resolved 03/06/15). Herpes zoster without complication (Chronic 09/01/17). Herpetic vulvovaginitis (Chronic 04/24/11). Herpes type 1. Hypercholesterolemia (Chronic 09/21/13). Hypothyroidism (Chronic 12/20/14). 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 L5-S1 by MRI [facility] 03/18. MRI 2004 showing herniated disc, S/P surgery. Still has some intermittent pain. Knee pain (Chronic). s/p r and L knee arthroscopy. 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 Multiple gastric polyps (Chronic). 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 RIGHT DELTOID. Nuclear sclerotic cataract of left eye (Resolved). Nuclear sclerotic cataract of right eye (Resolved). Obstructive sleep apnea syndrome (Chronic 06/16/12). C-PAP. CELINA (obstructive sleep apnea). Posterior subcapsular age-related cataract of left eye (Resolved). Posterior subcapsular age-related cataract, right eye (Resolved). Primary osteoarthritis of both knees (Chronic). SVT (supraventricular tachycardia). Thyroid malignant neoplasm. papillary. 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). s/p surgery. on replacement. Surgical History . Cholecystectomy. Colonoscopy - MAC. DIVERTICULITIS. Hysterectomy, Laproscopic. PROLAPSE; STILL HAS OVARIES. Rotator Cuff Repair. R SHOULDER; DR. DOWELL. L SHOULDER 01/25. Status post arthroscopic knee surgery (Acute). 1) RIGHT KNEE; DR. LOPEZ. 2) LEFT KNEE; DR. DUNCAN. Status post cataract extraction and insertion of intraocular lens of left eye (Chronic 03/13/18). Status post cataract extraction and insertion of intraocular lens of right eye (Chronic 03/27/18). STOMACH STITCH (~08/2014). Thyroid (~09/2014) PREVIOUS FUNCTIONAL STATUS/SOCIAL/FAMILY SUPPORTS:: Kacey lives alone in an apartment in [place]. She is independent at baseline and has no community services. Kacey has 4 children; she has 2 girls and 2 boys. One son lives close by and is very supportive. CURRENT FUNCTIONAL STATUS:: Kacey was lying on a stretcher in her room when CM met with her. She stated that she was in extreme pain and that she was very anxious. She did state that she has been medicated and that the medicine helps. Kacey shared that she is afraid to go home. She is afraid something bad will happen to her because of the blood clots. When questiones about possible friends or relatives who might stay with her, she admitted that her son would if she asked him to. If she still feels this anxious at discharge, she agreed to ask for him to stay. ADVANCE DIRECTIVES:: none on file Has patient been provided with information about the portal?: No Did the patient sign up for the portal?: No CODE STATUS:: Full Code INSURANCE COVERAGE / FINANCIAL ISSUES:: Medicare. [employer] CURRENT HOME/COMMUNITY SERVICES/EQUIPMENT:: none currently PRIMARY CARE PHYSICIAN:: Joann Arreola PATIENT/FAMILY EDUCATION NEEDS:: Discharge plan, limitations, Ask Me Three TRANSPORTATION:: via private vehicle with son PLAN:: Kacey will be discharged home with no services. She will follow up with her PCP and discharge plan of care. She will transport with son. CM to follow.
--- NOTE | 2019-03-05 17:10 | DI.RAD_ITS ---
EXAM: XR PORTABLE CHEST AP INDICATION: aspiration event. COMPARISON: XR PORTABLE CHEST AP from 03/04/2019 TECHNIQUE: 2D digital imaging was performed. FINDINGS: Heart size and pulmonary vasculature are within normal limits. The lungs are clear. No effusion or pneumothorax is identified. Age-appropriate degenerative changes are seen in the spine. IMPRESSION: No acute pulmonary process.
--- NOTE | 2019-03-05 17:32 | DI.VRAD_ITS ---
PROCEDURE INFORMATION: Exam: XR Chest, 1 View Exam date and time: 03/05/2019 5:14 PM Clinical history: 78 years old, female; Condition or disease; Other: Aspiration event TECHNIQUE: Imaging protocol: XR of the chest Views: 1 view. COMPARISON: XR PORTABLE CHEST AP 03/04/2019 10:39 PM FINDINGS: Lungs: Unremarkable. No consolidation. Pleural space: Unremarkable. No pleural effusion. No pneumothorax. Heart/Mediastinum: Unremarkable. No cardiomegaly. Bones/joints: Left rotator cuff anchor. Degenerative changes in the spine. IMPRESSION: No acute finding. Dictated and Authenticated by: Iván Arrieta MD. Ordering:RICCO Hernandez MD
[2019-03-05] MEDS: Normal Saline Flush 10 ML SYR IVP (17:37)
[2019-03-05] MEDS: Ondansetron 4 MG/2 ML VIAL IVP (17:37)
[2019-03-05] MEDS: PIPERACILLIN/TAZO 3.375 GM in Normal Saline 50 ML IVPB (17:54)
[2019-03-05] MEDS: Normal Saline 500 ML 100 ML IV (17:54)
[2019-03-05] MEDS: Omeprazole 20 MG CAPCR PO (21:12)
[2019-03-06] VITALS (13 sets, daily range): BP systolic 108–148; BP diastolic 56–70; PULSE 58–94; RESP 16–20; TEMP 36.6–37.3; O2SAT 92–96
[2019-03-06] MEDS: PIPERACILLIN/TAZO 3.375 GM in Normal Saline 50 ML IVPB ×2 (00:36→05:24)
[2019-03-06] MEDS: Normal Saline Flush 10 ML SYR IVP ×3 (00:38→11:00)
[2019-03-06] MEDS: Patch Removal 1 EACH TP ×2 (00:41→21:12)
[2019-03-06] MEDS: Levothyroxine 75 MCG TAB PO (05:23)
[2019-03-06] MEDS: Albuterol 2.5 MG/3 ML INH SOLN VIAL IH (05:24)
[2019-03-06 06:44] LABS: Abs Immature Grans 0.04 k/cumm (0.0-0.09); Absolute Eosinophil Count 0.26 k/cumm (0.0-0.7); Absolute Lymphocyte Count 2.77 k/cumm (1.2-3.4); Absolute Monocyte Count 1.61 k/cumm (0.11-0.7); Basophils % 0.4; Eosinophils % 1.9; HCT 36.7 % (36.0-46.0); HGB 11.4 g/dL (12.0-15.5); Immature Grans % 0.3; Lymphocytes % 20.1; Mean Corp. HGB Concentration 31.1 g/dL (32.0-36.0); Mean Corpuscular Hemoglobin 29.9 pg (27.0-33.0); Mean Corpuscular Volume 96.3 fL (80-95); Mean Platelet Volume 12.7 fL (8.0-11.0); Monocytes % 11.7; Neutrophils % 65.6; Platelet Count 238 x1000/uL (130-400); RBC 3.81 m/cumm (4.00-5.20); RBC Distribution Width 14.8 % (11.7-14.6)
[2019-03-06 06:46] LABS: Absolute Basophil Count 0.06 k/cumm (0.0-0.2); Absolute Neutrophil Count 9.05 k/cumm (1.2-6.7)
[2019-03-06 07:00] LABS: Anion Gap 8.8 mmol/L (3-11); BUN 8 mg/dL (7-18); CO2 28.2 mmol/L (21.0-32.0); CREATININE 0.68 mg/dL (0.55-1.02); Calcium 8.3 mg/dL (8.5-10.1); Chloride 105 mmol/L (98-107); Glucose 93 mg/dL (70-100); Magnesium 1.7 mg/dL (1.8-2.4); Potassium 3.5 mmol/L (3.5-5.1); Sodium 142 mmol/L (136-145)
[2019-03-06] MEDS: Omeprazole 20 MG CAPCR PO ×2 (07:25→19:38)
[2019-03-06] MEDS: Cholecalciferol (Vitamin D3) 1,000 UNIT TAB 2000 UNITS PO (07:27)
[2019-03-06] MEDS: Acetaminophen 500 MG TAB 1000 MG PO ×3 (07:27→19:37)
[2019-03-06] MEDS: busPIRone 5 MG TAB PO ×2 (07:27→19:40)
[2019-03-06] MEDS: dilTIAZem CD 120 MG CAPCR PO ×2 (07:28→19:38)
[2019-03-06] MEDS: Apixaban 5 MG TAB 10 MG PO ×2 (07:28→19:38)
[2019-03-06] MEDS: Potassium Chloride 10 MEQ CAPCR 20 MEQ PO (07:31)
[2019-03-06] MEDS: Magnesium Gluconate 500 MG TAB PO ×2 (07:31→19:39)
--- NOTE | 2019-03-06 09:47 | PT.INIE ---
Date of service: 03/06/19 Time of Service: 09:30 PT Notes Inpatient Physical Therapy Evaluation Date: March 06, 2019 Referring Doctor: Mary Rosen MD PT Orders: PT CONSULT: Evaluate and treat Patient Profile/Admitting Diagnosis: Kacey is a 78 year old female referred for evaluation and treatment s/p diagnosis of PE with cc of right sided chest pain. PMHX: Adrenal mass, right (Chronic 12/11/16) seen on CT Ab 12/26 - STABLE. Will repeat Allergic eosinophilia (Chronic) 09/23/11 COLONOSCOPY BIOPSY SHOWS FOCAL EOSINOPHILIC CRYPTITS Anxiety (Chronic) Arthritis (Chronic)both ankles Asthma Bleeding hemorrhoids (Acute) Cortical cataract of left eye (Resolved) Cortical cataract of right eye (Resolved) Depressive disorder (Chronic) refuses medication Diverticulosis of colon without diverticulitis (Chronic) Elevated fasting glucose (Chronic 06/27/14) Epigastric pain (Chronic) Epiretinal membrane (ERM) of right eye (Chronic) Essential hypertension (Chronic 02/19/13) MARILYN (generalized anxiety disorder) (Chronic) Patient with palpitations with negative Zio patch. She complained of symptoms during normal sinus rhythm on 40 occasions. With anxiety. Intolerant to buspirone. Will start recheck in 2 weeks. Gastroesophageal reflux disease (Chronic) H/o H pylori, neg 07EGD Mitz 07UGI ? 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) RIGHT DELTOID Nuclear sclerotic cataract of left eye (Resolved) Nuclear sclerotic cataract of right eye (Resolved) Obstructive sleep apnea syndrome (Chronic 06/16/12) C-PAP CELINA (obstructive sleep apnea) Posterior subcapsular age-related cataract of left eye (Resolved) Posterior subcapsular age-related cataract, right eye (Resolved) Primary osteoarthritis of both knees (Chronic) SVT (supraventricular tachycardia) 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 DOWELL L SHOULDER 01/25 Status post arthroscopic knee surgery (Acute) 1) RIGHT KNEE; DR. LOPEZ 2) LEFT KNEE; DR. DUNCAN Status post cataract extraction and insertion of intraocular lens of left eye (Chronic 03/13/18) Status post cataract extraction and insertion of intraocular lens of right eye (Chronic 03/27/18) STOMACH STITCH (~08/2014) Thyroid (~09/2014) Social History/Home Situation: Kacey lives alone in an apartment in [place]. One step to enter. Prior to admission independent at baseline. She does not utilize an assistive device. She walks her dog daily 1/4mile two times a day. Current Functional Limitations: Kacey notes that she was scared and concerned about returning home after they diagnosed her with PE. She does report of one fall earlier this summer tripping outside. She does not utilize an assistive device. She notes she utilizes a railing to assist her with one step into her home. Equipment Owned/DME: Handicap accessible apartment Subjective: Kacey was up sitting post bathing with nursing and was agreeable to evaluation and treatment this am. She notes overall that she is feeling much better. Objective: General Observation: Appears to be in no acute distress. Mental Status: Alert and oriented x3. Pain: 4-5/10 on VAS of the right sided chest and shoulder Vital Signs: BP 109/63 mmHg; HR 86 bpm, 02 saturation on room air 96% ROM: Right Upper Extremity: AROM WNL Left Upper Extremity: AROM WNL Right Lower Extremity: AROM WNL Left Lower Extremity: AROM WNL Strength: Right Upper Extremity: Grossly 5/5 without pain Left Upper Extremity: Grossly 5/5 without pain Right Lower Extremity: Grossly 5/5 without pain Left Lower Extremity: Grossly 5/5 without pain Sensation: Intact to light touch. Bed Mobility/Transfers: Sit-stand S Stand-Sit S Gait: S, without assistive device ambulated 150 feet no loss of balance with good irina, O2 saturation stable at 93% on room air Balance: Static Sitting: Normal Dynamic Sitting: Normal Static Standing: Good Dynamic Standing: Good Special Tests: Mobility Limitations Standardized Measure [facility] AM-PAC 6 clicks Basic Mobility Inpatient Short Form: Raw Score: 22 Standardized Score: 53.28 CMS Score: 20.91% [facility] Modifier: CJ Informed Consent/Education: Patient instructed in purpose of PT consult and plan of care. Assessment: Patient is a 78 year old female referred to physical therapy services with the diagnosis of PE. Patient presents with independent bed mobility with supervision with all transfers, WNL strength and ROM, with mildly decreased functional endurance. Impairments are contributing to the following functional limitations: AMPAC score. 20.91% At this time she is currently at baseline and does not require further skilled therapy services. Patient is assessed as a Moderate 65192 complexity based on the following: History: As above Examination: See above Presentation: Evolving Decision Making: Moderate Plan of Care/Treatment Plan: Plan to discharge from PT services at this time. She is currently at baseline level. Did recommend that she utilize a walking stick for outside community ambulation especially while walking her dog to avoid future fall risk. DISCHARGE RECOMMENDATIONS: Home TREATMENT CODE/TIME: 16368, 25 minutes, 9:30am KRISTIAN Escobedo
[2019-03-06] MEDS: Lidocaine 5% Patch 1 PATCH TP (10:02)
[2019-03-06] MEDS: MAGNESIUM SULFATE 2 GM/50 ML BAG IVPB (10:59)
[2019-03-06] MEDS: Potassium Chloride 20 MEQ TABCR 40 MEQ PO (12:12)
[2019-03-06] MEDS: Escitalopram 10 MG TAB PO (12:13)
--- NOTE | 2019-03-06 12:13 | W.PM.PROGNOT ---
Date of Service Date of service: 03/06/19 Time of Service: 12:13 Assessment and Plan Assessment and plan (1) Pulmonary embolism: Start date: 03/06/19 Status: Chronic Assessment and plan: Doing well today. Oxygen on RA with ambulation 93%. Lung sounds clear to all amaya. Apixaban 10 mg BID. No c/o SOB, afebrile, lower extremity doppler negative for DVT. No evidence of RV strain Qualifiers: Pulmonary embolism type: other Chronicity: acute Acute cor pulmonale presence: without acute cor pulmonale Qualified Code(s): I26.99 - Other pulmonary embolism without acute cor pulmonale (2) Cough: Start date: 03/06/19 Start time: 12:19 Status: Acute Assessment and plan: Concern yesterday for asp. pneumonia. CXR today with no evidence of asp. pneum. Respiratory noted a cough yesterday wiht sputum production while in the room without swallowing deficit. Afebrile no leukocytosis. At this time zosyn discontinued after no evidence of pneumonia, (3) DVT prophylaxis: Start date: 03/06/19 Start time: 12:18 Status: Acute Assessment and plan: See above on apixaban Subjective Subjective Patient reports: feels better Exam Narrative Exam Narrative: Const: Pleasant cooperative woman lying in bed smiling. HENMT: normocephalic, EOMI EYEs: PERRLA Neck: no lymphadenopathy, JVD or goiter Resp: even unlabored respirations. Lung sounds clear Cardio: Regular rate and rhythm, no murmur appreciated GI: BSx4 abd soft nontender Skin: intact Neuro: AAOx 3 Extrem: no cyansis, clubbing or deformity. Objective Objective Clinical Data: Abnormal lab results 03/06/19 03/06/19 Range/Units 06:05 06:05 WBC 13.80 H (4.4-10.8) k/cumm RBC 3.81 L (4.00-5.20) m/cumm Hgb 11.4 L (12.0-15.5) g/dL MCV 96.3 H (80-95) fL MCHC 31.1 L (32.0-36.0) g/dL RDW 14.8 H (11.7-14.6) % MPV 12.7 H (8.0-11.0) fL Absolute Neutrophils 9.05 H (1.2-6.7) k/cumm Absolute Monocytes 1.61 H (0.11-0.7) k/cumm Calcium 8.3 L (8.5-10.1) mg/dL Magnesium 1.7 L (1.8-2.4) mg/dL Vital Signs Temperature 36.8 C 03/06/19 11:23 Temperature Source Tympanic 03/06/19 11:23 Pulse 72 03/06/19 11:23 Pulse Rhythm Regular 03/06/19 08:00 Pulse 82 03/05/19 01:50 Respiratory Rate 18 03/06/19 11:23 Respiratory Effort 03/06/19 08:00 Respiratory Depth Normal 03/06/19 08:00 Respiratory Pattern Normal 03/06/19 08:00 Blood Pressure 128/65 03/06/19 11:23 Blood Pressure Mean 68 03/05/19 01:45 Pulse Oximetry 93 L 03/06/19 11:23 Oxygen Delivery Method Room Air 03/06/19 11:23 Oxygen Flow Rate 0 03/06/19 11:23 Fraction of Inspired Oxygen (FIO2) 25 03/05/19 17:05 Pain Level 0 03/06/19 11:23 Comment 03/06/19 09:12 Intake & Output 03/05/19 03/06/19 03/06/19 23:59 11:59 23:59 Intake Total 81.667 / 1511.667 240 / 240 Output Total 300 / 550 950 / 950 Balance -218.333 / 961.667 -710 / -710 Weight 71.4 kg Intake: IV 81.667 / 231.667 120 / 120 Oral 120 / 120 Output: Urine 300 / 550 950 / 950 Other: Urine Color Dark Mimi Yellow Urine Appearance Clear Clear Urine Odor Normal Comment Mixed with loose stool. Pt requested hat removed for BM. No measurement of urine. Stool Size Moderate Stool Characteristics Soft Liquid Brown Voiding Methods Toilet Toilet Laboratory Results WBC 13.80 k/cumm (4.4-10.8) H 03/06/19 06:05 RBC 3.81 m/cumm (4.00-5.20) L 03/06/19 06:05 Hgb 11.4 g/dL (12.0-15.5) L 03/06/19 06:05 Hct 36.7 % (36.0-46.0) 03/06/19 06:05 MCV 96.3 fL (80-95) H 03/06/19 06:05 MCH 29.9 pg (27.0-33.0) 03/06/19 06:05 MCHC 31.1 g/dL (32.0-36.0) L 03/06/19 06:05 RDW 14.8 % (11.7-14.6) H 03/06/19 06:05 Plt Count 238 x1000/uL (130-400) 03/06/19 06:05 MPV 12.7 fL (8.0-11.0) H 03/06/19 06:05 Immature Gran % 0.3 03/06/19 06:05 Neutrophils % 65.6 03/06/19 06:05 Lymphocytes % 20.1 03/06/19 06:05 Monocytes % 11.7 03/06/19 06:05 Eosinophils % 1.9 03/06/19 06:05 Basophils % 0.4 03/06/19 06:05 Absolute Neutrophils 9.05 k/cumm (1.2-6.7) H 03/06/19 06:05 Absolute Lymphocytes 2.77 k/cumm (1.2-3.4) 03/06/19 06:05 Absolute Monocytes 1.61 k/cumm (0.11-0.7) H 03/06/19 06:05 Absolute Eosinophils 0.26 k/cumm (0.0-0.7) 03/06/19 06:05 Absolute Basophils 0.06 k/cumm (0.0-0.2) 03/06/19 06:05 Differential Comment Diff reviewed 03/05/19 06:55 RBC Morphology See below 03/05/19 06:55 Polychromasia Present 03/05/19 06:55 PT 11.2 sec (9.3-11.0) H 03/04/19 22:35 INR 1.1 (0.9-1.1) 03/04/19 22:35 APTT 25.7 sec (21.0-31.4) 03/04/19 22:35 Sodium 142 mmol/L (136-145) 03/06/19 06:05 Potassium 3.5 mmol/L (3.5-5.1) 03/06/19 06:05 Chloride 105 mmol/L (98-107) 03/06/19 06:05 Carbon Dioxide 28.2 mmol/L (21.0-32.0) 03/06/19 06:05 Anion Gap 8.8 mmol/L (3-11) 03/06/19 06:05 BUN 8 mg/dL (7-18) 03/06/19 06:05 Creatinine 0.68 mg/dL (0.55-1.02) 03/06/19 06:05 Estimated GFR/1.73 m2 >= 60.00 (mL/min/1.73m2) 03/06/19 06:05 Glucose 93 mg/dL (70-100) 03/06/19 06:05 Lactate 0.9 mmol/L (0.6-1.4) 03/04/19 22:35 Calcium 8.3 mg/dL (8.5-10.1) L 03/06/19 06:05 Magnesium 1.7 mg/dL (1.8-2.4) L 03/06/19 06:05 Total Bilirubin 0.6 mg/dL (0.2-1.0) 03/04/19 22:35 AST 17 U/L (15-37) 03/04/19 22:35 ALT 29 U/L (14-59) 03/04/19 22:35 Alkaline Phosphatase 73 U/L (46-116) 03/04/19 22:35 Troponin I < 0.05 ng/mL (0.00-0.06) 03/04/19 22:35 NT-Pro-B Natriuret Pep 232 pg/mL (-299) 03/04/19 22:35 Total Protein 7.4 g/dL (6.4-8.2) 03/04/19 22:35 Albumin 3.1 g/dL (3.4-5.0) L 03/04/19 22:35 Lipase 48 U/L (73-393) L 03/04/19 22:35 TSH 1.21 uIU/mL (0.36-3.74) 03/04/19 22:35
--- NOTE | 2019-03-06 13:37 | CMPROGNOTE_ITS ---
- If Service Date Differs Date of service: 03/06/19 Time of Service: 13:38 Care Management Progress Note S/O: Kacey was lying in bed when CM met with her. She reported that she is feeling much better today, and that the plan is for her to return home tomorrow. She stated that she is happy to go home but is worried about the cost of her new medications and also being able to manage them. CM offered to find out her copays before she discharged home, which she is happy about. CM will discuss the option of HH VNA with the MD upon discharge to help with med management. CM will continue to follow. A: Kacey is a 78 year old female admitted to [facility] on 03/05/2019 for PE. P: Anticipate Kacey will return home with new orders for HH VNA when medically cleared. CM will call her pharmacy prior to discharge in order to inform her of her copays for new prescriptions. She will follow up with her PCP, as recommended. Anticipate her son will transport her via private vehicle. CM will continue to support patient, family, and discharge planning.
[2019-03-06] MEDS: Potassium Chloride 10 MEQ CAPCR PO (16:00)
[2019-03-06] MEDS: Mometasone 220 MCG 14 DOSE INHALER 1 PUFF IH (21:11)
[2019-03-07 03:50] VITALS: BP 106/59; PULSE 80; RESP 20; TEMP 36.7; O2SAT 94
[2019-03-07] MEDS: Levothyroxine 75 MCG TAB PO (06:34)
[2019-03-07 07:08] LABS: Abs Immature Grans 0.03 k/cumm (0.0-0.09); Absolute Basophil Count 0.05 k/cumm (0.0-0.2); Absolute Eosinophil Count 0.36 k/cumm (0.0-0.7); Absolute Lymphocyte Count 1.34 k/cumm (1.2-3.4); Absolute Monocyte Count 1.11 k/cumm (0.11-0.7); Absolute Neutrophil Count 8.07 k/cumm (1.2-6.7); Basophils % 0.5; Eosinophils % 3.3; HCT 38.2 % (36.0-46.0); HGB 12.1 g/dL (12.0-15.5); Immature Grans % 0.3; Lymphocytes % 12.2; Mean Corp. HGB Concentration 31.7 g/dL (32.0-36.0); Mean Corpuscular Hemoglobin 30.2 pg (27.0-33.0); Mean Corpuscular Volume 95.3 fL (80-95); Monocytes % 10.1; Neutrophils % 73.6; Platelet Count 284 x1000/uL (130-400); RBC 4.01 m/cumm (4.00-5.20); RBC Distribution Width 14.4 % (11.7-14.6); White Blood Cell Count 10.97 k/cumm (4.4-10.8)
[2019-03-07 07:17] LABS: Anion Gap 9.6 mmol/L (3-11); BUN 8 mg/dL (7-18); CO2 26.4 mmol/L (21.0-32.0); CREATININE 0.56 mg/dL (0.55-1.02); Chloride 105 mmol/L (98-107); Glucose 95 mg/dL (70-100); Magnesium 1.9 mg/dL (1.8-2.4); Sodium 141 mmol/L (136-145)
[2019-03-07 07:34] VITALS: BP 116/68; PULSE 72; RESP 18; TEMP 37.1; O2SAT 96
[2019-03-07] MEDS: Acetaminophen 500 MG TAB 1000 MG PO (08:19)
[2019-03-07] MEDS: busPIRone 5 MG TAB PO (08:19)
[2019-03-07] MEDS: Magnesium Gluconate 500 MG TAB PO (08:19)
[2019-03-07] MEDS: Cholecalciferol (Vitamin D3) 1,000 UNIT TAB 2000 UNITS PO (08:19)
[2019-03-07] MEDS: Potassium Chloride 10 MEQ CAPCR 20 MEQ PO (08:20)
[2019-03-07] MEDS: dilTIAZem CD 120 MG CAPCR PO (08:21)
[2019-03-07] MEDS: Apixaban 5 MG TAB 10 MG PO (08:21)
[2019-03-07] MEDS: Omeprazole 20 MG CAPCR PO (08:21)
[2019-03-07] MEDS: Normal Saline Flush 10 ML SYR IVP (08:22)
--- NOTE | 2019-03-07 10:32 | DSE_ITS ---
DS: Diagnosis Discharge Diagnosis (1) Pulmonary embolism: Start date: 03/07/19 Start time: 10:33 Status: Chronic Asessment and Plan: Improving. 96% on RA. Continue Apixaban 10 mg BID until Mar 12 then start 5 mg daily for at least 6 months or longer. Follow up with PCP in 1 week. Follow up with Hematology. (2) Cough: Status: Acute (3) DVT prophylaxis: Status: Acute Discharge Plan Disposition Patient Disposition: HOME W/HOME HEALTH SERVICE Condition: Good Discharge Details Chief Complaint: Chest Pain Clinical Impression: Pulmonary embolism, Hypomagnesemia, Diarrhea, Hypokalemia Reason For Visit: PE Admit Date/Time: 03/05/19 01:39 Admit Provider: Mark Keene Attending Provider: Mark Keene Primary Care Provider: Joann Arreola [facility]: 70 y.o female with PMH asthma, thryoid cancer, SVT controlled, CELINA, admitted from [facility] ED for PE. Patient initially presented to ED with right sided pleuritic chest pain on 03/04/2019. Prior to ED she was seen by PCP and told it was probably gas pains. Imaging in the ED revealed RLL lobar and segmental PE and scattered sub segmental PE elsewhere. She was started on apixaban, and at the time requiring 2 l oxygen, she was admitted for further management. Ultrasound of lower extremity was negative for DVT. Echo with no evidence of RV strain, EF at 65%. CXR with no acute abnormality. Yesterday she was weaned off her oxygen with ambulating saturation of 93% on RA. She does c/o cough however no sputum production, fever or leukocytosis. She is being discharged on apixaban 10 mg to finish a 7 day course with 5 mg BID to follow for at least 6 months. She will need follow up with PCP and hematology. She denies CP, SOB, N/V/D. Home Meds and New Rx's Prescriptions: New apixaban 5 mg (74 tabs) tablets,dose pack See Rx Instructions .ROUTE .COMPLEX Qty: 74 RF: 0 apixaban 5 mg (74 tabs) tablets,dose pack See Rx Instructions .ROUTE .COMPLEX Qty: 74 RF: 0 albuterol sulfate 90 mcg/actuation aerosol powdr breath activated 2 inh IH Q4H PRN (Reason: shortness of breath or wheezing) Qty: 1 RF: 0 Continued rabeprazole [AcipHex] 20 mg tablet,delayed release (DR/EC) 20 mg PO BID Qty: 180 RF: 12 acetaminophen [Tylenol Extra Strength] 500 mg tablet 1,000 mg PO TID RF: 0 escitalopram oxalate 10 mg tablet 10 mg PO DAILY Qty: 90 RF: 5 buspirone 10 mg tablet 5 mg PO BID Qty: 180 RF: 5 prednisone 5 mg tablet 5 mg PO DAILY Qty: 30 RF: 0 aspirin [Ecotrin Low Strength] 81 MG tablet,delayed release (DR/EC) 81 mg PO HS RF: 0 nystatin 60 GM powder 1 applic Topical BID Qty: 60 RF: 12 estradiol [Estrace] 42.5 GM cream 4 g Topical 2X /week Qty: 5 RF: 4 albuterol sulfate 2.5 MG/3 ML solution for nebulization 2.5 mg Inhalation QID PRNQty: 100 RF: 12 albuterol sulfate [ProAir HFA] 8.5 GM HFA aerosol inhaler 1 - 2 puff Inhalation Q4H PRN Qty: 1 RF: 12 lorazepam 0.5 MG tablet 0.5 mg PO PRN PRNQty: 90 RF: 2 diltiazem HCl 120 mg capsule,extended release 12 hr 120 mg PO BID Qty: 90 RF: 4 Flovent HFA 110 mcg/actuation HFA aerosol inhaler 2 puff Inhalation HS Qty: 12 RF: 6 levothyroxine 75 mcg Tablet 75 mcg PO DAILY RF: 0 garlic 1,000 mg Capsule 1,000 mg PO DAILY RF: 0 cholecalciferol (vitamin D3) [Vitamin D3] 2,000 unit Capsule 2,000 unit PO DAILY RF: 0 No Action (DME) PulmoNeb LT Compressor Nebul 1 EACH device 1 ea Miscellaneous PRN RF: 0 Discharge Instructions Instructions: Pulmonary Embolism (GEN) Additional Instructions: Take apixaban 10 mg twice a day until Mar 12, then start taking apixaban 5 mg a twice a day. You will need follow up with a lorry weigher. Follow up with your Primary doctor in one week. Take the albuterol inhaler if you have shortness of breath or wheezing. Use incentive spirometer Move around at least once every hour for at least 5 mins. Seek medical treatment if you have worsening chest pain, shortness of breath, back pain Activity:: Activity as Tolerated Equipment/Supplies:: No Equipment Needed Diet:: As Tolerated Discharge Orders Discharge Orders: Discharge Order (Routine); Ordered 03/07/19 Ordered By: Nita Ybarra DS: Summary Status at Discharge Functional status at discharge: independent ambulation Overall status at discharge: patient is back to baseline Mental Status: mental status grossly normal Speech and Movement: speech and movement normal Mood: congruent mood Affect: normal affect Exam Narrative Exam Narrative: Const: Pleasant cooperative woman lying in bed smiling. HENMT: normocephalic, EOMI EYEs: PERRLA Neck: no lymphadenopathy, JVD or goiter Resp: even unlabored respirations. Lung sounds clear Cardio: Regular rate and rhythm, no murmur appreciated GI: BSx4 abd soft nontender Skin: intact Neuro: AAOx 3 Extrem: no cyansis, clubbing or deformity. Psych Mental Status: mental status grossly normal Speech and Movement: speech and movement normal Mood: congruent mood Affect: normal affect DS: Data Vitals/I&O Vitals and I&O: Vital Signs Temperature 37.1 C 03/07/19 07:34 Temperature Source Tympanic 03/07/19 07:34 Pulse 72 03/07/19 07:34 Pulse Rhythm Regular 03/07/19 09:56 Pulse 82 03/05/19 01:50 Respiratory Rate 18 03/07/19 07:34 Respiratory Effort Non-Labored 03/07/19 09:56 Respiratory Depth Normal 03/07/19 09:56 Respiratory Pattern Normal 03/07/19 09:56 Blood Pressure 116/68 03/07/19 07:34 Blood Pressure Mean 68 03/05/19 01:45 Pulse Oximetry 96 03/07/19 07:34 Oxygen Delivery Method Room Air 03/07/19 07:34 Oxygen Flow Rate 0 03/07/19 07:34 Fraction of Inspired Oxygen (FIO2) 25 03/05/19 17:05 Pain Level 7 03/07/19 08:19 Comment 03/06/19 09:12 Intake & Output 03/06/19 03/06/19 03/07/19 11:59 23:59 11:59 Intake Total 240 / 540 300 / 540 610 / 610 Output Total 950 / 950 Balance -710 / -410 300 / -410 610 / 610 Weight 71.4 kg 70.2 kg Intake: IV 120 / 180 60 / 180 Oral 120 / 360 240 / 360 610 / 610 Output: Urine 950 / 950 Other: Urine Color Yellow Urine Appearance Clear Clear Clear Urine Odor Normal Comment Mixed with loose stool. Pt requested hat removed for BM. No measurement of urine. Stool Size Moderate Stool Characteristics Soft Liquid Brown Voiding Methods Toilet Toilet Data Completed and Pending Completed studies during hospitalization [Text1]: Exam(s) PROCEDURE INFORMATION: Exam: XR Chest, 1 View Exam date and time: 03/04/2019 10:51 PM Clinical history: 78 years old, female; Other: Ruq pain, chest pain TECHNIQUE: Imaging protocol: XR of the chest Views: 1 view. COMPARISON: CR XR CHEST 2V PA LATERAL 10/29/2018 9:52 AM FINDINGS: Lungs: Unremarkable. No consolidation. Pleural space: Unremarkable. No evidence of pneumothorax. Heart/Mediastinum: Unremarkable. Heart size within normal limits for technique. Bones/joints: Unremarkable. IMPRESSION: No acute findings. xam(s) Addendum created by Jose M Yeboah MD on 03/05/2019 1:16:08 AM EDT THIS REPORT CONTAINS FINDINGS THAT MAY BE CRITICAL TO PATIENT CARE. The findings were verbally communicated via telephone conference with Dr. Carter at 1:15 AM EDT on 03/05/2019. The findings were acknowledged and understood. Initial report created on 03/05/2019 1:13:24 AM EDT PROCEDURE INFORMATION: Exam: CT Angiography Chest With Contrast Exam date and time: 03/04/2019 11:47 PM Clinical history: 78 years old, female; Other: Right pleuritic; Abdominal pain; Localized; Right upper quadrant (ruq); Prior surgery; Surgery date: 6+ months; Surgery type: Hysterectomy, gallbladder, appendix TECHNIQUE: Imaging protocol: Computed tomographic angiography of the chest with intravenous contrast. 3D rendering: MIP reconstructed images were created and reviewed. Radiation optimization: All CT scans at this facility use at least one of these dose optimization techniques: automated exposure control; mA and/or kV adjustment per patient size (includes targeted exams where dose is matched to clinical indication); or iterative reconstruction. Contrast material: [id number]; Contrast volume: 115 ml; Contrast route: IV LAC 20G; COMPARISON: CT CHEST WITH CONTRAST 06/06/2014 2:48 PM FINDINGS: Pulmonary arteries: Right lower lobe lobar and segmental pulmonary emboli. Scattered very few sub-segmental emboli elsewhere. Aorta: Unremarkable. No aortic aneurysm. No aortic dissection. Lungs: Small amount of dependent atelectasis. Pleural space: Small right pleural effusion. Heart: Unremarkable. No pericardial effusion. No obvious heart strain. Lymph nodes: Unremarkable. No enlarged lymph nodes. Bones/joints: Unremarkable. No acute fracture. Soft tissues: Unremarkable. IMPRESSION: Pulmonary emboli, predominately in the right lower lobe. Small right pleural effusion. Conclusion Left Ventricle : The left ventricle is normal size. There is normal left ventricular wall thickness. LVEF is 60-65%. There is flattening of the interventricular septum during systole suggestive of RV pressure overload. There are no other segmental wall motion abnormalities The left ventricular d iastolic function is normal. Right Ventricle : Right ventricle is mildly dilated. The right ventricular systolic function is normal. There is no evidence of RV strain. Atria : The left atrium size is normal. The right atrium size is normal. Aortic Valve : The aortic valve is normal in structure. Aortic valve is trileaflet. There is normal aortic valve excursion. No aortic regurgitation is present. Mitral Valve : Mitral valve is normal in structure. Trace to mild mitral regurgitation. No evidence of mitral valve stenosis. Tricuspid Valve : The tricuspid valve is normal in structure. Mild tricuspid regurgitation. The RVSP is 40-45 mmHg. Pulmonic Valve : Pulmonic valve is not well visualized. Great Vessels : IVC is normal in size and collapses >50% with inspiration. There are no prior echocardiograms available for comparison. EXAM: Comprehensive 2D, Doppler, and color-flow Echocardiogram Patient Location: In-Patient [employer] Worker: Radha Galloway [facility] ([place]) Indications: PE evaluate LV function Left Ventricle The left ventricle is normal size. The left ventricular systolic function is normal. There is normal left ventricular wall thickness. There is flattening of the interventricular septum during systole suggestive of RV pressure overload. There are no other segmental wall motion abnormalities The left ventricular diastolic function is normal. LVEF is 60-65%. Right Ventricle Right ventricle is mildly dilated. The right ventricular systolic function is normal. There is no evidence of RV strain. Atria The left atrium size is normal. The right atrium size is normal. Aortic Valve The aortic valve is normal in structure. Aortic valve is trileaflet. There is normal aortic valve excursion. No aortic regurgitation is present. Mitral Valve Mitral valve is normal in structure. No evidence of mitral valve stenosis. Trace to mild mitral regurgitation. Tricuspid Valve The tricuspid valve is normal in structure. Mild tricuspid regurgitation. The RVSP is 40-45 mmHg. Pulmonic Valve Pulmonic valve is not well visualized. Great Vessels The aortic root is normal in size. IVC is normal in size and collapses >50% with inspiration. Pericardium Prominent anterior epicardial fat pad is present. CC: Exam(s) PROCEDURE INFORMATION: Exam: XR Chest, 1 View Exam date and time: 03/05/2019 5:14 PM Clinical history: 78 years old, female; Condition or disease; Other: Aspiration event TECHNIQUE: Imaging protocol: XR of the chest Views: 1 view. COMPARISON: XR PORTABLE CHEST AP 03/04/2019 10:39 PM FINDINGS: Lungs: Unremarkable. No consolidation. Pleural space: Unremarkable. No pleural effusion. No pneumothorax. Heart/Mediastinum: Unremarkable. No cardiomegaly. Bones/joints: Left rotator cuff anchor. Degenerative changes in the spine. IMPRESSION: No acute finding. Labs on day of discharge: Labs from last 24 hours 03/07/19 03/07/19 06:04 06:04 WBC 10.97 H RBC 4.01 Hgb 12.1 Hct 38.2 MCV 95.3 H MCH 30.2 MCHC 31.7 L RDW 14.4 Plt Count 284 MPV 13.0 H Immature Gran % 0.3 Neutrophils % 73.6 Lymphocytes % 12.2 Monocytes % 10.1 Eosinophils % 3.3 Basophils % 0.5 Absolute Neutrophils 8.07 H Absolute Lymphocytes 1.34 Absolute Monocytes 1.11 H Absolute Eosinophils 0.36 Absolute Basophils 0.05 Sodium 141 Potassium 4.0 Chloride 105 Carbon Dioxide 26.4 Anion Gap 9.6 BUN 8 Creatinine 0.56 Estimated GFR/1.73 m2 >= 60.00 Glucose 95 Calcium 9.0 Magnesium 1.9 [facility] Medical History Adrenal mass, right (Chronic 12/11/16) seen on CT Ab 12/26 - STABLE. Will repeat Allergic eosinophilia (Chronic) 09/23/11 COLONOSCOPY BIOPSY SHOWS FOCAL EOSINOPHILIC CRYPTITS Anxiety (Chronic) Anxiety disorder Arthritis (Chronic) both ankles S/P fracture S/P surgery Asthma Asthma (Chronic) Bleeding hemorrhoids (Acute) Cortical cataract of left eye (Resolved) Cortical cataract of right eye (Resolved) Depressive disorder Depressive disorder (Chronic) refuses medication Diverticulosis Diverticulosis of colon without diverticulitis (Chronic) Elevated fasting glucose (Chronic 06/27/14) Epigastric pain (Chronic) Epiretinal membrane (ERM) of right eye (Chronic) Essential hypertension Essential hypertension (Chronic 02/19/13) MARILYN (generalized anxiety disorder) (Chronic) Patient with palpitations with negative Zio patch. She complained of sympt oms during normal sinus rhythm on 40 occasions. With anxiety. Intolerant to buspirone. Will start recheck in 2 weeks. Gastroesophageal reflux disease (Chronic) H/o H pylori, neg 07EGD Mitz 07UGI ? 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 03/18 MRI 2004 showing herniated disc, S/P surgery. 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) RIGHT DELTOID Nuclear sclerotic cataract of left eye (Resolved) Nuclear sclerotic cataract of right eye (Resolved) Obstructive sleep apnea syndrome (Chronic 06/16/12) C-PAP CELINA (obstructive sleep apnea) Posterior subcapsular age-related cataract of left eye (Resolved) Posterior subcapsular age-related cataract, right eye (Resolved) Primary osteoarthritis of both knees (Chronic) SVT (supraventricular tachycardia) 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 MAGALYS [place] SHOULDER 01/25 Status post arthroscopic knee surgery (Acute) 1) RIGHT KNEE; DR. LOPEZ 2) LEFT KNEE; DR. DUNCAN Status post cataract extraction and insertion of intraocular lens of left eye (Chronic 03/13/18) Status post cataract extraction and insertion of intraocular lens of right eye (Chronic 03/27/18) STOMACH STITCH (~08/2014) Thyroid (~09/2014) Family History Mother , OLD AGE at age 95. Stroke Father , GI BLEED at age 85. Diabetes GI bleed Heart disease Sister Diabetes Essential hypertension Neoplasm BREAST Brother Macular degeneration 1 EYE Grandfather Heart disease Neoplasm Grandfather No problems noted. Grandmother Heart disease Grandmother Neoplasm Son Neoplasm BRAIN Son No problems noted. Daughter Neoplasm BREAST Daughter No problems noted. Child No problems noted. Social History Smoking/Tobacco Use Status: Never Alcohol Intake: never Drug use: Never Substance use type: does not use Pets and animals: Yes Pets and animals: cat(s) and dog(s) Current gender identity: female What type of physical activity do you participate in: none Li/Amish: Mandaen Special li needs: No Do you feel safe at home: Yes Do you feel safe in your relationship?: Yes
[2019-03-07] MEDS: Lidocaine 5% Patch 1 PATCH TP (11:16)
--- NOTE | 2019-03-07 11:25 | PDOC.HHF2F ---
Home Health Certification Home Health Certification: 1. Encounter Date and Reason I certify that RUBEN GOLDSTEIN was seen by Nita Ybarra on 03/07/19 and that I had a [id number] encounter with this patient that meets the physician face to face encounter requirements. 2. Clinical Findings Supporting Skilled Need and Homebound Status I certify that home health services are medically necessary, include either intermittent assisted and/or physical/speech therapy, and that this patient is homebound in that absences from the home require considerable and taxing effort and are infrequent or of short duration, or are attributable to the need to receive medical care. [X] (a) Attached documentation from encounter provides clinical findings supporting skilled need and homebound status (including what assistance patient requires to leave the home). The encounter with the patient was in whole, or in part, for the following medical condition, which is the primary reason for home health care: PE Custodial: Patient would benefit from nursing services for medication management. Physical Therapy: Speech Therapy: Homebound: 3. Certification and Authentication I certify that I composed the above information based on my clinical judgement relating to this patient's medical condition and, if applicable, clinical findings communicated to me by the NPP or inpatient physician who performed the Home Health Referral. All further orders will be obtained through (Community Based Physician - PCP)
[2019-03-07 11:31] VITALS: BP 106/66; PULSE 68; RESP 18; TEMP 36.7; O2SAT 98
[2019-03-07] MEDS: Escitalopram 10 MG TAB PO (12:10)
--- NOTE | 2019-03-07 13:16 | PDOC.CMDIS ---
- If Service Date Differs Date of service: 03/07/19 Time of Service: 13:16 LACE Index Scoring Tool - Questions: Length of Stay (in days): 3 Acuity (Admit via E.D.?): Yes E.D. Visits: 1 - Answers: Total Score: 7 Risk of Readmission: Low Risk Care Management Discharge Reason for Hospitalization: Pulmonary Embolism Discharge Plan: Kacey will return home with new orders for HH VNA for med management. She has new prescriptions which she expressed concern about regarding cost. CM called the pharmacy to inquire about her Eliquis copay, which is $28. CM offered her a coupon for Eliquis, which she gladly accepted. Her friend, Mich will transport her via private vehicle. She will follow up with her PCP, as recommended. Kacey is agreeable to the discharge plan. Patient/Family Education Needs: Review discharge instructions regarding medication management and activity levels, discussion of self care needs including Ask Me Three Services Needed at Discharge: Home Health Care Services
--- NOTE | 2019-03-08 14:36 | W.SPEECHNOTE ---
Date of service: 03/08/19 Time of Service: 14:37 Speech Therapy Visit Note Note: Non-Treatment/Contact Note: Speech therapy consult requested on evening of 03/05/19. Order then discharged on 03/06/19 given no evidence of aspiration pneumonia on imaging per attending MD and PA. This CALENDER SUPERVISOR instructed MD and PA of outpatient options if there are future dysphagia concerns.
== END 2019-03-07 13:11 | disposition home health service (06) ==
LOC: ER 03-05 01:51 → MS 03-05 02:10
PROVIDERS: Internal Medicine; Nurse Practitioner Family; Student in an Organized Health Care Education/Training Program; Admitting Provider Internal Medicine; Emergency Provider Emergency Medicine; PCP Family Medicine; Visit Provider Internal Medicine
DX: I26.99 Other pulmonary embolism without acute cor pulmonale (principal); R05 Cough; R09.02 Hypoxemia; E83.42 Hypomagnesemia; R19.7 Diarrhea, unspecified; E87.6 Hypokalemia; E89.0 Postprocedural hypothyroidism; K21.9 Gastro-esophageal reflux disease without esophagitis; I10 Essential (primary) hypertension; F41.8 Other specified anxiety disorders; E78.00 Pure hypercholesterolemia, unspecified; G47.33 Obstructive sleep apnea (adult) (pediatric); I07.1 Rheumatic tricuspid insufficiency
CPT/HCPCS: 36415; 71275; 74177; 80048; 80053; 83690; 93005; 93306; 94618; 96361; 96365; 96368; 96375; 97162; 99220; 99233; 99239; 99285; NC; 71045; 83605; 83735; 83880; 84443; 84484; 85025; 85610; 85730; 93010; 93970; 94660; 99217; 99226; G0378; J2405; J2543; J3480; J3490; J7613

== ENCOUNTER 2019-03-10 11:11 | Emergency (ER) | payer MEDICARE, OTHER, SELFPAY ==
[2019-03-10] VITALS (45 sets, daily range): BP systolic 103–140; BP diastolic 51–76; PULSE 54–82; RESP 13–20; TEMP 37.1; O2SAT 92–98
--- NOTE | 2019-03-10 10:55 | ED.GENADUL_ITS ---
Discharge Plan Disposition Patient Disposition: HOME Condition: Stable Discharge Details Chief Complaint: Chest Pain Clinical Impression: Chest pain, Hypomagnesemia, Pleural effusion Primary Care Provider: Win Rhodes ED Provider: Geri Persley Home Meds and New Rx's Prescriptions: New magnesium oxide 400 mg (241.3 mg magnesium) tablet 400 mg PO DAILY Qty: 20 RF: 0 Continued rabeprazole [AcipHex] 20 mg tablet,delayed release (DR/EC) 20 mg PO BID Qty: 180 RF: 12 acetaminophen [Tylenol Extra Strength] 500 mg tablet 1,000 mg PO TID RF: 0 escitalopram oxalate 10 mg tablet 10 mg PO DAILY Qty: 90 RF: 5 buspirone 10 mg tablet 5 mg PO BID Qty: 180 RF: 5 prednisone 5 mg tablet 5 mg PO DAILY Qty: 30 RF: 0 aspirin [Ecotrin Low Strength] 81 MG tablet,delayed release (DR/EC) 81 mg PO HS RF: 0 nystatin 60 GM powder 1 applic Topical BID Qty: 60 RF: 12 estradiol [Estrace] 42.5 GM cream 4 g Topical 2X /week Qty: 5 RF: 4 albuterol sulfate 2.5 MG/3 ML solution for nebulization 2.5 mg Inhalation QID PRNQty: 100 RF: 12 albuterol sulfate [ProAir HFA] 8.5 GM HFA aerosol inhaler 1 - 2 puff Inhalation Q4H PRN Qty: 1 RF: 12 lorazepam 0.5 MG tablet 0.5 mg PO PRN PRNQty: 90 RF: 2 diltiazem HCl 120 mg capsule,extended release 12 hr 120 mg PO BID Qty: 90 RF: 4 Flovent HFA 110 mcg/actuation HFA aerosol inhaler 2 puff Inhalation HS Qty: 12 RF: 6 (DME) PulmoNeb LT Compressor Nebul 1 EACH device 1 ea Miscellaneous PRN RF: 0 levothyroxine 75 mcg Tablet 75 mcg PO DAILY RF: 0 garlic 1,000 mg Capsule 1,000 mg PO DAILY RF: 0 cholecalciferol (vitamin D3) [Vitamin D3] 2,000 unit Capsule 2,000 unit PO DAILY RF: 0 apixaban 5 mg (74 tabs) tablets,dose pack See Rx Instructions .ROUTE .COMPLEX Qty: 74 RF: 0 albuterol sulfate 90 mcg/actuation aerosol powdr breath activated 2 inh IH Q4H PRN (Reason: shortness of breath or wheezing) Qty: 1 RF: 0 Discharge Instructions Instructions: Chest Pain (ED), Hypomagnesemia (ED) Additional Instructions: Please return immediately to the emergency department if you develop any new or worsening symptoms or if you become otherwise concerned. It is extremely important that you attend your scheduled appointment with Dr. Rhodes on March 16 at 1 PM as was scheduled for you today. Referrals: Win Rhodes [Primary Care Provider] - Discharge Data Discharge Date/Time-TO BE ENTERED AT DEPARTURE: 03/10/19 16:45 Medical Decision Making Kacey Gandara is a 78-year-old woman with a history of SVT, GERD, hypertension, hyper lipidemia, hypothyroidism, diagnosed with pulmonary embolism 03/05, started on Eliquis, and discharged from this hospital 03/07 who presented to the emergency department with recurrence of right-sided chest pain, however now less severe than upon her initial presentation to the emergency department on 03/05. On exam patient is well and nontoxic appearing. Benign cardiopulmonary exam. Concern for possible worsening clot burden, ACS, other. Plan for EKG, screening labs, will likely repeat CT chest, IV, telemetry. Patient is currently pain-free in the emergency department. We will continue to monitor. Patient found to have magnesium 1.5. Will replete. Creatinine okay, plan for CT chest. CT shows decreasing clot burden, no right heart strain. On reassessment patient reports that she feels much better. She is not had any pain. Plan for repeat troponin. Patient describes that she is using 2 pantiliners per day for bleeding from hemorrhoids, on history bleeding seems relatively minor. Plan for repeat H&H, anticipate discharge to home. Repeat H&H 13.3-11.8, however patient states that she has had minimal bleeding today, has had no bleeding in the emergency department (pantiliner clean and dry ) and patient has received 1 L of fluid plus magnesium. Suspect some delutional component at this time. Exam/history is not consistent with acute life- threatening hemorrhage. Given nature of pain (right chest, sharp stabbing, lasting for seconds at a time, nonexertional, nonpleuritic, non-positional) doubt ACS as etiology. Repeat troponin negative. Plan for patient to see Dr. Vargas within 48 hours for reevaluation, will give magnesium prescription. I had a lengthy discussion with the patient regarding return to emergency department precautions including red flags for which to return, home care, and importance of outpatient follow-up with her PCP. Patient verbalized understanding of the plan was amenable. All questions were answered. Patient was discharged home with clear plan for outpatient follow-up. Medical Records Medical records reviewed: Yes I reviewed the patient's medical records. Imaging Data Radiologic Study: Attestation: I personally reviewed and interpreted this imaging study as follows: Radiologist's impression: EXAM: CT CHEST PE CTA CLINICAL HISTORY: chest pain in setting of known PE TECHNIQUE: Axial CT angiography was performed with multi-slice acquisition and multi-planar and/or 3D reconstructions. COMPARISON: CT CHEST PE ABD PELVIS W from 03/04/2019 FINDINGS: There are again seen pulmonary emboli in the branches to the right lower lobe. There has been no progression of the embolic disease since 03/04/2019. There is no evidence of right heart strain. No pericardial effusion is seen. There is no evidence of a thoracic aortic dissection or aneurysm. No significant mediastinal adenopathy is present. There has been slight interval increase in size of the right pleural effusion which remains small. No left pleural effusion is present. There are again seen dependent atelectatic changes in the lungs. No focal consolidation is seen to suggest pneumonia or infarct. The tracheobronchial tree is unremarkable. Degenerative changes are seen in the spine. IMPRESSION: 1. No evidence of progression of the pulmonary embolic disease since 03/04/2019. No evidence of right heart strain. 2. Interval increase in size of right pleural effusion which remains small. 3. Dependent airspace opacities likely reflecting atelectasis. 4. The findings were discussed with the emergency department on the date of the examination. Lab Data Lab results reviewed: Yes I reviewed the patient's lab results. Labs: Laboratory Tests Range/Units 03/10/19 03/10/19 03/10/19 11:05 11:05 14:22 WBC (4.4-10.8) k/cumm 7.73 RBC (4.00-5.20) m/cumm 4.57 Hgb (12.0-15.5) g/dL 13.3 Hct (36.0-46.0) % 42.5 MCV (80-95) fL 93.0 MCH (27.0-33.0) pg 29.1 MCHC (32.0-36.0) g/dL 31.3 L RDW (11.7-14.6) % 14.4 Plt Count (130-400) x1000/uL 429 H MPV (8.0-11.0) fL 11.7 H Immature Gran % 0.6 Neutrophils % 70.4 Lymphocytes % 17.5 Monocytes % 8.2 Eosinophils % 2.1 Basophils % 1.2 Absolute Neutrophils (1.2-6.7) k/cumm 5.45 Absolute Lymphocytes (1.2-3.4) k/cumm 1.35 Absolute Monocytes (0.11-0.7) k/cumm 0.63 Absolute Eosinophils (0.0-0.7) k/cumm 0.16 Absolute Basophils (0.0-0.2) k/cumm 0.09 Sodium (136-145) mmol/L 140 Potassium (3.5-5.1) mmol/L 3.5 Chloride (98-107) mmol/L 101 Carbon Dioxide (21.0-32.0) mmol/L 27.9 Anion Gap (3-11) mmol/L 11.1 H BUN (7-18) mg/dL 13 Creatinine (0.55-1.02) mg/dL 0.73 Estimated GFR/1.73 m2 (mL/min/1.73m2) >= 60.00 Glucose (70-100) mg/dL 127 H Calcium (8.5-10.1) mg/dL 9.7 Magnesium (1.8-2.4) mg/dL 1.5 L Total Bilirubin (0.2-1.0) mg/dL 0.3 AST (15-37) U/L 18 ALT (14-59) U/L 38 Alkaline Phosphatase (46-116) U/L 113 Troponin I (0.00-0.06) ng/mL < 0.05 < 0.05 NT-Pro-B Natriuret Pep ( - 299) pg/mL 69 Total Protein (6.4-8.2) g/dL 8.6 H Albumin (3.4-5.0) g/dL 3.3 L Range/Units 03/10/19 15:20 WBC (4.4-10.8) k/cumm RBC (4.00-5.20) m/cumm Hgb (12.0-15.5) g/dL 11.8 L Hct (36.0-46.0) % 36.7 MCV (80-95) fL MCH (27.0-33.0) pg MCHC (32.0-36.0) g/dL RDW (11.7-14.6) % Plt Count (130-400) x1000/uL MPV (8.0-11.0) fL Immature Gran % Neutrophils % Lymphocytes % Monocytes % Eosinophils % Basophils % Absolute Neutrophils (1.2-6.7) k/cumm Absolute Lymphocytes (1.2-3.4) k/cumm Absolute Monocytes (0.11-0.7) k/cumm Absolute Eosinophils (0.0-0.7) k/cumm Absolute Basophils (0.0-0.2) k/cumm Sodium (136-145) mmol/L Potassium (3.5-5.1) mmol/L Chloride (98-107) mmol/L Carbon Dioxide (21.0-32.0) mmol/L Anion Gap (3-11) mmol/L BUN (7-18) mg/dL Creatinine (0.55-1.02) mg/dL Estimated GFR/1.73 m2 (mL/min/1.73m2) Glucose (70-100) mg/dL Calcium (8.5-10.1) mg/dL Magnesium (1.8-2.4) mg/dL Total Bilirubin (0.2-1.0) mg/dL AST (15-37) U/L ALT (14-59) U/L Alkaline Phosphatase (46-116) U/L Troponin I (0.00-0.06) ng/mL NT-Pro-B Natriuret Pep ( - 299) pg/mL Total Protein (6.4-8.2) g/dL Albumin (3.4-5.0) g/dL ECG Data Attestation: I personally reviewed and interpreted this ECG (s) as follows: Interpretation: EKG shows sinus rhythm at 69, normal axis, nonspecific ST changes unchanged from prior EKG 03/04, poor R wave progression, no STEMI, nondiagnostic EKG. HPI General Mode of arrival: EMS . Date/Time Provider Initiated Documentation: 03/10/19 12:25 . Limitations to Documentation: no limitations . Information obtained by: patient, RN notes reviewed and old records reviewed . HPI Narrative: Kacey Gandara is a 78-year-old woman with a history of SVT, GERD, hypertension, hyper lipidemia, hypothyroidism, recently diagnosed with PE presenting to the emergency department with right-sided chest pain. On 1024 patient was seen in the emergency department for right-sided chest pain, was diagnosed with right-sided PE, and was admitted to the hospital for borderline hypoxia. Echo showed no right heart strain. Patient was started on apixaban, and was discharged to home on 03/07. Patient reports that since her diagnosis she has been feeling more fatigued than usual, but otherwise had been in her usual state of health until this morning. She reports that this morning she had sharp right-sided chest pain similar to the pain she had when she was initially diagnosed, but less severe today. Patient reports the pain lasts for seconds at a time, and seems to come and go randomly without modifiers. She has been eating and drinking as usual. She has been compliant with her Eliquis and other medications. No recent illness. No other new symptoms. Related Data Home Medications Medication Instructions Recorded Confirmed aspirin [Ecotrin Low Strength] 81 mg PO HS 08/20/12 03/11/19 nystatin 1 applic TOPICAL BID #60 gm 12/04/15 03/11/19 PulmoNeb LT Compressor Nebul 02/07/16 03/11/19 estradiol [Estrace] 4 g TOPICAL 2X /week #5 tube 10/17/16 03/11/19 albuterol sulfate 2.5 mg INHALATION QID PRN #100 dose 07/01/17 03/11/19 albuterol sulfate [ProAir HFA] 1 - 2 puff INHALATION Q4H PRN #1 07/01/17 03/11/19 inhaler lorazepam 0.5 mg PO PRN PRN #90 tab-cap 10/26/17 03/11/19 cholecalciferol (vitamin D3) 2,000 unit PO DAILY 03/11/18 03/11/19 [Vitamin D3] garlic 1,000 mg PO DAILY 03/11/18 03/11/19 levothyroxine 75 mcg PO DAILY 05/28/18 03/11/19 acetaminophen 500 mg tablet 1,000 mg PO TID tab 07/01/18 03/11/19 escitalopram oxalate 10 mg tablet 10 mg PO DAILY #90 tab 07/01/18 03/11/19 diltiazem HCl 120 mg 120 mg PO BID #90 cap 07/14/18 03/11/19 capsule,extended release 12 hr rabeprazole 20 mg tablet,delayed 20 mg PO BID #180 tab 08/11/18 03/11/19 release buspirone 10 mg tablet 5 mg PO BID #180 tab 08/25/18 03/11/19 fluticasone propionate 110 2 puff INHALATION HS #12 gm 11/25/18 03/11/19 mcg/actuation HFA aerosol inhaler prednisone 5 mg tablet 5 mg PO DAILY #30 tab 03/03/19 03/11/19 albuterol sulfate 2 inh IH Q4H PRN #1 each 03/07/19 03/11/19 apixaban See Rx Instructions .ROUTE 03/07/19 03/11/19 .COMPLEX #74 dose pk magnesium oxide 400 mg PO DAILY #20 tab 03/10/19 03/11/19 Previous Rx's Medication Instructions Recorded albuterol sulfate [ProAir HFA] 1 - 2 puff INHALATION Q4H PRN #1 07/01/17 inhaler escitalopram oxalate 10 mg tablet 10 mg PO DAILY #90 tab 07/01/18 diltiazem HCl 120 mg 120 mg PO BID #90 cap 07/14/18 capsule,extended release 12 hr rabeprazole 20 mg tablet,delayed 20 mg PO BID #180 tab 08/11/18 release buspirone 10 mg tablet 5 mg PO BID #180 tab 08/25/18 fluticasone propionate 110 2 puff INHALATION HS #12 gm 11/25/18 mcg/actuation HFA aerosol inhaler prednisone 5 mg tablet 5 mg PO DAILY #30 tab 03/03/19 albuterol sulfate 2 inh IH Q4H PRN #1 each 03/07/19 apixaban See Rx Instructions .ROUTE 03/07/19 .COMPLEX #74 dose pk magnesium oxide 400 mg PO DAILY #20 tab 03/10/19 Allergies Allergy/AdvReac Type Severity Reaction Status Date / Time hylan G-F 20 Allergy SWELLING Verified 03/11/19 10:01 AND PAIN metronidazole [From Flagyl] Allergy Skin Rash Verified 03/11/19 10:01 Pyrazoles Allergy Verified 03/11/19 10:01 tolterodine Allergy DIFFICULTY Verified 03/11/19 10:01 BREATHING methylprednisolone AdvReac Intermediate weakness Verified 03/11/19 10:01 and unable mood. hydromorphone AdvReac Mild Nausea Verified 03/11/19 10:01 amitriptyline AdvReac NAUSEA Verified 03/11/19 10:01 aspartame AdvReac HEART Verified 03/11/19 10:01 RACING ondansetron HCl [From Zofran] AdvReac HALLUCINATI Verified 03/11/19 10:01 ON General MANDY: 2 Review of Systems Narrative: Constitutional: denies fevers Eyes: denies eye pain ENT: denies facial pain, dental pain, sore throat Cardiovascular: denies edema, reports chest pain Respiratory: denies SOB, cough GI: denies abdominal pain, vomiting, reports chronic diarrhea and chronic bleeding from her hemorrhoids that does seem somewhat increased since starting Eliquis : denies flank pain MSK: denies back pain, neck pain, arthralgias, myalgias Skin: denies rash Neuro: denies headaches, numbness, weakness [facility] Medical History Adrenal mass, right (Chronic 12/11/16) seen on CT Ab 12/26 - STABLE. Will repeat Allergic eosinophilia (Chronic) 09/23/11 COLONOSCOPY BIOPSY SHOWS FOCAL EOSINOPHILIC CRYPTITS Anxiety (Chronic) Anxiety disorder Arthritis (Chronic) both ankles S/P fracture S/P surgery Asthma Asthma (Chronic) Bleeding hemorrhoids (Acute) Cortical cataract of left eye (Resolved) Cortical cataract of right eye (Resolved) Depressive disorder Depressive disorder (Chronic) refuses medication Diverticulosis Diverticulosis of colon without diverticulitis (Chronic) Elevated fasting glucose (Chronic 06/27/14) Epigastric pain (Chronic) Epiretinal membrane (ERM) of right eye (Chronic) Essential hypertension Essential hypertension (Chronic 02/19/13) MARILYN (generalized anxiety disorder) (Chronic) Patient with palpitations with negative Zio patch. She complained of symptoms during normal sinus rhythm on 40 occasions. With anxiety. Intolerant to buspirone. Will start recheck in 2 weeks. Gastroesophageal reflux disease (Chronic) H/o H pylori, neg 07EGD Mitz 07UGI ? 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) RIGHT DELTOID Nuclear sclerotic cataract of left eye (Resolved) Nuclear sclerotic cataract of right eye (Resolved) Obstructive sleep apnea syndrome (Chronic 06/16/12) C-PAP CELINA (obstructive sleep apnea) Posterior subcapsular age-related cataract of left eye (Resolved) Posterior subcapsular age-related cataract, right eye (Resolved) Primary osteoarthritis of both knees (Chronic) SVT (supraventricular tachycardia) 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 on replacement Social History Smoking/Tobacco Use Status: Never Alcohol Intake: never Drug use: Never Substance use type: does not use Pets and animals: Yes Pets and animals: cat(s) and dog(s) Current gender identity: female What type of physical activity do you participate in: none Li/Buddhism: Christianity Special li needs: No Do you feel safe at home: Yes Do you feel safe in your relationship?: Yes Exam Narrative Exam Narrative: Constitutional: well and [id number], pleasant, conversing normally HENT: head atraumatic/normocephalic/normal inspection, mucous membranes moist Eyes: conjunctiva normal, sclera normal, pupils 3mm b/l Neck: no stridor, normal ROM, trachea midline Chest: normal inspection Resp: normal work of breathing, LCTAB Cardio: normal rate, normal rhythm, no murmur appreciated GI: Abdomen soft, nontender, nondistended, rectal exam normal, no gross blood, Hemoccult negative Back: normal inspection, no rash Skin: warm, dry, normal color, no rash Neuro: alert, not altered, grossly non-focal, normal tone Ext: no edema, no posterior calf tenderness to palpation Psych: normal mood, normal affect, normal behavior
[2019-03-10 11:31] LABS: Abs Immature Grans 0.05 k/cumm (0.0-0.09); Absolute Basophil Count 0.09 k/cumm (0.0-0.2); Absolute Eosinophil Count 0.16 k/cumm (0.0-0.7); Absolute Lymphocyte Count 1.35 k/cumm (1.2-3.4); Absolute Monocyte Count 0.63 k/cumm (0.11-0.7); Absolute Neutrophil Count 5.45 k/cumm (1.2-6.7); Basophils % 1.2; Eosinophils % 2.1; HCT 42.5 % (36.0-46.0); HGB 13.3 g/dL (12.0-15.5); Immature Grans % 0.6; Lymphocytes % 17.5; Mean Corp. HGB Concentration 31.3 g/dL (32.0-36.0); Mean Corpuscular Hemoglobin 29.1 pg (27.0-33.0); Mean Platelet Volume 11.7 fL (8.0-11.0); Monocytes % 8.2; Neutrophils % 70.4; Platelet Count 429 x1000/uL (130-400); RBC 4.57 m/cumm (4.00-5.20); RBC Distribution Width 14.4 % (11.7-14.6); White Blood Cell Count 7.73 k/cumm (4.4-10.8)
[2019-03-10 11:51] LABS: ALT 38 U/L (14-59); AST 18 U/L (15-37); Albumin 3.3 g/dL (3.4-5.0); Alkaline Phosphatase 113 U/L (46-116); Anion Gap 11.1 mmol/L (3-11); BUN 13 mg/dL (7-18); Bilirubin, Total 0.3 mg/dL (0.2-1.0); CO2 27.9 mmol/L (21.0-32.0); CREATININE 0.73 mg/dL (0.55-1.02); Calcium 9.7 mg/dL (8.5-10.1); Chloride 101 mmol/L (98-107); Glucose 127 mg/dL (70-100); Magnesium 1.5 mg/dL (1.8-2.4); NT-proBNP 69 pg/mL; Potassium 3.5 mmol/L (3.5-5.1); Sodium 140 mmol/L (136-145); Total Protein 8.6 g/dL (6.4-8.2)
--- NOTE | 2019-03-10 11:53 | NUR.NOTE ---
Nursing Note: assumed primary care of this patient.
[2019-03-10 12:02] LABS: Troponin I < 0.05 ng/mL (0.00-0.06)
[2019-03-10] MEDS: MAGNESIUM SULFATE 2 GM/50 ML BAG IVPB (12:36)
[2019-03-10] MEDS: Normal Saline 500 ML IV (12:37)
[2019-03-10] MEDS: Omnipaque 350 MG/ML 100 ML BTL IJ (12:55)
[2019-03-10] MEDS: Normal Saline Flush 10 ML SYR IVP (12:56)
--- NOTE | 2019-03-10 13:01 | DI.CT_ITS ---
EXAM: CT CHEST PE CTA CLINICAL HISTORY: chest pain in setting of known PE TECHNIQUE: Axial CT angiography was performed with multi-slice acquisition and multi-planar and/or 3 D reconstructions. COMPARISON: CT CHEST PE ABD PELVIS W from 03/04/2019 FINDINGS: There are again seen pulmonary emboli in the branches to the right lower lobe. There has been no pro gression of the embolic disease since 03/04/2019. There is no evidence of right heart strain. No pe ricardial effusion is seen. There is no evidence of a thoracic aortic dissection or aneurysm. No si gnificant mediastinal adenopathy is present. There has been slight interval increase in size of the right pleural effusion which remains small. No left pleural effusion is present. There are again se en dependent atelectatic changes in the lungs. No focal consolidation is seen to suggest pneumonia o r infarct. The tracheobronchial tree is unremarkable. Degenerative changes are seen in the spine. IMPRESSION: 1. No evidence of progression of the pulmonary embolic disease since 03/04/2019. No evidence of righ t heart strain. 2. Interval increase in size of right pleural effusion which remains small. 3. Dependent airspace opacities likely reflecting atelectasis. 4. The findings were discussed with the emergency department on the date of the examination.
[2019-03-10 14:55] LABS: Troponin I < 0.05 ng/mL (0.00-0.06)
--- NOTE | 2019-03-10 15:36 | NUR.NOTE ---
Nursing Note: lunch provided and pt tolerated well.
[2019-03-10 15:47] LABS: HCT 36.7 % (36.0-46.0); HGB 11.8 g/dL (12.0-15.5)
== END 2019-03-10 16:45 | disposition home or self-care (01) ==
PROVIDERS: Emergency Provider Student in an Organized Health Care Education/Training Program; PCP Family Medicine
DX: R07.9 Chest pain, unspecified (principal); E83.42 Hypomagnesemia; J90 Pleural effusion, not elsewhere classified; I26.99 Other pulmonary embolism without acute cor pulmonale; I10 Essential (primary) hypertension; Z79.01 Long term (current) use of anticoagulants
CPT/HCPCS: 36415; 71275; 80053; 93005; 96361; 96365; 96366; 99285; 83735; 83880; 84484; 85014; 85018; 85025; 93010; J3490

== ENCOUNTER 2019-03-15 01:44 | Outpatient (CLI) | payer MEDICARE, OTHER, SELFPAY ==
[2019-03-15 11:11] LABS: HCT 42.2 % (36.0-46.0); HGB 13.2 g/dL (12.0-15.5)
[2019-03-15 12:12] LABS: Iron 39 ug/dL (50-175); Total Iron Binding Capacity 305 ug/dL (250-450); Transferrin Sat 13 % (15-50)
[2019-03-15 12:22] LABS: Anion Gap 11.4 mmol/L (3-11); BUN 12 mg/dL (7-18); CO2 27.6 mmol/L (21.0-32.0); CREATININE 0.67 mg/dL (0.55-1.02); Calcium 9.7 mg/dL (8.5-10.1); Chloride 102 mmol/L (98-107); Ferritin 184 ng/mL (8-388); Glucose 113 mg/dL (70-100); Potassium 4.3 mmol/L (3.5-5.1); Sodium 141 mmol/L (136-145)
== END 2019-03-15 02:04 ==
PROVIDERS: PCP Family Medicine; Visit Provider Family Medicine
DX: K62.5 Hemorrhage of anus and rectum (principal); E27.9 Disorder of adrenal gland, unspecified
CPT/HCPCS: 36415; 80048; 82728; 83540; 83550; 85014; 85018

== ENCOUNTER 2019-04-02 11:13 | Outpatient (REF) | payer MEDICARE, OTHER, SELFPAY ==
[2019-04-07 03:23] LABS: Lactoferrin, Qt, Stool <30.0 mcg/mL
== END 2019-04-02 11:33 ==
LOC: LBN 11:13
PROVIDERS: PCP Family Medicine; Visit Provider Internal Medicine Gastroenterology
DX: K52.9 Noninfective gastroenteritis and colitis, unspecified (principal); K92.2 Gastrointestinal hemorrhage, unspecified
CPT/HCPCS: 83631

== ENCOUNTER 2019-04-15 17:17 | Emergency (ER) | payer MEDICARE, OTHER, SELFPAY ==
[2019-04-15 17:21] VITALS: BP 151/96; PULSE 91; RESP 20; TEMP 36.6; O2SAT 98
--- NOTE | 2019-04-15 18:01 | ED.GENADUL_ITS ---
Discharge Plan Disposition Patient Disposition: HOME Condition: Good Discharge Details Chief Complaint: Chest/Rib Clinical Impression: History of pulmonary infarction, Chest pain Primary Care Provider: Win Rhodes ED Provider: Gatito Carter [place] and New Rx's Prescriptions: New levofloxacin [Levaquin] 750 mg tablet 750 mg PO DAILY 5 Days Qty: 5 RF: 0 No Action rabeprazole [AcipHex] 20 mg tablet,delayed release (DR/EC) 20 mg PO BID Qty: 180 RF: 12 acetaminophen [Tylenol Extra Strength] 500 mg tablet 1,000 mg PO TID RF: 0 escitalopram oxalate 10 mg tablet 10 mg PO DAILY Qty: 90 RF: 5 buspirone 10 mg tablet 5 mg PO BID Qty: 180 RF: 5 apixaban 5 mg tablet 5 mg PO BID Qty: 180 RF: 3 aspirin [Ecotrin Low Strength] 81 MG tablet,delayed release (DR/EC) 81 mg PO HS RF: 0 nystatin 60 GM powder 1 applic Topical BID Qty: 60 RF: 12 estradiol [Estrace] 42.5 GM cream 4 g Topical 2X /week Qty: 5 RF: 4 albuterol sulfate 2.5 MG/3 ML solution for nebulization 2.5 mg Inhalation QID PRNQty: 100 RF: 12 lorazepam 0.5 MG tablet 0.5 mg PO PRN PRNQty: 90 RF: 2 Flovent HFA 110 mcg/actuation HFA aerosol inhaler 2 puff Inhalation HS Qty: 12 RF: 6 levothyroxine 75 mcg tablet 75 mcg PO DAILY Qty: 90 RF: 3 diltiazem HCl 120 mg capsule,extended release 12 hr 120 mg PO Q12H Qty: 180 RF: 3 (DME) PulmoNeb LT Compressor Nebul 1 EACH device 1 ea Miscellaneous PRN RF: 0 garlic 1,000 mg Capsule 1,000 mg PO DAILY RF: 0 cholecalciferol (vitamin D3) [Vitamin D3] 2,000 unit Capsule 2,000 unit PO DAILY RF: 0 albuterol sulfate 90 mcg/actuation aerosol powdr breath activated 2 inh IH Q4H PRN (Reason: shortness of breath or wheezing) Qty: 1 RF: 0 magnesium oxide 400 mg (241.3 mg magnesium) tablet 400 mg PO DAILY Qty: 20 RF: 0 Discharge Instructions Instructions: Chest Pain (ED) Additional Instructions: At this time your blood clots have notably improved but some are still present. He do have a small pulmonary infarct which is likely the cause of your pain. Please take the antibiotic as a precaution to prevent any infection. Please follow-up closely at your scheduled appointment with your primary care provider. Please take a maximum dose of 1000 mg of Tylenol every 6 hours, and use your home Lidoderm patches as we discussed. If you notice any worsening of your symptoms, or any new symptoms such as vomiting, diarrhea, fever, chills, shortness of breath, chest pain, numbness, weakness, or fainting , please return immediately to the emergency department for reevaluation. Please follow up with your primary care provider as soon as possible for reassessment and reevaluation. As always, it was a pleasure participating in your medical care today. Referrals: Win Rhodes [Primary Care Provider] - Medical Decision Making <Rajesh Orona DO - Last Filed: 04/15/19 19:51> This is a 78-year-old female with a past medical history of SVT, recently diagnosed pulmonary embolism a month and a half ago currently on Xarelto, as well as a recently diagnosed pleural effusion on the right, who presents today for evaluation of right-sided chest pain, stabbing in nature on and off, with no particular aggravating or relieving factors. It radiates to the right shoulder and neck. She has no history of cardiac disease but does have a family history of cardiac disease. Physical exam demonstrates no signs of shingles or rash. No reproducible component. Differential is broad but includes pleuritic pain from the pulmonary effusion, potential new PE, or atypical cardiac etiology. We will treat the patient's pain, evaluate for these etiologies and reassess. 7:[address] scan has returned, she demonstrates notable improvement of her clot burden. Significant improvement of the burden of the embolic disease, suspected small segmental and subsegmental right lower lobe emboli. Notable improvement of aeration. There is a probable subacute right lower lobe pulmonary infarct that is present though, without any evidence of abscess, or other infectious component. The patient's laboratory work-up shows no evidence of white count, she has no fever. No left shift. No bandemia. The remainder of her work-up is otherwise benign with an unremarkable unchanged EKG and a normal troponin. Because of the slight atypical nature of her symptoms we will get a repeat 3- hour troponin however I feel her signs and symptoms are notably clinically consistent with the small pulmonary infarct causing the pain. With the pain easily improved with NSAIDs and Lidoderm patch I do feel that if her repeat troponin is negative she can be safely discharged. We will start the patient on an antibiotic as both prophylaxis and mild treatment of any potential infectious etiology for the small pulmonary infarct. With no evidence of hypoxemia there is no clinical indication for emergent pulmonary evaluation. She does have close follow-up already scheduled with her primary care provider next week on Friday. We will give Levaquin 750 mg here for treatment as well as a prescription to go home with. Case will be signed out to my colleague Dr. Kyle Carter for final disposition after reevaluation after repeat troponin. EKG 17: 29 Rate 68, intervals normal, sinus rhythm, no significant ST elevations or depressions, atypical morphology of QRS complex and V3 with notable artifact, questionable inconsistent less than [address] depression in this area with no reciprocal ST elevation. No significant change from prior EKG on 12/19/2017 FINDINGS: Pulmonary arteries: Motion limits assessment of the pulmonary arteries however the main and lobar pulmonary arteries are patent. Aorta: No aortic aneurysm. No aortic dissection. Lungs: Compared to the previous study lower lobe opacities have markedly improved, now minor subsegmental atelectasis, however there is a focal somewhat rounded 2 x 3 cm opacity in the right lower lobe. Definite improvement in burden of right lower lobe embolic disease. Suspected small residual segmental to subsegmental right lower lobe emboli. Pleural space: Right pleural effusion has resolved. No pneumothorax. Heart: Mild cardiomegaly appears stable. Lymph nodes: No enlarged lymph nodes. Bones/joints: A benign-appearing thoracic sclerotic density probably a bone island. Soft tissues: No suspicious lesions. Other findings: Overall improvement in pulmonary aeration. IMPRESSION: 1. The main and lobar pulmonary arteries are patent. 2. Definite improvement in burden of right lower lobe embolic disease. Suspected small residual segmental to subsegmental right lower lobe emboli. 3. Overall improvement in pulmonary aeration. 4. Probable subacute right lower lobe pulmonary infarct. Given somewhat rounded morphology continued followup is recommended to ensure resolution. 5. Right pleural effusion has resolved. Thank you for allowing us to participate in the care of your patient. Dictated and Authenticated by: Melissa Keller MD 04/15/2019 6:58 PM Eastern Time ([place] & [place]) <Gatito Carter MD - Last Filed: 04/15/19 21:42> Patient signed out to me from Dr. Orona. She had presented with right sided chest pain. She has previous history of pulmonary embolus. Repeat CTA shows decreased clot burden. There is likely a small pulmonary infarct on the right that is subacute and likely causing her pain. She was being held for repeat EKG and troponin for completion sake. Her EKG is unchanged. Her second troponin is negative. She has been started on antibiotics by Dr. Orona for the pulmonary infarct. She wiill continue her other medications as before. Follow up with PCP next week. Return to ED for fever, worsening pain, shortness of breath, mental status changes, other concerns or problems. Lab Data Lab results reviewed: Yes I reviewed the patient's lab results. ECG Data Attestation: I personally reviewed and interpreted this ECG (s) as follows: Prior ECG tracings: available for review Interpretation: Sinus rhythm at 58. Normal axis and intervals. Nonspecific ST changes that are unchanged from previous. Nothing acute. HPI <Rajesh Orona DO - Last Filed: 04/15/19 19:51> General Date/Time Provider Initiated Documentation: 04/15/19 17:19 . HPI Narrative: This is a 78-year-old female with a past medical history of SVT, previous PE diagnosed over a month and a half ago, obstructive sleep apnea, who is currently on Xarelto, as well as a known pleural effusion on the right who presents today for evaluation of right-sided chest pain. The patient states that since 10:30 AM today which has been for the last 8 hours she has had intermittent on and off stabbing right-sided chest pain that radiated up to her right shoulder, and neck. She denies any particular aggravating or relieving factors. She denies any pleuritic component in general. She denies any burning sensation or rash. She denies any new trauma. She denies any change with position. No other complaints at this time. No other modifying factors. She states that she has been taking her Xarelto exactly as directed with no alterations. Related Data Home Medications Medication Instructions Recorded Confirmed aspirin [Ecotrin Low Strength] 81 mg PO HS 08/20/12 04/15/19 nystatin 1 applic TOPICAL BID #60 gm 12/04/15 04/15/19 PulmoNeb LT Compressor Nebul 02/07/16 04/15/19 estradiol [Estrace] 4 g TOPICAL 2X /week #5 tube 10/17/16 04/15/19 albuterol sulfate 2.5 mg INHALATION QID PRN #100 dose 07/01/17 04/15/19 lorazepam 0.5 mg PO PRN PRN #90 tab-cap 10/26/17 04/15/19 cholecalciferol (vitamin D3) 2,000 unit PO DAILY 03/11/18 04/15/19 [Vitamin D3] garlic 1,000 mg PO DAILY 03/11/18 04/15/19 acetaminophen 500 mg tablet 1,000 mg PO TID tab 07/01/18 04/15/19 escitalopram oxalate 10 mg tablet 10 mg PO DAILY #90 tab 07/01/18 04/15/19 rabeprazole 20 mg tablet,delayed 20 mg PO BID #180 tab 08/11/18 04/15/19 release buspirone 10 mg tablet 5 mg PO BID #180 tab 08/25/18 04/15/19 fluticasone propionate 110 2 puff INHALATION HS #12 gm 11/25/18 04/15/19 mcg/actuation HFA aerosol inhaler albuterol sulfate 2 inh IH Q4H PRN #1 each 03/07/19 04/15/19 magnesium oxide 400 mg PO DAILY #20 tab 03/10/19 04/15/19 apixaban 5 mg tablet 5 mg PO BID #180 tab 03/16/19 04/15/19 levothyroxine 75 mcg tablet 75 mcg PO DAILY #90 tab 03/16/19 04/15/19 diltiazem HCl 120 mg 120 mg PO Q12H #180 cap 03/23/19 04/15/19 capsule,extended release 12 hr levofloxacin [Levaquin] 750 mg PO DAILY 5 Days #5 tab 04/15/19 Previous Rx's Medication Instructions Recorded escitalopram oxalate 10 mg tablet 10 mg PO DAILY #90 tab 07/01/18 rabeprazole 20 mg tablet,delayed 20 mg PO BID #180 tab 08/11/18 release buspirone 10 mg tablet 5 mg PO BID #180 tab 08/25/18 fluticasone propionate 110 2 puff INHALATION HS #12 gm 11/25/18 mcg/actuation HFA aerosol inhaler albuterol sulfate 2 inh IH Q4H PRN #1 each 03/07/19 magnesium oxide 400 mg PO DAILY #20 tab 03/10/19 apixaban 5 mg tablet 5 mg PO BID #180 tab 03/16/19 levothyroxine 75 mcg tablet 75 mcg PO DAILY #90 tab 03/16/19 diltiazem HCl 120 mg 120 mg PO Q12H #180 cap 03/23/19 capsule,extended release 12 hr levofloxacin [Levaquin] 750 mg PO DAILY 5 Days #5 tab 04/15/19 Allergies Allergy/AdvReac Type Severity Reaction Status Date / Time hylan G- 20 Allergy SWELLING Verified 04/15/19 17:24 AND PAIN metronidazole [From Flagyl] Allergy Skin Rash Verified 04/15/19 17:24 Pyrazoles Allergy Verified 04/15/19 17:24 tolterodine Allergy DIFFICULTY Verified 04/15/19 17:24 BREATHING methylprednisolone AdvReac Intermediate weakness Verified 04/15/19 17:24 and unable mood. hydromorphone AdvReac Mild Nausea Verified 04/15/19 17:24 amitriptyline AdvReac NAUSEA Verified 04/15/19 17:24 aspartame AdvReac HEART Verified 04/15/19 17:24 RACING ondansetron HCl [From Zofran] AdvReac HALLUCINATI Verified 04/15/19 17:24 ON General Stated Complaint: Chest/Rib MANDY: 3 Review of Systems <Rajesh Orona DO - Last Filed: 04/15/19 19:51> All systems reviewed & are unremarkable except as noted in HPI and below PFSH <Rajesh Orona DO - Last Filed: 04/15/19 19:51> Social History Smoking/Tobacco Use Status: Never Alcohol Intake: never Drug use: Never Substance use type: does not use Pets and animals: Yes Pets and animals: cat(s) and dog(s) Current gender identity: female What type of physical activity do you participate in: none Li/Anglican: Denominational Special li needs: No Do you feel safe at home: Yes Do you feel safe in your relationship?: Yes Exam <Rajesh Orona DO - Last Filed: 04/15/19 19:51> Narrative Exam Narrative: 1.Const: Well-nourished, Well-developed, appearing stated age 2.Eyes: PERRL, no conjunctival injection, and symmetrical lids. 3.ENT: Atraumatic external nose and ears. Moist MM. Neck: Symmetric, trachea midline, No thyromegaly. 4.CVS: +S1/S2, No murmurs or gallops. Peripheral pulses 2+ and equal in all extremities. Brisk capillary refill in all extremities. No reproducible pain on palpation of the chest. 5.RESP: Unlabored respiratory effort. Clear to auscultation bilaterally. No wheezes rales or rhonchi 6.GI: Soft, Nontender/Nondistended, No hepatosplenomegaly. No guarding or rebound. 7.MSK: Normocephalic/Atraumatic, Extremities w/o deformity or ttp No cyanosis or clubbing, Normal movement of all extremities 8.Skin: Warm, Dry. No rashes or lesions. No evidence of shingles under the right breast. No evidence of skin rash or abnormality. 9.Neuro: renderer II-XII grossly intact. Sensation grossly intact, no focal neurologic deficits. 10.Psych: (AAO) x3. Appropriate mood and affect Course <Rajesh Orona DO - Last Filed: 04/15/19 19:51> Vital Signs Vital signs: Vital Signs Temperature 36.6 C 04/15/19 17:21 Pulse 91 H 04/15/19 17:21 Respiratory Rate 20 04/15/19 17:21 Blood Pressure 151/96 H 04/15/19 17:21 Pulse Oximetry 98 04/15/19 17:21 Temperature 36.6 C 04/15/19 17:21 Temperature Source Temporal Artery Scan 04/15/19 17:21 Pulse 91 H 04/15/19 17:21 Respiratory Rate 20 04/15/19 17:21 Respiratory Effort Non-Labored 04/15/19 17:56 Respiratory Depth Normal 04/15/19 17:56 Respiratory Pattern Normal 04/15/19 17:56 Blood Pressure 151/96 H 04/15/19 17:21 Blood Pressure Position Sitting 12/05/19 17:21 Pulse Oximetry 98 04/15/19 17:21 Oxygen Delivery Method Room Air 04/15/19 17:21 Oxygen Flow Rate 0 04/15/19 17:21 Pain Level 8 04/15/19 17:56 Sign Out <Rajesh Orona DO - Last Filed: 04/15/19 19:51> Sign Out Data: Sign Out Comment: Pending repeat troponin, known pulmonary emboli are significantly improving, small pulmonary infarct, given Levaquin and prescription for home use. Last updated by Rajesh Orona DO at 04/15/19 20:08
[2019-04-15] MEDS: Lidocaine 5% Patch 1 PATCH TP (18:06)
[2019-04-15] MEDS: Acetaminophen 500 MG TAB 1000 MG PO (18:06)
[2019-04-15 18:08] LABS: Abs Immature Grans 0.03 k/cumm (0.0-0.09); Absolute Basophil Count 0.07 k/cumm (0.0-0.2); Absolute Eosinophil Count 0.25 k/cumm (0.0-0.7); Absolute Lymphocyte Count 2.03 k/cumm (1.2-3.4); Absolute Monocyte Count 0.61 k/cumm (0.11-0.7); Absolute Neutrophil Count 5.27 k/cumm (1.2-6.7); Basophils % 0.8; HCT 40.1 % (36.0-46.0); HGB 12.7 g/dL (12.0-15.5); Immature Grans % 0.4; Lymphocytes % 24.6; Mean Corp. HGB Concentration 31.7 g/dL (32.0-36.0); Mean Corpuscular Hemoglobin 29.3 pg (27.0-33.0); Mean Corpuscular Volume 92.6 fL (80-95); Mean Platelet Volume 11.1 fL (8.0-11.0); Monocytes % 7.4; Neutrophils % 63.8; Platelet Count 313 x1000/uL (130-400); RBC 4.33 m/cumm (4.00-5.20); RBC Distribution Width 14.8 % (11.7-14.6); White Blood Cell Count 8.26 k/cumm (4.4-10.8)
[2019-04-15 18:19] LABS: PTT Activated 26.7 sec (21.0-31.4); Prothrombin Time 10.4 sec (9.3-11.0)
[2019-04-15 18:20] LABS: ALT 32 U/L (14-59); AST 16 U/L (15-37); Albumin 3.2 g/dL (3.4-5.0); Alkaline Phosphatase 69 U/L (46-116); Anion Gap 6.9 mmol/L (3-11); BUN 12 mg/dL (7-18); Bilirubin, Total 0.1 mg/dL (0.2-1.0); CO2 29.1 mmol/L (21.0-32.0); CREATININE 0.73 mg/dL (0.55-1.02); Calcium 8.9 mg/dL (8.5-10.1); Chloride 106 mmol/L (98-107); Glucose 151 mg/dL (74-106); Lipase 88 U/L (73-393); Potassium 3.4 mmol/L (3.5-5.1); Sodium 142 mmol/L (136-145); Total Protein 6.7 g/dL (6.4-8.2)
[2019-04-15 18:21] LABS: Troponin I < 0.05 ng/Ml (<0.06)
[2019-04-15] MEDS: Omnipaque 350 MG/ML 100 ML BTL IJ (18:37)
[2019-04-15] MEDS: Normal Saline Flush 10 ML SYR IVP (18:38)
--- NOTE | 2019-04-15 18:39 | DI.CT_ITS ---
EXAM: CT CHEST PE CTA CLINICAL HISTORY: known PE, right chest pain, and right shoulder pain TECHNIQUE: Imaging Protocol: Axial CT angiography was performed with multi-slice acquisition and mu lti-planar and/or 3D reconstructions. CONTRAST MATERIAL: Intravenous: Omnipaque 350 Contrast volume:64 mL contrast route:IV - Oral:No COMPARISON: CT CHEST PE CTA from 03/10/2019 FINDINGS: There is patient motion artifact present. This does limit evaluation of the pulmonary arteries. Pulmonary Arteries: There has been significant improvement in the embolic burden in the right lower l obe. There do appear to be a few small filling defects in subsegmental branches to the right lower l obe. Main pulmonary artery, right and left pulmonary arteries are free of embolic disease. Tracheobronchial tree: Patent where visualized. Mediastinum and Anila: No dominant adenopathy or fluid collection. Pulmonary parenchyma: There is significant improvement in the pulmonary infiltrates compared to the p rior examination. There has developed a rounded opacity at the periphery of the lung in the right lo wer lobe. It measures 2 x 3 centimeters. This may reflect a subacute pulmonary infarct. Pleura: The right pleural effusion has resolved. No pleural effusions are present. Heart/Aorta: There is no evidence of thoracic aortic dissection or aneurysm. Atherosclerosis is pres ent. The heart is enlarged. No pericardial effusion or right heart strain is evident. Coronary art michelle calcifications are present. Upper abdomen: Unremarkable. Bones: Degenerative changes are seen in the spine. There is again seen a bone island in the thoracic vertebral body. IMPRESSION: 1. Significant improvement in the embolic burden in the right lower lobe. Despite the patient motion artifact there do appear to be few small filling defects that persist in subsegmental branches of th e right lower lobe. The main, and right and left pulmonary arteries are patent. 2. Development of a peripheral rounded opacity in the right lower lobe. Probable pulmonary infarct. 3. Resolution of the right pleural effusion, improvement in the pulmonary infiltrates. DATA REPOSITORY: All CT scans at this facility are submitted to the National Radiology Data Registry (NRDR) Dose Index Registry (DIR) with the [employer] ([employer]). RADIATION OPTIMIZATION: All CT scans at this facility use at least one of these dose optimization te chniques: automated exposure control; mA and/or kV adjustment per patient size (includes targeted exa ms where dose is matched to clinical indication); or iterative reconstruction.
--- NOTE | 2019-04-15 18:59 | DI.VRAD_ITS ---
Addendum created by Melissa Keller MD on 04/15/2019 7:07:43 PM EST Findings were discussed with VALERIA TOLLIVER at 04/15/2019 19:05 EST. Initial report created on 04/15/2019 6:58:35 PM EST PROCEDURE INFORMATION: Exam: CT Angiography Chest With Contrast Exam date and time: 04/15/2019 17:38 Age: 78 years old Clinical history: Chest pain; Other: Right shoulder pain TECHNIQUE: Imaging protocol: Computed tomographic angiography of the chest with intravenous contrast. 3D rendering: MIP reconstructed images were created and reviewed. Contrast material: OMNIPAQUE 350; Contrast volume: 64 ml; Contrast route: IV 18G RAC; COMPARISON: CT CHEST PE CTA 03/10/2019 12:58 FINDINGS: Pulmonary arteries: Motion limits assessment of the pulmonary arteries however the main and lobar pulmonary arteries are patent. Aorta: No aortic aneurysm. No aortic dissection. Lungs: Compared to the previous study lower lobe opacities have markedly improved, now minor subsegmental atelectasis, however there is a focal somewhat rounded 2 x 3 cm opacity in the right lower lobe. Definite improvement in burden of right lower lobe embolic disease. Suspected small residual segmental to subsegmental right lower lobe emboli. Pleural space: Right pleural effusion has resolved. No pneumothorax. Heart: Mild cardiomegaly appears stable. Lymph nodes: No enlarged lymph nodes. Bones/joints: A benign-appearing thoracic sclerotic density probably a bone island. Soft tissues: No suspicious lesions. Other findings: Overall improvement in pulmonary aeration. IMPRESSION: 1. The main and lobar pulmonary arteries are patent. 2. Definite improvement in burden of right lower lobe embolic disease. Suspected small residual segmental to subsegmental right lower lobe emboli. 3. Overall improvement in pulmonary aeration. 4. Probable subacute right lower lobe pulmonary infarct. Given somewhat rounded morphology continued followup is recommended to ensure resolution. 5. Right pleural effusion has resolved. Dictated and Authenticated by: Melissa Keller MD. Ordering:BENITO Mena MD
[2019-04-15] MEDS: levoFLOXacin 500 MG, levoFLOXacin 250 MG 750 MG PO (19:43)
[2019-04-15 21:36] LABS: Troponin I < 0.05 ng/Ml (<0.06)
[2019-04-15 21:45] VITALS: BP 151/72; PULSE 62; RESP 17; TEMP 36.8; O2SAT 97
== END 2019-04-15 22:00 | disposition home or self-care (01) ==
PROVIDERS: Student in an Organized Health Care Education/Training Program; Emergency Provider Emergency Medicine; PCP Family Medicine
DX: R07.9 Chest pain, unspecified (principal); I26.99 Other pulmonary embolism without acute cor pulmonale; J90 Pleural effusion, not elsewhere classified; Z79.01 Long term (current) use of anticoagulants
CPT/HCPCS: 36415; 71275; 80053; 83690; 93005; 99285; 84484; 85025; 85610; 85730; 93010; 99284; J3490

== ENCOUNTER 2019-04-28 17:58 | Emergency (ER) | payer MEDICARE, OTHER, SELFPAY ==
[2019-04-28] VITALS (10 sets, daily range): BP systolic 117–146; BP diastolic 54–81; PULSE 64–77; RESP 12–22; TEMP 37; O2SAT 96–98
[2019-04-28 18:33] LABS: Abs Immature Grans 0.03 k/cumm (0.0-0.09); Absolute Basophil Count 0.06 k/cumm (0.0-0.2); Absolute Eosinophil Count 0.18 k/cumm (0.0-0.7); Absolute Lymphocyte Count 2.36 k/cumm (1.2-3.4); Absolute Monocyte Count 0.77 k/cumm (0.11-0.7); Basophils % 0.6; Eosinophils % 1.9; HCT 43.3 % (36.0-46.0); HGB 14.1 g/dL (12.0-15.5); Immature Grans % 0.3; Lymphocytes % 25.1; Mean Corp. HGB Concentration 32.6 g/dL (32.0-36.0); Mean Corpuscular Hemoglobin 29.6 pg (27.0-33.0); Mean Platelet Volume 11.9 fL (8.0-11.0); Monocytes % 8.2; Neutrophils % 63.9; Platelet Count 314 x1000/uL (130-400); RBC 4.76 m/cumm (4.00-5.20)
--- NOTE | 2019-04-28 18:36 | W.ED.GENAD ---
Discharge Plan Disposition Patient Disposition: HOME Condition: Stable Discharge Details Chief Complaint: Chest Pain Clinical Impression: Chest pain Primary Care Provider: Win Rhodes ED Provider: Zhen Pichardo Home Meds and New Rx's Prescriptions: Continued rabeprazole [AcipHex] 20 mg tablet,delayed release (DR/EC) 20 mg PO BID Qty: 180 RF: 12 acetaminophen [Tylenol Extra Strength] 500 mg tablet 1,000 mg PO TID RF: 0 escitalopram oxalate 10 mg tablet 10 mg PO DAILY Qty: 90 RF: 5 buspirone 10 mg tablet 5 mg PO BID Qty: 180 RF: 5 apixaban 5 mg tablet 5 mg PO BID Qty: 180 RF: 3 aspirin [Ecotrin Low Strength] 81 MG tablet,delayed release (DR/EC) 81 mg PO HS RF: 0 nystatin 60 GM powder 1 applic Topical BID Qty: 60 RF: 12 estradiol [Estrace] 42.5 GM cream 4 g Topical 2X /week Qty: 5 RF: 4 albuterol sulfate 2.5 MG/3 ML solution for nebulization 2.5 mg Inhalation QID PRNQty: 100 RF: 12 lorazepam 0.5 MG tablet 0.5 mg PO PRN PRNQty: 90 RF: 2 Flovent HFA 110 mcg/actuation HFA aerosol inhaler 2 puff Inhalation HS Qty: 12 RF: 6 levothyroxine 75 mcg tablet 75 mcg PO DAILY Qty: 90 RF: 3 diltiazem HCl 120 mg capsule,extended release 12 hr 120 mg PO Q12H Qty: 180 RF: 3 (DME) PulmoNeb LT Compressor Nebul 1 EACH device 1 ea Miscellaneous PRN RF: 0 garlic 1,000 mg Capsule 1,000 mg PO DAILY RF: 0 cholecalciferol (vitamin D3) [Vitamin D3] 2,000 unit Capsule 2,000 unit PO DAILY RF: 0 albuterol sulfate 90 mcg/actuation aerosol powdr breath activated 2 inh IH Q4H PRN (Reason: shortness of breath or wheezing) Qty: 1 RF: 0 magnesium oxide 400 mg (241.3 mg magnesium) tablet 400 mg PO DAILY Qty: 20 RF: 0 Discharge Instructions Instructions: Chest Pain (ED) Additional Instructions: your lab work and cat scan did not show any concerning findings follow up with your primary care provider within 1 week if you have worsening pain or feel more ill return to the emergency department Medical Decision Making 78 yo female with hx of PE in [place] comes in with pleuritic left sided chest pain for 4 days. Denies fevers, cough, exertional pain or radiation of pain. Denies recent surgery or travel. Has pain with palpation in the left mid axillary line over the 4-5 ribs and no rash or crepitus. She states lidocaine patches have helped. Could be musculoskeletal chest pain but given hx will obtain CTA to eval for PE. Heart score is 3 and symptoms do not sound typical of acs, EKG shows no acute st t wave ischemic findings, will send troponin labs unremarkable and cTA shows no significant acute abnormalities. Suspect muscle wall pain. Will d/c home and have her f/u with her pcp, return precautions given Differential Diagnosis Differential Diagnosis: Pe, ptx, chest wall pain Medical Records Medical records reviewed: Yes I reviewed the patient's medical records. Imaging Data Radiologic Study: Attestation: I personally reviewed and interpreted this imaging study as follows: Imaging: CT Scan Radiologist's impression: IMPRESSION: 1. No pulmonary embolism evident. 2. Minor ground-glass opacification of lung amaya may represent early interstitial edema. 3. Mild posterior lung base atelectasis Lab Data Lab results reviewed: Yes I reviewed the patient's lab results. ECG Data Attestation: I personally reviewed and interpreted this ECG (s) as follows: Prior ECG tracings: not available for review Interpretation: sinus rhythm, rate of 71, pr 170, no acute st t wave ischemic findings HPI General Mode of arrival: ambulatory. Date/Time Provider Initiated Documentation: 04/28/19 18:07. Limitations to Documentation: no limitations. Information obtained by: patient. History of Present Illness 78 year old F presents to the emergency department with the chief complaint of chest pain, described as moderate, No relieving factors improve symptom(s), No exacerbating factors reported . Patient notes no other symptoms.. Related Data Home Medications Medication Instructions Recorded Confirmed aspirin [Ecotrin Low Strength] 81 mg PO HS 08/20/12 04/28/19 nystatin 1 applic TOPICAL BID #60 gm 12/04/15 04/28/19 PulmoNeb LT Compressor Nebul 02/07/16 04/28/19 estradiol [Estrace] 4 g TOPICAL 2X /week #5 tube 10/17/16 04/28/19 albuterol sulfate 2.5 mg INHALATION QID PRN #100 dose 07/01/17 04/28/19 lorazepam 0.5 mg PO PRN PRN #90 tab-cap 10/26/17 04/28/19 cholecalciferol (vitamin D3) 2,000 unit PO DAILY 03/11/18 04/28/19 [Vitamin D3] garlic 1,000 mg PO DAILY 03/11/18 04/28/19 acetaminophen 500 mg tablet 1,000 mg PO TID tab 07/01/18 04/28/19 escitalopram oxalate 10 mg tablet 10 mg PO DAILY #90 tab 07/01/18 04/28/19 rabeprazole 20 mg tablet,delayed 20 mg PO BID #180 tab 08/11/18 04/28/19 release buspirone 10 mg tablet 5 mg PO BID #180 tab 08/25/18 04/28/19 fluticasone propionate 110 2 puff INHALATION HS #12 gm 11/25/18 04/28/19 mcg/actuation HFA aerosol inhaler albuterol sulfate 2 inh IH Q4H PRN #1 each 03/07/19 04/28/19 magnesium oxide 400 mg PO DAILY #20 tab 03/10/19 04/28/19 apixaban 5 mg tablet 5 mg PO BID #180 tab 03/16/19 04/28/19 levothyroxine 75 mcg tablet 75 mcg PO DAILY #90 tab 03/16/19 04/28/19 diltiazem HCl 120 mg 120 mg PO Q12H #180 cap 03/23/19 04/28/19 capsule,extended release 12 hr Previous Rx's Medication Instructions Recorded escitalopram oxalate 10 mg tablet 10 mg PO DAILY #90 tab 07/01/18 rabeprazole 20 mg tablet,delayed 20 mg PO BID #180 tab 08/11/18 release buspirone 10 mg tablet 5 mg PO BID #180 tab 08/25/18 fluticasone propionate 110 2 puff INHALATION HS #12 gm 11/25/18 mcg/actuation HFA aerosol inhaler albuterol sulfate 2 inh IH Q4H PRN #1 each 03/07/19 magnesium oxide 400 mg PO DAILY #20 tab 03/10/19 apixaban 5 mg tablet 5 mg PO BID #180 tab 03/16/19 levothyroxine 75 mcg tablet 75 mcg PO DAILY #90 tab 03/16/19 diltiazem HCl 120 mg 120 mg PO Q12H #180 cap 03/23/19 capsule,extended release 12 hr Allergies Allergy/AdvReac Type Severity Reaction Status Date / Time hylan G- 20 Allergy SWELLING Verified 04/28/19 18:12 AND PAIN metronidazole [From Flagyl] Allergy Skin Rash Verified 04/28/19 18:12 Pyrazoles Allergy Verified 04/28/19 18:12 tolterodine Allergy DIFFICULTY Verified 04/28/19 18:12 BREATHING methylprednisolone AdvReac Intermediate weakness Verified 04/28/19 18:12 and unable mood. hydromorphone AdvReac Mild Nausea Verified 04/28/19 18:12 amitriptyline AdvReac NAUSEA Verified 04/28/19 18:12 aspartame AdvReac HEART Verified 04/28/19 18:12 RACING ondansetron HCl [From Zofran] AdvReac HALLUCINATI Verified 04/28/19 18:12 ON General Stated Complaint: Chest Pain MANDY: 2 Review of Systems All systems reviewed & are unremarkable except as noted in HPI and below Constitutional Constitutional: Denies chills, Denies fever(s) and Denies weakness Cardiovascular Cardiovascular: Denies dyspnea Respiratory Respiratory: Denies cough and Denies dyspnea Gastrointestinal Gastrointestinal: Denies abdominal pain, Denies nausea and Denies vomiting Musculoskeletal Musculoskeletal: Denies joint swelling Neurologic Neurologic: Denies weakness PFSH Social History Smoking/Tobacco Use Status: Never Alcohol Intake: never Drug use: Never Substance use type: does not use Pets and animals: Yes Pets and animals: cat(s) and dog(s) Current gender identity: female What type of physical activity do you participate in: none Li/Restorationism: Druze Special li needs: No Do you feel safe at home: Yes Do you feel safe in your relationship?: Yes Exam Const General: no acute distress Orientation: alert HENMT Head: normal to inspection Ears: external ears normal General nose exam: external nose normal Mouth: moist mucous membranes Eyes General: appearance normal, both eyes and all related structures Neck Neck: normal visual inspection Chest Chest: no crepitus Resp Effort & Inspection: normal respiratory effort and able to speak in complete sentences Cardio Rate: regular rate Skin General skin exam: no rashes or lesions noted Neuro General: alert and oriented x3 Extrem General: normal to inspection Psych Mental Status: mental status grossly normal Course Vital Signs Vital signs: Vital Signs Temperature 37 C 04/28/19 18:06 Pulse 69 04/28/19 18:06 Respiratory Rate 16 04/28/19 18:06 Blood Pressure 146/66 H 04/28/19 18:06 Pulse Oximetry 98 04/28/19 18:06 Temperature 37 C 04/28/19 18:06 Temperature Source Temporal Artery Scan 04/28/19 18:06 Pulse 65 04/28/19 18:31 Pulse 64 04/28/19 18:31 Respiratory Rate 19 04/28/19 18:31 Respiratory Effort Non-Labored 04/28/19 18:11 Blood Pressure 120/81 04/28/19 18:31 Blood Pressure Mean 91 04/28/19 18:31 Blood Pressure Position Sitting 04/28/19 18:06 Pulse Oximetry 96 04/28/19 18:31 Oxygen Delivery Method Room Air 04/28/19 18:06 Oxygen Flow Rate 0 04/28/19 18:06 Pain Level 0 04/28/19 18:06 Lab/Test Results Lab/Test Results: Laboratory Tests Range/Units 04/28/19 18:15 WBC (4.4-10.8) k/cumm 9.40 RBC (4.00-5.20) m/cumm 4.76 Hgb (12.0-15.5) g/dL 14.1 Hct (36.0-46.0) % 43.3 MCV (80-95) fL 91.0 MCH (27.0-33.0) pg 29.6 MCHC (32.0-36.0) g/dL 32.6 RDW (11.7-14.6) % 15.0 H Plt Count (130-400) x1000/uL 314 MPV (8.0-11.0) fL 11.9 H Immature Gran % 0.3 Neutrophils % 63.9 Lymphocytes % 25.1 Monocytes % 8.2 Eosinophils % 1.9 Basophils % 0.6 Absolute Neutrophils (1.2-6.7) k/cumm 6.00 Absolute Lymphocytes (1.2-3.4) k/cumm 2.36 Absolute Monocytes (0.11-0.7) k/cumm 0.77 H Absolute Eosinophils (0.0-0.7) k/cumm 0.18 Absolute Basophils (0.0-0.2) k/cumm 0.06
[2019-04-28 18:51] LABS: PTT Activated 27.5 sec (21.0-31.4); Prothrombin Time 10.5 sec (9.3-11.0)
[2019-04-28 18:54] LABS: ALT 19 U/L (14-59); AST 18 U/L (15-37); Albumin 3.8 g/dL (3.4-5.0); Alkaline Phosphatase 63 U/L (46-116); Anion Gap 9.4 mmol/L (3-11); BUN 15 mg/dL (7-18); Bilirubin, Total 0.2 mg/dL (0.2-1.0); CO2 26.6 mmol/L (21.0-32.0); CREATININE 0.58 mg/dL (0.55-1.02); Calcium 9.4 mg/dL (8.5-10.1); Chloride 105 mmol/L (98-107); Glucose 106 mg/dL (74-106); Magnesium 1.6 mg/dL (1.8-2.4); Potassium 3.4 mmol/L (3.5-5.1); Sodium 141 mmol/L (136-145); Total Protein 7.9 g/dL (6.4-8.2)
[2019-04-28 18:55] LABS: Troponin I < 0.05 ng/Ml (<0.06)
--- NOTE | 2019-04-28 19:01 | NUR.NOTE ---
Assumed care of pt. Lying in bed in NAD. SR 62 Reports 7/10 pain to right shoulder, achy. Intermittent pain to left chest, lasts seconds, had similar pain with PE on right in past. Denies SOB, nausea. Awaiting CTA.
[2019-04-28] MEDS: Omnipaque 350 MG/ML 100 ML BTL IJ (19:14)
--- NOTE | 2019-04-28 19:21 | DI.CT_ITS ---
EXAM: CT CHEST PE CTA CLINICAL HISTORY: pleuritic chest pain, prior PE TECHNIQUE: CT angiography of the chest was performed with a bolus infusion 100 cc's of Omnipaque [address] angiography was performed with multi-slice acquisition and multi-planar and/or 3D reconstruc tions. COMPARISON: UPPER ABD WITH CONTRAST (P) from 12/11/2016 ABD PELVIS WITH CONTRAST from 05/15/2017 CT CHEST PE ABD PELVIS W from 03/04/2019 CT CHEST PE CTA from 04/15/2019 FINDINGS: Images obtained through the upper abdomen show unremarkable appearance of visualized portions of th e liver, spleen, adrenals, left kidney and pancreas. Misregistration limits evaluation of the chest. Lungs are predominantly clear. No pleural effusion or pneumothorax. No evidence of pulmonary emboli c disease. No thoracic aortic dissection or aneurysm. No significant mediastinal adenopathy. Trach eobronchial tree appears intact. Contour deformity of the diaphragm on the right posteriorly appears to have been present on prior guero dies and is a nonspecific finding, possibly related to old pulmonary process. The possibility of unde rlying neoplasm not entirely excluded and a follow-up chest CT is recommended in 6-12 months to re-ev aluate this finding. 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
--- NOTE | 2019-04-28 19:30 | DI.VRAD_ITS ---
PROCEDURE INFORMATION: Exam: CT Angiography Chest With Contrast Exam date and time: 04/28/2019 7:03 PM Age: 78 years old Clinical indication: Chest pain; Additional info: Pleuritic chest pain, prior pe TECHNIQUE: Imaging protocol: Computed tomographic angiography of the chest with intravenous contrast. 3D rendering: MIP and/or 3D reconstructed images were created by the technologist. Radiation optimization: All CT scans at this facility use at least one of these dose optimization techniques: automated exposure control; mA and/or kV adjustment per patient size (includes targeted exams where dose is matched to clinical indication); or iterative reconstruction. Contrast material: [id number]; Contrast volume: 100 ml; Contrast route: IV RT AC 20G; COMPARISON: CT CHEST PE CTA 04/15/2019 6:39 PM FINDINGS: Pulmonary arteries: Pulmonary arteries without evidence of embolism. Aorta: Thoracic aorta normal in caliber. Lungs: Lungs with diffuse mild increased interstitial ground-glass pattern. This may represent interstitial edema in early stages. No gross pulmonary edema. Bibasilar posterior costophrenic sulcus atelectasis. Pleural space: Unremarkable. No pneumothorax. No pleural effusion. Heart: Unremarkable cardiac contour. No pericardial effusion. Lymph nodes: Unremarkable. No enlarged lymph nodes. Bones/joints: Unremarkable. No acute fracture. Soft tissues: Unremarkable. IMPRESSION: 1. No pulmonary embolism evident. 2. Minor ground-glass opacification of lung amaya may represent early interstitial edema. 3. Mild posterior lung base atelectasis. Dictated and Authenticated by: Yoni Diaz MD. Ordering:ISABELLE Fontaine MD
--- NOTE | 2019-04-28 19:47 | NUR.NOTE ---
IV removed. Discharge instructions reviewed with verbal understanding. aware to f/u with pcp. Ambulated to exit with steady gait.
== END 2019-04-28 19:45 | disposition home or self-care (01) ==
PROVIDERS: Emergency Provider Emergency Medicine; PCP Family Medicine
DX: R07.81 Pleurodynia (principal); Z79.01 Long term (current) use of anticoagulants; Z86.711 Personal history of pulmonary embolism
CPT/HCPCS: 36415; 71275; 80053; 93005; 99285; 83735; 84484; 85025; 85610; 85730; 93010; 99284; J3490

== ENCOUNTER → 2019-06-08 09:41 | Outpatient (BNVA) | payer MEDICARE, OTHER, SELFPAY | PROVIDERS: PCP Family Medicine; Referring Provider Family Medicine; Visit Provider Orthopaedic Surgery | DX: R69 Illness, unspecified (principal) ==

== ENCOUNTER 2019-06-08 10:50 | Outpatient (CLI) | payer MEDICARE, OTHER, SELFPAY ==
[2019-06-08 11:37] LABS: HCT 40.8 % (36.0-46.0); HGB 13.2 g/dL (12.0-15.5); Mean Corp. HGB Concentration 32.4 g/dL (32.0-36.0); Mean Corpuscular Hemoglobin 29.8 pg (27.0-33.0); Mean Corpuscular Volume 92.1 fL (80-95); Mean Platelet Volume 11.3 fL (8.0-11.0); Platelet Count 311 x1000/uL (130-400); RBC 4.43 m/cumm (4.00-5.20); White Blood Cell Count 8.18 k/cumm (4.4-10.8)
[2019-06-08 12:07] LABS: C-Reactive Protein 1.44 mg/dL (0.0-0.3)
[2019-06-08 13:07] LABS: ESR 31 mm/hr (0-30)
== END 2019-06-08 11:10 ==
PROVIDERS: PCP Family Medicine; Visit Provider Orthopaedic Surgery
DX: M25.50 Pain in unspecified joint (principal); M17.0 Bilateral primary osteoarthritis of knee
CPT/HCPCS: 36415; 85027; 85652; 99214; 86140

== ENCOUNTER 2019-06-24 15:17 | Emergency (ER) | payer MEDICARE, OTHER, SELFPAY ==
[2019-06-24 15:24] VITALS: BP 160/80; PULSE 77; RESP 16; TEMP 36.4; O2SAT 99
[2019-06-24 16:09] LABS: HCT 43.3 % (36.0-46.0); Mean Corp. HGB Concentration 32.3 g/dL (32.0-36.0); Mean Corpuscular Hemoglobin 29.9 pg (27.0-33.0); Mean Corpuscular Volume 92.3 fL (80-95); Mean Platelet Volume 11.5 fL (8.0-11.0); Platelet Count 378 x1000/uL (130-400); RBC 4.69 m/cumm (4.00-5.20); RBC Distribution Width 15.2 % (11.7-14.6); White Blood Cell Count 13.98 k/cumm (4.4-10.8)
[2019-06-24 16:21] LABS: ALT 20 U/L (14-59); AST 10 U/L (15-37); Albumin 3.6 g/dL (3.4-5.0); Alkaline Phosphatase 66 U/L (46-116); Anion Gap 9.9 mmol/L (3-11); BUN 16 mg/dL (7-18); Bilirubin, Total 0.2 mg/dL (0.2-1.0); CO2 30.1 mmol/L (21.0-32.0); CREATININE 0.74 mg/dL (0.55-1.02); Calcium 9.3 mg/dL (8.5-10.1); Chloride 103 mmol/L (98-107); Glucose 135 mg/dL (74-106); Potassium 3.6 mmol/L (3.5-5.1); Sodium 143 mmol/L (136-145); Total Protein 7.6 g/dL (6.4-8.2)
--- NOTE | 2019-06-24 16:21 | ED.GENADUL_ITS ---
Discharge Plan Disposition Patient Disposition: HOME Condition: Stable Discharge Details Chief Complaint: Abd Prob Clinical Impression: Bleeding hemorrhoids Primary Care Provider: Win Rhodes ED Provider: Sandra Mckay Home Meds and New Rx's Prescriptions: Continued rabeprazole [AcipHex] 20 mg tablet,delayed release (DR/EC) 20 mg PO BID Qty: 180 RF: 12 acetaminophen [Tylenol Extra Strength] 500 mg tablet 1,000 mg PO TID RF: 0 escitalopram oxalate 10 mg tablet 10 mg PO DAILY Qty: 90 RF: 5 apixaban 5 mg tablet 5 mg PO BID Qty: 180 RF: 3 buspirone 10 mg tablet 5 mg PO BID Qty: 180 RF: 5 estradiol [Estrace] 0.01 % (0.1 mg/gram) cream 4 g Topical 2X /week Qty: 5 RF: 5 nystatin 60 GM powder 1 applic Topical BID Qty: 60 RF: 12 albuterol sulfate 2.5 MG/3 ML solution for nebulization 2.5 mg Inhalation QID PRNQty: 100 RF: 12 lorazepam 0.5 MG tablet 0.5 mg PO PRN PRNQty: 90 RF: 2 Flovent HFA 110 mcg/actuation HFA aerosol inhaler 2 puff Inhalation HS Qty: 12 RF: 6 levothyroxine 75 mcg tablet 75 mcg PO DAILY Qty: 90 RF: 3 diltiazem HCl 120 mg capsule,extended release 12 hr 120 mg PO Q12H Qty: 180 RF: 3 prednisone 5 mg tablet 5 mg PO DAILY Qty: 30 RF: 1 (DME) PulmoNeb LT Compressor Nebul 1 EACH device 1 ea Miscellaneous PRN RF: 0 magnesium oxide 400 mg (241.3 mg magnesium) tablet 200 mg PO DAILY RF: 0 garlic 1,000 mg Capsule 1,000 mg PO DAILY RF: 0 cholecalciferol (vitamin D3) [Vitamin D3] 50 mcg (2,000 unit) capsule 5,000 unit PO DAILY RF: 0 albuterol sulfate 90 mcg/actuation aerosol powdr breath activated 2 inh IH Q4H PRN (Reason: shortness of breath or wheezing) Qty: 1 RF: 0 Discharge Instructions Instructions: Hemorrhoids (ED), Rectal Bleeding (ED) Additional Instructions: Wear Depends undergarments to help with rectal bleeding. Follow-up with general surgeon Dr. Triana in the surgery office tomorrow morning at 10 AM. Return to the emergency department anytime if you develop any worsening or new concerning symptoms such as dizziness, chest pain, shortness of breath or weakness. Referrals: Jackie Triana DO [OSTEOPATHIC DOCTOR] - Discharge Data Discharge Date/Time-TO BE ENTERED AT DEPARTURE: 06/24/19 17:15 Discharge Physician: Sandra Mckay Medical Decision Making 78-year-old female with a history of bleeding hemorrhoids presents with rectal bleeding for the last few days. Patient states she has saturated through her pad, underwear and pants twice over the past 2 days. She states she has a history of bleeding hemorrhoids but is concerned about this bleeding recently. She states she developed PEs recently and was placed on Eliquis. She states she will be on Eliquis until September. She saw her taxonomist at [facility] who states they will consider banding of her hemorrhoids but not until her dose of the Eliquis is either decreased or stopped in September. She states she is unable to come off the Eliquis until then, and is searching for any help she can have with her bleeding hemorrhoids until then. She denies any fever, nausea, vomiting, abdominal pain, rectal pain. She states she does have a history of rectal prolapse when standing which resolves when laying down. She denies any external hemorrhoids. Patient is hemodynamically stable. Afebrile. She appears nontoxic. Abdomen is soft and nontender. Rectal exam normal externally with minimal specks of bright red blood on digital rectal exam. No stool noted. No active rectal bleeding noted. Screening labs obtained and note a hemoglobin of 14. White blood cell count 13. Case discussed with Dr. Triana --she can evaluate patient in her office tomorrow morning at 10 AM. Patient is happy with this plan. Reassured patient that as she is hemodynamically stable with a normal hemoglobin, there is no indication for any acute intervention but that she may have further bleeding and to use depends undergarments. She was advised to return here with any worsening or new concerning symptoms. Medical Records Medical records reviewed: Yes I reviewed the patient's medical records. Lab Data Lab results reviewed: Yes I reviewed the patient's lab results. Labs: Laboratory Tests Range/Units 06/24/19 06/24/19 16:00 16:00 WBC (4.4-10.8) k/cumm 13.98 H RBC (4.00-5.20) m/cumm 4.69 Hgb (12.0-15.5) g/dL 14.0 Hct (36.0-46.0) % 43.3 MCV (80-95) fL 92.3 MCH (27.0-33.0) pg 29.9 MCHC (32.0-36.0) g/dL 32.3 RDW (11.7-14.6) % 15.2 H Plt Count (130-400) x1000/uL 378 MPV (8.0-11.0) fL 11.5 H Sodium (136-145) mmol/L 143 Potassium (3.5-5.1) mmol/L 3.6 Chloride (98-107) mmol/L 103 Carbon Dioxide (21.0-32.0) mmol/L 30.1 Anion Gap (3-11) mmol/L 9.9 BUN (7-18) mg/dL 16 Creatinine (0.55-1.02) mg/dL 0.74 Estimated GFR/1.73 m2 (mL/min/1.73m2) >= 60.00 Glucose (74-106) mg/dL 135 H Calcium (8.5-10.1) mg/dL 9.3 Total Bilirubin (0.2-1.0) mg/dL 0.2 AST (15-37) U/L 10 L ALT (14-59) U/L 20 Alkaline Phosphatase (46-116) U/L 66 Total Protein (6.4-8.2) g/dL 7.6 Albumin (3.4-5.0) g/dL 3.6 HPI General Mode of arrival: ambulatory . Date/Time Provider Initiated Documentation: 06/24/19 15:28 . Limitations to Documentation: no limitations . Information obtained by: patient . History of Present Illness 78 year old F presents to the emergency department with the chief complaint of Rectal bleeding for the past few days, history of hemorrhoids, Patient started experiencing this day(s) (2) and it has been intermittent. No relieving factors improve s ymptom(s), No exacerbating factors reported . Patient notes no other symptoms.. Patient did receive the following treatments prior to arrival, none Related Data Home Medications Medication Instructions Recorded Confirmed nystatin 1 applic TOPICAL BID #60 gm 12/04/15 06/24/19 PulmoNeb LT Compressor Nebul 02/07/16 06/08/19 albuterol sulfate 2.5 mg INHALATION QID PRN #100 dose 07/01/17 06/24/19 lorazepam 0.5 mg PO PRN PRN #90 tab-cap 10/26/17 06/24/19 garlic 1,000 mg PO DAILY 03/11/18 06/08/19 acetaminophen 500 mg tablet 1,000 mg PO TID tab 07/01/18 06/24/19 escitalopram oxalate 10 mg tablet 10 mg PO DAILY #90 tab 07/01/18 06/24/19 rabeprazole 20 mg tablet,delayed 20 mg PO BID #180 tab 08/11/18 06/24/19 release fluticasone propionate 110 2 puff INHALATION HS #12 gm 11/25/18 06/24/19 mcg/actuation HFA aerosol inhaler albuterol sulfate 2 inh IH Q4H PRN #1 each 03/07/19 06/24/19 apixaban 5 mg tablet 5 mg PO BID #180 tab 03/16/19 06/24/19 levothyroxine 75 mcg tablet 75 mcg PO DAILY #90 tab 03/16/19 06/24/19 diltiazem HCl 120 mg 120 mg PO Q12H #180 cap 03/23/19 06/24/19 capsule,extended release 12 hr cholecalciferol (vitamin D3) 50 5,000 unit PO DAILY cap 05/17/19 06/24/19 mcg (2,000 unit) capsule estradiol 4 g TOPICAL 2X /week #5 tube 05/17/19 06/24/19 buspirone 10 mg tablet 5 mg PO BID #180 tab 05/31/19 06/24/19 prednisone 5 mg tablet 5 mg PO DAILY #30 tab 06/10/19 06/24/19 magnesium oxide 200 mg PO DAILY 06/24/19 06/24/19 Previous Rx's Medication Instructions Recorded escitalopram oxalate 10 mg tablet 10 mg PO DAILY #90 tab 07/01/18 rabeprazole 20 mg tablet,delayed 20 mg PO BID #180 tab 08/11/18 release fluticasone propionate 110 2 puff INHALATION HS #12 gm 11/25/18 mcg/actuation HFA aerosol inhaler albuterol sulfate 2 inh IH Q4H PRN #1 each 03/07/19 apixaban 5 mg tablet 5 mg PO BID #180 tab 03/16/19 levothyroxine 75 mcg tablet 75 mcg PO DAILY #90 tab 03/16/19 diltiazem HCl 120 mg 120 mg PO Q12H #180 cap 03/23/19 capsule,extended release 12 hr estradiol 4 g TOPICAL 2X /week #5 tube 05/17/19 buspirone 10 mg tablet 5 mg PO BID #180 tab 05/31/19 prednisone 5 mg tablet 5 mg PO DAILY #30 tab 06/10/19 Allergies Allergy/AdvReac Type Severity Reaction Status Date / Time hylan - Allergy SWELLING Verified 06/24/19 15:30 AND PAIN metronidazole [From Flagyl] Allergy Skin Rash Verified 06/24/19 15:30 Pyrazoles Allergy Verified 06/24/19 15:30 tolterodine Allergy DIFFICULTY Verified 06/24/19 15:30 BREATHING methylprednisolone AdvReac Intermediate weakness Verified 06/24/19 15:30 and unable mood. hydromorphone AdvReac Mild Nausea Verified 06/24/19 15:30 amitriptyline AdvReac NAUSEA Verified 06/24/19 15:30 aspartame AdvReac HEART Verified 06/24/19 15:30 RACING ondansetron HCl [From Zofran] AdvReac HALLUCINATI Verified 06/24/19 15:30 ON General Stated Complaint: Abd Prob MANDY: 3 Review of Systems All systems reviewed & are unremarkable except as noted in HPI and below Constitutional Constitutional: Reports as per HPI, Denies chills and Denies fever(s) Eyes Eyes: Denies blurry vision ENT Ears, Nose, Mouth, and Throat: Denies dizziness, Denies sore throat and Denies throat swelling Cardiovascular Cardiovascular: Denies chest pain and Denies dyspnea Respiratory Respiratory: Denies cough and Denies dyspnea Gastrointestinal Gastrointestinal: Denies abdominal pain, Reports hematochezia, Denies diarrhea, Denies vomiting and Reports other (hemorrhoids) Genitourinary Genitourinary: Denies hematuria and Denies dysuria Musculoskeletal Musculoskeletal: Denies back pain and Denies numbness Integumentary/Breasts Skin/Breast: Denies lesions and Denies rash Neurologic Neurologic: Denies dizziness, Denies focal weakness and Denies numbness Allergic/Immunologic Allergic/Immunologic: Denies throat swelling [facility] Medical History Adrenal mass, right (Chronic 12/11/16) seen on CT Ab 12/26 - STABLE. Will repeat Allergic eosinophilia (Chronic) 09/23/11 COLONOSCOPY BIOPSY SHOWS FOCAL EOSINOPHILIC CRYPTITS Anxiety (Chronic) Anxiety disorder Arthritis (Chronic) both ankles S/P fracture S/P surgery Asthma Asthma (Chronic) Bleeding hemorrhoids (Acute) Cortical cataract of left eye (Resolved) Cortical cataract of right eye (Resolved) Depressive disorder Depressive disorder (Chronic) refuses medication Diverticulosis Diverticulosis of colon without diverticulitis (Chronic) Elevated fasting glucose (Chronic 06/27/14) Epigastric pain (Chronic) Epiretinal membrane (ERM) of right eye (Chronic) Essential hypertension Essential hypertension (Chronic 02/19/13) MARILYN (generalized anxiety disorder) (Chronic) Patient with palpitations with negative Zio patch. She complained of symptoms during normal sinus rhythm on 40 occasions. With anxiety. Intolerant to buspirone. Will start recheck in 2 weeks. Gastroesophageal reflux disease (Chronic) H/o H pylori, neg 07EGD Mitz 07UGI ? 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 03/18 MRI 2004 showing herniated disc, S/P surgery. 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) RIGHT DELTOID Nuclear sclerotic cataract of left eye (Resolved) Nuclear sclerotic cataract of right eye (Resolved) Obstructive sleep apnea syndrome (Chronic 06/16/12) C-PAP CELINA (obstructive sleep apnea) Posterior subcapsular age-related cataract of left eye (Resolved) Posterior subcapsular age-related cataract, right eye (Resolved) Primary osteoarthritis of both knees (Chronic) SVT (supraventricular tachycardia) 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 on replacement Social History Smoking/Tobacco Use Status: Never Alcohol Intake: never Drug use: Never Substance use type: does not use Pets and animals: Yes Pets and animals: cat(s) and dog(s) Current gender identity: female What type of physical activity do you participate in: none Li/Oriental Orthodox: Catholic Special li needs: No Do you feel safe at home: Yes Do you feel safe in your relationship?: Yes Exam Const General: cooperative, healthy appearing and no acute distress HENMT Head: normal to inspection Face and sinus: normal facial exam Eyes General: appearance normal, both eyes and all related structures EOM: EOM intact bilaterally Neck Neck: normal visual inspection and No submandibular swelling Lymphatic: no lymphadenopathy noted Chest Chest: normal inspection of the chest and no tenderness Resp Effort & Inspection: normal respiratory effort and able to speak in complete sentences Auscultation: clear to auscultation bilaterally Cardio Rate: regular rate Rhythm: regular rhythm GI Inspection: normal to inspection Palpation: soft, not firm, not rigid and nontender Auscultation: normal bowel sounds Rectal Exam - female: visual inspection normal, normal sphincter tone and other (Pinpoint specks of bright red blood on digital rectal exam. No stool noted) Skin General skin exam: no rashes or lesions noted Neuro General: alert, awake and oriented x3 Cognition: normal cognition Speech: speech normal Motor: muscle tone normal throughout Sensory Exam: no sensory deficits noted Extrem General: normal to inspection, full ROM, normal capillary refill, no calf tenderness bilaterally and no edema Psych Appearance: grossly normal Mental Status: mental status grossly normal Speech and Movement: speech and movement normal Affect: normal affect Course Vital Signs Vital signs: Vital Signs Temperature 97.5 F L 06/24/19 15:24 Pulse 77 06/24/19 15:24 Respiratory Rate 16 06/24/19 15:24 Blood Pressure 160/80 H 06/24/19 15:24 Pulse Oximetry 99 06/24/19 15:24 Temperature 97.5 F L 06/24/19 15:24 Temperature Source Skin 06/24/19 15:24 Pulse 77 06/24/19 15:24 Respiratory Rate 16 06/24/19 15:24 Respiratory Effort Non-Labored 06/24/19 15:24 Blood Pressure 160/80 H 06/24/19 15:24 Blood Pressure Position Sitting 06/24/19 15:24 Pulse Oximetry 99 06/24/19 15:24 Oxygen Delivery Method Room Air 06/24/19 15:24 Oxygen Flow Rate 0 06/24/19 15:24 Lab/Test Results Lab/Test Results: Laboratory Tests Range/Units 06/24/19 16:00 WBC (4.4-10.8) k/cumm 13.98 H RBC (4.00-5.20) m/cumm 4.69 Hgb (12.0-15.5) g/dL 14.0 Hct (36.0-46.0) % 43.3 MCV (80-95) fL 92.3 MCH (27.0-33.0) pg 29.9 MCHC (32.0-36.0) g/dL 32.3 RDW (11.7-14.6) % 15.2 H Plt Count (130-400) x1000/uL 378 MPV (8.0-11.0) fL 11.5 H
--- NOTE | 2019-06-24 17:07 | NUR.NOTE ---
Nursing Note: Referral [facility] for follow up tomorrow with Dr. Triana @ 10am. Roya Russell.
[2019-06-24 17:17] VITALS: BP 126/67; PULSE 67; RESP 16; TEMP 36.4; O2SAT 97
== END 2019-06-24 17:15 | disposition home or self-care (01) ==
PROVIDERS: Emergency Provider Physician Assistant; PCP Family Medicine
DX: K64.1 Second degree hemorrhoids (principal); Z79.01 Long term (current) use of anticoagulants; Z86.711 Personal history of pulmonary embolism; I10 Essential (primary) hypertension
CPT/HCPCS: 36415; 80053; 85027; 99283

== ENCOUNTER → 2019-06-25 09:41 | Outpatient (BNVA) | payer MEDICARE, OTHER, SELFPAY | PROVIDERS: PCP Family Medicine; Referring Provider Family Medicine; Visit Provider Surgery | DX: K64.8 Other hemorrhoids (principal); K62.3 Rectal prolapse; K62.6 Ulcer of anus and rectum; K52.9 Noninfective gastroenteritis and colitis, unspecified; K57.30 Diverticulosis of large intestine without perforation or abscess without bleeding; I10 Essential (primary) hypertension | CPT/HCPCS: 99204; 99215 ==

== ENCOUNTER → 2019-07-07 09:08 | Outpatient (BNVA) | payer MEDICARE, OTHER, SELFPAY | PROVIDERS: PCP Family Medicine; Referring Provider Family Medicine; Visit Provider Surgery | DX: K57.30 Diverticulosis of large intestine without perforation or abscess without bleeding (principal); K62.6 Ulcer of anus and rectum; K52.9 Noninfective gastroenteritis and colitis, unspecified; K62.3 Rectal prolapse; K64.8 Other hemorrhoids; I10 Essential (primary) hypertension | CPT/HCPCS: 99213 ==

== ENCOUNTER → 2019-07-07 10:39 | Outpatient (BNVA) | payer MEDICARE, OTHER, SELFPAY | PROVIDERS: PCP Family Medicine; Referring Provider Family Medicine; Visit Provider Orthopaedic Surgery | DX: M17.0 Bilateral primary osteoarthritis of knee (principal); I10 Essential (primary) hypertension | CPT/HCPCS: 99213 ==

== ENCOUNTER → 2019-07-23 09:56 | Outpatient (BNVA) | payer MEDICARE, OTHER, SELFPAY | PROVIDERS: PCP Family Medicine; Referring Provider Family Medicine; Visit Provider Internal Medicine Cardiovascular Disease | DX: I47.1 Supraventricular tachycardia (principal); Z86.711 Personal history of pulmonary embolism; Z79.01 Long term (current) use of anticoagulants; I10 Essential (primary) hypertension | CPT/HCPCS: 99204; 99215 ==

== ENCOUNTER → 2019-08-18 15:34 | Outpatient (BNVA) | payer MEDICARE, OTHER, SELFPAY | PROVIDERS: PCP Family Medicine; Referring Provider Family Medicine; Visit Provider Surgery | DX: K62.6 Ulcer of anus and rectum (principal); K62.3 Rectal prolapse; K52.9 Noninfective gastroenteritis and colitis, unspecified; K64.8 Other hemorrhoids; K57.30 Diverticulosis of large intestine without perforation or abscess without bleeding; Z86.711 Personal history of pulmonary embolism | CPT/HCPCS: 99212; 99442 ==

== ENCOUNTER 2019-08-31 10:40 | Outpatient (CLI) | payer MEDICARE, OTHER, SELFPAY ==
--- NOTE | 2019-08-31 10:15 | DI.RAD_ITS ---
EXAM: XR SHOULDER RT COMPLETE 2+V CLINICAL HISTORY: PAIN TECHNIQUE: 2D digital imaging was performed. COMPARISON: XR SHOULDER RT COMPLETE 2+V from 03/03/2019 FINDINGS: Spurring is again noted from the tip of the acromion and greater and lesser tuberosities. There is a lso mild narrowing the glenohumeral joint. There is spurring at the inferior aspect of the glenohume ral joint. The humeral head again appears high riding which could indicate chronic rotator cuff tear . IMPRESSION: Stable appearance of degenerative changes the right shoulder.
== END 2019-08-31 11:00 ==
PROVIDERS: PCP Family Medicine; Referring Provider Family Medicine; Visit Provider Orthopaedic Surgery
DX: M25.511 Pain in right shoulder (principal); M19.011 Primary osteoarthritis, right shoulder; I10 Essential (primary) hypertension
CPT/HCPCS: 99213; 73030

== ENCOUNTER 2019-09-28 10:30 | Outpatient (CLI) | payer MEDICARE, OTHER, SELFPAY | END 2019-09-28 10:50 | PROVIDERS: PCP Family Medicine; Visit Provider Orthopaedic Surgery | DX: M19.011 Primary osteoarthritis, right shoulder (principal); I10 Essential (primary) hypertension | CPT/HCPCS: 99213 ==

== ENCOUNTER 2019-10-06 11:42 | Outpatient (CLI) | payer MEDICARE, OTHER, SELFPAY ==
--- NOTE | 2019-10-06 13:26 | DI.RAD_ITS ---
EXAM: XR ANKLE LT COMPLETE CLINICAL HISTORY: Left ankle pain, M25.572 TECHNIQUE: 2D digital imaging was performed. COMPARISON: CR XR ANKLE LT COMPLETE from 12/21/2018 FINDINGS: BONES: 2 partially threaded screws are again noted through the talocalcaneal joint. Prior distal fib ular resection is again noted. There is narrowing and spurring at the posterior talocalcaneal joint. No acute fracture is present. No bony destructive lesion is seen. SOFT TISSUE: Marked soft tissue swelling. IMPRESSION: Stable postsurgical changes. DATA REPOSITORY: RADIATION DOSE DELIVERED:
== END 2019-10-06 12:02 ==
PROVIDERS: PCP Family Medicine; Visit Provider Family Medicine
DX: M25.572 Pain in left ankle and joints of left foot (principal); Z47.89 Encounter for other orthopedic aftercare; M79.89 Other specified soft tissue disorders
CPT/HCPCS: 73610

== ENCOUNTER 2019-10-07 13:06 | Outpatient (CLI) | payer MEDICARE, OTHER, SELFPAY ==
--- NOTE | 2019-10-07 15:00 | DI.US_ITS ---
EXAM: US LOWER EXTREMITY VENOUS LT CLINICAL HISTORY: acute L ankle pain, swelling, redness (reported) Hx PE.m25.572,[id number]. TECHNIQUE: Right lower extremity venous ultrasound performed using grayscale, color-flow, and spectr al Doppler analysis. COMPARISON: No exams were available for comparison FINDINGS: The right common femoral, femoral and popliteal veins demonstrate normal compressibility, augmentatio n, and color Doppler. The posterior tibial veins are patent. No saphenous vein thrombosis or other s uperficial venous thrombosis is seen. No hematoma or Moore's cyst is seen. IMPRESSION: Negative right lower extremity ultrasound. No evidence of DVT. DATA REPOSITORY:
== END 2019-10-07 13:26 ==
PROVIDERS: PCP Family Medicine
DX: M25.572 Pain in left ankle and joints of left foot (principal); R22.41 Localized swelling, mass and lump, right lower limb; Z86.711 Personal history of pulmonary embolism
CPT/HCPCS: 93971

== ENCOUNTER 2019-10-18 04:29 | Outpatient (CLI) | payer MEDICARE, OTHER, SELFPAY ==
[2019-10-18 09:59] LABS: HCT 41.6 % (36.0-46.0); HGB 13.7 g/dL (12.0-15.5); Mean Corp. HGB Concentration 32.9 g/dL (32.0-36.0); Mean Corpuscular Hemoglobin 30.4 pg (27.0-33.0); Mean Corpuscular Volume 92.2 fL (80-95); Mean Platelet Volume 12.1 fL (8.0-11.0); Platelet Count 317 x1000/uL (130-400); RBC 4.51 m/cumm (4.00-5.20); RBC Distribution Width 14.7 % (11.7-14.6)
[2019-10-18 16:35] LABS: PTT (UVM) 32 secs (26-37)
[2019-10-18 17:08] LABS: D-Dimer (UVM) 341 ng/mL DDU (<=230)
[2019-10-19 18:28] LABS: Beta 2 GP1 Ab IgG <9.4 U/mL; Beta 2 GP1 Ab IgM <9.4 U/mL
[2019-10-22 07:41] LABS: Antithrombin 3, Funct. 94 % (85-125); Factor 8 Assay 157 % (50-150); Protein C, Functional >150 % (71-199); Protein S, Functional 111 % (64-147)
[2019-10-22 10:04] LABS: Dilute Russell Viper Venom 28.1 secs (27.2-36.9); LA Cascade Summary (See Note); Silica Clotting Time 34.3 secs (30.2-48.4)
[2019-10-22 18:42] LABS: Beta 2 Glycoprotein 1 Ab IgA <9.4 U/mL
== END 2019-10-18 04:49 ==
PROVIDERS: PCP Family Medicine; Visit Provider Family Medicine
DX: D68.59 Other primary thrombophilia (principal)
CPT/HCPCS: 36415; 81240; 81241; 85027; 85300; 85303; 85306; 85610; 85613; 85730; 85732; 86146; 86147; 85240; 85379

== ENCOUNTER 2019-11-09 19:39 | Outpatient (REF) | payer MEDICARE, OTHER, SELFPAY ==
[2019-11-09 20:24] LABS: TSH 17.74 uIU/mL (0.36-3.74)
== END 2019-11-09 19:59 ==
LOC: LBN 19:39
PROVIDERS: PCP Family Medicine; Visit Provider Family Medicine
DX: E03.9 Hypothyroidism, unspecified (principal)
CPT/HCPCS: 84443

== ENCOUNTER 2019-12-17 01:43 | Outpatient (CLI) | payer MEDICARE, OTHER, SELFPAY ==
[2019-12-17 12:44] LABS: Abs Immature Grans 0.02 10^3/uL (0.0-0.06); Absolute Basophil Count 0.11 10^3/uL (0.0-0.2); Absolute Eosinophil Count 0.17 10^3/uL (0.0-0.7); Absolute Monocyte Count 0.62 10^3/uL (0.1-0.8); Absolute Neutrophil Count 4.77 10^3/uL (1.2-6.7); Basophils % 1.4; Eosinophils % 2.2; HCT 44.3 % (36.0-46.0); HGB 14.1 g/dL (11.2-15.7); Immature Grans % 0.3; MCH 29.7 pg (27.0-33.0); MCHC 31.8 % (32.0-36.0); MCV 93.5 fL (80-95); MPV 12.9 fL (8.0-11.0); Monocytes % 8.2; Neutrophils % 62.9; Nucleated RBC 0 %; Platelet Count 305 10^3/uL (130-400); RBC 4.74 10^6/uL (3.93-5.22); RDW 13.2 % (11.7-14.6); RDW-SD 45.5 fL; WBC 7.59 10^3/uL (4.4-10.8)
[2019-12-17 13:12] LABS: ALT 44 U/L (14-59); AST 22 U/L (15-37); Albumin 3.6 g/dL (3.4-5.0); Alkaline Phosphatase 76 U/L (46-116); Anion Gap 8.8 mmol/L (3-11); BUN 9 mg/dL (7-18); Bilirubin, Total 0.4 mg/dL (0.2-1.0); CO2 28.2 mmol/L (21.0-32.0); CREATININE 0.67 mg/dL (0.55-1.02); Calcium 9.2 mg/dL (8.5-10.1); Chloride 103 mmol/L (98-107); Creatine Kinase 38 U/L (26-192); Glucose 93 mg/dL (74-106); Magnesium 1.9 mg/dL (1.8-2.4); Potassium 4.2 mmol/L (3.5-5.1); Sodium 140 mmol/L (136-145); TSH 19.28 uIU/mL (0.36-3.74); Total Protein 6.9 g/dL (6.4-8.2)
[2019-12-17 13:42] LABS: ESR 25 mm/hr (0-30)
== END 2019-12-17 02:03 ==
PROVIDERS: PCP Family Medicine; Visit Provider Family Medicine
DX: R53.83 Other fatigue (principal); R53.1 Weakness
CPT/HCPCS: 36415; 80053; 82550; 85652; 83735; 84443; 85025

== ENCOUNTER 2019-12-20 19:01 | Emergency (ER) | payer MEDICARE, OTHER, SELFPAY ==
[2019-12-20] VITALS (20 sets, daily range): BP systolic 118–155; BP diastolic 48–59; PULSE 47–66; RESP 11–22; TEMP 36.3; O2SAT 99
--- NOTE | 2019-12-20 19:00 | RT.EKG_ITS ---
APPROVED REPORT Exam: Resting ECG Patient Location: E HR:60 bpm ECG Measurements Heart Rate 60 AXIS MD 183 P -47 QRSd 96 QRS 3 QT 438 T 143 QTc 438 Conclusion Sinus rhythm...normal P axis, V-rate 68 Low voltage, extremity leads...all extremity leads Nonspecific T abnormalities, lateral leads..
--- NOTE | 2019-12-20 19:14 | W.ED.GENAD ---
Discharge Plan Disposition Patient Disposition: HOME Condition: Good Discharge Details Chief Complaint: Abd Prob Clinical Impression: Epigastric pain Primary Care Provider: Win Rhodes ED Provider: Sumi Hurtado Home Meds and New Rx's Prescriptions: Continued rabeprazole [AcipHex] 20 mg tablet,delayed release (DR/EC) 20 mg PO BID Qty: 180 RF: 12 CPAP miscellaneous RF: 0 acetaminophen [Tylenol Extra Strength] 500 mg tablet 1,000 mg PO TID RF: 0 escitalopram oxalate 10 mg tablet 10 mg PO DAILY Qty: 90 RF: 5 buspirone 10 mg tablet 5 mg PO BID Qty: 180 RF: 5 estradiol [Estrace] 0.01 % (0.1 mg/gram) cream 4 g Topical 2X /week Qty: 5 RF: 5 multivitamin Capsule 1 cap PO DAILY RF: 0 ferrous sulfate [Feosol] 325 mg (65 mg iron) tablet 325 mg PO DAILY RF: 0 apixaban 2.5 mg tablet 2.5 mg PO BID RF: 0 tramadol 50 mg tablet 50 mg PO Q12H PRN (Reason: pain) RF: 0 lorazepam 0.5 MG tablet 0.5 mg PO PRN PRNQty: 90 RF: 2 Flovent HFA 110 mcg/actuation HFA aerosol inhaler 2 puff Inhalation HS Qty: 12 RF: 6 diltiazem HCl 120 mg capsule,extended release 12 hr 120 mg PO Q12H Qty: 180 RF: 3 cholestyramine (with sugar) 4 gram powder 4 gm PO BID Qty: 378 RF: 12 levothyroxine 112 mcg tablet 112 mcg PO DAILY Qty: 30 RF: 11 (DME) PulmoNeb LT Compressor Nebul 1 EACH device 1 ea Miscellaneous PRN RF: 0 magnesium oxide 400 mg (241.3 mg magnesium) tablet 200 mg PO DAILY RF: 0 garlic 1,000 mg Capsule 1,000 mg PO DAILY RF: 0 cholecalciferol (vitamin D3) [Vitamin D3] 50 mcg (2,000 unit) capsule 5,000 unit PO DAILY RF: 0 albuterol sulfate 90 mcg/actuation aerosol powdr breath activated 2 inh IH Q4H PRN (Reason: shortness of breath or wheezing) Qty: 1 RF: 0 Discharge Instructions Instructions: Epigastric Pain (ED) Additional Instructions: Encourage water intake. Please use the antacid that you have at home. Please try to avoid acidic foods, carbonated beverages. Try to intake a bland diet. Please keep your appointment tomorrow with your primary care provider. If you develop fever/chills, increased pain, vomiting or other new/worsening symptom please seek care urgently once again. Referrals: Win Rhodes [Primary Care Provider] - Discharge Data Discharge Date/Time-TO BE ENTERED AT DEPARTURE: 12/20/19 22:45 Medical Decision Making Patient is a pleasant 79-year-old female presenting today with chief complaint of abdominal discomfort. She reports that she is been having constipation over recent days and reports when she does have a bowel movement is very small, hard stools. States that she is been having a normal appetite has not found any change with p.o. intake. She denies any nausea vomiting. Denies any fevers or chills. Possible history is significant for a right adrenal mass, anxiety, asthma, bleeding hemorrhoids, depression, diverticula, hypertension, GERD, CELINA, PE, SVT. Past surgical history pertinent for cholecystectomy, hysterectomy. Patient does report that she has been seen by her primary care recently for back pain and was started on tramadol. She reports that she only took this for a few days and did stop taking this yesterday. Also reports history of hypothyroidism and that is believe that this is the cause of her discomfort and weakness. She denies any chest pain. No fevers or chills. Denies any shortness of breath. On exam, patient appears comfortable. She appears to be no acute distress. She is hypertensive with a blood pressure 155/59, vital signs otherwise within normal limits. Abdominal exam reveals epigastric discomfort. No guarding or rebound tenderness. Patient feels that she is bloated but she is not tympanitic on exam. She has normal bowel sounds. No CVA tenderness. Normal cardiac and respiratory exam. Patient is primarily concerned with obstruction. Her exam does not seem as such. However, will obtain plain film to evaluate bowel gas pattern and baseline labs. Otherwise, patient's epigastric discomfort seems to be related to her GERD and change in bowel habits may be associate with her hypothyroidism as well as the tramadol that she was recently placed on. EKG was reviewed by physician. Please see their note, no acute ischemic changes were noted. fINDINGS: Lungs: Nonspecific bilateral mild hyperinflation which could represent COPD. No focal lung infiltrates. No edema. Pleural space: No pleural effusions. Heart/Mediastinum: Normal heart size. Gastrointestinal tract: No evidence of mechanical bowel obstruction. There is air scattered within large and small bowel loops. Suggestion of minor small bowel edema. This may represent an enteritis. Intraperitoneal space: No free air evident on upright view. No gross free fluid. Organs: Previous cholecystectomy. Bones/joints: Degenerative thoracic spine disease. Degenerative lumbar spine disease. Soft tissues: See Lungs finding. IMPRESSION: 1. Bowel pattern suggesting a mild enteritis. No mechanical obstruction. 2. Hyperinflation suggesting COPD. 3. Degenerative thoracic and lumbar spine changes. 4. Previous cholecystectomy. Labs are reviewed. No leukocytosis, H&H is stable. CMP without significant abnormality. Troponin less than 0.05. Lipase within normal limits. Patient discussed these findings. She reports that she is currently feeling well. We did discuss methods to help her move her bowels. We did discuss complete cessation of the tramadol. Patient reports she did not find that this was overly helpful with her chronic back pain. She reports she does have an appointment with her primary care physician tomorrow. Do not feel that CT of her abdomen is warranted at this time as the patient does not have any guarding or evidence of surgical abdomen. She was given return precautions. All of her questions and concerns were addressed and she is in agreement this plan. [facility] General Mode of arrival: ambulatory. Date/Time Provider Initiated Documentation: 12/20/19 19:14. Limitations to Documentation: no limitations. Information obtained by: patient and RN notes reviewed. History of Present Illness 79 year old F presents to the emergency department with the chief complaint of epigastric pain, described as mild, with intensity rated at 3. Quality is described as aching, and is localized to the abdomen (epigastric). Patient reports no radiation. Patient started experiencing this day(s) (5) and it has been constant. No relieving factors improve symptom(s), Eating worsens symptoms . Patient notes loss of appetite and nausea/vomiting (nausea, no vomiting); denies chest pain, cough, fever/chills, rash and shortness of breath. Patient did receive the following treatments prior to arrival, none Related Data Home Medications Medication Instructions Recorded Confirmed PulmoNeb LT Compressor Nebul 02/07/16 12/21/19 lorazepam 0.5 mg PO PRN PRN #90 tab-cap 10/26/17 12/21/19 garlic 1,000 mg PO DAILY 03/11/18 12/21/19 acetaminophen 500 mg tablet 1,000 mg PO TID tab 07/01/18 12/21/19 escitalopram oxalate 10 mg tablet 10 mg PO DAILY #90 tab 07/01/18 12/21/19 rabeprazole 20 mg tablet,delayed 20 mg PO BID #180 tab 08/11/18 12/21/19 release fluticasone propionate 110 2 puff INHALATION HS #12 gm 11/25/18 12/21/19 mcg/actuation HFA aerosol inhaler albuterol sulfate 2 inh IH Q4H PRN #1 each 03/07/19 12/21/19 diltiazem HCl 120 mg 120 mg PO Q12H #180 cap 03/23/19 12/21/19 capsule,extended release 12 hr cholecalciferol (vitamin D3) 50 5,000 unit PO DAILY cap 05/17/19 12/21/19 mcg (2,000 unit) capsule estradiol 4 g TOPICAL 2X /week #5 tube 05/17/19 12/21/19 buspirone 10 mg tablet 5 mg PO BID #180 tab 05/31/19 12/21/19 magnesium oxide 200 mg PO DAILY 06/24/19 12/21/19 ferrous sulfate 325 mg (65 mg 325 mg PO DAILY 06/25/19 12/21/19 iron) tablet CPAP MISCELLANEOUS 07/23/19 12/21/19 cholestyramine (with sugar) 4 gram 4 gm PO BID #378 gm 07/26/19 12/21/19 oral powder multivitamin 1 cap PO DAILY 11/09/19 12/21/19 apixaban 2.5 mg tablet 2.5 mg PO BID 12/15/19 12/21/19 tramadol 50 mg tablet 50 mg PO Q12H PRN tab 12/15/19 12/21/19 levothyroxine 112 mcg tablet 112 mcg PO DAILY #30 tab 12/17/19 12/21/19 Previous Rx's Medication Instructions Recorded escitalopram oxalate 10 mg tablet 10 mg PO DAILY #90 tab 07/01/18 rabeprazole 20 mg tablet,delayed 20 mg PO BID #180 tab 08/11/18 release fluticasone propionate 110 2 puff INHALATION HS #12 gm 11/25/18 mcg/actuation HFA aerosol inhaler albuterol sulfate 2 inh IH Q4H PRN #1 each 03/07/19 diltiazem HCl 120 mg 120 mg PO Q12H #180 cap 03/23/19 capsule,extended release 12 hr estradiol 4 g TOPICAL 2X /week #5 tube 05/17/19 buspirone 10 mg tablet 5 mg PO BID #180 tab 05/31/19 cholestyramine (with sugar) 4 gram 4 gm PO BID #378 gm 07/26/19 oral powder levothyroxine 112 mcg tablet 112 mcg PO DAILY #30 tab 12/17/19 Allergies Allergy/AdvReac Type Severity Reaction Status Date / Time hylan - Allergy SWELLING Verified 12/21/19 13:56 AND PAIN metronidazole [From Flagyl] Allergy Skin Rash Verified 12/21/19 13:56 Pyrazoles Allergy Verified 12/21/19 13:56 tolterodine Allergy DIFFICULTY Verified 12/21/19 13:56 BREATHING methylprednisolone AdvReac Intermediate weakness Verified 12/21/19 13:56 and unable mood. hydromorphone AdvReac Mild Nausea Verified 12/21/19 13:56 amitriptyline AdvReac NAUSEA Verified 12/21/19 13:56 aspartame AdvReac HEART Verified 12/21/19 13:56 RACING ondansetron HCl [From Zofran] AdvReac HALLUCINATI Verified 12/21/19 13:56 ON General Stated Complaint: Abd Prob MANDY: 3 Review of Systems Constitutional Constitutional: Reports as per HPI, Denies chills, Denies fatigue, Denies fever(s) and Denies headache(s) ENT Ears, Nose, Mouth, and Throat: Denies headache(s) Cardiovascular Cardiovascular: Reports as per HPI, Denies chest pain and Denies dyspnea Respiratory Respiratory: Reports as per HPI, Denies cough and Denies dyspnea Gastrointestinal Gastrointestinal: Reports as per HPI Musculoskeletal Musculoskeletal: Reports as per HPI and Denies back pain Integumentary/Breasts Skin/Breast: Reports as per HPI and Denies rash Neurologic Neurologic: Reports as per HPI and Denies headache(s) Endocrine Endocrine: Denies fatigue FORMERLY [facility], 1928–1983 Medical History (Updated 12/20/19 @ 21:36 by CAILIN Pritchard) Acromioclavicular joint arthritis (Acute) Acute left ankle pain (Acute) Adrenal mass, right (Chronic 12/11/16) seen on CT Ab 12/26 - STABLE. Will repeat Allergic eosinophilia (Chronic) 09/23/11 COLONOSCOPY BIOPSY SHOWS FOCAL EOSINOPHILIC CRYPTITS Anxiety (Chronic) Anxiety disorder Arthritis (Chronic) both ankles S/P fracture S/P surgery Asthma Asthma (Chronic) Bleeding hemorrhoids (Acute) Chronic diarrhea (Acute) Cortical cataract of left eye (Resolved) Cortical cataract of right eye (Resolved) Depressive disorder Depressive disorder (Chronic) refuses medication Diverticula of colon (Acute) Diverticulosis Diverticulosis of colon without diverticulitis (Chronic) Elevated fasting glucose (Chronic 06/27/14) Epigastric pain (Chronic) Epiretinal membrane (ERM) of right eye (Chronic) Essential hypertension Essential hypertension (Chronic 02/19/13) MARILYN (generalized anxiety disorder) (Chronic) Patient with palpitations with negative Zio patch. She complained of symptoms during normal sinus rhythm on 40 occasions. With anxiety. Intolerant to buspirone. Will start recheck in 2 weeks. Gastroesophageal reflux disease (Chronic) H/o H pylori, neg 07EGD Mitz 07UGI ? 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) RIGHT DELTOID Nuclear sclerotic cataract of left eye (Resolved) Nuclear sclerotic cataract of right eye (Resolved) Obstructive sleep apnea syndrome (Chronic 06/16/12) C-PAP CELINA (obstructive sleep apnea) Posterior subcapsular age-related cataract of left eye (Resolved) Posterior subcapsular age-related cataract, right eye (Resolved) Primary osteoarthritis of both knees (Chronic) Pulmonary embolism (Inactive) SVT (supraventricular tachycardia) 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 DOWELL L SHOULDER 01/25 Status post arthroscopic knee surgery (Acute) 1) RIGHT KNEE; DR. LOPEZ 2) LEFT KNEE; DR. DUNCAN Status post cataract extraction and insertion of intraocular lens of left eye (Chronic 03/13/18) Status post cataract extraction and insertion of intraocular lens of right eye (Chronic 03/27/18) STOMACH STITCH (~08/2014) Thyroid (~09/2014) Family History Mother , OLD AGE at age 95. Stroke Father , GI BLEED at age 85. Diabetes GI bleed Heart disease Sister Diabetes Essential hypertension Neoplasm BREAST Brother Macular degeneration 1 EYE Grandfather Heart disease Neoplasm Grandfather No problems noted. Grandmother Heart disease Grandmother Neoplasm Son Neoplasm BRAIN Son No problems noted. Daughter Neoplasm BREAST Daughter No problems noted. Child No problems noted. Social History (Updated 07/23/19 @ 10:23 by Nancy Saavedra RN) Smoking/Tobacco Use Status: Never Alcohol Intake: never Drug use: Never Substance use type: does not use Pets and animals: Yes Pets and animals: cat(s) and dog(s) Current gender identity: female What type of physical activity do you participate in: none Li/P[employer]al: [employer] Special li needs: No Do you feel safe at home: Yes Do you feel safe in your relationship?: Yes Exam Const General: cooperative, healthy appearing, comfortable, no acute distress and well developed Nutritional Appearance: average body habitus and well nourished Orientation: alert and awake HENMT Head: normal to inspection Mouth: moist mucous membranes Resp Effort & Inspection: normal respiratory effort, able to speak in complete sentences and no respiratory distress Auscultation: clear to auscultation bilaterally, no rales, no rhonchi and no wheezes Cardio Rate: regular rate Rhythm: regular rhythm Heart Sounds: S1 normal and S2 normal Back/Spine/Pelvis Back: no CVA tenderness Skin General skin exam: no rashes or lesions noted Trauma: no lacerations or abrasions Neuro General: patient alert and patient awake Cognition: normal cognition Speech: speech normal Gait: normal gait Psych Appearance: grossly normal and well kempt Mental Status: mental status grossly normal Speech and Movement: speech and movement normal Course Vital Signs Vital signs: Vital Signs Temperature 36.3 C L 12/20/19 19:05 Pulse 66 12/20/19 19:05 Respiratory Rate 18 12/20/19 19:05 Blood Pressure 155/59 H 12/20/19 19:05 Pulse Oximetry 99 12/20/19 19:05 Temperature 36.3 C L 12/20/19 19:05 Temperature Source Skin 12/20/19 19:05 Pulse 66 12/20/19 19:05 Respiratory Rate 18 12/20/19 19:05 Blood Pressure 155/59 H 12/20/19 19:05 Blood Pressure Position Sitting 12/20/19 19:05 Pulse Oximetry 99 12/20/19 19:05 Oxygen Delivery Method Room Air 12/20/19 19:05 Oxygen Flow Rate 0 12/20/19 19:05 Pain Level 3 12/20/19 19:05
--- NOTE | 2019-12-20 19:30 | DI.RAD_ITS ---
EXAM: 2D digital imaging was performed. CLINICAL HISTORY: epigastric discomfort, diminished BM. COMPARISON: No exams were available for comparison TECHNIQUE: Supine and upright abdomen and PA chest views were performed. FINDINGS: BOWEL GAS PATTERN: Nondistended.No free air. CALCIFICATIONS: No radiopaque calcifications. OSSEOUS STRUCTURES: Normal for age. OTHER FINDINGS: Surgical clips in the right upper quadrant suggesting prior cholecystectomy. LUNGS Clear. The lungs are hyperinflated suggesting underlying COPD. No pleural abnormality seen. HEART: Normal. MEDIASTINUM: Normal. OTHER FINDINGS: None. IMPRESSION: 1. Nonobstructive bowel gas pattern. If there is concern for inflammatory or infectious process in t he abdomen, CT scan may be obtained. 2. COPD. No acute pulmonary process. 3. No free air. DATA REPOSITORY: RADIATION DOSE DELIVERED:
[2019-12-20 19:48] LABS: Abs Immature Grans 0.03 10^3/uL (0.0-0.06); Absolute Eosinophil Count 0.16 10^3/uL (0.0-0.7); Absolute Lymphocyte Count 2.13 10^3/uL (1.2-3.4); Absolute Neutrophil Count 6.47 10^3/uL (1.2-6.7); Eosinophils % 1.7; HCT 44.7 % (36.0-46.0); HGB 14.4 g/dL (11.2-15.7); Immature Grans % 0.3; MCH 29.8 pg (27.0-33.0); MCHC 32.2 % (32.0-36.0); MCV 92.5 fL (80-95); MPV 11.6 fL (8.0-11.0); Monocytes % 8.3; Neutrophils % 66.7; Nucleated RBC 0 %; Platelet Count 309 10^3/uL (130-400); RBC 4.83 10^6/uL (3.93-5.22); RDW 13.2 % (11.7-14.6); RDW-SD 44.7 fL; WBC 9.69 10^3/uL (4.4-10.8)
[2019-12-20 20:08] LABS: ALT 43 U/L (14-59); AST 19 U/L (15-37); Albumin 3.6 g/dL (3.4-5.0); Alkaline Phosphatase 78 U/L (46-116); Anion Gap 7.2 mmol/L (3-11); BUN 8 mg/dL (7-18); Bilirubin, Total 0.4 mg/dL (0.2-1.0); CO2 28.8 mmol/L (21.0-32.0); Calcium 9.3 mg/dL (8.5-10.1); Chloride 103 mmol/L (98-107); Glucose 109 mg/dL (74-106); Lipase 93 U/L (73-393); Magnesium 1.7 mg/dL (1.8-2.4); Potassium 3.5 mmol/L (3.5-5.1); Sodium 139 mmol/L (136-145); Total Protein 7.5 g/dL (6.4-8.2)
[2019-12-20 20:13] LABS: Troponin I < 0.05 ng/mL (<0.06)
[2019-12-20] MEDS: Lactated Ringers 1,000 ML 500 ML IV (20:28)
--- NOTE | 2019-12-20 20:40 | DI.VRAD_ITS ---
PROCEDURE INFORMATION: Exam: XR Complete Acute Abdomen Series Exam date and time: 12/20/2019 8:09 PM Age: 79 years old Clinical indication: Abdominal pain; Prior surgery; Surgery date: 6+ months; Surgery type: Hysterectomy and stomach stitch; Patient HX: Epigastric discomfort, diminished bm TECHNIQUE: Imaging protocol: XR complete acute abdomen series, including 2 or more views of the abdomen and a single view chest. COMPARISON: CR XR PORTABLE CHEST AP 03/05/2019 5:03 PM FINDINGS: Lungs: Nonspecific bilateral mild hyperinflation which could represent COPD. No focal lung infiltrates. No edema. Pleural space: No pleural effusions. Heart/Mediastinum: Normal heart size. Gastrointestinal tract: No evidence of mechanical bowel obstruction. There is air scattered within large and small bowel loops. Suggestion of minor small bowel edema. This may represent an enteritis. Intraperitoneal space: No free air evident on upright view. No gross free fluid. Organs: Previous cholecystectomy. Bones/joints: Degenerative thoracic spine disease. Degenerative lumbar spine disease. Soft tissues: See Lungs finding. IMPRESSION: 1. Bowel pattern suggesting a mild enteritis. No mechanical obstruction. 2. Hyperinflation suggesting COPD. 3. Degenerative thoracic and lumbar spine changes. 4. Previous cholecystectomy. Dictated and Authenticated by: Yoni Diaz MD. Ordering:MEGAN Jonas MD
== END 2019-12-20 22:45 | disposition home or self-care (01) ==
PROVIDERS: Emergency Provider Physician Assistant; PCP Family Medicine
DX: R10.13 Epigastric pain (principal); K21.9 Gastro-esophageal reflux disease without esophagitis; K59.00 Constipation, unspecified; T40.4X5A Adverse effect of other synthetic narcotics, initial encounter; I10 Essential (primary) hypertension
CPT/HCPCS: 36415; 80053; 83690; 93005; 96360; 96361; 99285; 74022; 83735; 84484; 85025; 93010; 99284

== ENCOUNTER 2020-01-18 04:53 | Outpatient (CLI) | payer MEDICARE, OTHER, SELFPAY | END 2020-01-18 05:13 | PROVIDERS: PCP Family Medicine; Visit Provider Internal Medicine Hematology | DX: D68.59 Other primary thrombophilia (principal) | CPT/HCPCS: 36415; 85307 ==

== ENCOUNTER 2020-02-01 03:19 | Outpatient (CLI) | payer MEDICARE, OTHER, SELFPAY ==
[2020-02-01 13:03] LABS: TSH 4.12 uIU/mL (0.36-3.74)
== END 2020-02-01 03:39 ==
PROVIDERS: PCP Family Medicine; Visit Provider Family Medicine
DX: E03.9 Hypothyroidism, unspecified (principal)
CPT/HCPCS: 36415; 84443

== ENCOUNTER → 2020-03-10 10:13 | Outpatient (BNVA) | payer MEDICARE, OTHER, SELFPAY | PROVIDERS: PCP Family Medicine; Referring Provider Family Medicine; Visit Provider Surgery | DX: K64.8 Other hemorrhoids (principal); Z79.01 Long term (current) use of anticoagulants; Z86.711 Personal history of pulmonary embolism; I10 Essential (primary) hypertension | CPT/HCPCS: 99213 ==

== ENCOUNTER 2020-03-30 02:24 | Outpatient (CLI) | payer MEDICARE, OTHER, SELFPAY ==
[2020-03-31 21:43] LABS: SARS-CoV-2 RNA Not Detected (NotDetected); SARS-CoV-2 RNA Source Nasal/Nares
== END 2020-03-30 02:44 ==
PROVIDERS: PCP Family Medicine; Visit Provider Surgery
DX: Z11.59 Encounter for screening for other viral diseases (principal); Z01.818 Encounter for other preprocedural examination
CPT/HCPCS: U0003

== ENCOUNTER 2020-04-03 06:13 | Day surgery (SDC) | payer MEDICARE, OTHER, SELFPAY ==
[2020-04-03 06:04] VITALS: BP 150/73; PULSE 68; RESP 22; TEMP 36.7; O2SAT 96
[2020-04-03] MEDS: Lactated Ringers 1,000 ML 30 ML IV (06:53)
[2020-04-03] MEDS: Lidocaine 4% Cream 5 GM TUBE TP (08:20)
--- NOTE | 2020-04-03 08:25 | HEM_PTH ---
PATIENT: Kacey Gandara LOC: [facility] U#:[id number] AGE/SX: 79/F ROOM: RE04/03/[address]: Jackie Triana : 1940 BED: DIS: 04/03/2020 SPEC #: [id number] RECD: 04/03/20 12:45 STATUS: FADIA REQ #: [id number] JONE: 04/03/20 08:[address]: Jackie Triana DEPT: Surgical Specimen RECD BY: Alena Dickson ENTERED: 04/03/20 12:45 SP TYPE: Hem OTHR DR: Win Rhodes MD Tissues: 1 - HEMORRHOIDS Procedures: GROSS AND MICRO LEVEL 3 Comments: [id number]
--- NOTE | 2020-04-03 08:42 | W.PM.OP ---
Date of service: 04/03/20 Time of Service: 08:42 Operative Note Operative Note DATE OF PROCEDURE: 04/12/20 PRE-OP DIAGNOSIS: rectal bleeding/hemorrhoids POST-OP DIAGNOSIS: other (bleeding I/E hemorrhoids ) PROCEDURE: hemorrdhoiectomy SURGEON: Jackie Triana ANESTHESIA: local and spinal ESTIMATED BLOOD LOSS: 5 PATHOLOGY: other COMPLICATIONS: None Patient was transported to: same day Patient's condition: stable Procedure Description: Kacey Rooney is a 79-year-old female date of 1940 who has persistent bleeding hemorrhoids. She has a history of DVT and PE and requires continued/chronic anticoagulation per hematology at [facility]. Patient was required to bridge with Lovenox. She has held her Lovenox for 12 hours. She is here today for definitive excision of external hemorrhoids informed consent is obtained explaining risks and benefits of the procedure including but not limited to: Bleeding, infection, DVT and/or PE, complications of anesthesia, chronic pain, loss of function of her sphincters, stenosis, and recurrence. Spinal anesthetic is administered per the department of anesthesia. Patient is placed in the prone position with all bony surfaces padded. Patient is prepped draped you sterile fashion using a Betadine scrub solution. Timeout is performed. Antibiotics are not indicated. 1% lidocaine with epinephrine is used for local anesthetization. She has 1 hemorrhoid complex at the 1 o'clock position and this is internal and possibly some prolapsing mucosa this is sharply excised down to the sphincters. And then sewn with 3-0 Vicryl in a running fashion. She also has 2 small external hemorrhoids and rubber bands are applied to these. Gelfoam impregnated with EMLA cream is packed into the rectum stop with bleeding. Patient tolerated the procedure well without any complications and returned to same-day surgery in stable condition. Patient is given instructions in wound care, activity, warning signs, and pain management. Patient will follow up with in my office in 48 hours to make sure she has no bleeding and to discuss resumption of her Eliquis.
--- NOTE | 2020-04-03 08:42 | W.PM.DSUDISC ---
Discharge Plan Disposition Patient Disposition: HOME Condition: Good Discharge Details Reason For Visit: hemorrhoids Attending Provider: Jackie Triana Primary Care Provider: Win Rhodes Home Meds and New Rx's Prescriptions: New dibucaine 1 % ointment 1 applic topical QID PRN (Reason: prn pain ) Qty: 30 RF: 6 Nupercainal 1 % ointment 1 applic ND QID PRNQty: 56.7 RF: 6 tramadol [Ultram] 50 mg tablet 50 mg PO Q6H PRNQty: 20 RF: 0 Continued CPAP miscellaneous RF: 0 acetaminophen [Tylenol Extra Strength] 500 mg tablet 1,000 mg PO TID RF: 0 buspirone 10 mg tablet 5 mg PO BID Qty: 180 RF: 5 estradiol [Estrace] 0.01 % (0.1 mg/gram) cream 4 g Topical 2X /week Qty: 5 RF: 5 multivitamin Capsule 1 cap PO DAILY RF: 0 cholestyramine (with sugar) 4 gram powder 4 gm PO DAILY RF: 0 ferrous sulfate [Feosol] 325 mg (65 mg iron) tablet 325 mg PO DAILY RF: 0 lorazepam 0.5 MG tablet 0.5 mg PO PRN PRNQty: 90 RF: 2 Flovent HFA 110 mcg/actuation HFA aerosol inhaler 2 puff Inhalation HS Qty: 12 RF: 6 rabeprazole [AcipHex] 20 mg tablet,delayed release (DR/EC) 20 mg PO BID Qty: 180 RF: 12 escitalopram oxalate 10 mg tablet 10 mg PO DAILY Qty: 90 RF: 5 levothyroxine 112 mcg tablet 112 mcg PO DAILY Qty: 90 RF: 3 enoxaparin 60 mg/0.6 mL syringe 60 mg subcut Q12H Qty: 6 RF: 0 diltiazem HCl 120 mg capsule,extended release 12 hr 120 mg PO Q12H Qty: 180 RF: 3 enoxaparin [Lovenox] 60 mg/0.6 mL syringe 60 mg subcut Q12H Qty: 6 RF: 0 (DME) PulmoNeb LT Compressor Nebul 1 EACH device 1 ea Miscellaneous PRN RF: 0 magnesium oxide 400 mg (241.3 mg magnesium) tablet 200 mg PO DAILY RF: 0 garlic 1,000 mg Capsule 1,000 mg PO DAILY RF: 0 cholecalciferol (vitamin D3) [Vitamin D3] 50 mcg (2,000 unit) capsule 5,000 unit PO DAILY RF: 0 albuterol sulfate 90 mcg/actuation aerosol powdr breath activated 2 inh IH Q4H PRN (Reason: shortness of breath or wheezing) Qty: 1 RF: 0 Discontinued apixaban 2.5 mg tablet 2.5 mg PO BID RF: 0 Discharge Instructions Additional Instructions: Home Care Instructions after Rectal Surgery Pain control: Ibuprofen 600mg 6hrs (take w/ food. Do not take on an empty stomach) and Tylenol 1000mg by mouth (ibuprofen 400-600mg) every 8 hours. Do not take if you have ulcers or sensitivity to aspirin. Do not take Tylenol if you have hepatitis or liver failure. Alternate the Tylenol and ibuprofen. Take pain meds continuously for the first 72hrs. After 72hrs, you can take as needed if you are having pain. How to prevent constipation: The first bowel movement after surgery will be painful. Do not let yourself get constipated. Stay on a stool softener for the first two weeks after surgery. It is recommended that you use a fiber supplement (Metamucil, Citrucel) daily (1 tablespoon in 8 oz of water). If you do not have a bowel movement daily, use Milk of Magnesia or Miralax. You may have bleeding or drainage after rectal surgery; especially when you move your bowels. Use a sanitary napkin to collect the discharge. If you are passing large clots or having to change the pad more than every 4 hours, call the clinic or go to the ER. You may experience spasms in the rectal muscles. This is normal after surgery and last for about two weeks. They can become more intense with bowel movements. The best remedy is to soak in a bathtub of plain warm water- no Epsom salts, essential oil or soap. It takes about 10 minutes further the spasm to stop. You may want to do this after BM as well. It is ok to shower. Avoid soap on the surgical area. Use a pillow to sit on. Follow a mild bland diet. Avoid alcohol, spicy food, citrus, and tomatoes. Avoid strenuous activity (running, jogging, and power walking, swimming, weight lifting) for two weeks. No lifting over 20 pounds for 2 weeks. -resume lovenox tonight after 9pm. You WILL have some bleeding after sugery b/c of the blood thinners. If you start passing clots larger than your fist or the blood fills a snitary napkin in less than 2hrs- go to the ER -F/u w/ Dr. Triana on Friday. We will decide when to resume the apixaban. Activity:: see above Diet:: avoid spicy foods/alcohol Discharge Orders Discharge Orders: Discharge Order (Routine); Ordered 04/03/20 Ordered By: Jackie Triana DS: Diagnosis Discharge Diagnosis (1) Anemia: Status: Chronic (2) Internal and external bleeding hemorrhoids: Status: Acute (3) History of pulmonary embolism: Status: Acute
[2020-04-03] MEDS: Bupivacaine 0.25% Pres-Free 30 ML VIAL (08:45)
[2020-04-03] MEDS: Gelatin SPONGE 12-7 MM PKT 1 EACH TP (08:46)
[2020-04-03 09:05] VITALS: BP 134/60; PULSE 73; RESP 22; TEMP 36.5; O2SAT 96
[2020-04-03] MEDS: oxyCODONE 5 mg/Acetaminophen 325 mg TAB 1 TAB PO (09:10)
[2020-04-03 09:53] VITALS: BP 145/73; PULSE 73; RESP 22; TEMP 36.6; O2SAT 98
== END 2020-04-03 10:10 | disposition home or self-care (01) ==
PROVIDERS: PCP Family Medicine; Visit Provider Surgery
PROC: (CPT 46255; 2020-04-03 07:30)
DX: K64.8 Other hemorrhoids (principal); D64.9 Anemia, unspecified; K64.4 Residual hemorrhoidal skin tags; Z86.711 Personal history of pulmonary embolism; Z86.718 Personal history of other venous thrombosis and embolism; Z79.01 Long term (current) use of anticoagulants
CPT/HCPCS: 46255; 88304; J2001; J2250

== ENCOUNTER → 2020-04-05 11:05 | Outpatient (BNVA) | payer MEDICARE, OTHER, SELFPAY | PROVIDERS: PCP Family Medicine; Referring Provider Family Medicine; Visit Provider Surgery | DX: Z48.815 Encounter for surgical aftercare following surgery on the digestive system (principal); K64.4 Residual hemorrhoidal skin tags; K64.8 Other hemorrhoids ==

== ENCOUNTER 2020-04-19 03:13 | Outpatient (CLI) | payer MEDICARE, OTHER, SELFPAY ==
[2020-04-19 12:16] LABS: TSH 0.06 uIU/mL (0.36-3.74)
== END 2020-04-19 03:33 ==
PROVIDERS: PCP Family Medicine; Visit Provider Family Medicine
DX: E03.9 Hypothyroidism, unspecified (principal); Z48.815 Encounter for surgical aftercare following surgery on the digestive system; K64.4 Residual hemorrhoidal skin tags; K64.8 Other hemorrhoids; Z90.49 Acquired absence of other specified parts of digestive tract; K90.89 Other intestinal malabsorption; Z79.01 Long term (current) use of anticoagulants
CPT/HCPCS: 36415; 81003; 84443

== ENCOUNTER 2020-04-21 00:22 | Emergency (ER) | payer MEDICARE, OTHER, SELFPAY ==
[2020-04-21] VITALS (22 sets, daily range): BP systolic 90–151; BP diastolic 48–113; PULSE 95–146; RESP 12–30; TEMP 37.3; O2SAT 94–100
--- NOTE | 2020-04-21 00:51 | W.ED.GENAD ---
Discharge Plan Disposition Patient Disposition: HOME Condition: Good Discharge Details Clinical Impression: Viral illness Primary Care Provider: Win Rhodes ED Provider: Gatito Carter Meds and New Rx's Prescriptions: Continued CPAP miscellaneous RF: 0 acetaminophen [Tylenol Extra Strength] 500 mg tablet 1,000 mg PO TID RF: 0 buspirone 10 mg tablet 5 mg PO BID Qty: 180 RF: 5 estradiol [Estrace] 0.01 % (0.1 mg/gram) cream 4 g Topical 2X /week Qty: 5 RF: 5 multivitamin Capsule 1 cap PO DAILY RF: 0 cholestyramine (with sugar) 4 gram powder 4 gm PO DAILY RF: 0 ferrous sulfate [Feosol] 325 mg (65 mg iron) tablet 325 mg PO DAILY RF: 0 lorazepam 0.5 MG tablet 0.5 mg PO PRN PRNQty: 90 RF: 2 Flovent HFA 110 mcg/actuation HFA aerosol inhaler 2 puff Inhalation HS Qty: 12 RF: 6 rabeprazole [AcipHex] 20 mg tablet,delayed release (DR/EC) 20 mg PO BID Qty: 180 RF: 12 escitalopram oxalate 10 mg tablet 10 mg PO DAILY Qty: 90 RF: 5 diltiazem HCl 120 mg capsule,extended release 12 hr 120 mg PO Q12H Qty: 180 RF: 3 levothyroxine 100 mcg tablet 100 mcg PO DAILY Qty: 90 RF: 3 (DME) PulmoNeb LT Compressor Nebul 1 EACH device 1 ea Miscellaneous PRN RF: 0 magnesium oxide 400 mg (241.3 mg magnesium) tablet 200 mg PO DAILY RF: 0 Eliquis 2.5 mg tablet 2.5 mg PO BID RF: 0 garlic 1,000 mg Capsule 1,000 mg PO DAILY RF: 0 cholecalciferol (vitamin D3) [Vitamin D3] 50 mcg (2,000 unit) capsule 5,000 unit PO DAILY RF: 0 albuterol sulfate 90 mcg/actuation aerosol powdr breath activated 2 inh IH Q4H PRN (Reason: shortness of breath or wheezing) Qty: 1 RF: 0 Discharge Instructions Instructions: Viral Syndrome (ED) Additional Instructions: Rest and stay hydrated. Acetaminophen as needed for discomfort. Follow-up with primary care next week if not better. Return to ED for confusion, difficulty breathing, abdominal pain, chest pain, persistent vomiting. Stand Alone Forms: PENDING COVID-19 TESTING Referrals: Win Rhodes [Primary Care Provider] - Medical Decision Making Patient presents to the ED with general feeling of of unwell/sick with sore throat, malaise, abdominal discomfort, nausea. She is afebrile here. Heart rate upper normal. Blood pressure normal. Lungs are clear. Oropharynx with mild erythema. Abdomen with generalized discomfort but no real tenderness. No urinary symptoms. Will place IV and start fluids. Compazine for nausea. Check basic labs, urine, chest x-ray, obtain Covid swab. Patient's white count markedly elevated to 22.3. Chemistries unremarkable. Urine negative for infection. Because of the generalized abdominal discomfort and markedly elevated white count CT scan of the abdomen pelvis ordered. Chest x-ray obtained. Both imaging studies negative for any acute process. Patient feeling much better after the Compazine and fluids. She will be discharged home to quarantine at home until Covid results have returned. Follow-up with primary care next week if not doing better. Return to ED if worse with any increased difficulty breathing, confusion, worsening abdominal pain, persistent vomiting, other concerns. Lab Data Lab results reviewed: Yes I reviewed the patient's lab results. HPI General Mode of arrival: EMS. Date/Time Provider Initiated Documentation: 04/21/20 00:45. Limitations to Documentation: no limitations. Information obtained by: patient, RN notes reviewed and old records reviewed. HPI Narrative: Patient presents to ED with complaint of not feeling well, nausea. Patient reports developing a sore throat earlier today. Tonight feels generally worse with shaking chills, nausea, abdominal discomfort, mild headache. She denies any chest pain or shortness of breath. She reports a slight cough. She did use her nebulizer tonight. She has no reported diarrhea or urinary symptoms. She denies rash, wounds, erythema. EMS reports initial temp of 101. She reports hemorrhoid surgery April 03. This went well. She has no travel or Covid exposure, and has not been to any large gatherings. Related Data Home Medications Medication Instructions Recorded Confirmed PulmoNeb LT Compressor Nebul 02/07/16 04/19/20 lorazepam 0.5 mg PO PRN PRN #90 tab-cap 10/26/17 04/21/20 garlic 1,000 mg PO DAILY 03/11/18 04/21/20 acetaminophen 500 mg tablet 1,000 mg PO TID tab 07/01/18 04/21/20 fluticasone propionate 110 2 puff INHALATION HS #12 gm 11/25/18 04/21/20 mcg/actuation HFA aerosol inhaler albuterol sulfate 2 inh IH Q4H PRN #1 each 03/07/19 04/21/20 cholecalciferol (vitamin D3) 50 5,000 unit PO DAILY cap 05/17/19 04/21/20 mcg (2,000 unit) capsule estradiol 4 g TOPICAL 2X /week #5 tube 05/17/19 04/21/20 buspirone 10 mg tablet 5 mg PO BID #180 tab 05/31/19 04/21/20 magnesium oxide 200 mg PO DAILY 06/24/19 04/21/20 ferrous sulfate 325 mg (65 mg 325 mg PO DAILY 06/25/19 04/21/20 iron) tablet CPAP MISCELLANEOUS 07/23/19 04/19/20 multivitamin 1 cap PO DAILY 11/09/19 04/21/20 rabeprazole 20 mg tablet,delayed 20 mg PO BID #180 tab 01/04/20 04/21/20 release escitalopram oxalate 10 mg tablet 10 mg PO DAILY #90 tab 01/18/20 04/21/20 diltiazem HCl 120 mg 120 mg PO Q12H #180 cap 03/27/20 04/21/20 capsule,extended release 12 hr cholestyramine (with sugar) 4 gram 4 gm PO DAILY g 03/29/20 04/21/20 oral powder levothyroxine 100 mcg tablet 100 mcg PO DAILY #90 tab 04/19/20 04/21/20 Eliquis 2.5 mg PO BID 04/21/20 04/21/20 Previous Rx's Medication Instructions Recorded fluticasone propionate 110 2 puff INHALATION HS #12 gm 11/25/18 mcg/actuation HFA aerosol inhaler albuterol sulfate 2 inh IH Q4H PRN #1 each 03/07/19 estradiol 4 g TOPICAL 2X /week #5 tube 05/17/19 buspirone 10 mg tablet 5 mg PO BID #180 tab 05/31/19 rabeprazole 20 mg tablet,delayed 20 mg PO BID #180 tab 01/04/20 release escitalopram oxalate 10 mg tablet 10 mg PO DAILY #90 tab 01/18/20 diltiazem HCl 120 mg 120 mg PO Q12H #180 cap 03/27/20 capsule,extended release 12 hr levothyroxine 100 mcg tablet 100 mcg PO DAILY #90 tab 04/19/20 Allergies Allergy/AdvReac Type Severity Reaction Status Date / Time hylan G-F 20 Allergy SWELLING Verified 04/19/20 11:07 AND PAIN metronidazole [From Flagyl] Allergy Skin Rash Verified 04/19/20 11:07 Pyrazolones [Pyrazoles] Allergy Verified 04/19/20 11:07 tolterodine Allergy DIFFICULTY Verified 04/19/20 11:07 BREATHING methylprednisolone AdvReac Intermediate weakness Verified 04/19/20 11:07 and unable mood. hydromorphone AdvReac Mild Nausea Verified 04/19/20 11:07 amitriptyline AdvReac NAUSEA Verified 04/19/20 11:07 aspartame AdvReac HEART Verified 04/19/20 11:07 RACING ondansetron HCl [From Zofran] AdvReac HALLUCINATI Verified 04/19/20 11:07 ON General Stated Complaint: GenMedical MANDY: 3 Review of Systems Narrative: 02/22 Review of Systems completed and is negative except as stated above in HPI (Systems reviewed: Const, Eyes, ENT, Resp, CV, GI, , MSK, Skin, Neuro) PFSH Medical History Acromioclavicular joint arthritis Adrenal mass, right (12/11/16) seen on CT Ab 12/26 - STABLE. Will repeat Allergic eosinophilia 09/23/11 COLONOSCOPY BIOPSY SHOWS FOCAL EOSINOPHILIC CRYPTITS Anxiety Arthritis both ankles S/P fracture S/P surgery Asthma Bile salt-induced diarrhea Controlled with cholestyramine Bleeding hemorrhoids Chronic diarrhea Cortical cataract of left eye Cortical cataract of right eye Depressive disorder refuses medication Diverticulosis of colon without diverticulitis Elevated fasting glucose (06/27/14) Epiretinal membrane (ERM) of right eye Essential hypertension (02/19/13) MARILYN (generalized anxiety disorder) Patient with palpitations with negative Zio patch. She complained of symptoms during normal sinus rhythm on 40 occasions. With anxiety. Intolerant to buspirone. Will start recheck in 2 weeks. Gastroesophageal reflux disease H/o H pylori, neg 07EGD Mitz 07UGI ? 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 DOWELL L SHOULDER 01/25 Status post arthroscopic knee surgery 1) RIGHT KNEE; DR. LOPEZ 2) LEFT KNEE; DR. DUNCAN Status post cataract extraction and insertion of intraocular lens of left eye (03/13/18) Status post cataract extraction and insertion of intraocular lens of right eye (03/27/18) STOMACH STITCH (~08/2014) Thyroid (~09/2014) Family History Mother , OLD AGE at age 95. Stroke Father , GI BLEED at age 85. Diabetes GI bleed Heart disease Sister Diabetes Essential hypertension Neoplasm BREAST Brother Macular degeneration 1 EYE Grandfather Heart disease Neoplasm Grandfather No problems noted. Grandmother Heart disease Grandmother Neoplasm Son Neoplasm BRAIN Son No problems noted. Daughter Neoplasm BREAST Daughter No problems noted. Child No problems noted. Social History Smoking/Tobacco Use Status: Never Smoking risk assessment performed?: Yes Alcohol Intake: never Drug use: Never Substance use type: does not use Pets and animals: Yes Pets and animals: cat(s) and dog(s) Current gender identity: female What type of physical activity do you participate in: none Li/Presybeterian: Hinduism Special li needs: No Do you feel safe at home: Yes Do you feel safe in your relationship?: Yes Additional Social history: lives alone Exam Narrative Exam Narrative: Const: Elderly female in NAD. HEENT: NC/AT. Normal facial exam. Posterior oropharynx with some erythema. No exudate, swelling, ulcerations. Eyes: Normal conjunctiva and sclera. Neck: Supple. Trachea midline. Lungs: Normal respiratory effort. Lungs are clear. Cor: RRR without murmur/gallop. Good radial pulses. GI: Soft and ND. Generalized mild discomfort with palpation, but non-tender. No guarding or rebound. Neuro: A+O x 3. Normal speech, mentation, gait. Cranial nerves II - XII grossly intact. No gross motor or sensory deficit. Ext: No C/C/E. Skin: Warm and dry without rash. Course Vital Signs Vital signs: Vital Signs Temperature 99.1 F 04/21/20 00:31 Pulse 98 H 04/21/20 00:31 Respiratory Rate 17 04/21/20 00:31 Blood Pressure 151/72 H 04/21/20 00:31 Pulse Oximetry 100 04/21/20 00:31 Temperature 99.1 F 04/21/20 00:31 Temperature Source Oral 04/21/20 00:31 Pulse 98 H 04/21/20 00:31 Respiratory Rate 18 04/21/20 00:35 Respiratory Effort 04/21/20 00:35 Respiratory Depth Normal 04/21/20 00:35 Respiratory Pattern Normal 04/21/20 00:35 Blood Pressure 151/72 H 04/21/20 00:31 Blood Pressure Position Supine 04/21/20 00:31 Pulse Oximetry 100 04/21/20 00:31 Oxygen Delivery Method Room Air 04/21/20 00:31 Oxygen Flow Rate 0 04/21/20 00:31
[2020-04-21] MEDS: Lactated Ringers 1,000 ML 200 ML IV (01:25)
[2020-04-21] MEDS: Prochlorperazine 10 MG/2 ML VIAL 5 MG IVP (01:26)
[2020-04-21 01:31] LABS: Abs Immature Grans 0.15 10^3/uL (0.0-0.06); Absolute Eosinophil Count 0.07 10^3/uL (0.0-0.7); Absolute Lymphocyte Count 1.92 10^3/uL (1.2-3.4); Absolute Neutrophil Count 18.78 10^3/uL (1.2-6.7); Basophils % 0.5; Eosinophils % 0.3; HCT 42.3 % (36.0-46.0); HGB 13.7 g/dL (11.2-15.7); Immature Grans % 0.7; Lymphocytes % 8.6; MCH 29.9 pg (27.0-33.0); MCHC 32.4 % (32.0-36.0); MCV 92.4 fL (80-95); MPV 11.4 fL (8.0-11.0); Monocytes % 5.6; Neutrophils % 84.3; Nucleated RBC 0 %; Platelet Count 374 10^3/uL (130-400); RBC 4.58 10^6/uL (3.93-5.22); RDW 13.2 % (11.7-14.6); WBC 22.28 10^3/uL (4.4-10.8)
[2020-04-21 01:33] LABS: Absolute Basophil Count 0.11 10^3/uL (0.0-0.2); Absolute Monocyte Count 1.25 10^3/uL (0.1-0.8)
[2020-04-21 01:34] LABS: Bilirubin Negative (Negative); Blood Trace-intact (Negative); Clarity Clear (Clear); Glucose Negative (Negative); Ketones Negative (Negative); Leukocyte Esterase Negative (Negative); Nitrite Negative (Negative); Urobilinogen 0.2 EU/dL (Up TO 0.2); pH 7.5 (5-8)
[2020-04-21 01:38] LABS: Bacteria Negative HPF (Negative); C & S Indicated? No; Casts Negative LPF (Negative); Crystals Negative HPF (Negative); Epithelial Cells Few HPF (Negative); Mucus Negative (Negative); WBC Negative HPF (0-5)
[2020-04-21 01:47] LABS: ALT 18 U/L (14-59); AST 11 U/L (15-37); Albumin 3.8 g/dL (3.4-5.0); Alkaline Phosphatase 63 U/L (46-116); Anion Gap 9.2 mmol/L (3-11); BUN 8 mg/dL (7-18); Bilirubin, Total 0.4 mg/dL (0.2-1.0); CO2 27.8 mmol/L (21.0-32.0); CREATININE 0.79 mg/dL (0.55-1.02); Calcium 9.5 mg/dL (8.5-10.1); Chloride 102 mmol/L (98-107); Glucose 133 mg/dL (74-106); Potassium 3.7 mmol/L (3.5-5.1); Sodium 139 mmol/L (136-145); Total Protein 7.9 g/dL (6.4-8.2)
--- NOTE | 2020-04-21 02:35 | DI.CT_ITS ---
EXAM: CT ABDOMEN PELVIS W CLINICAL HISTORY: abdominal discomfort, nausea, WBC 22k. TECHNIQUE: Imaging Protocol: Axial computed tomography images with coronal and sagittal reformatted images were created and reviewed CONTRAST MATERIAL: Intravenous: Omnipaque 350 Contrast volume:100 ml Oral: no COMPARISON: No exams were available for comparison FINDINGS: ABDOMEN: Lung Bases: Normal where visualized. Liver: Normal density. No measurable mass. Gallbladder and biliary tract: No radiodense calculus or dilation. S/p cholecystectomy. Pancreas: Normal density, no abnormal calcifications or inflammatory process. Spleen: Normal. Kidneys: Normal size, contour and axis. No radiodense stones or obstructive uropathy. No masses seen. Small bilateral renal cysts. Adrenal glands: Fatty density mass right, consistent with myelolipoma. Abdominal Aorta: Abdominal portion non-dilated. Mild atherosclerotic changes. PELVIS: Bladder: Symmetric distention, no gross wall thickening. Bowel: No obstruction or bowel wall thickening. Diverticulosis sigmoid and descending colon.Minimal h iatal hernia. Peritoneal cavity: No ascites, collection or mesenteric inflammatory response. Bones: Degenerative changes. Reproductive organs: S/p hysterectomy. Lymph nodes: Unremarkable. Impression: Diverticulosis. No acute abnormality. RADIATION DOSE DELIVERED: 889.22mGy.cm Total DLP DATA REPOSITORY: All CT scans at this facility are submitted to the National Radiology Data Registry (NRDR) Dose Index Registry (DIR) with the [employer] (ACR). RADIATION OPTIMIZATION: All CT scans at this facility use at least one of these dose optimization te chniques: automated exposure control; mA and/or kV adjustment per patient size (includes targeted exa ms where dose is matched to clinical indication); or iterative reconstruction.
[2020-04-21] MEDS: Normal Saline Flush 10 ML SYR IVP (02:37)
[2020-04-21] MEDS: Omnipaque 350 MG/ML 100 ML BTL IJ (02:38)
[2020-04-21] MEDS: Normal Saline - Diluent 50 ML VIAL IV (02:38)
--- NOTE | 2020-04-21 02:53 | DI.RAD_ITS ---
EXAM: XR CHEST 2V PA LATERAL CLINICAL HISTORY: mild cough, general malaise, fever TECHNIQUE: 2D digital imaging was performed. COMPARISON: CR,XR XR ABD FLAT UPRIGHT PA CHEST from 12/20/2019 FINDINGS: Exam is limited by patient body habitus and technique. There is minimal blunting of the left costoph renic angle which appears unchanged. Heart size is within normal limits for projection. The aorta i s mildly tortuous. Lung bases are suboptimally penetrated. No gross infiltrate or pulmonary edema i s seen. There are mild degenerative changes in thoracic spine. IMPRESSION: No acute pulmonary findings. DATA REPOSITORY: RADIATION DOSE DELIVERED:
--- NOTE | 2020-04-21 02:57 | DI.VRAD_ITS ---
PROCEDURE INFORMATION: Exam: CT Abdomen And Pelvis With Contrast Exam date and time: 04/21/2020 2:11 AM Age: 79 years old Clinical indication: Abdominal tenderness and fever and nausea; Prior surgery; Patient HX: Elevated wbc TECHNIQUE: Imaging protocol: Computed tomography of the abdomen and pelvis with intravenous contrast. Radiation optimization: All CT scans at this facility use at least one of these dose optimization techniques: automated exposure control; mA and/or kV adjustment per patient size (includes targeted exams where dose is matched to clinical indication); or iterative reconstruction. Contrast material: [id number]; Contrast volume: 100 ml; Contrast route: INTRAVENOUS (IV); COMPARISON: CT CHEST PE ABD PELVIS W 03/04/2019 11:32 PM FINDINGS: Liver: Normal. No mass. Gallbladder and bile ducts: Status post cholecystectomy. Pancreas: Normal. No ductal dilation. Spleen: Normal. No splenomegaly. Adrenal glands: Right adrenal gland myelolipoma. Kidneys and ureters: Normal. No hydronephrosis. Stomach and bowel: Colonic diverticulosis. Appendix: No evidence of appendicitis. Intraperitoneal space: Unremarkable. No free air. No significant fluid collection. Vasculature: Unremarkable. No abdominal aortic aneurysm. Lymph nodes: Unremarkable. No enlarged lymph nodes. Urinary bladder: Unremarkable as visualized. Reproductive: Status post hysterectomy. Bones/joints: Unremarkable. No acute fracture. Soft tissues: Unremarkable. IMPRESSION: No acute finding. Dictated and Authenticated by: Zhen Cantu MD. Ordering:JOE Mederos MD
--- NOTE | 2020-04-21 03:03 | DI.VRAD_ITS ---
PROCEDURE INFORMATION: Exam: XR Chest, 2 Views Exam date and time: 04/21/2020 2:54 AM Age: 79 years old Clinical indication: Cough and fever TECHNIQUE: Imaging protocol: XR of the chest Views: 2 views. COMPARISON: CR XR ABD FLAT UPRIGHT PA CHEST 12/20/2019 8:09 PM FINDINGS: Lungs: Unremarkable. No consolidation. Pleural space: Unremarkable. No pleural effusion. No pneumothorax. Heart/Mediastinum: Unremarkable. No cardiomegaly. Bones/joints: Unremarkable. IMPRESSION: No acute findings. Dictated and Authenticated by: Zhen Cantu MD. Ordering:JOE Mederos MD
[2020-04-23 17:06] LABS: COVID-19 RT-PCR Result NEGATIVE (Negative)
--- NOTE | 2020-04-24 09:51 | NUR.NOTE ---
0950 04/24/2020 called patient's cell phone and left message for her to call ER for test results.
--- NOTE | 2020-04-24 10:04 | NUR.NOTE ---
Nursing Note: Spoke with patient to give her negative COVID results. Patient states that she still feels very sick and that she just spoke with a triage nurse from her PCP office. Informed patient that she could come here to be re-evaluated if she needs to. She is pending a call back from her PCP.
== END 2020-04-21 04:10 | disposition home or self-care (01) ==
PROVIDERS: Emergency Provider Emergency Medicine; PCP Family Medicine
DX: R53.81 Other malaise (principal); R11.0 Nausea; D72.829 Elevated white blood cell count, unspecified; B34.9 Viral infection, unspecified; J02.8 Acute pharyngitis due to other specified organisms; Z03.818 Encounter for observation for suspected exposure to other biological agents ruled out; I10 Essential (primary) hypertension
CPT/HCPCS: 80053; 96361; 99285; U0003; 71046; 74177; 81003; 81015; 85025; J0780; J3490

== ENCOUNTER 2020-04-24 17:47 | Outpatient (REF) | payer MEDICARE, OTHER, SELFPAY | END 2020-04-24 18:07 | LOC: LBN 17:47 | PROVIDERS: PCP Family Medicine; Visit Provider Nurse Practitioner Family | DX: J02.9 Acute pharyngitis, unspecified (principal); B34.9 Viral infection, unspecified | CPT/HCPCS: 87081 ==

== ENCOUNTER 2020-04-28 08:05 | Emergency (ER) | payer MEDICARE, OTHER, SELFPAY ==
[2020-04-28 08:10] VITALS: BP 120/68; PULSE 86; RESP 18; TEMP 36.3; O2SAT 98
--- NOTE | 2020-04-28 08:15 | DI.RAD_ITS ---
EXAM: 2D digital imaging was performed. CLINICAL HISTORY: constipaion s/p hemorrhoidectomy. COMPARISON: No exams were available for comparison TECHNIQUE: Supine and uprightSupine and Lateral views of the abdomen was performed. FINDINGS: LUNG BASES: Clear. BOWEL GAS PATTERN: Nondistended. FREE AIR: None. CALCIFICATIONS: Phleboliths are seen in the pelvis. OSSEOUS STRUCTURES: Normal for age. Mild right convex lumbar scoliosis. Degenerative changes of the hips bilaterally. OTHER FINDINGS: Surgical clips in the right upper quadrant of the abdomen likely reflecting prior cho lecystectomy. IMPRESSION: No evidence of an acute abdomen. DATA REPOSITORY: RADIATION DOSE DELIVERED:
--- NOTE | 2020-04-28 08:28 | W.ED.GENAD ---
Discharge Plan Disposition Patient Disposition: HOME Condition: Improving Discharge Details Clinical Impression: Bowel habit changes Primary Care Provider: Win Rhodes ED Provider: Raul Lopez Home Meds and New Rx's Prescriptions: Continued CPAP miscellaneous RF: 0 acetaminophen [Tylenol Extra Strength] 500 mg tablet 1,000 mg PO TID RF: 0 buspirone 10 mg tablet 5 mg PO BID Qty: 180 RF: 5 estradiol [Estrace] 0.01 % (0.1 mg/gram) cream 4 g Topical 2X /week Qty: 5 RF: 5 multivitamin Capsule 1 cap PO DAILY RF: 0 cholestyramine (with sugar) 4 gram powder 4 gm PO DAILY RF: 0 penicillin V potassium 500 mg tablet 500 mg PO TID Qty: 30 RF: 0 ferrous sulfate [Feosol] 325 mg (65 mg iron) tablet 325 mg PO DAILY RF: 0 lorazepam 0.5 MG tablet 0.5 mg PO PRN PRNQty: 90 RF: 2 Flovent HFA 110 mcg/actuation HFA aerosol inhaler 2 puff Inhalation HS Qty: 12 RF: 6 rabeprazole [AcipHex] 20 mg tablet,delayed release (DR/EC) 20 mg PO BID Qty: 180 RF: 12 escitalopram oxalate 10 mg tablet 10 mg PO DAILY Qty: 90 RF: 5 diltiazem HCl 120 mg capsule,extended release 12 hr 120 mg PO Q12H Qty: 180 RF: 3 levothyroxine 100 mcg tablet 100 mcg PO DAILY Qty: 90 RF: 3 (DME) PulmoNeb LT Compressor Nebul 1 EACH device 1 ea Miscellaneous PRN RF: 0 magnesium oxide 400 mg (241.3 mg magnesium) tablet 200 mg PO DAILY RF: 0 Eliquis 2.5 mg tablet 2.5 mg PO BID RF: 0 garlic 1,000 mg Capsule 1,000 mg PO DAILY RF: 0 cholecalciferol (vitamin D3) [Vitamin D3] 50 mcg (2,000 unit) capsule 5,000 unit PO DAILY RF: 0 albuterol sulfate 90 mcg/actuation aerosol powdr breath activated 2 inh IH Q4H PRN (Reason: shortness of breath or wheezing) Qty: 1 RF: 0 Discharge Instructions Instructions: Constipation (ED) Additional Instructions: May use senna, available [id number], at bedtime with no bowel movement today or tomorrow. Continue with a diet rich in fiber, fruits and vegetables as you have been Return if you develop a fever, bloating, vomiting, or any other acute concerns. Medical Decision Making 79-year-old female presents for feeling constipated for 1 week's time. She underwent uneventful hemorrhoidectomy and banding of 2 external hemorrhoids on April 12. She separately developed a strep infection in mid April for which she been taking penicillin. Now feels constipated for 1 week's time. She has been passing gas. She has not been bloated, has not had a fever, no vomiting. On exam there is soft brown stool in her undergarments. Her rectal tone is normal and there is no mass, negative guaiac. Referred for flat and upright abdominal radiograph. Normal stool and gas pattern without evidence of obstruction. Patient ate a normal breakfast meal. We will have her continue her routine medications. May use senna at night if no bowel movement today. She is stable and improved. Appropriate for discharge to home. HPI General Mode of arrival: ambulatory. Date/Time Provider Initiated Documentation: 04/28/20 08:11. Limitations to Documentation: no limitations. Information obtained by: patient. History of Present Illness 79 year old F presents to the emergency department with the chief complaint of Feels constipated for 1 week, described as moderate, and is localized to the abdomen. Patient reports no radiation. Patient started experiencing this day(s) No relieving factors improve symptom(s), No exacerbating factors reported . Patient notes denies fever/chills and nausea/vomiting. Patient did receive the following treatments prior to arrival, none Related Data Home Medications Medication Instructions Recorded Confirmed PulmoNeb LT Compressor Nebul 02/07/16 04/24/20 lorazepam 0.5 mg PO PRN PRN #90 tab-cap 10/26/17 04/28/20 garlic 1,000 mg PO DAILY 03/11/18 04/28/20 acetaminophen 500 mg tablet 1,000 mg PO TID tab 07/01/18 04/28/20 fluticasone propionate 110 2 puff INHALATION HS #12 gm 11/25/18 04/28/20 mcg/actuation HFA aerosol inhaler albuterol sulfate 2 inh IH Q4H PRN #1 each 03/07/19 04/28/20 cholecalciferol (vitamin D3) 50 5,000 unit PO DAILY cap 05/17/19 04/28/20 mcg (2,000 unit) capsule estradiol 4 g TOPICAL 2X /week #5 tube 05/17/19 04/28/20 buspirone 10 mg tablet 5 mg PO BID #180 tab 05/31/19 04/28/20 magnesium oxide 200 mg PO DAILY 06/24/19 04/28/20 ferrous sulfate 325 mg (65 mg 325 mg PO DAILY 06/25/19 04/28/20 iron) tablet CPAP MISCELLANEOUS 07/23/19 04/24/20 multivitamin 1 cap PO DAILY 11/09/19 04/28/20 rabeprazole 20 mg tablet,delayed 20 mg PO BID #180 tab 01/04/20 04/28/20 release escitalopram oxalate 10 mg tablet 10 mg PO DAILY #90 tab 01/18/20 04/28/20 diltiazem HCl 120 mg 120 mg PO Q12H #180 cap 03/27/20 04/28/20 capsule,extended release 12 hr cholestyramine (with sugar) 4 gram 4 gm PO DAILY g 03/29/20 04/28/20 oral powder levothyroxine 100 mcg tablet 100 mcg PO DAILY #90 tab 04/19/20 04/28/20 Eliquis 2.5 mg PO BID 04/21/20 04/28/20 penicillin V potassium 500 mg 500 mg PO TID #30 tab 04/24/20 04/28/20 tablet Previous Rx's Medication Instructions Recorded fluticasone propionate 110 2 puff INHALATION HS #12 gm 11/25/18 mcg/actuation HFA aerosol inhaler albuterol sulfate 2 inh IH Q4H PRN #1 each 03/07/19 estradiol 4 g TOPICAL 2X /week #5 tube 05/17/19 buspirone 10 mg tablet 5 mg PO BID #180 tab 05/31/19 rabeprazole 20 mg tablet,delayed 20 mg PO BID #180 tab 01/04/20 release escitalopram oxalate 10 mg tablet 10 mg PO DAILY #90 tab 01/18/20 diltiazem HCl 120 mg 120 mg PO Q12H #180 cap 03/27/20 capsule,extended release 12 hr levothyroxine 100 mcg tablet 100 mcg PO DAILY #90 tab 04/19/20 penicillin V potassium 500 mg 500 mg PO TID #30 tab 12/14/20 tablet Allergies Allergy/AdvReac Type Severity Reaction Status Date / Time hylan G-F 20 Allergy SWELLING Verified 04/28/20 08:14 AND PAIN metronidazole [From Flagyl] Allergy Skin Rash Verified 04/28/20 08:14 Pyrazolones [Pyrazoles] Allergy Verified 04/28/20 08:14 tolterodine Allergy DIFFICULTY Verified 04/28/20 08:14 BREATHING methylprednisolone AdvReac Intermediate weakness Verified 04/28/20 08:14 and unable mood. hydromorphone AdvReac Mild Nausea Verified 04/28/20 08:14 amitriptyline AdvReac NAUSEA Verified 04/28/20 08:14 aspartame AdvReac HEART Verified 04/28/20 08:14 RACING ondansetron HCl [From Zofran] AdvReac HALLUCINATI Verified 04/28/20 08:14 ON General Stated Complaint: GenMedical MANDY: 3 Review of Systems Narrative: No fever, chills. Sore throat is improving. Has been eating but somewhat less. No vomiting. 8 systems reviewed and otherwise negative [facility] Medical History Acromioclavicular joint arthritis Adrenal mass, right (12/11/16) seen on CT Ab 12/26 - STABLE. Will repeat Allergic eosinophilia 09/23/11 COLONOSCOPY BIOPSY SHOWS FOCAL EOSINOPHILIC CRYPTITS Anxiety Arthritis both ankles S/P fracture S/P surgery Asthma Bile salt-induced diarrhea Controlled with cholestyramine Bleeding hemorrhoids Chronic diarrhea Cortical cataract of left eye Cortical cataract of right eye Depressive disorder refuses medication Diverticulosis of colon without diverticulitis Elevated fasting glucose (06/27/14) Epiretinal membrane (ERM) of right eye Essential hypertension (02/19/13) MARILYN (generalized anxiety disorder) Patient with palpitations with negative Zio patch. She complained of symptoms during normal sinus rhythm on 40 occasions. With anxiety. Intolerant to buspirone. Will start recheck in 2 weeks. Gastroesophageal reflux disease H/o H pylori, neg 07EGD Mitz 07UGI ? 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 DOWELL L SHOULDER 01/25 Status post arthroscopic knee surgery 1) RIGHT KNEE; DR. LOPEZ 2) LEFT KNEE; DR. DUNCAN Status post cataract extraction and insertion of intraocular lens of left eye (03/13/18) Status post cataract extraction and insertion of intraocular lens of right eye (03/27/18) STOMACH STITCH (~08/2014) Thyroid (~09/2014) Family History Mother , OLD AGE at age 95. Stroke Father , GI BLEED at age 85. Diabetes GI bleed Heart disease Sister Diabetes Essential hypertension Neoplasm BREAST Brother Macular degeneration 1 EYE Grandfather Heart disease Neoplasm Grandfather No problems noted. Grandmother Heart disease Grandmother Neoplasm Son Neoplasm BRAIN Son No problems noted. Daughter Neoplasm BREAST Daughter No problems noted. Child No problems noted. Social History Smoking/Tobacco Use Status: Never Smoking risk assessment performed?: Yes Alcohol Intake: never Drug use: Never Substance use type: does not use Pets and animals: Yes Pets and animals: cat(s) and dog(s) Current gender identity: female What type of physical activity do you participate in: none Li/[employer]: Church Special li needs: No Do you feel safe at home: Yes Do you feel safe in your relationship?: Yes Additional Social history: lives alone Exam Narrative Exam Narrative: GEN: awake, alert, oriented 3. Pleasant, well groomed, interactive. HEAD: Normocephalic, atraumatic ENT: Mucous membranes moist, oropharynx unremarkable, External ear exam unremarkable EYES: PERRL, EOMI NECK: Full ROM, no ALLAN, no menigismus CHEST/RESP: Nontender, clear to auscultation bilateral, no wheeze/rhonchi/rales CARDIOVASCULAR: RRR, no murmur, rub preeti. 2+ Rad pulse bilateral ABDOMEN: Soft, nontender, no mass. +Bowel sounds. External rectal exam unremarkable. Rectal tone was normal, rectal vault soft, nontender, no mass. EXT: Full ROM, no edema, no rash Neuro: Grossly normal neurologic exam, conversant, interactive. Psych: Speech fluent, thoughts congruent, affect normal Course Vital Signs Vital signs: Vital Signs Temperature 36.3 C L 04/28/20 08:10 Pulse 86 04/28/20 08:10 Respiratory Rate 18 04/28/20 08:10 Blood Pressure 120/68 04/28/20 08:10 Pulse Oximetry 98 04/28/20 08:10 Temperature 36.3 C L 04/28/20 08:10 Temperature Source Temporal Artery Scan 04/28/20 08:10 Pulse 86 04/28/20 08:10 Respiratory Rate 18 04/28/20 08:10 Respiratory Effort Non-Labored 04/28/20 08:14 Blood Pressure 120/68 04/28/20 08:10 Blood Pressure Position Supine 04/28/20 08:10 Pulse Oximetry 98 04/28/20 08:10 Oxygen Delivery Method Room Air 04/28/20 08:10 Oxygen Flow Rate 0 04/28/20 08:10 Pain Level 2 04/28/20 08:10
[2020-04-28 09:35] VITALS: BP 120/52; PULSE 75; RESP 18; TEMP 36.7; O2SAT 95
== END 2020-04-28 09:37 | disposition home or self-care (01) ==
PROVIDERS: Emergency Provider Emergency Medicine; PCP Family Medicine
DX: R19.4 Change in bowel habit (principal); I10 Essential (primary) hypertension
CPT/HCPCS: 99283; 74019

== ENCOUNTER → 2020-05-25 13:35 | Outpatient (BNVA) | payer MEDICARE, OTHER, SELFPAY | PROVIDERS: PCP Family Medicine; Referring Provider Family Medicine; Visit Provider Internal Medicine Cardiovascular Disease | DX: I47.1 Supraventricular tachycardia (principal); R00.2 Palpitations | CPT/HCPCS: 99214; 99213 ==

== ENCOUNTER 2020-05-30 04:00 | Outpatient (CLI) | payer MEDICARE, OTHER, SELFPAY | END 2020-05-30 04:20 | PROVIDERS: PCP Family Medicine; Visit Provider Internal Medicine Cardiovascular Disease | DX: R00.2 Palpitations (principal); I47.1 Supraventricular tachycardia | CPT/HCPCS: 93246 ==

== ENCOUNTER 2020-06-13 03:15 | Outpatient (CLI) | payer MEDICARE, OTHER, SELFPAY ==
[2020-06-13 11:36] LABS: C-Reactive Protein 1.39 mg/dL (0.0-0.3); FREE T4 0.99 ng/dL (0.76-1.46); TSH 0.42 uIU/mL (0.36-3.74)
[2020-06-13 11:46] LABS: ESR 50 mm/hr (0-30)
[2020-06-13 16:58] LABS: Rheumatoid Factor 17.1 IU/mL (<12.0)
[2020-06-14 12:22] LABS: ANA Interpretation Negative (Negative)
--- NOTE | 2020-06-15 09:01 | W.ZIOMONITOR ---
Date of service: 06/15/20 Time of Service: 09:02 14 Day Press Set Up Person Referring Provider:: Rip Indications:: Palpitations Note: This is a 14-day monitor ordered for the indication of palpitations. ?The patient was in normal sinus rhythm for the majority of the recording with an average heart rate of 66 bpm (49?126bpm) ?There were rare PACs and rare PVCs. ?There were 45 total runs of supraventricular tachycardia with the longest lasting 8 beats and the fastest 128 bpm. ?There were no episodes of atrial fibrillation, no pauses greater than 3 seconds and no evidence of high degree heart block. ?There were 21 patient triggered events. 3 of them were associated with supraventricular tachycardia. The other 18 were associated with normal sinus rhythm.
== END 2020-06-13 03:16 | disposition home or self-care (01) ==
PROVIDERS: PCP Family Medicine; Visit Provider Nurse Practitioner Family
DX: E03.9 Hypothyroidism, unspecified (principal); M25.59 Pain in other specified joint
CPT/HCPCS: 36415; 85652; 84439; 84443; 86038; 86140; 86431

== ENCOUNTER 2020-06-15 09:01 | Outpatient (CLI) | payer MEDICARE, OTHER, SELFPAY | END 2020-06-15 09:02 | LOC: CARDO 06-16 10:27 | PROVIDERS: PCP Family Medicine; Referring Provider Internal Medicine Cardiovascular Disease; Visit Provider Internal Medicine Cardiovascular Disease | DX: R00.2 Palpitations (principal); I47.1 Supraventricular tachycardia | CPT/HCPCS: 93248 ==

== ENCOUNTER 2020-07-04 01:18 | Outpatient (CLI) | payer MEDICARE, OTHER, SELFPAY ==
--- NOTE | 2020-07-04 07:00 | DI.US_ITS ---
EXAM: US SOFT TISSUE EXTREMITY CLINICAL HISTORY: rt knee pain ? Moore's cyst,M25.561. TECHNIQUE: Ultrasound was performed using standard protocol. COMPARISON: No exams were available for comparison FINDINGS: Sonographic assessment utilizing grayscale and color Doppler imaging was performed and targeted to th e area of clinical concern. There is no evidence of a Moore's cyst or other fluid collection. There is no evidence of a ruptured Moore's cyst or hematoma. A small amount of fluid is seen in the lateral knee joint. IMPRESSION: No evidence of Moore's cyst. Small joint effusion. DATA REPOSITORY:
== END 2020-07-04 01:19 ==
PROVIDERS: PCP Family Medicine; Visit Provider Family Medicine
DX: M25.561 Pain in right knee (principal); M25.461 Effusion, right knee
CPT/HCPCS: 76881

== ENCOUNTER → 2020-07-06 12:22 | Outpatient (BNVA) | payer MEDICARE, OTHER, SELFPAY | PROVIDERS: PCP Family Medicine; Referring Provider Family Medicine; Visit Provider Internal Medicine Cardiovascular Disease | DX: I47.1 Supraventricular tachycardia (principal); R00.2 Palpitations | CPT/HCPCS: 99213 ==

== ENCOUNTER 2020-09-05 17:36 | Outpatient (CLI) | payer MEDICARE, OTHER, SELFPAY ==
--- NOTE | 2020-09-05 17:30 | RT.EKG_ITS ---
APPROVED REPORT Exam: Resting ECG Patient Location: O HR:68 bpm ECG Measurements Heart Rate 68 AXIS NC 167 P 74 QRSd 86 QRS 41 QT 378 T 66 QTc 403 Conclusion Sinus rhythm...normal P axis, V-rate 60- 99 Consider anteroseptal infarct...Q >30mS, dimin R, V1-V2
== END 2020-09-05 17:37 | disposition home or self-care (01) ==
LOC: DI.CM 17:37
PROVIDERS: PCP Family Medicine; Visit Provider Nurse Practitioner Family
DX: R00.2 Palpitations (principal)
CPT/HCPCS: 93010

== ENCOUNTER 2020-09-05 21:21 | Outpatient (REF) | payer MEDICARE, OTHER, SELFPAY ==
[2020-09-05 20:38] LABS: HCT 44.4 % (36.0-46.0); HGB 14.5 g/dL (11.2-15.7); MCHC 32.7 % (32.0-36.0); MCV 91.7 fL (80-95); MPV 12.6 fL (8.0-11.0); Platelet Count 266 10^3/uL (130-400); RBC 4.84 10^6/uL (3.93-5.22); RDW 15.6 % (11.7-14.6); WBC 10.26 10^3/uL (4.4-10.8)
[2020-09-05 21:07] LABS: Anion Gap 10.5 mmol/L (3-11); BUN 20 mg/dL (7-18); CO2 26.5 mmol/L (21.0-32.0); CREATININE 0.8 mg/dL (0.55-1.02); Calcium 10.1 mg/dL (8.5-10.1); Chloride 104 mmol/L (98-107); Glucose 117 mg/dL (74-106); Magnesium 1.3 mg/dL (1.8-2.4); Potassium 4.4 mmol/L (3.5-5.1); Sodium 141 mmol/L (136-145); TSH (W/Ref FT4) 2.16 uIU/mL (0.36-3.74)
== END 2020-09-05 21:22 | disposition home or self-care (01) ==
LOC: LBN 21:21
PROVIDERS: PCP Family Medicine; Visit Provider Nurse Practitioner Family
DX: F41.1 Generalized anxiety disorder (principal); R00.2 Palpitations
CPT/HCPCS: 80048; 85027; 83735; 84443

== ENCOUNTER 2020-09-07 02:22 | Outpatient (RCR) | payer MEDICARE, OTHER, SELFPAY ==
--- NOTE | 2020-09-07 08:00 | HOLTER_ITS ---
APPROVED REPORT Exam Type: HOLTER MONITOR APPLICATION Reason for Test: palpitations Patient Location: O Conclusion This was a 48-hour Holter monitor ordered for symptoms of palpitations Predominant rhythm was sinus with an average heart rate of 67. Minimum was 51, maximum 105 There were rare atrial premature beats and several 3-4 beat atrial runs. There was no atrial fibrill ation There were moderately frequent ventricular ectopic beats and occasional couplets. There was one 4 be at run of nonsustained ventricular tachycardia Patient symptoms corresponded to sinus rhythm with PVCs No high-grade AV block, no pauses greater than 3 seconds
== END 2020-09-08 23:59 | disposition home or self-care (01) ==
LOC: RT 02:22
PROVIDERS: PCP Family Medicine; Visit Provider Nurse Practitioner Family
DX: R00.2 Palpitations (principal)
CPT/HCPCS: 93225; 93226

== ENCOUNTER 2020-09-11 09:43 | Outpatient (CLI) | payer MEDICARE, OTHER, SELFPAY | END 2020-09-11 09:44 | LOC: CARDO 09-29 12:00 | PROVIDERS: PCP Family Medicine; Referring Provider Nurse Practitioner Family; Visit Provider Internal Medicine Cardiovascular Disease | DX: R00.2 Palpitations (principal); I49.1 Atrial premature depolarization; I49.3 Ventricular premature depolarization; I47.2 Ventricular tachycardia | CPT/HCPCS: 93227 ==

== ENCOUNTER → 2020-09-14 09:15 | Outpatient (BNVA) | payer MEDICARE, OTHER, SELFPAY | PROVIDERS: PCP Family Medicine; Referring Provider Family Medicine; Visit Provider Internal Medicine Cardiovascular Disease | DX: I47.1 Supraventricular tachycardia (principal); R00.2 Palpitations; M17.0 Bilateral primary osteoarthritis of knee; G47.33 Obstructive sleep apnea (adult) (pediatric); I10 Essential (primary) hypertension; Z79.01 Long term (current) use of anticoagulants; Z86.711 Personal history of pulmonary embolism | CPT/HCPCS: 99214 ==

== ENCOUNTER 2020-09-21 02:06 | Outpatient (CLI) | payer MEDICARE, OTHER, SELFPAY ==
[2020-09-21 12:48] LABS: Magnesium 1.3 mg/dL (1.8-2.4)
[2020-09-21 13:27] LABS: Hemoglobin A1C 5.9 % (<5.7)
== END 2020-09-21 02:07 | disposition home or self-care (01) ==
PROVIDERS: PCP Family Medicine; Visit Provider Family Medicine
DX: E83.42 Hypomagnesemia (principal); R73.9 Hyperglycemia, unspecified
CPT/HCPCS: 36415; 83036; 83735

== ENCOUNTER 2020-10-19 07:30 | Outpatient (CLI) | payer MEDICARE, OTHER, SELFPAY ==
[2020-10-19 11:28] LABS: Magnesium 1.8 mg/dL (1.8-2.4)
== END 2020-10-19 07:31 | disposition home or self-care (01) ==
LOC: LOS 07:33
PROVIDERS: PCP Family Medicine; Visit Provider Family Medicine
DX: E83.42 Hypomagnesemia (principal)
CPT/HCPCS: 36415; 83735

== ENCOUNTER 2021-02-20 08:27 | Outpatient (CLI) | payer MEDICARE, OTHER, SELFPAY ==
[2021-02-20 12:49] LABS: FREE T4 0.92 ng/dL (0.76-1.46); TSH 1.62 uIU/mL (0.36-3.74)
[2021-02-20 17:00] LABS: Thyroglobulin Antibody 19 U/mL (<=60)
== END 2021-02-20 08:28 | disposition home or self-care (01) ==
LOC: LOS 08:27
PROVIDERS: PCP Family Medicine; Referring Provider Family Medicine; Visit Provider Family Medicine
DX: E04.1 Nontoxic single thyroid nodule (principal); F41.1 Generalized anxiety disorder
CPT/HCPCS: 36415; 84439; 84443; 86800

== ENCOUNTER → 2021-03-13 13:19 | Outpatient (BNVA) | payer MEDICARE, OTHER, SELFPAY | PROVIDERS: PCP Family Medicine; Referring Provider Family Medicine; Visit Provider Internal Medicine Cardiovascular Disease | DX: R00.2 Palpitations (principal); I47.1 Supraventricular tachycardia | CPT/HCPCS: 99213 ==

== ENCOUNTER 2021-04-03 01:58 | Outpatient (CLI) | payer MEDICARE, OTHER, SELFPAY ==
[2021-04-03 19:25] LABS: Thyroglobulin Antibody <15 U/mL (<=60)
== END 2021-04-03 01:59 | disposition home or self-care (01) ==
LOC: LOS 01:58
PROVIDERS: PCP Family Medicine; Visit Provider Family Medicine
DX: E04.1 Nontoxic single thyroid nodule (principal)
CPT/HCPCS: 36415; 86800

== ENCOUNTER 2021-05-04 13:37 | Emergency (ER) | payer MEDICARE, OTHER, SELFPAY ==
[2021-05-04 13:49] VITALS: BP 132/56; PULSE 63; RESP 18; TEMP 36.6; O2SAT 96
--- NOTE | 2021-05-04 14:00 | DI.RAD_ITS ---
Exam(s) XR KNEE RT 4V AP,LAT,CAMILLE,PAT EXAM: XR KNEE RT 4V AP,LAT,CAMILLE,PAT CLINICAL HISTORY: pain, TKA December. TECHNIQUE: 2D digital imaging was performed. COMPARISON: CR XR knee RT 3V AP,lat,camille from 01/14/2019 FINDINGS: There has been interval right knee arthroplasty. There is no evidence of right knee fracture nor obvious hardware loosening. There is a joint effusio n noted. No osseous lesions. IMPRESSION: Right knee arthroplasty. No acute fracture evident but there does appear to be a joint effusion. Ap propriate follow-up recommended. DATA REPOSITORY: RADIATION DOSE DELIVERED:
--- NOTE | 2021-05-04 14:10 | W.ED.GENAD ---
Discharge Plan Disposition Patient Disposition: HOME Condition: Stable Discharge Details Clinical Impression: Effusion of knee joint right, Right knee sprain Primary Care Provider: Matheus Santana ED Provider: Samantha Guzman Home Meds and New Rx's Prescriptions: No Action CPAP miscellaneous RF: 0 acetaminophen [Tylenol Extra Strength] 500 mg tablet 1,000 mg PO TID RF: 0 multivitamin Capsule 1 cap PO DAILY RF: 0 Flovent HFA 110 mcg/actuation HFA aerosol inhaler 1 puff Inhalation HS RF: 0 magnesium 200 mg tablet 400 mg PO TID RF: 0 elderberry fruit and flower 460-115 mg capsule PO RF: 0 lorazepam 0.5 mg tablet 0.5 mg PO Q6H PRN (Reason: anxiety) Qty: 30 RF: 0 ondansetron HCl [Zofran] 4 mg tablet 4 mg PO BID PRN (Reason: nausea and vomiting post op) Qty: 30 RF: 0 estradiol [Estrace] 0.01 % (0.1 mg/gram) cream 4 g Topical .every other week RF: 0 buspirone 10 mg tablet 5 mg PO BID Qty: 90 RF: 3 diltiazem HCl 120 mg capsule,extended release 12 hr 120 mg PO Q12H Qty: 180 RF: 3 escitalopram oxalate 10 mg tablet 10 mg PO DAILY Qty: 90 RF: 5 levothyroxine 100 mcg tablet 100 mcg PO DAILY Qty: 90 RF: 3 rabeprazole [AcipHex] 20 mg tablet,delayed release (DR/EC) 20 mg PO BID Qty: 180 RF: 3 cholestyramine (with sugar) 4 gram powder 4 g PO DAILY PRN (Reason: hyperlipidemia) Qty: 378 RF: 3 nystatin 100,000 unit/gram powder 1 applic Topical BID PRN (Reason: fungal rash) Qty: 180 RF: 3 (DME) nebulizer and compressor [PulmoNeb LT Compressor Nebul] 1 EACH device 1 ea Miscellaneous PRN RF: 0 Eliquis 2.5 mg tablet 2.5 mg PO BID RF: 0 garlic 1,000 mg Capsule 1,000 mg PO DAILY RF: 0 cholecalciferol (vitamin D3) [Vitamin D3] 50 mcg (2,000 unit) capsule 5,000 unit PO DAILY RF: 0 albuterol sulfate 90 mcg/actuation aerosol powdr breath activated 2 inh IH Q4H PRN (Reason: shortness of breath or wheezing) Qty: 1 RF: 0 Discharge Instructions Instructions: Knee Sprain (ED), Swollen Knee Joint (ED) Additional Instructions: Please follow-up with orthopedics DrDustin On Friday. Rest ice compression elevation. Use the splint for comfort. Use a walker at home as needed. When sitting or lying down keep elevated and ice. Please return to the ER for any worsening swelling, redness, fever, chills or any concerns. Please take the tramadol as previously prescribed. You may also supplement it with Tylenol. Referrals: Matheus Santana MD [Primary Care Provider] - Discharge Data Discharge Date/Time-TO BE ENTERED AT DEPARTURE: 05/04/21 17:15 Medical Decision Making <CAILIN Pritchard - Last Filed: 05/06/21 13:15> Patient is a pleasant 80-year-old female presenting today with chief complaint of right knee pain. Patient reports that she is status post right knee total arthroplasty in December of this year. Had this performed at [facility] by Dr. Clemens. 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 States the pain lasted for about 2 days and then resolved. States that during the time that she had discomfort she was having difficulty with ambulation. States that she was able to be up and cooking all day yesterday without any discomfort. She reports that she was cleared from orthopedics on the 16th of this month. 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 She denies any trauma. She did not note any erythema, swelling or fevers. Secondary to the acuity of the department, I am not able to get patient to a room where I am able to have her enrolled. Exam of her her Pap does not indicate that the knee is particularly hot, swollen. She is able to extend fully and flex about 90 degrees. She does have pain with active range of motion of the areas. She does have 2+ distal pulses and intact sensation. Will move forward with an x-ray to evaluate for any bony normality or hardware malalignment. FINDINGS: Bones/joints: Complete right knee arthroplasty.No evidence of hardware complications. Specifically, no evidence for hardware loosening or periprosthetic fractures. There is no evidence of acutely displaced fractures. There is no evidence of joint dislocation. No aggressive osseous lesions. A large suprapatellar joint effusion is present. Soft tissues: There is soft tissue swelling. IMPRESSION: 1. LARGE SUPRAPATELLAR EFFUSION. 2. NO ACUTE SKELETAL PATHOLOGY OR HARDWARE COMPLICATIONS. The end of my shift, care transition to Christen Chan NP. X-ray results discussed with her the patient is currently being moved into his room. Patient will need physical exam more thoroughly of the right knee to evaluate for any potential evidence of infection. Also requested consultation with patient surgeon Dr. Clemens for further guidance on treatment of the patient's acute comfort. <Samantha Guzman - Last Filed: 05/04/21 17:39> Care assumed from provider (CAILIN Hughes) Please see their initial HPI, PE, and documentation. Discussed patient details and case and pending workup and disposition. Patient is hemodynamically stable, and alert and oriented. At this time awaiting callback from [facility] orthopedic surgeon for consultation. 1630: Patient brought back to the room and examined. Right knee is swollen. The knee is not particularly hot. Patient reports that she does have tramadol and a walker at home. I did discuss the plan for consultation with the orthopedic surgeon and the hinged knee brace which is been ordered. Patient does not wish to wait much longer. Will wait approximately 20-minute and discharge if I do not hear back from [place] [facility]. HPI <CAILIN Pritchard - Last Filed: 05/06/21 13:15> General Mode of arrival: wheelchair. Date/Time Provider Initiated Documentation: 05/04/21 14:00. Limitations to Documentation: no limitations. Information obtained by: patient, family and RN notes reviewed. History of Present Illness 80 year old F presents to the emergency department with the chief complaint of right knee pain, described as moderate (pain is severe when playing the organ, pain now with WB but non tender off of it), Quality is described as aching, and is localized to the right and lower extremity. Patient reports no radiation. Patient started experiencing this day(s) and it has been intermittent. Immobilization improves symptom(s), Movement worsens symptoms (playing the organ) . Patient notes no other symptoms.; denies fever/chills and rash. Patient did receive the following treatments prior to arrival, other (Tramadol) Related Data Home Medications Medication Instructions Recorded Confirmed nebulizer and compressor [PulmoNeb 02/07/16 04/18/21 LT Compressor Nebul] garlic 1,000 mg PO DAILY 03/11/18 04/18/21 acetaminophen 500 mg tablet 1,000 mg PO TID tab 07/01/18 04/18/21 albuterol sulfate 2 inh IH Q4H PRN #1 each 03/07/19 04/18/21 cholecalciferol (vitamin D3) 50 5,000 unit PO DAILY cap 05/17/19 04/18/21 mcg (2,000 unit) capsule CPAP MISCELLANEOUS 07/23/19 04/18/21 multivitamin 1 cap PO DAILY 11/09/19 04/18/21 Eliquis 2.5 mg PO BID 04/21/20 04/18/21 buspirone 10 mg tablet 5 mg PO BID #90 tab 08/31/20 04/18/21 fluticasone propionate 110 1 puff INHALATION HS g 09/14/20 04/18/21 mcg/actuation HFA aerosol inhaler elderberry fruit 460 mg-elderberry cap PO 11/21/20 04/18/21 flower 115 mg capsule magnesium 200 mg tablet 400 mg PO TID tab 11/21/20 04/18/21 ondansetron HCl 4 mg tablet 4 mg PO BID PRN #30 tab 12/25/20 04/18/21 diltiazem HCl 120 mg 120 mg PO Q12H #180 cap 12/29/20 04/18/21 capsule,extended release 12 hr escitalopram oxalate 10 mg tablet 10 mg PO DAILY #90 tab 12/29/20 04/18/21 levothyroxine 100 mcg tablet 100 mcg PO DAILY #90 tab 12/29/20 04/18/21 rabeprazole 20 mg tablet,delayed 20 mg PO BID #180 tab 01/17/21 04/18/21 release cholestyramine (with sugar) 4 gram 4 g PO DAILY PRN #378 g 01/23/21 04/18/21 oral powder lorazepam 0.5 mg tablet 0.5 mg PO Q6H PRN #30 tab-cap 02/20/21 04/18/21 nystatin 100,000 unit/gram topical 1 applic TOPICAL BID PRN #180 g 03/08/21 04/18/21 powder estradiol 4 g TOPICAL .every other week g 04/18/21 Previous Rx's Medication Instructions Recorded albuterol sulfate 2 inh IH Q4H PRN #1 each 03/07/19 buspirone 10 mg tablet 5 mg PO BID #90 tab 08/31/20 ondansetron HCl 4 mg tablet 4 mg PO BID PRN #30 tab 12/25/20 diltiazem HCl 120 mg 120 mg PO Q12H #180 cap 12/29/20 capsule,extended release 12 hr escitalopram oxalate 10 mg tablet 10 mg PO DAILY #90 tab 12/29/20 levothyroxine 100 mcg tablet 100 mcg PO DAILY #90 tab 12/29/20 rabeprazole 20 mg tablet,delayed 20 mg PO BID #180 tab 01/17/21 release cholestyramine (with sugar) 4 gram 4 g PO DAILY PRN #378 g 01/23/21 oral powder lorazepam 0.5 mg tablet 0.5 mg PO Q6H PRN #30 tab-cap 02/20/21 nystatin 100,000 unit/gram topical 1 applic TOPICAL BID PRN #180 g 03/08/21 powder Allergies Allergy/AdvReac Type Severity Reaction Status Date / Time hylan G-F 20 Allergy SWELLING Verified 04/18/21 13:36 AND PAIN metronidazole [From Flagyl] Allergy Skin Rash Verified 04/18/21 13:36 Pyrazolones [Pyrazoles] Allergy Verified 04/18/21 13:36 tolterodine Allergy DIFFICULTY Verified 04/18/21 13:36 BREATHING methylprednisolone AdvReac Intermediate weakness Verified 04/18/21 13:36 and unable mood. hydromorphone AdvReac Mild Nausea Verified 04/18/21 13:36 amitriptyline AdvReac NAUSEA Verified 04/18/21 13:36 aspartame AdvReac HEART Verified 04/18/21 13:36 RACING ondansetron HCl [From Zofran] AdvReac HALLUCINATI Verified 04/18/21 13:36 ON General Stated Complaint: Orthopedic MANDY: 4 Review of Systems <CAILIN Pritchard - Last Filed: 05/06/21 13:15> Constitutional Constitutional: Reports as per HPI, Denies chills, Denies fever(s) and Denies weakness Musculoskeletal Musculoskeletal: Reports as per HPI and Denies tingling Integumentary/Breasts Skin/Breast: Reports as per HPI, Denies rash and Denies wounds Neurologic Neurologic: Reports as per HPI, Denies tingling, Denies paresthesias and Denies weakness [facility] <CAILIN Pritchard - Last Filed: 05/06/21 13:15> All Active Problems (Updated 05/04/21 @ 16:58 by Samantha Guzman) Effusion of knee joint right (Acute) Right knee sprain (Acute) Foot pain, right (Acute) Acute knee pain (Acute) Palpitations (Acute) 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 controlled w/ cholestyramine Pain in female pelvis (Acute 01/04/14) Lung mass (Acute 06/03/14) Hypomagnesemia (Acute 05/27/17) History of surgical procedure (Acute) History of arthroscopy of knee (Acute) Gastroenteritis (Acute 05/15/17) Full thickness rotator cuff tear (Acute) Fatigue (Acute 08/22/16) Fatigue (Acute 06/16/12) Epistaxis (Acute 11/14/14) Elevated liver function tests (Acute 05/14/14) Decreased thyroid stimulating hormone (TSH) level (Acute 11/07/14) Atypical facial pain (Acute 01/07/12) Adhesive capsulitis of shoulder (Acute) Right shoulder strain (Acute) RUQ abdominal pain (Acute) DVT prophylaxis (Acute) Cough (Acute) Osteoarthritis of both knees (Acute) Polyarthralgia (Acute) Bleeding hemorrhoids (Acute) Supraventricular tachycardia (Chronic) History of pulmonary embolism (Acute) DJD (degenerative joint disease) (Chronic) Chronic bilateral low back pain (Acute) Hypothyroidism (Chronic) Acute left ankle pain (Acute) Acromioclavicular joint arthritis (Acute) Diverticula of colon (Acute) Chronic diarrhea (Acute) Ulcer of rectum (Acute) Incomplete rectal prolapse (Acute) Internal hemorrhoid, bleeding (Acute) Bleeding hemorrhoids (Acute) Multiple gastric polyps (Chronic) Epigastric pain (Chronic) Status post cataract extraction and insertion of intraocular lens of right eye (Chronic 03/27/18) Epiretinal membrane (ERM) of right eye (Chronic) 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 stricture, no HH Essential hypertension (Chronic 02/19/13) Elevated fasting glucose (Chronic 06/27/14) Diverticulosis of colon without diverticulitis (Chronic) Depressive disorder (Chronic) refuses medication Asthma (Chronic) Arthritis (Chronic) both ankles S/P fracture S/P surgery Anxiety (Chronic) Allergic eosinophilia (Chronic) 09/23/11 COLONOSCOPY BIOPSY SHOWS FOCAL EOSINOPHILIC CRYPTITS Adrenal mass, right (Chronic 12/11/16) seen on CT Ab 12/26 - STABLE. Will repeat Primary osteoarthritis of both knees (Chronic) MARILYN (generalized anxiety disorder) (Chronic) Patient with palpitations with negative Zio patch. She complained of symptoms during normal sinus rhythm on 40 occasions. With anxiety. Intolerant to buspirone. Will start recheck in 2 weeks. Medical History Acromioclavicular joint arthritis Adrenal mass, right (12/11/16) seen on CT Ab 12/26 - STABLE. Will repeat Allergic eosinophilia 09/23/11 COLONOSCOPY BIOPSY SHOWS FOCAL EOSINOPHILIC CRYPTITS Anxiety Arthritis both ankles S/P fracture S/P surgery Asthma Bile salt-induced diarrhea Controlled with cholestyramine Bleeding hemorrhoids Chronic diarrhea Cortical cataract of left eye Cortical cataract of right eye Depressive disorder refuses medication Diverticulosis of colon without diverticulitis Elevated fasting glucose (06/27/14) Epiretinal membrane (ERM) of right eye Essential hypertension (02/19/13) MARILYN (generalized anxiety disorder) Patient with palpitations with negative Zio patch. She complained of symptoms during normal sinus rhythm on 40 occasions. With anxiety. Intolerant to buspirone. Will start recheck in 2 weeks. Gastroesophageal reflux disease H/o H pylori, neg 07EGD Mitz 07UGI ? 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 DOWELL L SHOULDER 01/25 Status post arthroscopic knee surgery 1) RIGHT KNEE; DR. LOPEZ 2) LEFT KNEE; DR. DUNCAN Status post cataract extraction and insertion of intraocular lens of left eye (03/13/18) Status post cataract extraction and insertion of intraocular lens of right eye (03/27/18) STOMACH STITCH (~08/2014) Thyroid (~09/2014) Family History Mother , OLD AGE at age 95. Stroke Father , GI BLEED at age 85. Diabetes GI bleed Heart disease Sister Diabetes Essential hypertension Neoplasm BREAST Brother Macular degeneration 1 EYE Grandfather Heart disease Neoplasm Grandfather No problems noted. Grandmother Heart disease Grandmother Neoplasm Son Neoplasm BRAIN Son No problems noted. Daughter Neoplasm BREAST Daughter No problems noted. Child No problems noted. Social History Smoking/Tobacco Use Status: Never Smoking risk assessment performed?: Yes Alcohol Intake: never Drug use: Never Substance use type: does not use Pets and animals: Yes Pets and animals: cat(s) and dog(s) Current gender identity: female What type of physical activity do you participate in: walking and additional Details: walks the block with her dog. Li/Restorationist: Nondenominational Special li needs: No Do you feel safe at home: Yes Do you feel safe in your relationship?: Yes Additional Social history: lives alone Exam <CAILIN Pritchard - Last Filed: 05/06/21 13:15> Const General: cooperative, healthy appearing, comfortable, no acute distress, well developed and well groomed Nutritional Appearance: average body habitus and well nourished Orientation: alert and awake Resp Effort & Inspection: normal respiratory effort, able to speak in complete sentences and no respiratory distress Cardio Rate: regular rate Rhythm: regular rhythm Neuro General: patient alert and patient awake Cognition: normal cognition Speech: speech normal Gait: antalgic Motor: muscle tone normal throughout Sensory Exam: no sensory deficits noted Extrem Right lower extremity: normal to inspection (limited secondary to room availability, unable to move pant leg enough ), full ROM (full extension, flexion to 90), no joint enlargement and knee Details: tenderness (generalized discomfort, no focal area of pain), knee ligament exam normal (no notable defect but again, limited secondary to the setting) and other (2+ distal pulses); no deformity Psych Appearance: grossly normal and well kempt Mental Status: mental status grossly normal Speech and Movement: speech and movement normal Course <CAILIN Pritchard - Last Filed: 05/06/21 13:15> Vital Signs Vital signs: Vital Signs Temperature 36.6 C 05/04/21 13:49 Pulse 63 05/04/21 13:49 Respiratory Rate 18 05/04/21 13:49 Blood Pressure 132/56 L 05/04/21 13:49 Pulse Oximetry 96 05/04/21 13:49 Temperature 36.6 C 05/04/21 13:49 Temperature Source Tympanic 05/04/21 13:49 Pulse 63 05/04/21 13:49 Respiratory Rate 18 05/04/21 13:49 Blood Pressure 132/56 L 05/04/21 13:49 Blood Pressure Position Sitting 05/04/21 13:49 Pulse Oximetry 96 05/04/21 13:49 Oxygen Delivery Method Room Air 05/04/21 13:49 Oxygen Flow Rate 0 05/04/21 13:49 Sign Out <CAILIN Pritchard - Last Filed: 05/06/21 13:15> Sign Out Data: Sign Out Comment: Patient is being moved into a room now. Will need disrobe exam of the patient's right knee. X-ray showed suprapatellar effusion. Have requested consultation with patient surgeon, Dr. Clemens, with [facility]. Last updated by Sumi Hurtado PA at 05/04/21 16:10
--- NOTE | 2021-05-04 15:51 | DI.VRAD_ITS ---
Addendum created by Lloyd Campbell MD on 05/04/2021 3:56:30 PM EST: PLEASE NOTE THAT I WAS INFORMED THAT THE EXAMINATION IS OF THE RIGHT KNEE. THEREFORE, REPORT SHOULD READ FOLLOWS: PROCEDURE INFORMATION: Exam: XR RIGHT Knee Exam date and time: 05/04/2021 2:01 PM Age: 80 years old Clinical indication: Other: Pain, tka December; Prior surgery; Surgery date: 1-6 months TECHNIQUE: Imaging protocol: XR RIGHT knee. Views: 4 or more views. COMPARISON: US SOFT TISSUE EXTREMITY 07/04/2020 7:23 AM FINDINGS: Bones/joints: Complete right knee arthroplasty.No evidence of hardware complications. Specifically, no evidence for hardware loosening or periprosthetic fractures. There is no evidence of acutely displaced fractures. There is no evidence of joint dislocation. No aggressive osseous lesions. A large suprapatellar joint effusion is present. Soft tissues: There is soft tissue swelling. IMPRESSION: 1. LARGE SUPRAPATELLAR EFFUSION. 2. NO ACUTE SKELETAL PATHOLOGY OR HARDWARE COMPLICATIONS. Initial report created on 05/04/2021 3:51:06 PM EST: PROCEDURE INFORMATION: Exam: XR Left Knee Exam date and time: 05/04/2021 2:01 PM Age: 80 years old Clinical indication: Other: Pain, tka December; Prior surgery; Surgery date: 1-6 months TECHNIQUE: Imaging protocol: XR Left knee. Views: 4 or more views. COMPARISON: US SOFT TISSUE EXTREMITY 07/04/2020 7:23 AM FINDINGS: Bones/joints: Complete right knee arthroplasty.No evidence of hardware complications. Specifically, no evidence for hardware loosening or periprosthetic fractures. There is no evidence of acutely displaced fractures. There is no evidence of joint dislocation. No aggressive osseous lesions. A large suprapatellar joint effusion is present. Soft tissues: There is soft tissue swelling. IMPRESSION: 1. LARGE SUPRAPATELLAR EFFUSION. 2. NO ACUTE SKELETAL PATHOLOGY OR HARDWARE COMPLICATIONS. COMMENTS: PLEASE NOTE THAT THE STUDY IS ORDERED LEFT KNEE, HOWEVER THE FILMS ARE LABELED RIGHT KNEE. ADDENDUM TO THIS REPORT WILL BE PROVIDED ONCE THIS IS CLARIFIED. Dictated and Authenticated by: Lloyd Campbell MD. Ordering:MEGAN Jonas MD
== END 2021-05-04 17:15 | disposition home or self-care (01) ==
PROVIDERS: Emergency Provider Registered Nurse Emergency; PCP Family Medicine
DX: M25.461 Effusion, right knee (principal); S83.8X1A Sprain of other specified parts of right knee, initial encounter; X58.XXXA Exposure to other specified factors, initial encounter; Z96.651 Presence of right artificial knee joint
CPT/HCPCS: 29505; 99283; 73564

== ENCOUNTER 2021-09-10 02:43 | Outpatient (CLI) | payer MEDICARE, OTHER, SELFPAY ==
[2021-09-10 12:27] LABS: HCT 38.2 % (36.0-46.0); MCH 28.5 pg (27.0-33.0); MCHC 31.4 % (32.0-36.0); MCV 91 fL (80-95); MPV 11.7 fL (8.0-11.0); Platelet Count 348 10^3/uL (130-400); RBC 4.21 10^6/uL (3.93-5.22); RDW 14.6 % (11.7-14.6); RDW-SD 48.1 fL; WBC 8.91 10^3/uL (4.4-10.8)
[2021-09-10 12:53] LABS: TSH (W/Ref FT4) 0.07 uIU/mL (0.36-3.74)
== END 2021-09-10 02:44 | disposition home or self-care (01) ==
LOC: LOS 02:43
PROVIDERS: PCP Family Medicine; Visit Provider Family Medicine
DX: E03.9 Hypothyroidism, unspecified (principal); R53.83 Other fatigue
CPT/HCPCS: 36415; 85027; 84439; 84443

== ENCOUNTER → 2021-12-05 11:49 | Outpatient (CLI) | payer MEDICARE, OTHER, SELFPAY ==
--- NOTE | 2021-12-05 10:15 | DI.CT_ITS ---
Exam(s) CT HEAD WO EXAM: CT HEAD WO CLINICAL HISTORY: headache s/p falls x3, R51.9; on Eliquis. TECHNIQUE: Imaging Protocol: Axial computed tomography images with coronal and sagittal reformatted images were created and reviewed COMPARISON: No exams were available for comparison FINDINGS: Ventricles and Extra axial spaces: Normal in size and morphology for the patient's age. Hemorrhage: None. Cerebral parenchyma: Normal. No acute territorial infarct. There are areas of decreased attenuation in the white matter consistent with small vessel ischemic disease. Midline shift: None. Brainstem/Cerebellum: Normal. Calvarium: Normal. Visualized Paranasal sinuses/Mastoids: Clear. There is a 1.1 x 1.3 cm partially calcified mass seen i n the posterior nasopharynx beneath the sphenoid sinuses. CT scan of the neck with contrast should b e considered for further evaluation. Soft Tissues: Unremarkable. IMPRESSION: 1. No acute intracranial process. 2. 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 CT scan of the neck with contrast should be considered for further evaluation. Incidental Findings RADIATION DOSE DELIVERED: 688.77mGy.cm Total DLP DATA REPOSITORY: All CT scans at this facility are submitted to the National Radiology Data Registry (NRDR) Dose Index Registry (DIR) with the [employer] ([employer]). RADIATION OPTIMIZATION: All CT scans at this facility use at least one of these dose optimization te chniques: automated exposure control; mA and/or kV adjustment per patient size (includes targeted exa ms where dose is matched to clinical indication); or iterative reconstruction.
== END ==
PROVIDERS: PCP Family Medicine; Visit Provider Family Medicine
DX: R51.9 Headache, unspecified (principal); W19.XXXA Unspecified fall, initial encounter; G89.11 Acute pain due to trauma; J39.2 Other diseases of pharynx
CPT/HCPCS: 70450

== ENCOUNTER → 2021-12-07 00:49 | Outpatient (CLI) | payer MEDICARE, OTHER, SELFPAY ==
--- NOTE | 2021-12-07 07:45 | DI.CT_ITS ---
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 TECHNIQUE: Imaging Protocol: Axial computed tomography images with coronal and sagittal reformatted images were created and reviewed. CONTRAST MATERIAL: Intravenous: Omnipaque 350 Contrast volume:100mL COMPARISON: CT CT HEAD WO from 12/05/2021 FINDINGS: The examination is limited due to patient motion artifact. Orbits and orbital soft tissues: Within normal limits. Visualized paranasal sinuses: Within normal limits. Nasopharynx: There is a 1.3 transverse by 1.1 AP by 1.2 craniocaudad cm mass arises from the roof of the posterior nasopharynx. It has both soft tissue and fat density. It is also partially calcified . There is no associated osseous destructive changes. Oropharynx: Within normal limits. Hypopharynx: Within normal limits. Larynx: Within normal limits. Retropharyngeal space: Within normal limits. Parotids/submandibular: Within normal limits. Thyroid gland: Unremarkable as visualized. Lymphadenopathy: There is scattered lymph nodes seen along the level one to level three all measurin g less than 8 mm in short axis diameter which are physiologic in nature. Trachea: Within normal limits. Lung apices: Within normal limits. Bones: Within normal limits for the patient's age. Carotids/Jugular: Within normal limits. Soft tissues: Within normal limits. IMPRESSION: 1.3 x 1.1 x 1.2 cm partially calcified mass arising from the roof of the posterior nasopharynx. Diffe rential considerations include benign lesion such as a polyp or malignancy including a nasopharyngeal carcinoma. Biopsy may be considered for further evaluation. RADIATION DOSE DELIVERED: 454.95mGy.cm Total DLP 454.95mGy.cm Total DLP DATA REPOSITORY: All CT scans at this facility are submitted to the National Radiology Data Registry (NRDR) Dose Index Registry (DIR) with the [employer] (ACR). RADIATION OPTIMIZATION: All CT scans at this facility use at least one of these dose optimization te chniques: automated exposure control; mA and/or kV adjustment per patient size (includes targeted exa ms where dose is matched to clinical indication); or iterative reconstruction.
[2021-12-07] MEDS: Omnipaque 350 MG/ML 100 ML BTL IV (09:33)
== END ==
PROVIDERS: PCP Family Medicine; Visit Provider Family Medicine
DX: J39.2 Other diseases of pharynx (principal)
CPT/HCPCS: 70491; J3490

== ENCOUNTER 2021-12-31 03:52 | Outpatient (CLI) | payer MEDICARE, OTHER, SELFPAY ==
[2021-12-31 13:33] LABS: TSH 0.02 uIU/mL (0.36-3.74)
[2021-12-31 21:33] LABS: FREE T4 1.41 ng/dL (0.76-1.46)
[2021-12-31 23:27] LABS: Lab Add On Test DONE
== END 2021-12-31 03:53 | disposition home or self-care (01) ==
LOC: LOS 03:52
PROVIDERS: PCP Family Medicine; Visit Provider Family Medicine
DX: I47.1 Supraventricular tachycardia (principal); E03.9 Hypothyroidism, unspecified
CPT/HCPCS: 36415; 84439; 84443

== ENCOUNTER → 2022-01-08 00:49 | Outpatient (CLI) | payer MEDICARE, OTHER, SELFPAY ==
--- NOTE | 2022-01-08 07:15 | DI.NM_ITS ---
APPROVED REPORT Exam: Exercise Treadmill Patient Location: Out-Patient Room/Bed: Stress Nurse: Nancy Saavedra RN Ordering Provider:DANETTE JASSO, Contact Number: [phone] BMI: 25.24 Baseline Rhythm: Sinus Rhythm Indications: CHEST PAIN/FATIGUE Medical History Medical History: Asthma, HTN, SVT, Palpitations, CELINA, Hypercholesterolemia Cardiac Medications: Rabeprazole, Levothyroxine, Diltiazem, Eliquis, Albuterol Allergies: Zofran, Amitripyline, Methylprednisolone, Metronidazole, Pyrazolones, Tolterdine Cardiac Risk Factors: Hyperlipidemia, HTN, FHX of CAD,, Asthma Previous Cardiac Procedures: None Pretest Chest Pain Characteristics: No chest pain Exercise History: Indeterminate Physical Disabilities: Ankle and knee issues Lung Sounds: Clear to auscultation Heart Sounds: Regular Stress Test Details Test: Exercise stress testing was performed using a modified Rahul protocol. Nuclear Acquisition: Rest Tc-99m/Stress Tc-99m 1 day Rest Isotope: Tc-99m Sestamibi. Dose: 10.0 Date: 01/08/2022 Injection Time: 0915 Stress Isotope: Tc-99m Sestamibi. Dose: 32.0 Date: 01/08/2022 Injection Time: 1045 HR Resting HR Supine: 85 bpm Max Heart Rate (APMHR): 139.740141 bpm Resting HR Standin bpm Target HR (85% APMHR): 118.270862 bpm Max HR Achieved: 130 bpm % of APMHR: 93.53 Recovery HR: 85 bpm HR response to stress: Accelerated HR response to stress BP Resting BP Supine: 118/72 mmHg Resting BP Standin/80 mmHg Max BP: 192/78 mmHg Recovery BP: 142/84 mmHg BP response to stress: Abnormal hypertensive response to stress. ECG Resting ECG: Sinus Rhythm Ectopy: None Stress ECG: Sinus Tachycardia ST Change: No significant ST segment changes noted Arrhythmia: None Recovery ECG: Sinus Rhythm Recovery ST Change: Horizontal/Downsloping ST depression Lead(s): inferolateral leads Recovery ST Deviation: 1-2 mm Recovery Arrhythmia: occasional PACs/PVCs Clinical Reason for Termination: Fatigue Stress Symptoms: Dyspnea, Headache, Dizziness Exercise duration: 02 min29 sec Highest Stage Reached: Stage 0: 1.7 mph at 0% grade. Exercise capacity: 2.3 METs Marte Treadmill Score: 1.5 Rate Pressure Product: [id number] Stress ECG Conclusion 1. Resting electrocardiogram showed poor R wave progression, nondiagnostic ST-T abnormalities 2. Patient exercised on a Rahul protocol completed a workload of 2.3 METS 3. Accelerated heart rate response to exercise. Hypertensive blood pressure response to exercise. P atient achieved 93% of predicted heart rate for age 4. The electrocardiographic portion of the test was consistent with myocardial ischemia with 1.[address] depression noted in the inferior and anterolateral leads 5. See MPI report Marte Treadmill Score is 1.5 which is Moderate risk. Stress Test Summary STAGE Time (mins) Speed (mph) Grade (%) HR BP SpO2 SYMPTOMS METS Supine 85 118/72 Standing 89 144/80 97% 0 3 1.7 0 129 2.3 1 min recovery 115 192/78 97% 3 min recovery 94 178/80 6 min recovery 85 142/84 Dysnea w/ exertion present during stress test. Reports lightheadedness with cessation of exercise, re solved with rest. Headache reported during recovery period. Patient denies presence of chest pain thr oughout testing period. MPI Conclusion Myocardial perfusion without evidence of ischemia or prior infarction EF is 82%. LV is small and hyperdynamic Radiologist Interpretation Radiologist agrees with [facility] [employer]'s Interpretation. Radiologist Interpretation by: Raul Salazar MD Interpretation Date/Time: 01/08/2022 15:46:46
== END ==
PROVIDERS: PCP Family Medicine; Visit Provider Family Medicine
DX: R07.9 Chest pain, unspecified (principal); I10 Essential (primary) hypertension; I25.9 Chronic ischemic heart disease, unspecified; R53.83 Other fatigue; R00.0 Tachycardia, unspecified
CPT/HCPCS: 78452; 93016; 93018; 93017

== ENCOUNTER 2022-01-13 19:49 | Emergency (ER) | payer MEDICARE, OTHER, SELFPAY ==
--- NOTE | 2022-01-13 | DI.CT_ITS ---
Exam(s) CT CHEST/ABD/PEL W CT THORACIC LUMBAR SPINE REC EXAM: CT CHEST/ABD/PEL W CLINICAL HISTORY: Fall with posterior thoracic and lower lumbar pain. TECHNIQUE: Imaging Protocol: Axial computed tomography images with coronal and sagittal reformatted images were created and reviewed CONTRAST MATERIAL: Intravenous: Omnipaque 350 Contrast volume:100 ml Oral: no COMPARISON: CT,NM,TMT NM MPI REST STRESS GRP from 01/08/[address] THORACIC LUMBAR SPINE REC from 01/13/2022 FINDINGS: CHEST: Tracheobronchial tree: Patent where visualized. Mediastinum and Anila: No dominant adenopathy or fluid collection. Pulmonary parenchyma: No consolidation or dominant measurable mass. Pleura: No effusion or pneumothorax. Lymph nodes: Within normal limits. Aorta: Thoracic portion non-dilated. Heart: Bones: Degenerative changes. No evidence of fracture. No lytic or blastic lesions. ABDOMEN: Liver: Normal density. No measurable mass. Gallbladder and biliary tract: Status post cholecystectomy. No radiodense calculus or dilation. Pancreas: Normal density, no abnormal calcifications or inflammatory process. Spleen: Normal. Kidneys: Normal size, contour and axis. No radiodense stones or obstructive uropathy. Small cysts. No suspicious masses seen. Adrenal glands: No masses seen. Aorta: Abdominal portion non-dilated. Atherosclerotic changes. Lymph nodes: Within normal limits. Soft tissues: Unremarkable. PELVIS: Bladder: Symmetric distention, no gross wall thickening. Bowel: Diverticulosis of the descending and sigmoid colon. No evidence of diverticulitis. No obstru ction or bowel wall thickening. No evidence of appendicitis. Peritoneal cavity: No ascites, collection or mesenteric inflammatory response. Bones: Degenerative changes. Chronic appearing declivity the in the superior endplate of L2. Reproductive organs: Status post hysterectomy. IMPRESSION: No acute abnormality in the chest abdomen or pelvis.. RADIATION DOSE DELIVERED: 1,164.76mGy.cm Total DLP DATA REPOSITORY: All CT scans at this facility are submitted to the National Radiology Data Registry (NRDR) Dose Index Registry (DIR) with the [employer] (ACR). RADIATION OPTIMIZATION: All CT scans at this facility use at least one of these dose optimization te chniques: automated exposure control; mA and/or kV adjustment per patient size (includes targeted exa ms where dose is matched to clinical indication); or iterative reconstruction.
[2022-01-13 19:40] VITALS: BP 133/55; PULSE 66; RESP 16; TEMP 36.7; O2SAT 98
[2022-01-13 20:13] VITALS: BP 137/71; PULSE 61; PULSE 62; RESP 20; O2SAT 98
--- NOTE | 2022-01-13 20:15 | DI.CT_ITS ---
Exam(s) CT HEAD WO EXAM: CT HEAD WO CLINICAL HISTORY: Fall patient on blood thinners. TECHNIQUE: Imaging Protocol: Axial computed tomography images with coronal and sagittal reformatted images were created and reviewed COMPARISON: CT CT HEAD WO from 12/05/2021 FINDINGS: Ventricles and Extra axial spaces: Normal in size and morphology for the patient's age. Hemorrhage: None. Cerebral parenchyma: Mild atrophy. Mild white matter changes of small vessel disease. Midline shift: None. Brainstem/Cerebellum: Normal. Calvarium: Normal. Visualized Paranasal sinuses/Mastoids: Clear. There has been no change in the peripherally calcified partially fatty lesion emanating from the roof of the nasopharynx. It has a benign appearance. Soft Tissues: Unremarkable. IMPRESSION: No acute intracranial process. RADIATION DOSE DELIVERED: 1051.33 mGy.cm Total DLP DATA REPOSITORY: All CT scans at this facility are submitted to the National Radiology Data Registry (NRDR) Dose Index Registry (DIR) with the [employer] (ACR). RADIATION OPTIMIZATION: All CT scans at this facility use at least one of these dose optimization te chniques: automated exposure control; mA and/or kV adjustment per patient size (includes targeted exa ms where dose is matched to clinical indication); or iterative reconstruction.
--- NOTE | 2022-01-13 20:15 | DI.CT_ITS ---
Exam(s) CT CERVICAL SPINE WO EXAM: CT CERVICAL SPINE WO CLINICAL HISTORY: Fall. TECHNIQUE: Imaging Protocol: Axial computed tomography images with coronal and sagittal reformatted images were created and reviewed CONTRAST MATERIAL: Noncontrast COMPARISON: CT CT NECK W from 12/07/[address] HEAD WO from 01/13/2022 FINDINGS: Bones: No fracture or dislocations are seen. There are facet degenerative changes and degenerative di sc changes. There is straightening of the normal cervical lordosis which could be secondary to both degenerative changes and patient positioning. Soft Tissues: Unremarkable. IMPRESSION: No acute abnormality. RADIATION DOSE DELIVERED: Total DLP DATA REPOSITORY: All CT scans at this facility are submitted to the National Radiology Data Registry (NRDR) Dose Index Registry (DIR) with the [employer] (ACR). RADIATION OPTIMIZATION: All CT scans at this facility use at least one of these dose optimization te chniques: automated exposure control; mA and/or kV adjustment per patient size (includes targeted exa ms where dose is matched to clinical indication); or iterative reconstruction.
[2022-01-13 20:16] VITALS: BP 112/70; PULSE 58; PULSE 61; RESP 17; O2SAT 98
[2022-01-13 20:44] LABS: Abs Immature Grans 0.04 10^3/uL (0.0-0.06); Absolute Basophil Count 0.09 10^3/uL (0.0-0.2); Absolute Eosinophil Count 0.21 10^3/uL (0.0-0.7); Absolute Lymphocyte Count 2.29 10^3/uL (1.2-3.4); Absolute Neutrophil Count 6.41 10^3/uL (1.2-6.7); Basophils % 0.9; Eosinophils % 2.2; HCT 36.8 % (36.0-46.0); HGB 11.8 g/dL (11.2-15.7); Immature Grans % 0.4; Lymphocytes % 23.5; MCH 28.8 pg (27.0-33.0); MCHC 32.1 % (32.0-36.0); MCV 90 fL (80-95); MPV 12.1 fL (8.0-11.0); Monocytes % 7.2; Neutrophils % 65.8; Platelet Count 312 10^3/uL (130-400); RDW 14.5 % (11.7-14.6); RDW-SD 47.1 fL; WBC 9.74 10^3/uL (4.4-10.8)
[2022-01-13 21:01] LABS: Bilirubin Negative (Negative); Blood Negative (Negative); Clarity Clear (Clear); Glucose Negative (Negative); Ketones Negative (Negative); Leukocyte Esterase Trace (Negative); Nitrite Negative (Negative); Urobilinogen 0.2 EU/dL (Up TO 0.2)
[2022-01-13 21:02] LABS: ALT 20 U/L (14-59); AST 13 U/L (15-37); Albumin 3.2 g/dL (3.4-5.0); Alkaline Phosphatase 74 U/L (46-116); Anion Gap 9.8 mmol/L (3-11); BUN 16 mg/dL (7-18); Bilirubin, Total 0.2 mg/dL (0.2-1.0); CO2 28.2 mmol/L (21.0-32.0); CREATININE 0.8 mg/dL (0.55-1.02); Chloride 105 mmol/L (98-107); Estimated GFR 73.98 (mL/min/1.73m2); Glucose 201 mg/dL (74-106); Magnesium 1.5 mg/dL (1.8-2.4); Potassium 3.1 mmol/L (3.5-5.1); Sodium 143 mmol/L (136-145)
[2022-01-13 21:04] LABS: Bacteria Few HPF (Negative); Casts Negative LPF (Negative); Crystals Negative HPF (Negative); Epithelial Cells Few HPF (Negative); Mucus Negative (Negative); RBC Negative HPF (0-2)
[2022-01-13] MEDS: Normal Saline Flush 10 ML SYR IVP (21:04)
[2022-01-13] MEDS: Omnipaque 350 MG/ML 100 ML BTL IJ (21:04)
[2022-01-13 21:05] LABS: C & S Indicated? Yes
--- NOTE | 2022-01-13 21:19 | W.ED.GENAD ---
Discharge Plan Disposition Patient Disposition: HOME Condition: Stable Discharge Details Clinical Impression: Fall as cause of accidental injury at home as place of occurrence, Contusion of multiple sites, Back pain due to injury Primary Care Provider: Matheus Santana ED Provider: Julian Foster Home Meds and New Rx's Prescriptions: No Action CPAP miscellaneous acetaminophen [Tylenol Extra Strength] 500 mg tablet 1,000 mg PO TID multivitamin Capsule 1 cap PO DAILY magnesium 200 mg tablet 400 mg PO TID Rx Instructions: take 400mg every 12 hours x 7 days elderberry fruit and flower 460-115 mg capsule PO lorazepam 0.5 mg tablet 0.5 mg PO Q6H PRN (Reason: anxiety) Qty: 30 0RF ondansetron HCl [Zofran] 4 mg tablet 4 mg PO BID PRN (Reason: nausea and vomiting post op) Qty: 30 0RF estradiol [Estrace] 0.01 % (0.1 mg/gram) cream 4 g Topical .every other week diltiazem HCl 120 mg capsule,extended release 12 hr 120 mg PO Q12H Qty: 180 3RF escitalopram oxalate 10 mg tablet 10 mg PO DAILY Qty: 90 5RF rabeprazole [AcipHex] 20 mg tablet,delayed release (DR/EC) 20 mg PO BID Qty: 180 3RF cholestyramine (with sugar) 4 gram powder 4 g PO DAILY PRN (Reason: hyperlipidemia) Qty: 378 3RF Rx Instructions: administer w/meal; avoid other meds within 1hr before or 4-6hr after dose nystatin 100,000 unit/gram powder 1 applic Topical BID PRN (Reason: fungal rash) Qty: 180 3RF Rx Instructions: 1-3 GM BID buspirone 10 mg tablet 5 mg PO BID Qty: 90 3RF fluticasone propionate [Flovent HFA] 110 mcg/actuation HFA aerosol inhaler 1 puff Inhalation BID Qty: 12 5RF levothyroxine 100 mcg tablet 50 - 100 mcg PO DAILY Qty: 90 3RF Rx Instructions: take 1/2 tab on Sundays01/01/22 MS (DME) nebulizer and compressor [PulmoNeb LT Compressor Nebul] 1 EACH device 1 ea Miscellaneous PRN Eliquis 2.5 mg tablet 2.5 mg PO BID garlic 1,000 mg Capsule 1,000 mg PO DAILY cholecalciferol (vitamin D3) [Vitamin D3] 50 mcg (2,000 unit) capsule 5,000 unit PO DAILY albuterol sulfate 90 mcg/actuation aerosol powdr breath activated 2 inh IH Q4H PRN (Reason: shortness of breath or wheezing) Qty: 1 0RF Discharge Instructions Instructions: Contusion in Adults (ED), Back Pain (ED) Additional Instructions: Please return to the emergency department immediately if you develop any new or significant worsening of symptoms such as headache, confusion, extreme sleepiness. If you also have any severe worsening of your back pain or have other neurological findings also return the emergency department. Otherwise continue to use acetaminophen as needed for pain and follow-up with your primary care provider for reassessment if not improving over the next week. Referrals: Matheus Santana MD [Primary Care Provider] - (As needed for reassessment) Discharge Data Discharge Date/Time-TO BE ENTERED AT DEPARTURE: 01/13/22 22:36 Medical Decision Making Patient presenting to the emergency department for chief complaint of fall. Patient presenting via EMS. Patient states mechanical fall in her yard approximately an hour and half prior to arrival. She states that she tripped over the dog leash causing her to land on her walker that struck her significantly in the chest and back. Patient denies any loss of consciousness and states mostly back and posterior chest wall pain. Physical exam shows tenderness to the right lateral ribs approximately 4 through 7, diffuse lumbar tenderness without focal findings. Patient is neurologically intact and moving all extremities. Patient is on a blood thinner and given fall while on thinners and having chest wall and lumbar pain we will plan on performing CT imaging which patient is agreeable to. Will give IV acetaminophen pending results. Review of CBC is unremarkable, potassium slightly low at 3.1 magnesium 1.5 with glucose of 201 AST low at 13 and albumin 32. Urine is unremarkable and no significant blood is noted. Review of CTA and radiologist interpretation is unremarkable for any acute findings. Reassessed patient and she states improvement of pain and discomfort along with symptoms. Will discharge patient with close return and follow-up precautions. Did discuss with patient either consideration of [facility] or ensuring that she always has her cell phone on her in case she has another unwitnessed fall and needs assistance. Patient does state that she feels comfortable being discharged home and does have support within the house. After discussion of diagnosis and plan of care patient has no further needs, questions, or concerns and states clear understanding to return to the emergency department for any worsening symptoms. This documentation was generated using [employer] dictation system, please disregard any oddities of phrase or misspellings. Imaging Data Radiologic Study: Imaging: CT Scan Radiologist's impression: CT C Spine FINDINGS: Bones/joints: No acute fracture. Loss of cervical lordosis is presumably on a degenerative basis. No significant disc protrusion. No severe spinal canal stenosis. Lungs: Lung apices are grossly clear Soft tissues: Unremarkable. IMPRESSION: No acute cervical fracture CT T spine FINDINGS: Bones/joints: No acute fracture. Alignment is grossly maintained. No significant \severe spinal canal stenosis. Soft tissues: Unremarkable. IMPRESSION: No acute thoracic fracture CT L spine FINDINGS: Bones/joints: No acute fracture. Normal alignment. No significant severe spinal canal stenosis. Multilevel foraminal stenosis Soft tissues: Unremarkable. IMPRESSION: No acute lumbar fracture CT head FINDINGS: Brain: Mild volume loss No hemorrhage. Mild white matter disease. No mass effect. Cerebral ventricles: No ventriculomegaly. Paranasal sinuses: Visualized sinuses are unremarkable. No fluid levels. Mastoid air cells: Visualized mastoid air cells are well aerated. Bones/joints: Unremarkable. No acute fracture. Soft tissues: Unremarkable. IMPRESSION: No acute intracranial abnormality. CT chest FINDINGS: Lungs: Unremarkable. No consolidation. No masses. Pleural spaces: Unremarkable. No pneumothorax. No pleural effusion. Heart: Mild cardiomegaly. No pericardial effusion. Lymph nodes: Unremarkable. No enlarged lymph nodes. Vasculature: Unremarkable. No aortic aneurysm. Bones/joints: Unremarkable. No acute fracture. Soft tissues: Unremarkable. IMPRESSION: No acute findings. No CT evidence for acute traumatic injury to the chest CT abd FINDINGS: Liver: Hepatomegaly and diffuse fatty infiltration. No mass. Gallbladder and bile ducts: Prior cholecystectomy. No ductal dilation. Pancreas: Normal. No ductal dilation. Spleen: Normal. No splenomegaly. Adrenal glands: Normal. No mass. Kidneys and ureters: Renal cysts noted No hydronephrosis. Stomach and bowel: Colonic diverticulosis. No obstruction. No mucosal thickening. Appendix: No evidence of appendicitis. Intraperitoneal space: Unremarkable. No free air. No significant fluid collection. Vasculature: Unremarkable. No abdominal aortic aneurysm. Lymph nodes: Unremarkable. No enlarged lymph nodes. Urinary bladder: Unremarkable as visualized. Reproductive: Prior hysterectomy Bones/joints: Degenerative changes in the spine. No acute fracture. Soft tissues: Unremarkable. IMPRESSION: No acute findings. HPI General Mode of arrival: EMS. Date/Time Provider Initiated Documentation: 01/13/22 19:57. Limitations to Documentation: no limitations. Information obtained by: patient, family and RN notes reviewed. History of Present Illness 81 year old F presents to the emergency department with the chief complaint of fall with back pain and SOB, described as moderate and severe, with intensity rated at 9. Quality is described as sharp, and is localized to the chest and back. Patient started experiencing this hour(s) (2) and it has been constant. No relieving factors improve symptom(s), Movement worsens symptoms . Patient did receive the following treatments prior to arrival, none Related Data Home Medications Medication Instructions Recorded Confirmed nebulizer and compressor (PulmoNeb 02/07/16 12/30/21 LT Compressor Nebul) garlic 1,000 mg capsule 1,000 mg PO DAILY 03/11/18 01/13/22 acetaminophen 500 mg tablet 1,000 mg PO TID 07/01/18 01/13/22 (Tylenol Extra Strength) albuterol sulfate 90 mcg/actuation 2 inh inhalation Q4H PRN shortness 03/07/19 01/13/22 breath activated powder inhaler of breath or wheezing #1 ea cholecalciferol (vitamin D3) 50 5,000 unit PO DAILY 05/17/19 01/13/22 mcg (2,000 unit) capsule (Vitamin D3) CPAP miscellaneous 07/23/19 12/30/21 multivitamin 1 cap PO DAILY 11/09/19 01/13/22 apixaban 2.5 mg tablet (Eliquis) 2.5 mg PO BID 04/21/20 01/13/22 elderberry fruit 460 mg-elderberry cap PO 11/21/20 12/30/21 flower 115 mg capsule magnesium 200 mg tablet 400 mg PO TID 11/21/20 01/13/22 ondansetron HCl 4 mg tablet 4 mg PO BID PRN nausea and 12/25/20 01/13/22 (Zofran) vomiting post op #30 tabs diltiazem HCl 120 mg 120 mg PO Q12H #180 caps 12/29/20 01/13/22 capsule,extended release 12 hr escitalopram oxalate 10 mg tablet 10 mg PO DAILY #90 tabs 12/29/20 01/13/22 rabeprazole 20 mg tablet,delayed 20 mg PO BID #180 tabs 01/17/21 01/13/22 release (AcipHex) cholestyramine (with sugar) 4 gram 4 g PO DAILY PRN hyperlipidemia 01/23/21 01/13/22 oral powder #378 grams lorazepam 0.5 mg tablet 0.5 mg PO Q6H PRN anxiety #30 02/20/21 01/13/22 tab-caps nystatin 100,000 unit/gram topical 1 applic topical BID PRN fungal 03/08/21 01/13/22 powder rash #180 grams estradiol 0.01% (0.1 mg/gram) 4 g topical .every other week 04/18/21 01/13/22 vaginal cream (Estrace) buspirone 10 mg tablet 5 mg PO BID #90 tabs 08/27/21 01/13/22 fluticasone propionate 110 1 puff inhalation BID #12 grams 12/24/21 01/13/22 mcg/actuation HFA aerosol inhaler (Flovent HFA) levothyroxine 100 mcg tablet 50 - 100 mcg PO DAILY #90 tabs 01/01/22 01/13/22 Previous Rx's Medication Instructions Recorded albuterol sulfate 90 mcg/actuation 2 inh inhalation Q4H PRN shortness 03/07/19 breath activated powder inhaler of breath or wheezing #1 ea ondansetron HCl 4 mg tablet 4 mg PO BID PRN nausea and 12/25/20 (Zofran) vomiting post op #30 tabs diltiazem HCl 120 mg 120 mg PO Q12H #180 caps 12/29/20 capsule,extended release 12 hr escitalopram oxalate 10 mg tablet 10 mg PO DAILY #90 tabs 12/29/20 rabeprazole 20 mg tablet,delayed 20 mg PO BID #180 tabs 01/17/21 release (AcipHex) cholestyramine (with sugar) 4 gram 4 g PO DAILY PRN hyperlipidemia 01/23/21 oral powder #378 grams lorazepam 0.5 mg tablet 0.5 mg PO Q6H PRN anxiety #30 02/20/21 tab-caps nystatin 100,000 unit/gram topical 1 applic topical BID PRN fungal 03/08/21 powder rash #180 grams buspirone 10 mg tablet 5 mg PO BID #90 tabs 08/27/21 fluticasone propionate 110 1 puff inhalation BID #12 grams 12/24/21 mcg/actuation HFA aerosol inhaler (Flovent HFA) levothyroxine 100 mcg tablet 50 - 100 mcg PO DAILY #90 tabs 01/01/22 Allergies Allergy/AdvReac Type Severity Reaction Status Date / Time hylan G-F 20 Allergy SWELLING Verified 01/13/22 19:46 AND PAIN metronidazole [From Flagyl] Allergy Skin Rash Verified 01/13/22 19:46 Pyrazolones [Pyrazoles] Allergy Verified 01/13/22 19:46 tolterodine Allergy DIFFICULTY Verified 01/13/22 19:46 BREATHING methylprednisolone AdvReac Intermediate weakness Verified 01/13/22 19:46 and unable mood. hydromorphone AdvReac Mild Nausea Verified 01/13/22 19:46 amitriptyline AdvReac NAUSEA Verified 01/13/22 19:46 aspartame AdvReac HEART Verified 01/13/22 19:46 RACING ondansetron HCl [From Zofran] AdvReac HALLUCINATI Verified 01/13/22 19:46 ON General Stated Complaint: GenMedical MANDY: 4 Review of Systems Constitutional Constitutional: Denies frequent falls, Denies headache(s) and Reports weakness (genral non focal) Eyes Eyes: Denies change in vision ENT Ears, Nose, Mouth, and Throat: Denies facial pain, Denies headache(s) and Denies neck pain Cardiovascular Cardiovascular: Reports chest pain, Denies syncope, Denies lightheadedness and Reports dyspnea Respiratory Respiratory: Denies cough, Reports pain on inspiration and Reports dyspnea Gastrointestinal Gastrointestinal: Denies abdominal pain, Denies nausea and Denies vomiting Musculoskeletal Musculoskeletal: Reports as per HPI, Reports back pain, Denies neck pain, Denies numbness and Denies tingling Integumentary/Breasts Skin/Breast: Denies unusual bruising and Denies wounds Neurologic Neurologic: Denies confusion, Denies syncope, Denies frequent falls, Denies headache(s), Denies numbness, Denies tingling and Reports weakness (genral non focal) Psychiatric Psychiatric: Denies confusion PFSH All Active Problems (Updated 01/13/22 @ 22:10 by Julian Foster NP) Fall as cause of accidental injury at home as place of occurrence (Acute) Contusion of multiple sites (Acute) Back pain due to injury (Acute) Chest pain (Acute) Nasopharyngeal mass (Acute) Leg swelling (Acute) Headache (Acute) Essential hypertension (Acute) Foot pain, right (Acute) Acute knee pain (Acute) Palpitations (Acute) 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 controlled w/ cholestyramine Pain in female pelvis (Acute 01/04/14) Lung mass (Acute 06/03/14) Hypomagnesemia (Acute 05/27/17) History of surgical procedure (Acute) History of arthroscopy of knee (Acute) Gastroenteritis (Acute 05/15/17) Full thickness rotator cuff tear (Acute) Fatigue (Acute 08/22/16) Fatigue (Acute 06/16/12) Epistaxis (Acute 11/14/14) Elevated liver function tests (Acute 05/14/14) Decreased thyroid stimulating hormone (TSH) level (Acute 11/07/14) Atypical facial pain (Acute 01/07/12) Adhesive capsulitis of shoulder (Acute) Right shoulder strain (Acute) RUQ abdominal pain (Acute) DVT prophylaxis (Acute) Cough (Acute) Osteoarthritis of both knees (Acute) Polyarthralgia (Acute) Bleeding hemorrhoids (Acute) Supraventricular tachycardia (Chronic) History of pulmonary embolism (Acute) DJD (degenerative joint disease) (Chronic) Chronic bilateral low back pain (Acute) Hypothyroidism (Chronic) Acute left ankle pain (Acute) Acromioclavicular joint arthritis (Acute) Diverticula of colon (Acute) Chronic diarrhea (Acute) Ulcer of rectum (Acute) Incomplete rectal prolapse (Acute) Internal hemorrhoid, bleeding (Acute) Bleeding hemorrhoids (Acute) Multiple gastric polyps (Chronic) Epigastric pain (Chronic) Status post cataract extraction and insertion of intraocular lens of right eye (Chronic 03/27/18) Epiretinal membrane (ERM) of right eye (Chronic) 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 stricture, no HH Essential hypertension (Chronic 02/19/13) Elevated fasting glucose (Chronic 06/27/14) Diverticulosis of colon without diverticulitis (Chronic) Depressive disorder (Chronic) refuses medication Asthma (Chronic) Arthritis (Chronic) both ankles S/P fracture S/P surgery Anxiety (Chronic) Allergic eosinophilia (Chronic) 09/23/11 COLONOSCOPY BIOPSY SHOWS FOCAL EOSINOPHILIC CRYPTITS Adrenal mass, right (Chronic 12/11/16) seen on CT Ab 12/26 - STABLE. Will repeat Primary osteoarthritis of both knees (Chronic) MARILYN (generalized anxiety disorder) (Chronic) Patient with palpitations with negative Zio patch. She complained of symptoms during normal sinus rhythm on 40 occasions. With anxiety. Intolerant to buspirone. Will start recheck in 2 weeks. Medical History Acromioclavicular joint arthritis Adrenal mass, right (12/11/16) seen on CT Ab 12/26 - STABLE. Will repeat Allergic eosinophilia 09/23/11 COLONOSCOPY BIOPSY SHOWS FOCAL EOSINOPHILIC CRYPTITS Anxiety Arthritis both ankles S/P fracture S/P surgery Asthma Bile salt-induced diarrhea Controlled with cholestyramine Bleeding hemorrhoids Chronic diarrhea Cortical cataract of left eye Cortical cataract of right eye Depressive disorder refuses medication Diverticulosis of colon without diverticulitis Elevated fasting glucose (06/27/14) Epiretinal membrane (ERM) of right eye Essential hypertension (02/19/13) MARILYN (generalized anxiety disorder) Patient with palpitations with negative Zio patch. She complained of symptoms during normal sinus rhythm on 40 occasions. With anxiety. Intolerant to buspirone. Will start recheck in 2 weeks. Gastroesophageal reflux disease H/o H pylori, neg 07EGD Mitz 07UGI ? 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 MAGALYS [place] SHOULDER 01/25 Status post arthroscopic knee surgery 1) RIGHT KNEE; DR. LOPEZ 2) LEFT KNEE; DR. DUNCAN STOMACH STITCH (~08/2014) Thyroid (~09/2014) Family History Mother , OLD AGE at age 95. Stroke Father , GI BLEED at age 85. Diabetes GI bleed Heart disease Sister Diabetes Essential hypertension Neoplasm BREAST Brother Macular degeneration 1 EYE Grandfather Heart disease Neoplasm Grandfather No problems noted. Grandmother Heart disease Grandmother Neoplasm Son Neoplasm BRAIN Son No problems noted. Daughter Neoplasm BREAST Daughter No problems noted. Child No problems noted. Social History Smoking/Tobacco Use Status: Never Smoking risk assessment performed?: Yes Alcohol Intake: never Drug use: Never Substance use type: does not use Pets and animals: Yes Pets and animals: cat(s) and dog(s) Current gender identity: female What type of physical activity do you participate in: walking and additional Details: walks the block with her dog. Li/Christianity: Jehovah'S Witness Special li needs: No Do you feel safe at home: Yes Do you feel safe in your relationship?: Yes Additional Social history: lives alone Exam Const General: cooperative, no acute distress and not ill appearing Nutritional Appearance: overweight Orientation: alert, awake and oriented x3 HENMT Head: normocephalic and atraumatic Eyes General: appearance normal, both eyes and all related structures Chest Chest: localized rib tenderness with anteroposterior compression right mid-axillary line involving the 4th rib, involving the 5th rib, involving the 6th rib and involving the 7th rib Resp Effort & Inspection: normal respiratory effort, able to speak in complete sentences and no respiratory distress Auscultation: clear to auscultation bilaterally Cardio Rate: regular rate Rhythm: regular rhythm Heart Sounds: S1 normal and S2 normal GI Palpation: soft, not firm, no guarding and nontender Auscultation: normal bowel sounds Back/Spine/Pelvis Thoracic/Lumbar Spine: paraspinal tenderness and lumbar spinal tenderness Pelvis: no pain with anterior-posterior compression and no pain with lateral compression Skin General skin exam: no rashes or lesions noted Trauma: no lacerations or abrasions Neuro General: patient alert, patient awake, patient oriented x3, moves all extremities and no focal motor deficits Sensory Exam: no sensory deficits noted Extrem General: normal to inspection and capillary refill normal Course Vital Signs Vital signs: Vital Signs Temperature 36.7 C 01/13/22 19:40 Pulse 66 01/13/22 19:40 Respiratory Rate 16 01/13/22 19:40 Blood Pressure 133/55 L 01/13/22 19:40 Pulse Oximetry 98 01/13/22 19:40 Temperature 36.7 C 01/13/22 19:40 Temperature Source Temporal Artery Scan 01/13/22 19:40 Pulse 66 01/13/22 19:40 Respiratory Rate 16 01/13/22 19:40 Respiratory Effort 01/13/22 19:40 Blood Pressure 133/55 L 01/13/22 19:40 Blood Pressure Position Supine 01/13/22 19:40 Pulse Oximetry 98 01/13/22 19:40 Oxygen Delivery Method Room Air 01/13/22 19:40 Oxygen Flow Rate 0 01/13/22 19:40 Pain Level 5 01/13/22 19:40 Lab/Test Results Lab/Test Results: 01/13/22 20:43 Urine - Reflex from Ua Urine Culture - Pending Laboratory Tests Range/Units 01/13/22 01/13/22 01/13/22 19:46 19:46 20:43 WBC (4.4-10.8) 10^3/uL 9.74 RBC (3.93-5.22) 10^6/uL 4.10 Hgb (11.2-15.7) g/dL 11.8 Hct (36.0-46.0) % 36.8 MCV (80-95) fL 90 MCH (27.0-33.0) pg 28.8 MCHC (32.0-36.0) % 32.1 RDW (11.7-14.6) % 14.5 Plt Count (130-400) 10^3/uL 312 MPV (8.0-11.0) fL 12.1 H Immature Gran % 0.4 Neutrophils % 65.8 Lymphocytes % 23.5 Monocytes % 7.2 Eosinophils % 2.2 Basophils % 0.9 Nucleated RBC % (0.0-0.3) % 0.0 Absolute Neutrophils (1.2-6.7) 10^3/uL 6.41 Absolute Lymphocytes (1.2-3.4) 10^3/uL 2.29 Absolute Monocytes (0.1-0.8) 10^3/uL 0.70 Absolute Eosinophils (0.0-0.7) 10^3/uL 0.21 Absolute Basophils (0.0-0.2) 10^3/uL 0.09 Sodium (136-145) mmol/L 143 Potassium (3.5-5.1) mmol/L 3.1 L Chloride (98-107) mmol/L 105 Carbon Dioxide (21.0-32.0) mmol/L 28.2 Anion Gap (3-11) mmol/L 9.8 BUN (7-18) mg/dL 16 Creatinine (0.55-1.02) mg/dL 0.8 Est GFR (CKD-EPI 2020) (mL/min/1.73m2) 73.98 Glucose (74-106) mg/dL 201 H Calcium (8.5-10.1) mg/dL 9.0 Magnesium (1.8-2.4) mg/dL 1.5 L Total Bilirubin (0.2-1.0) mg/dL 0.2 AST (15-37) U/L 13 L ALT (14-59) U/L 20 Alkaline Phosphatase (46-116) U/L 74 Total Protein (6.4-8.2) g/dL 7.0 Albumin (3.4-5.0) g/dL 3.2 L Urine Color (Yellow) Yellow Urine Clarity (Clear) Clear Urine pH (5-8) 6.0 Ur Specific Keyser (1.005-1.025) 1.020 Urine Protein (Negative) mg/dL Negative Urine Ketones (Negative) mg/dL Negative Urine Blood (Negative) Negative Urine Nitrite (Negative) Negative Urine Bilirubin (Negative) Negative Urine Urobilinogen (Up TO 0.2) EU/dL 0.2 Ur Leukocyte Esterase (Negative) Trace H Urine RBC (0-2) HPF Negative Urine WBC (0-5) HPF 5-10 Ur Epithelial Cells (Negative) HPF Few Urine Crystals (Negative) HPF Negative Urine Bacteria (Negative) HPF Few Urine Casts (Negative) LPF Negative Urine Mucus (Negative) Negative Ur Culture Indicated? Yes Urine Glucose (Negative) mg/dL Negative
--- NOTE | 2022-01-13 21:22 | DI.VRAD_ITS ---
PROCEDURE INFORMATION: Exam: CT Cervical Spine Without Contrast Exam date and time: 01/13/2022 8:49 PM Age: 81 years old Clinical indication: Injury or trauma; Fall; Concussion/head injury; Injury date: 01/13/22 TECHNIQUE: Imaging protocol: Computed tomography of the cervical spine without contrast. Radiation optimization: All CT scans at this facility use at least one of these dose optimization techniques: automated exposure control; mA and/or kV adjustment per patient size (includes targeted exams where dose is matched to clinical indication); or iterative reconstruction. COMPARISON: CT NECK W 12/07/2021 9:25 AM FINDINGS: Bones/joints: No acute fracture. Loss of cervical lordosis is presumably on a degenerative basis. No significant disc protrusion. No severe spinal canal stenosis. Lungs: Lung apices are grossly clear Soft tissues: Unremarkable. IMPRESSION: No acute cervical fracture Dictated and Authenticated by: Jr Pulido MD. Ordering:JACKLYN Jordan MD
--- NOTE | 2022-01-13 21:22 | DI.VRAD_ITS ---
PROCEDURE INFORMATION: Exam: CT Head Without Contrast Exam date and time: 01/13/2022 8:49 PM Age: 81 years old Clinical indication: Injury or trauma; Fall; Concussion/head injury; Consciousness not specified; Injury date: 01/13/22 TECHNIQUE: Imaging protocol: Computed tomography of the head without contrast. Radiation optimization: All CT scans at this facility use at least one of these dose optimization techniques: automated exposure control; mA and/or kV adjustment per patient size (includes targeted exams where dose is matched to clinical indication); or iterative reconstruction. COMPARISON: CT HEAD WO 12/05/2021 10:46 AM FINDINGS: Brain: Mild volume loss No hemorrhage. Mild white matter disease. No mass effect. Cerebral ventricles: No ventriculomegaly. Paranasal sinuses: Visualized sinuses are unremarkable. No fluid levels. Mastoid air cells: Visualized mastoid air cells are well aerated. Bones/joints: Unremarkable. No acute fracture. Soft tissues: Unremarkable. IMPRESSION: No acute intracranial abnormality. Dictated and Authenticated by: Jr Pulido MD. Ordering:JACKLYN Jordan MD
[2022-01-13] MEDS: Magnesium Oxide 400 MG TAB PO (21:24)
[2022-01-13] MEDS: Normal Saline 500 ML IV (21:26)
--- NOTE | 2022-01-13 21:31 | DI.VRAD_ITS ---
PROCEDURE INFORMATION: Exam: CT Chest With Contrast; Diagnostic Exam date and time: 01/13/2022 8:59 PM Age: 81 years old Clinical indication: Injury or trauma; Fall; Generalized; Blunt trauma (contusions or hematomas); Injury date: 01/13/22 TECHNIQUE: Imaging protocol: Diagnostic computed tomography of the chest with contrast. 3D rendering (Not supervised by radiologist): MIP and/or 3D reconstructed images were created by the technologist. Radiation optimization: All CT scans at this facility use at least one of these dose optimization techniques: automated exposure control; mA and/or kV adjustment per patient size (includes targeted exams where dose is matched to clinical indication); or iterative reconstruction. Contrast material: OMNI 350; Contrast volume: 100 ml; Contrast route: INTRAVENOUS (IV); COMPARISON: CT CHEST PE CTA 04/28/2019 7:05 PM FINDINGS: Lungs: Unremarkable. No consolidation. No masses. Pleural spaces: Unremarkable. No pneumothorax. No pleural effusion. Heart: Mild cardiomegaly. No pericardial effusion. Lymph nodes: Unremarkable. No enlarged lymph nodes. Vasculature: Unremarkable. No aortic aneurysm. Bones/joints: Unremarkable. No acute fracture. Soft tissues: Unremarkable. IMPRESSION: No acute findings. No CT evidence for acute traumatic injury to the chest PROCEDURE INFORMATION: Exam: CT Abdomen And Pelvis With Contrast Exam date and time: 01/13/2022 8:59 PM Age: 81 years old Clinical indication: Injury or trauma; Fall; Generalized; Blunt trauma (contusions or hematomas); Injury date: 01/13/22 TECHNIQUE: Imaging protocol: Computed tomography of the abdomen and pelvis with contrast. 3D rendering (Not supervised by radiologist): MIP and/or 3D reconstructed images were created by the technologist. Radiation optimization: All CT scans at this facility use at least one of these dose optimization techniques: automated exposure control; mA and/or kV adjustment per patient size (includes targeted exams where dose is matched to clinical indication); or iterative reconstruction. Contrast material: OMNI 350; Contrast volume: 100 ml; Contrast route: INTRAVENOUS (IV); COMPARISON: CT ABDOMEN PELVIS W 04/21/2020 2:21 AM FINDINGS: Liver: Hepatomegaly and diffuse fatty infiltration. No mass. Gallbladder and bile ducts: Prior cholecystectomy. No ductal dilation. Pancreas: Normal. No ductal dilation. Spleen: Normal. No splenomegaly. Adrenal glands: Normal. No mass. Kidneys and ureters: Renal cysts noted No hydronephrosis. Stomach and bowel: Colonic diverticulosis. No obstruction. No mucosal thickening. Appendix: No evidence of appendicitis. Intraperitoneal space: Unremarkable. No free air. No significant fluid collection. Vasculature: Unremarkable. No abdominal aortic aneurysm. Lymph nodes: Unremarkable. No enlarged lymph nodes. Urinary bladder: Unremarkable as visualized. Reproductive: Prior hysterectomy Bones/joints: Degenerative changes in the spine. No acute fracture. Soft tissues: Unremarkable. IMPRESSION: No acute findings. Dictated and Authenticated by: Jr Pulido MD. Ordering:JACKLYN Jordan MD
[2022-01-13 21:40] VITALS: PULSE 61; RESP 13; O2SAT 97
[2022-01-13 22:20] VITALS: BP 125/59; PULSE 55; RESP 16; TEMP 36.7; O2SAT 96
[2022-01-13 22:21] VITALS: BP 125/59; PULSE 55; O2SAT 96
--- NOTE | 2022-01-13 22:25 | DI.VRAD_ITS ---
PROCEDURE INFORMATION: Exam: CT Thoracic Spine Without Contrast Exam date and time: 01/13/2022 8:59 PM Age: 81 years old Clinical indication: Injury or trauma; Fall; Blunt trauma (contusions or hematomas); Injury date: 01/13/22; Prior surgery; Surgery date: 6+ months; Surgery type: Lumbar surgery TECHNIQUE: Imaging protocol: Computed tomography of the thoracic spine without contrast. Radiation optimization: All CT scans at this facility use at least one of these dose optimization techniques: automated exposure control; mA and/or kV adjustment per patient size (includes targeted exams where dose is matched to clinical indication); or iterative reconstruction. COMPARISON: CT CERVICAL SPINE WO 01/13/2022 8:49 PM FINDINGS: Bones/joints: No acute fracture. Alignment is grossly maintained. No significant \severe spinal canal stenosis. Soft tissues: Unremarkable. IMPRESSION: No acute thoracic fracture PROCEDURE INFORMATION: Exam: CT Lumbar Spine Without Contrast Exam date and time: 01/13/2022 8:59 PM Age: 81 years old Clinical indication: Injury or trauma; Fall; Blunt trauma (contusions or hematomas); Injury date: 01/13/22; Prior surgery; Surgery date: 6+ months; Surgery type: Lumbar surgery TECHNIQUE: Imaging protocol: Computed tomography of the lumbar spine without contrast. Radiation optimization: All CT scans at this facility use at least one of these dose optimization techniques: automated exposure control; mA and/or kV adjustment per patient size (includes targeted exams where dose is matched to clinical indication); or iterative reconstruction. COMPARISON: CT ABDOMEN PELVIS W 04/21/2020 2:21 AM FINDINGS: Bones/joints: No acute fracture. Normal alignment. No significant severe spinal canal stenosis. Multilevel foraminal stenosis Soft tissues: Unremarkable. IMPRESSION: No acute lumbar fracture Dictated and Authenticated by: Jr Pulido MD. Ordering:JACKLYN Jordan MD
[2022-01-14 01:29] VITALS: RESP 16
== END 2022-01-13 22:36 | disposition home or self-care (01) ==
PROVIDERS: Emergency Provider Nurse Practitioner Family; PCP Family Medicine
DX: T14.8XXA Other injury of unspecified body region, initial encounter (principal); G89.11 Acute pain due to trauma; M54.50 Low back pain, unspecified; M54.6 Pain in thoracic spine; R07.81 Pleurodynia; W01.0XXA Fall on same level from slipping, tripping and stumbling without subsequent striking against object, initial encounter; Y92.007 Garden or yard of unspecified non-institutional (private) residence as the place of occurrence of the external cause; I10 Essential (primary) hypertension; E87.6 Hypokalemia; R82.79 Other abnormal findings on microbiological examination of urine
CPT/HCPCS: 36415; 74177; 80053; 99285; 70450; 71260; 72125; 81003; 81015; 83735; 85025; 87086; 99284; J3490

== ENCOUNTER 2022-01-26 09:08 | Emergency (ER) | payer MEDICARE, OTHER, SELFPAY ==
[2022-01-26 09:17] VITALS: BP 132/66; PULSE 72; RESP 18; TEMP 36.6; O2SAT 98
--- NOTE | 2022-01-26 09:43 | ED.GENADUL_ITS ---
Discharge Plan Disposition Patient Disposition: HOME Condition: Stable Discharge Details Clinical Impression: Back pain Primary Care Provider: Matheus Santana ED Provider: Mark Macdonald Home Meds and New Rx's Prescriptions: Continued CPAP miscellaneous acetaminophen [Tylenol Extra Strength] 500 mg tablet 1,000 mg PO TID multivitamin Capsule 1 cap PO DAILY magnesium 200 mg tablet 400 mg PO TID Rx Instructions: take 400mg every 12 hours x 7 days elderberry fruit and flower 460-115 mg capsule PO lorazepam 0.5 mg tablet 0.5 mg PO Q6H PRN (Reason: anxiety) Qty: 30 0RF ondansetron HCl [Zofran] 4 mg tablet 4 mg PO BID PRN (Reason: nausea and vomiting post op) Qty: 30 0RF estradiol [Estrace] 0.01 % (0.1 mg/gram) cream 4 g Topical .every other week rabeprazole [AcipHex] 20 mg tablet,delayed release (DR/EC) 20 mg PO BID Qty: 180 3RF cholestyramine (with sugar) 4 gram powder 4 g PO DAILY PRN (Reason: hyperlipidemia) Qty: 378 3RF Rx Instructions: administer w/meal; avoid other meds within 1hr before or 4-6hr after dose nystatin 100,000 unit/gram powder 1 applic Topical BID PRN (Reason: fungal rash) Qty: 180 3RF Rx Instructions: 1-3 GM BID buspirone 10 mg tablet 5 mg PO BID Qty: 90 3RF fluticasone propionate [Flovent HFA] 110 mcg/actuation HFA aerosol inhaler 1 puff Inhalation BID Qty: 12 5RF levothyroxine 100 mcg tablet 50 - 100 mcg PO DAILY Qty: 90 3RF Rx Instructions: take 1/2 tab on Sundays01/01/22 MS diltiazem HCl 120 mg capsule,extended release 12 hr 120 mg PO Q12H Qty: 180 3RF escitalopram oxalate 10 mg tablet 10 mg PO DAILY Qty: 90 3RF (DME) nebulizer and compressor [PulmoNeb LT Compressor Nebul] 1 EACH device 1 ea Miscellaneous PRN Eliquis 2.5 mg tablet 2.5 mg PO BID garlic 1,000 mg Capsule 1,000 mg PO DAILY cholecalciferol (vitamin D3) [Vitamin D3] 50 mcg (2,000 unit) capsule 5,000 unit PO DAILY albuterol sulfate 90 mcg/actuation aerosol powdr breath activated 2 inh IH Q4H PRN (Reason: shortness of breath or wheezing) Qty: 1 0RF Discharge Instructions Instructions: Back Pain (ED) Additional Instructions: Lidoderm patches as directed. At this time unfortunately you are unable to provide a urine sample. Gentle stretching as tolerated. Cool and/or warm compresses every 2 hours for 20 minutes. Please watch for new or worsening symptoms and return to the ER for any concerns. Lastly, please contact your primary care provider on Friday to discuss your ER visit and need for outpatient reevaluation Medical Decision Making This is an 81-year-old female who reports low back pain and muscle spasms that began on Friday after cleaning out her refrigerator, lifting, turning, bending. She denies any fall, fever, abdominal pain, nausea, vomiting, upper back pain, radiation of pain, numbness, tingling, weakness, change in bowel or bladder function. She also states that she has Lidoderm patches at home but forgot to use 1. Patient wonders if she requires a muscle relaxer. Plan is to provide to Lidoderm patches to her back now, obtain a urinalysis, and reassess. Examination certainly appears consistent with musculoskeletal pain. Patient provided a urine sample but we were contacted by lab stating the sample was too small and she would be required to provide more urine for the testing. Patient was made aware of this and was given p.o. fluids. Upon reevaluation patient reports that she is now comfortable and her pain has resolved completely with the Lidoderm patches. She is now able to move freely without pain or spasm whereas prior to the Lidoderm patch she was not able to move freely. Patient states that she has packages of Lidoderm patches at home that she can take as directed, does not feel as though she needs an oral muscle relaxer, and is requesting discharge. She is unable to provide a urine sample and does not believe that a urinalysis is necessary as she has no painful urination or blood in her urine. Strict discharge and return precautions were provided. Patient understands, is agreeable to this plan, and has no additional questions or concerns upon discharge. This documentation was generated using [employer] system, please disregard any oddities of phrase or misspellings. Medical Records Medical records reviewed: Yes I reviewed the patient's medical records. HPI General Mode of arrival: ambulatory . Date/Time Provider Initiated Documentation: 01/26/22 09:30 . Limitations to Documentation: no limitations . Information obtained by: patient . History of Present Illness 81 year old F presents to the emergency department with the chief complaint of back spasm, described as moderate, with intensity rated at 6. Quality is described as other (spasm), and is localized to the back. Patient reports no radiation. Patient started experiencing this day(s) (5) and it has been intermittent. other things that improve symptom(s), (certain positions) Movement worsens sy mptoms . Patient notes no other symptoms.. Patient did receive the following treatments prior to arrival, none Related Data Home Medications Medication Instructions Recorded Confirmed nebulizer and compressor (PulmoNeb 02/07/16 12/30/21 LT Compressor Nebul) garlic 1,000 mg capsule 1,000 mg PO DAILY 03/11/18 01/26/22 acetaminophen 500 mg tablet 1,000 mg PO TID 07/01/18 01/26/22 (Tylenol Extra Strength) albuterol sulfate 90 mcg/actuation 2 inh inhalation Q4H PRN shortness 03/07/19 01/26/22 breath activated powder inhaler of breath or wheezing #1 ea cholecalciferol (vitamin D3) 50 5,000 unit PO DAILY 05/17/19 01/26/22 mcg (2,000 unit) capsule (Vitamin D3) CPAP miscellaneous 07/23/19 12/30/21 multivitamin 1 cap PO DAILY 11/09/19 01/26/22 apixaban 2.5 mg tablet (Eliquis) 2.5 mg PO BID 04/21/20 01/26/22 elderberry fruit 460 mg-elderberry cap PO 11/21/20 12/30/21 flower 115 mg capsule magnesium 200 mg tablet 400 mg PO TID 11/21/20 01/26/22 ondansetron HCl 4 mg tablet 4 mg PO BID PRN nausea and 12/25/20 01/26/22 (Zofran) vomiting post op #30 tabs rabeprazole 20 mg tablet,delayed 20 mg PO BID #180 tabs 01/17/21 01/26/22 release (AcipHex) cholestyramine (with sugar) 4 gram 4 g PO DAILY PRN hyperlipidemia 01/23/21 01/26/22 oral powder #378 grams lorazepam 0.5 mg tablet 0.5 mg PO Q6H PRN anxiety #30 02/20/21 01/26/22 tab-caps nystatin 100,000 unit/gram topical 1 applic topical BID PRN fungal 03/08/21 01/26/22 powder rash #180 grams estradiol 0.01% (0.1 mg/gram) 4 g topical .every other week 04/18/21 01/26/22 vaginal cream (Estrace) buspirone 10 mg tablet 5 mg PO BID #90 tabs 08/27/21 01/26/22 fluticasone propionate 110 1 puff inhalation BID #12 grams 12/24/21 01/26/22 mcg/actuation HFA aerosol inhaler (Flovent HFA) levothyroxine 100 mcg tablet 50 - 100 mcg PO DAILY #90 tabs 01/01/22 01/26/22 diltiazem HCl 120 mg 120 mg PO Q12H #180 caps 01/18/22 01/26/22 capsule,extended release 12 hr escitalopram oxalate 10 mg tablet 10 mg PO DAILY #90 tabs 01/22/22 01/26/22 Previous Rx's Medication Instructions Recorded albuterol sulfate 90 mcg/actuation 2 inh inhalation Q4H PRN shortness 03/07/19 breath activated powder inhaler of breath or wheezing #1 ea ondansetron HCl 4 mg tablet 4 mg PO BID PRN nausea and 12/25/20 (Zofran) vomiting post op #30 tabs rabeprazole 20 mg tablet,delayed 20 mg PO BID #180 tabs 01/17/21 release (AcipHex) cholestyramine (with sugar) 4 gram 4 g PO DAILY PRN hyperlipidemia 01/23/21 oral powder #378 grams lorazepam 0.5 mg tablet 0.5 mg PO Q6H PRN anxiety #30 02/20/21 tab-caps nystatin 100,000 unit/gram topical 1 applic topical BID PRN fungal 03/08/21 powder rash #180 grams buspirone 10 mg tablet 5 mg PO BID #90 tabs 08/27/21 fluticasone propionate 110 1 puff inhalation BID #12 grams 12/24/21 mcg/actuation HFA aerosol inhaler (Flovent HFA) levothyroxine 100 mcg tablet 50 - 100 mcg PO DAILY #90 tabs 01/01/22 diltiazem HCl 120 mg 120 mg PO Q12H #180 caps 01/18/22 capsule,extended release 12 hr escitalopram oxalate 10 mg tablet 10 mg PO DAILY #90 tabs 01/22/22 Allergies Allergy/AdvReac Type Severity Reaction Status Date / Time hylan G-F 20 Allergy SWELLING Verified 01/13/22 19:46 AND PAIN metronidazole [From Flagyl] Allergy Skin Rash Verified 01/13/22 19:46 Pyrazolones [Pyrazoles] Allergy Verified 01/13/22 19:46 tolterodine Allergy DIFFICULTY Verified 01/13/22 19:46 BREATHING methylprednisolone AdvReac Intermediate weakness Verified 01/13/22 19:46 and unable mood. hydromorphone AdvReac Mild Nausea Verified 01/13/22 19:46 amitriptyline AdvReac NAUSEA Verified 01/13/22 19:46 aspartame AdvReac HEART Verified 01/13/22 19:46 RACING ondansetron HCl [From Zofran] AdvReac HALLUCINATI Verified 01/13/22 19:46 ON General Stated Complaint: Nk/Back Pain MANDY: 4 Review of Systems Constitutional Constitutional: Denies fever(s) and Denies weakness Cardiovascular Cardiovascular: Denies chest pain and Denies dyspnea Respiratory Respiratory: Denies cough and Denies dyspnea Gastrointestinal Gastrointestinal: Denies abdominal pain, Denies constipation, Denies diarrhea, Denies nausea and Denies vomiting Genitourinary Genitourinary: Denies hematuria and Denies dysuria Musculoskeletal Musculoskeletal: Denies numbness, Reports stiffness and Denies tingling Integumentary/Breasts Skin/Breast: Denies rash Neurologic Neurologic: Denies numbness, Denies tingling and Denies weakness PFSH All Active Problems (Updated 01/26/22 @ 10:33 by CAILIN Talavera) Fall as cause of accidental injury at home as place of occurrence (Acute) Contusion of multiple sites (Acute) Back pain due to injury (Acute) Back pain (Acute) Chest pain (Acute) Nasopharyngeal mass (Acute) Leg swelling (Acute) Headache (Acute) Essential hypertension (Acute) Foot pain, right (Acute) Acute knee pain (Acute) Palpitations (Acute) 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 controlled w/ cholestyramine Pain in female pelvis (Acute 01/04/14) Lung mass (Acute 06/03/14) Hypomagnesemia (Acute 05/27/17) History of surgical procedure (Acute) History of arthroscopy of knee (Acute) Gastroenteritis (Acute 05/15/17) Full thickness rotator cuff tear (Acute) Fatigue (Acute 08/22/16) Fatigue (Acute 06/16/12) Epistaxis (Acute 11/14/14) Elevated liver function tests (Acute 05/14/14) Decreased thyroid stimulating hormone (TSH) level (Acute 11/07/14) Atypical facial pain (Acute 01/07/12) Adhesive capsulitis of shoulder (Acute) Right shoulder strain (Acute) RUQ abdominal pain (Acute) DVT prophylaxis (Acute) Cough (Acute) Osteoarthritis of both knees (Acute) Polyarthralgia (Acute) Bleeding hemorrhoids (Acute) Supraventricular tachycardia (Chronic) History of pulmonary embolism (Acute) DJD (degenerative joint disease) (Chronic) Chronic bilateral low back pain (Acute) Hypothyroidism (Chronic) Acute left ankle pain (Acute) Acromioclavicular joint arthritis (Acute) Diverticula of colon (Acute) Chronic diarrhea (Acute) Ulcer of rectum (Acute) Incomplete rectal prolapse (Acute) Internal hemorrhoid, bleeding (Acute) Bleeding hemorrhoids (Acute) Multiple gastric polyps (Chronic) Epigastric pain (Chronic) Status post cataract extraction and insertion of intraocular lens of right eye (Chronic 03/27/18) Epiretinal membrane (ERM) of right eye (Chronic) 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 stricture, no HH Essential hypertension (Chronic 02/19/13) Elevated fasting glucose (Chronic 06/27/14) Diverticulosis of colon without diverticulitis (Chronic) Depressive disorder (Chronic) refuses medication Asthma (Chronic) Arthritis (Chronic) both ankles S/P fracture S/P surgery Anxiety (Chronic) Allergic eosinophilia (Chronic) 09/23/11 COLONOSCOPY BIOPSY SHOWS FOCAL EOSINOPHILIC CRYPTITS Adrenal mass, right (Chronic 12/11/16) seen on CT Ab 12/26 - STABLE. Will repeat Primary osteoarthritis of both knees (Chronic) MARILYN (generalized anxiety disorder) (Chronic) Patient with palpitations with negative Zio patch. She complained of symptoms during normal sinus rhythm on 40 occasions. With anxiety. Intolerant to buspirone. Will start recheck in 2 weeks. Medical History Cortical cataract of left eye Cortical cataract of right eye Nuclear sclerotic cataract of left eye Nuclear sclerotic cataract of right eye Palpitations Posterior subcapsular age-related cataract of left eye Posterior subcapsular age-related cataract, right eye Pulmonary embolism Thyroid malignant neoplasm papillary Surgical History Cholecystectomy Colonoscopy - MAC DIVERTICULITIS History of back surgery History of surgery on arm History of ventral hernia repair (~04/03/20) Hysterectomy, Laproscopic PROLAPSE; STILL HAS OVARIES Rotator Cuff Repair R SHOULDER; DR. MAGALYS [place] SHOULDER 01/25 Status post arthroscopic knee surgery 1) RIGHT KNEE; DR. LOPEZ 2) LEFT KNEE; DR. DUNCAN STOMACH STITCH (~08/2014) Thyroid (~09/2014) Family History Mother , OLD AGE at age 95. Stroke Father , GI BLEED at age 85. Diabetes GI bleed Heart disease Sister Diabetes Essential hypertension Neoplasm BREAST Brother Macular degeneration 1 EYE Grandfather Heart disease Neoplasm Grandfather No problems noted. Grandmother Heart disease Grandmother Neoplasm Son Neoplasm BRAIN Son No problems noted. Daughter Neoplasm BREAST Daughter No problems noted. Child No problems noted. Social History Smoking/Tobacco Use Status: Never Smoking risk assessment performed?: Yes Alcohol Intake: never Drug use: Never Substance use type: does not use Pets and animals: Yes Pets and animals: cat(s) and dog(s) Current gender identity: female What type of physical activity do you participate in: walking and additional Details: walks the block with her dog. Li/Confucianism: Gnosticist Special li needs: No Do you feel safe at home: Yes Do you feel safe in your relationship?: Yes Additional Social history: lives alone Exam Const General: cooperative, healthy appearing, comfortable and no acute distress Orientation: alert and awake HENMT Head: normal to inspection, normocephalic and atraumatic Eyes Conjunctivae: conjunctivae normal Neck Neck: normal visual inspection, full ROM, trachea midline and supple Resp Effort & Inspection: normal respiratory effort and able to speak in complete sentences Auscultation: clear to auscultation bilaterally Cardio Rate: regular rate Rhythm: regular rhythm GI Inspection: obesity Palpation: soft, not firm, no guarding, no pulsatile masses and nontender Auscultation: normal bowel sounds Back/Spine/Pelvis Back: no CVA tenderness and back tenderness Thoracic/Lumbar Spine: straight leg raise positive (Right sided, 15 degrees) Other: Normal visual back examination. There is diffuse lumbar discomfort to palpation slightly worse on the right side, minimal spasm over the right paravertebral region Skin General skin exam: no rashes or lesions noted Neuro General: patient alert, patient awake, moves all extremities and no focal motor deficits Cognition: normal cognition Speech: speech normal Gait: normal gait and gait assisted Method: other (Cane) Sensory Exam: no sensory deficits noted Extrem General: normal to inspection, full ROM and capillary refill normal Psych Appearance: grossly normal Mental Status: mental status grossly normal Course Vital Signs Vital signs: Vital Signs Temperature 36.6 C 01/26/22 09:17 Pulse 72 01/26/22 09:17 Respiratory Rate 18 01/26/22 09:17 Blood Pressure 132/66 01/26/22 09:17 Pulse Oximetry 98 01/26/22 09:17 Temperature 36.6 C 01/26/22 09:17 Temperature Source Oral 01/26/22 09:17 Pulse 72 01/26/22 09:17 Respiratory Rate 18 01/26/22 09:17 Respiratory Effort 01/26/22 09:19 Blood Pressure 132/66 01/26/22 09:17 Blood Pressure Position Supine 01/26/22 09:17 Pulse Oximetry 98 01/26/22 09:17 Oxygen Delivery Method Room Air 01/26/22 09:17 Oxygen Flow Rate 0 01/26/22 09:17 Pain Level 10 01/26/22 09:17
[2022-01-26] MEDS: Lidocaine 5% Patch 2 PATCH TP (09:54)
== END 2022-01-26 10:40 | disposition home or self-care (01) ==
PROVIDERS: Emergency Provider Physician Assistant; PCP Family Medicine
DX: M54.50 Low back pain, unspecified (principal); M62.830 Muscle spasm of back
CPT/HCPCS: 99282; 81003

== ENCOUNTER 2022-02-05 14:41 | Emergency (ER) | payer MEDICARE, OTHER, SELFPAY ==
[2022-02-05 14:48] VITALS: BP 129/60; PULSE 69; RESP 18; TEMP 36.8; O2SAT 97
--- NOTE | 2022-02-05 14:51 | W.ED.GENAD ---
Discharge Plan Disposition Patient Disposition: STILL A PATIENT Condition: Stable Discharge Details Primary Care Provider: Matheus Santana ED Provider: Mark Macdonald Home Meds and New Rx's Prescriptions: No Action CPAP miscellaneous acetaminophen [Tylenol Extra Strength] 500 mg tablet 1,000 mg PO TID multivitamin Capsule 1 cap PO DAILY magnesium 200 mg tablet 400 mg PO TID Rx Instructions: take 400mg every 12 hours x 7 days elderberry fruit and flower 460-115 mg capsule PO lorazepam 0.5 mg tablet 0.5 mg PO Q6H PRN (Reason: anxiety) Qty: 30 0RF tizanidine 2 mg tablet 2 mg PO Q8H PRN (Reason: muscle spasticity) Qty: 14 0RF ondansetron HCl [Zofran] 4 mg tablet 4 mg PO BID PRN (Reason: nausea and vomiting post op) Qty: 30 0RF estradiol [Estrace] 0.01 % (0.1 mg/gram) cream 4 g Topical .every other week rabeprazole [AcipHex] 20 mg tablet,delayed release (DR/EC) 20 mg PO BID Qty: 180 3RF cholestyramine (with sugar) 4 gram powder 4 g PO DAILY PRN (Reason: hyperlipidemia) Qty: 378 3RF Rx Instructions: administer w/meal; avoid other meds within 1hr before or 4-6hr after dose nystatin 100,000 unit/gram powder 1 applic Topical BID PRN (Reason: fungal rash) Qty: 180 3RF Rx Instructions: 1-3 GM BID buspirone 10 mg tablet 5 mg PO BID Qty: 90 3RF fluticasone propionate [Flovent HFA] 110 mcg/actuation HFA aerosol inhaler 1 puff Inhalation BID Qty: 12 5RF diltiazem HCl 120 mg capsule,extended release 12 hr 120 mg PO Q12H Qty: 180 3RF escitalopram oxalate 10 mg tablet 10 mg PO DAILY Qty: 90 3RF levothyroxine 100 mcg tablet 50 - 100 mcg PO DAILY Qty: 90 3RF Rx Instructions: take 1/2 tab on Sundays01/01/22 MS (DME) nebulizer and compressor [PulmoNeb LT Compressor Nebul] 1 EACH device 1 ea Miscellaneous PRN Eliquis 2.5 mg tablet 2.5 mg PO BID garlic 1,000 mg Capsule 1,000 mg PO DAILY cholecalciferol (vitamin D3) [Vitamin D3] 50 mcg (2,000 unit) capsule 5,000 unit PO DAILY albuterol sulfate 90 mcg/actuation aerosol powdr breath activated 2 inh IH Q4H PRN (Reason: shortness of breath or wheezing) Qty: 1 0RF Medical Decision Making This is an 81-year-old female with a past medical history that includes obesity, chronic back pain, PE, anticoagulated, presents to the ER for acute on chronic back pain status post mechanical fall. She states that she was walking her dog using her walker, the dog pulled the walker and she fell, attempted to hold onto the walker, and bent in a very awkward position. She denies any head injury, headache, visual symptoms, neck pain, symptoms prior to the fall. Patient states that she has had worsening chronic back pain for quite some time, recently seen by her primary care provider and placed on medication which helped minimally, subsequently seen today and they recommended outpatient physical therapy. She also reports intermittent abdominal pain, none now. Given her age, multiple comorbidities, on Eliquis, will obtain CT imaging of her head and C-spine. Given her intermittent abdominal pain, ongoing back pain worse after the fall, will obtain CT imaging of her chest, abdomen, pelvis with recons of her lumbar and thoracic spine. We will provide analgesia, she declines morphine, will provide IV Tylenol. This documentation was generated using [employer] dictation system, please disregard any oddities of phrase or misspellings. Medical Records Medical records reviewed: Yes I reviewed the patient's medical records. HPI General Mode of arrival: EMS. Date/Time Provider Initiated Documentation: 02/05/22 14:43. Limitations to Documentation: no limitations. Information obtained by: patient. History of Present Illness 81 year old F presents to the emergency department with the chief complaint of Back Pain, described as severe, with intensity rated at 9. Quality is described as aching, and is localized to the back. Patient reports no radiation. Patient started experiencing this hour(s) (1) and it has been constant. Immobilization improves symptom(s), Movement worsens symptoms . Patient notes no other symptoms.. Patient did receive the following treatments prior to arrival, none Related Data Home Medications Medication Instructions Recorded Confirmed nebulizer and compressor (PulmoNeb 02/07/16 02/05/22 LT Compressor Nebul) garlic 1,000 mg capsule 1,000 mg PO DAILY 03/11/18 02/05/22 acetaminophen 500 mg tablet 1,000 mg PO TID 07/01/18 02/05/22 (Tylenol Extra Strength) albuterol sulfate 90 mcg/actuation 2 inh inhalation Q4H PRN shortness 03/07/19 02/05/22 breath activated powder inhaler of breath or wheezing #1 ea cholecalciferol (vitamin D3) 50 5,000 unit PO DAILY 05/17/19 02/05/22 mcg (2,000 unit) capsule (Vitamin D3) CPAP miscellaneous 07/23/19 02/05/22 multivitamin 1 cap PO DAILY 11/09/19 02/05/22 apixaban 2.5 mg tablet (Eliquis) 2.5 mg PO BID 04/21/20 02/05/22 elderberry fruit 460 mg-elderberry cap PO 11/21/20 02/05/22 flower 115 mg capsule magnesium 200 mg tablet 400 mg PO TID 11/21/20 02/05/22 ondansetron HCl 4 mg tablet 4 mg PO BID PRN nausea and 12/25/20 02/05/22 (Zofran) vomiting post op #30 tabs rabeprazole 20 mg tablet,delayed 20 mg PO BID #180 tabs 01/17/21 02/05/22 release (AcipHex) cholestyramine (with sugar) 4 gram 4 g PO DAILY PRN hyperlipidemia 01/23/21 02/05/22 oral powder #378 grams lorazepam 0.5 mg tablet 0.5 mg PO Q6H PRN anxiety #30 02/20/21 02/05/22 tab-caps nystatin 100,000 unit/gram topical 1 applic topical BID PRN fungal 03/08/21 02/05/22 powder rash #180 grams estradiol 0.01% (0.1 mg/gram) 4 g topical .every other week 04/18/21 02/05/22 vaginal cream (Estrace) buspirone 10 mg tablet 5 mg PO BID #90 tabs 08/27/21 02/05/22 fluticasone propionate 110 1 puff inhalation BID #12 grams 12/24/21 02/05/22 mcg/actuation HFA aerosol inhaler (Flovent HFA) diltiazem HCl 120 mg 120 mg PO Q12H #180 caps 01/18/22 02/05/22 capsule,extended release 12 hr escitalopram oxalate 10 mg tablet 10 mg PO DAILY #90 tabs 01/22/22 02/05/22 tizanidine 2 mg tablet 2 mg PO Q8H PRN muscle spasticity 01/29/22 02/05/22 #14 tabs levothyroxine 100 mcg tablet 50 - 100 mcg PO DAILY #90 tabs 02/04/22 02/05/22 Previous Rx's Medication Instructions Recorded albuterol sulfate 90 mcg/actuation 2 inh inhalation Q4H PRN shortness 03/07/19 breath activated powder inhaler of breath or wheezing #1 ea ondansetron HCl 4 mg tablet 4 mg PO BID PRN nausea and 12/25/20 (Zofran) vomiting post op #30 tabs rabeprazole 20 mg tablet,delayed 20 mg PO BID #180 tabs 01/17/21 release (AcipHex) cholestyramine (with sugar) 4 gram 4 g PO DAILY PRN hyperlipidemia 01/23/21 oral powder #378 grams lorazepam 0.5 mg tablet 0.5 mg PO Q6H PRN anxiety #30 02/20/21 tab-caps nystatin 100,000 unit/gram topical 1 applic topical BID PRN fungal 03/08/21 powder rash #180 grams buspirone 10 mg tablet 5 mg PO BID #90 tabs 08/27/21 fluticasone propionate 110 1 puff inhalation BID #12 grams 12/24/21 mcg/actuation HFA aerosol inhaler (Flovent HFA) diltiazem HCl 120 mg 120 mg PO Q12H #180 caps 01/18/22 capsule,extended release 12 hr escitalopram oxalate 10 mg tablet 10 mg PO DAILY #90 tabs 01/22/22 tizanidine 2 mg tablet 2 mg PO Q8H PRN muscle spasticity 01/29/22 #14 tabs levothyroxine 100 mcg tablet 50 - 100 mcg PO DAILY #90 tabs 02/04/22 Allergies Allergy/AdvReac Type Severity Reaction Status Date / Time hylan G-F 20 Allergy SWELLING Verified 01/29/22 09:08 AND PAIN metronidazole [From Flagyl] Allergy Skin Rash Verified 01/29/22 09:08 Pyrazolones [Pyrazoles] Allergy Verified 01/29/22 09:08 tolterodine Allergy DIFFICULTY Verified 01/29/22 09:08 BREATHING methylprednisolone AdvReac Intermediate weakness Verified 01/29/22 09:08 and unable mood. hydromorphone AdvReac Mild Nausea Verified 01/29/22 09:08 amitriptyline AdvReac NAUSEA Verified 01/29/22 09:08 aspartame AdvReac HEART Verified 01/29/22 09:08 RACING ondansetron HCl [From Zofran] AdvReac HALLUCINATI Verified 01/29/22 09:08 ON General Stated Complaint: Nk/Back Pain MANDY: 3 Review of Systems Constitutional Constitutional: Denies fever(s), Denies headache(s) and Denies weakness Eyes Eyes: Denies change in vision ENT Ears, Nose, Mouth, and Throat: Denies headache(s) and Denies neck pain Cardiovascular Cardiovascular: Denies chest pain and Denies dyspnea Respiratory Respiratory: Denies cough and Denies dyspnea Gastrointestinal Gastrointestinal: Denies abdominal pain, Denies nausea and Denies vomiting Musculoskeletal Musculoskeletal: Reports back pain, Denies neck pain, Denies numbness, Reports stiffness and Denies tingling Integumentary/Breasts Skin/Breast: Denies rash Neurologic Neurologic: Denies headache(s), Denies numbness, Denies tingling and Denies weakness Hematologic/Lymphatic Hematologic/Lymphatic: Reports easy bleeding and Reports easy bruising PFSH All Active Problems Fall as cause of accidental injury at home as place of occurrence (Acute) Contusion of multiple sites (Acute) Back pain due to injury (Acute) Back pain (Acute) Chest pain (Acute) Nasopharyngeal mass (Acute) Leg swelling (Acute) Headache (Acute) Essential hypertension (Acute) Foot pain, right (Acute) Acute knee pain (Acute) Palpitations (Acute) 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 controlled w/ cholestyramine Pain in female pelvis (Acute 01/04/14) Lung mass (Acute 06/03/14) Hypomagnesemia (Acute 05/27/17) History of surgical procedure (Acute) History of arthroscopy of knee (Acute) Gastroenteritis (Acute 05/15/17) Full thickness rotator cuff tear (Acute) Fatigue (Acute 08/22/16) Fatigue (Acute 06/16/12) Epistaxis (Acute 11/14/14) Elevated liver function tests (Acute 05/14/14) Decreased thyroid stimulating hormone (TSH) level (Acute 11/07/14) Atypical facial pain (Acute 01/07/12) Adhesive capsulitis of shoulder (Acute) Right shoulder strain (Acute) RUQ abdominal pain (Acute) DVT prophylaxis (Acute) Cough (Acute) Osteoarthritis of both knees (Acute) Polyarthralgia (Acute) Bleeding hemorrhoids (Acute) Supraventricular tachycardia (Chronic) History of pulmonary embolism (Acute) DJD (degenerative joint disease) (Chronic) Chronic bilateral low back pain (Acute) Hypothyroidism (Chronic) Acute left ankle pain (Acute) Acromioclavicular joint arthritis (Acute) Diverticula of colon (Acute) Chronic diarrhea (Acute) Ulcer of rectum (Acute) Incomplete rectal prolapse (Acute) Internal hemorrhoid, bleeding (Acute) Bleeding hemorrhoids (Acute) Multiple gastric polyps (Chronic) Epigastric pain (Chronic) Status post cataract extraction and insertion of intraocular lens of right eye (Chronic 03/27/18) Epiretinal membrane (ERM) of right eye (Chronic) 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 stricture, no HH Essential hypertension (Chronic 02/19/13) Elevated fasting glucose (Chronic 06/27/14) Diverticulosis of colon without diverticulitis (Chronic) Depressive disorder (Chronic) refuses medication Asthma (Chronic) Arthritis (Chronic) both ankles S/P fracture S/P surgery Anxiety (Chronic) Allergic eosinophilia (Chronic) 09/23/11 COLONOSCOPY BIOPSY SHOWS FOCAL EOSINOPHILIC CRYPTITS Adrenal mass, right (Chronic 12/11/16) seen on CT Ab 12/26 - STABLE. Will repeat Primary osteoarthritis of both knees (Chronic) MARILYN (generalized anxiety disorder) (Chronic) Patient with palpitations with negative Zio patch. She complained of symptoms during normal sinus rhythm on 40 occasions. With anxiety. Intolerant to buspirone. Will start recheck in 2 weeks. Medical History Cortical cataract of left eye Cortical cataract of right eye Nuclear sclerotic cataract of left eye Nuclear sclerotic cataract of right eye Palpitations Posterior subcapsular age-related cataract of left eye Posterior subcapsular age-related cataract, right eye Pulmonary embolism Thyroid malignant neoplasm papillary Surgical History Cholecystectomy Colonoscopy - MAC DIVERTICULITIS History of back surgery History of surgery on arm History of ventral hernia repair (~04/03/20) Hysterectomy, Laproscopic PROLAPSE; STILL HAS OVARIES Rotator Cuff Repair R SHOULDER; DR. DOWELL L SHOULDER 01/25 Status post arthroscopic knee surgery 1) RIGHT KNEE; DR. LOPEZ 2) LEFT KNEE; DR. DUNCAN STOMACH STITCH (~08/2014) Thyroid (~09/2014) Family History Mother , OLD AGE at age 95. Stroke Father , GI BLEED at age 85. Diabetes GI bleed Heart disease Sister Diabetes Essential hypertension Neoplasm BREAST Brother Macular degeneration 1 EYE Grandfather Heart disease Neoplasm Grandfather No problems noted. Grandmother Heart disease Grandmother Neoplasm Son Neoplasm BRAIN Son No problems noted. Daughter Neoplasm BREAST Daughter No problems noted. Child No problems noted. Social History Smoking/Tobacco Use Status: Never Smoking risk assessment performed?: Yes Alcohol Intake: never Drug use: Never Substance use type: does not use Pets and animals: Yes Pets and animals: cat(s) and dog(s) Current gender identity: female What type of physical activity do you participate in: walking and additional Details: walks the block with her dog. Li/Caodaism: Quaker Special li needs: No Do you feel safe at home: Yes Do you feel safe in your relationship?: Yes Additional Social history: lives alone Exam Const General: cooperative, healthy appearing and in distress mild Orientation: alert, awake and oriented x3 HENMT Head: normal to inspection, normocephalic and atraumatic Mouth: moist mucous membranes Eyes Conjunctivae: conjunctivae normal Neck Neck: normal visual inspection, full ROM, trachea midline, supple and nontender Resp Effort & Inspection: normal respiratory effort and able to speak in complete sentences Auscultation: clear to auscultation bilaterally Cardio Rate: regular rate Rhythm: regular rhythm GI Inspection: obesity Palpation: soft and nontender Back/Spine/Pelvis Back: no CVA tenderness and back tenderness (Thoracic and lumbar) Skin General skin exam: no rashes or lesions noted Neuro General: patient alert, patient awake, patient oriented x3, moves all extremities and no focal motor deficits Cognition: normal cognition Speech: speech normal Motor: muscle tone normal throughout Sensory Exam: no sensory deficits noted Extrem General: normal to inspection, full ROM and capillary refill normal Psych Appearance: grossly normal Mental Status: mental status grossly normal
--- NOTE | 2022-02-05 15:00 | DI.CT_ITS ---
Exam(s) CT THORACIC LUMBAR SPINE WO CT CHEST/ABD/PEL W EXAM: CT CHEST/ABD/PEL W TECHNIQUE: CT examination of the chest, abdomen, and pelvis was performed with bolus infusion of 100 cc of Omnipaque 350. Additional CT reconstructions of the thoracic and lumbar spine were obtained with multi planar review ing. COMPARISON: CT CT THORACIC LUMBAR SPINE WO from 02/05/2022 FINDINGS: There is no evidence of a thoracic vascular injury. The lungs are clear. No pneumothorax or pleural effusion. No mediastinal hematoma. No adenopathy in the chest. Tracheobronchial tree appears intact. The liver, spleen, and pancreas appear normal. Prior cholecystectomy noted, bile ducts are normal. Adrenals and kidneys show no evidence of acute injury. There is a nonobstructing left renal calculus and there are apparent multiple small bilateral renal cysts. No evidence of urinary tract injury or obstruction. No abdominal or pelvic vascular injury seen. No abdominal or pelvic adenopathy. No significant abdomi nal wall hernia or hematoma. No evidence of bowel injury. There is a mildly displaced fracture of the anterior superior aspect of the T11 vertebral body.. No other fracture identified on CT reconstructed views. IMPRESSION: No evidence of acute visceral injury. There is a minimally displaced fracture of anterior superior T 11 vertebral body endplate.. RADIATION DOSE DELIVERED: Total DLP Total DLP !Error CTDIvol DATA REPOSITORY: All CT scans at this facility are submitted to the National Radiology Data Registry (NRDR) Dose Index Registry (DIR) with the [employer] ([employer]). RADIATION OPTIMIZATION: All CT scans at this facility use at least one of these dose optimization te chniques: automated exposure control; mA and/or kV adjustment per patient size (includes targeted exa ms where dose is matched to clinical indication); or iterative reconstruction.
--- NOTE | 2022-02-05 15:00 | DI.CT_ITS ---
Exam(s) CT HEAD CERVICAL SPINE WO EXAM: CT HEAD CERVICAL SPINE WO COMPARISON: CT CT CERVICAL SPINE WO from 01/13/2022 FINDINGS: CT examination of the cervical spine was performed without contrast administration. There are moderate to severe degenerative changes of the cervical spine. There is no evidence of acute cervical spine fracture or dislocation. Intervertebral disc spaces are well maintained. Tracheolaryngeal structures appear intact. No cervical mass or adenopathy. Noncontrast cranial CT was performed. There are changes of generalized cerebral atrophy.. No evidence of acute intracranial hemorrhage, mass effect, or midline shift. No calvarial fracture. The orbital and temporal bone structures appear intact. Visualized mastoid air cells and paranasal sinuses appear clear. IMPRESSION: No evidence of acute cervical spine injury. No evidence of acute intracranial injury. RADIATION DOSE DELIVERED: 1,320.37mGy.cm Total DLP 1,320.37mGy.cm Total DLP !Error CTDIvol DATA REPOSITORY: All CT scans at this facility are submitted to the National Radiology Data Registry (NRDR) Dose Index Registry (DIR) with the [employer] (ACR). RADIATION OPTIMIZATION: All CT scans at this facility use at least one of these dose optimization te chniques: automated exposure control; mA and/or kV adjustment per patient size (includes targeted exa ms where dose is matched to clinical indication); or iterative reconstruction.
[2022-02-05] MEDS: ACETAMINOPHEN 1,000 MG/100 ML BTL 400 MG (15:29)
[2022-02-05 15:48] LABS: Abs Immature Grans 0.06 10^3/uL (0.0-0.06); Absolute Basophil Count 0.11 10^3/uL (0.0-0.2); Absolute Eosinophil Count 0.25 10^3/uL (0.0-0.7); Absolute Lymphocyte Count 1.85 10^3/uL (1.2-3.4); Absolute Monocyte Count 0.87 10^3/uL (0.1-0.8); Absolute Neutrophil Count 8.15 10^3/uL (1.2-6.7); Eosinophils % 2.2; HCT 41.8 % (36.0-46.0); HGB 13.2 g/dL (11.2-15.7); Immature Grans % 0.5; Lymphocytes % 16.4; MCH 28.6 pg (27.0-33.0); MCHC 31.6 % (32.0-36.0); MCV 91 fL (80-95); MPV 11.9 fL (8.0-11.0); Monocytes % 7.7; Neutrophils % 72.2; Platelet Count 278 10^3/uL (130-400); RBC 4.62 10^6/uL (3.93-5.22); RDW 15.1 % (11.7-14.6); RDW-SD 49.6 fL; WBC 11.29 10^3/uL (4.4-10.8)
[2022-02-05 16:19] LABS: ALT 26 U/L (14-59); AST 18 U/L (15-37); Albumin 3.4 g/dL (3.4-5.0); Alkaline Phosphatase 91 U/L (46-116); Anion Gap 6.7 mmol/L (3-11); BUN 17 mg/dL (7-18); Bilirubin, Total 0.1 mg/dL (0.2-1.0); CO2 31.3 mmol/L (21.0-32.0); CREATININE 0.7 mg/dL (0.55-1.02); Calcium 9.5 mg/dL (8.5-10.1); Chloride 105 mmol/L (98-107); Estimated GFR 86.83 (mL/min/1.73m2); Glucose 120 mg/dL (74-106); Lipase 100 U/L (73-393); Potassium 4.3 mmol/L (3.5-5.1); Sodium 143 mmol/L (136-145); Total Protein 6.9 g/dL (6.4-8.2)
--- NOTE | 2022-02-05 16:19 | ED.PROG_ITS ---
Date of service: 02/05/22 Time of Service: 16:00 Medical Decision Making Care of patient assumed from CAILIN Heredia. Patient pending labs and CT imaging for chief complaint of fall with secondary complaints of abdominal pain and chronic back pain. Reviewed labs and there is a slight elevation of WBCs neutrophils and monocytes but otherwise unremarkable, CMP shows slight elevation of glucose and low bilirubin otherwise again nondiagnostic urinalysis does show leukocyte Estrace and greater than 50 WBCs with reflexive culture ordered. Given moderate bacteria and few epithelial cells with not looking like a contaminated specimen and significant amount of WBCs along with a CBC showing elevated white count we will treat patient for UTI. Did discuss these findings with patient and she does state that just prior to the fall she did have some painful urination. This increases my suspicion of acute UTI. Reviewed CT imaging that shows superior endplate fracture of T11 otherwise unremarkable trauma scans. Reassessed patient and patient states significant improvement of pain and discomfort. Patient does have extremely mild pain to palpation of the lower T-spine area. Patient denies any focal neurological dysfunction and was able to ambulate with walker use and in stable condition. Informed patient not to lift anything greater than 5 pounds and patient already has pre-existing follow-up with physical therapy which I informed her to let them know of her endplate fracture. I do feel that patient is stable for discharge and outpatient management of symptoms. Did discuss use of acetaminophen along with her normally prescribed tramadol. After discussion of diagnosis and plan of care patient has no further needs, questions, or concerns and states clear understanding to return to the emergency department for any worsening symptoms. This documentation was generated using [employer] dictation system, please disregard any oddities of phrase or misspellings. Sign Out Sign Out Data: Sign Out Comment: Intermittent abdominal pain. Acute on chronic back pain status post mechanical fall. On Eliquis. Declined morphine for pain, given Tylenol. Awaiting laboratory values and CT imaging. Last updated by Mark Macdonald PA at 02/05/22 15:35 Discharge Plan Disposition Patient Disposition: HOME Condition: Improving Discharge Details Clinical Impression: Traumatic fracture of thoracic spine, Acute UTI Primary Care Provider: Matheus Santana ED Provider: Julian Foster Home Meds and New Rx's Prescriptions: New cephalexin 500 mg tablet 500 mg PO BID 5 Days Qty: 10 0RF No Action CPAP miscellaneous acetaminophen [Tylenol Extra Strength] 500 mg tablet 1,000 mg PO TID multivitamin Capsule 1 cap PO DAILY magnesium 200 mg tablet 400 mg PO TID Rx Instructions: take 400mg every 12 hours x 7 days elderberry fruit and flower 460-115 mg capsule PO lorazepam 0.5 mg tablet 0.5 mg PO Q6H PRN (Reason: anxiety) Qty: 30 0RF tizanidine 2 mg tablet 2 mg PO Q8H PRN (Reason: muscle spasticity) Qty: 14 0RF ondansetron HCl [Zofran] 4 mg tablet 4 mg PO BID PRN (Reason: nausea and vomiting post op) Qty: 30 0RF estradiol [Estrace] 0.01 % (0.1 mg/gram) cream 4 g Topical .every other week rabeprazole [AcipHex] 20 mg tablet,delayed release (DR/EC) 20 mg PO BID Qty: 180 3RF cholestyramine (with sugar) 4 gram powder 4 g PO DAILY PRN (Reason: hyperlipidemia) Qty: 378 3RF Rx Instructions: administer w/meal; avoid other meds within 1hr before or 4-6hr after dose nystatin 100,000 unit/gram powder 1 applic Topical BID PRN (Reason: fungal rash) Qty: 180 3RF Rx Instructions: 1-3 GM BID buspirone 10 mg tablet 5 mg PO BID Qty: 90 3RF fluticasone propionate [Flovent HFA] 110 mcg/actuation HFA aerosol inhaler 1 puff Inhalation BID Qty: 12 5RF diltiazem HCl 120 mg capsule,extended release 12 hr 120 mg PO Q12H Qty: 180 3RF escitalopram oxalate 10 mg tablet 10 mg PO DAILY Qty: 90 3RF levothyroxine 100 mcg tablet 50 - 100 mcg PO DAILY Qty: 90 3RF Rx Instructions: take 1/2 tab on Sundays01/01/22 [facility] (DME) nebulizer and compressor [PulmoNeb LT Compressor Nebul] 1 EACH device 1 ea Miscellaneous PRN Eliquis 2.5 mg tablet 2.5 mg PO BID garlic 1,000 mg Capsule 1,000 mg PO DAILY cholecalciferol (vitamin D3) [Vitamin D3] 50 mcg (2,000 unit) capsule 5,000 unit PO DAILY albuterol sulfate 90 mcg/actuation aerosol powdr breath activated 2 inh IH Q4H PRN (Reason: shortness of breath or wheezing) Qty: 1 0RF Discharge Instructions Instructions: Urinary Tract Infection in Women (ED), Thoracolumbar Fracture (ED) Additional Instructions: Due to the fall there is noted to be a T11 superior endplate fracture. This is considered a stable back fracture. For the next 4 weeks please not lift anything greater than 5 pounds and reduced any twisting or bending type motions. If you develop any neurological symptoms, worsening back pain, or immobility of your lower extremities along with changes to bowel or bladder function return immediately to the emergency department. Otherwise continue to take your prescribed pain medication along with [id number] acetaminophen as discussed. Discharge you are also noted to have a urinary tract infection today. If you develop any severe nausea, fever, or vomiting return to the emergency department otherwise take antibiotics as Referrals: Matheus Santana MD [Primary Care Provider] - 1 week
[2022-02-05] MEDS: Omnipaque 350 MG/ML 100 ML BTL IV (16:47)
[2022-02-05] MEDS: Normal Saline Flush 10 ML SYR IVP (16:48)
--- NOTE | 2022-02-05 17:32 | DI.VRAD_ITS ---
PROCEDURE INFORMATION: Exam: CT Head Without Contrast Exam date and time: 02/05/2022 4:46 PM Age: 81 years old Clinical indication: Other: Fall, anticoagulated TECHNIQUE: Imaging protocol: Computed tomography of the head without contrast. Radiation optimization: All CT scans at this facility use at least one of these dose optimization techniques: automated exposure control; mA and/or kV adjustment per patient size (includes targeted exams where dose is matched to clinical indication); or iterative reconstruction. COMPARISON: CT HEAD WO 01/13/2022 8:49 PM FINDINGS: Brain: No hyperdense findings to suggest intracranial hemorrhage. Age appropriate, global cerebral atrophy. Ill-defined foci of hypodensity in the periventricular white matter bilaterally consistent with chronic small vessel ischemic changes. No additional cerebral parenchymal abnormalities identified. Cerebral ventricles: No ventriculomegaly. Paranasal sinuses: Visualized sinuses are unremarkable. No fluid levels. Mastoid air cells: Visualized mastoid air cells are well aerated. Bones/joints: Unremarkable. No acute fracture. Soft tissues: Unremarkable. IMPRESSION: 1. No acute intracranial abnormalities identified. Specifically no CT evidence of mass, hemorrhage, or acute infarction. 2. Chronic small vessel ischemic changes. PROCEDURE INFORMATION: Exam: CT Cervical Spine Without Contrast Exam date and time: 02/05/2022 4:46 PM Age: 81 years old Clinical indication: Other: Fall, anticoagulated TECHNIQUE: Imaging protocol: Computed tomography of the cervical spine without contrast. Radiation optimization: All CT scans at this facility use at least one of these dose optimization techniques: automated exposure control; mA and/or kV adjustment per patient size (includes targeted exams where dose is matched to clinical indication); or iterative reconstruction. COMPARISON: CT CERVICAL SPINE WO 01/13/2022 8:49 PM FINDINGS: Bones/joints: Straightening of the lordotic curvature of the cervical spine. No acute spondylolysis or spondylolisthesis. Probable chronic anterolisthesis of C4 over C5. Multilevel severe degenerative disc disease from C5-C7. Moderate C3-C4, C4-C5 and C7-T1 disc space narrowing. No vertebral body compression fractures. No fracture of the posterior or lateral elements. Lungs: The visualized bilateral upper lung amaya are clear. Soft tissues: No prevertebral soft tissue swelling. IMPRESSION: No acute cervical spine fracture or malalignment. Chronic anterolisthesis of C4 over C5. Chronic degenerative changes throughout the cervical spine. Dictated and Authenticated by: Dev Vega MD. Ordering:GISELLA Flores MD
[2022-02-05 17:37] LABS: Bilirubin Negative (Negative); Blood Negative (Negative); Clarity Sl Cloudy (Clear); Glucose Negative (Negative); Ketones Negative (Negative); Leukocyte Esterase Small (Negative); Nitrite Negative (Negative); Urobilinogen 0.2 EU/dL (Up TO 0.2); pH 5.5 (5-8)
--- NOTE | 2022-02-05 17:41 | DI.VRAD_ITS ---
PROCEDURE INFORMATION: Exam: CT Thoracic Spine Without Contrast Exam date and time: 02/05/2022 5:02 PM Age: 81 years old Clinical indication: Other: Fall, back pain; Additional info: Fall, back pain TECHNIQUE: Imaging protocol: Computed tomography of the thoracic spine without contrast. Radiation optimization: All CT scans at this facility use at least one of these dose optimization techniques: automated exposure control; mA and/or kV adjustment per patient size (includes targeted exams where dose is matched to clinical indication); or iterative reconstruction. COMPARISON: CT THORACIC LUMBAR SPINE REC 01/13/2022 8:59 PM FINDINGS: Bones/joints: Acute compression fracture of superior endplate of T11 vertebra. No retropulsion. Diffuse demineralization of the bones. T1-T2: No significant disc protrusion. No severe spinal canal stenosis. No significant neural foraminal narrowing. T2-T3: No significant disc protrusion. No severe spinal canal stenosis. No significant neural foraminal narrowing. T3-T4: No significant disc protrusion. No severe spinal canal stenosis. No significant neural foraminal narrowing. T4-T5: No significant disc protrusion. No severe spinal canal stenosis. No significant neural foraminal narrowing. T5-T6: No significant disc protrusion. No severe spinal canal stenosis. No significant neural foraminal narrowing. T6-T7: No significant disc protrusion. No severe spinal canal stenosis. No significant neural foraminal narrowing. T7-T8: No significant disc protrusion. No severe spinal canal stenosis. No significant neural foraminal narrowing. T8-T9: No significant disc protrusion. No severe spinal canal stenosis. No significant neural foraminal narrowing. T9-T10: No significant disc protrusion. No severe spinal canal stenosis. No significant neural foraminal narrowing. T10-T11: No significant disc protrusion. No severe spinal canal stenosis. No significant neural foraminal narrowing. T11-T12: No significant disc protrusion. No severe spinal canal stenosis. No significant neural foraminal narrowing. T12-L1: No significant disc protrusion. No severe spinal canal stenosis. No significant neural foraminal narrowing. Other findings: Multilevel degenerative disc disease. IMPRESSION: Acute compression fracture of superior endplate of T11 vertebra with approximately 15% vertebral height loss. No retropulsion. PROCEDURE INFORMATION: Exam: CT Lumbar Spine Without Contrast Exam date and time: 02/05/2022 5:02 PM Age: 81 years old Clinical indication: Other: Fall, back pain; Additional info: Fall, back pain TECHNIQUE: Imaging protocol: Computed tomography of the lumbar spine without contrast. COMPARISON: CT THORACIC LUMBAR SPINE REC 01/13/2022 8:59 PM FINDINGS: Bones/joints: Multilevel degenerative disc disease. Prominent Schmorl's node at the superior endplate of L2 vertebra. Diffuse demineralization of the bones. L1-L2: Disc bulge. Moderate to severe bilateral neural foraminal narrowing. No spinal canal stenosis. L2-L3: Disc bulge. Moderate bilateral neural foraminal narrowing. No spinal canal stenosis. L3-L4: Disc bulge. Bilateral facet hypertrophy. No spinal canal stenosis. Moderate to severe bilateral neural foraminal narrowing. L4-L5: Disc bulge. Bilateral facet hypertrophy. No spinal canal stenosis. Severe bilateral neural foraminal narrowing. L5-S1: Disc bulge. Bilateral facet hypertrophy. No spinal canal stenosis. Severe bilateral neural foraminal narrowing. Soft tissues: Unremarkable. IMPRESSION: Multilevel degenerative disc disease with neural foraminal narrowing. No acute abnormality. Dictated and Authenticated by: Chun Cortes MD. Ordering:GISELLA Flores MD
[2022-02-05 17:50] LABS: Epithelial Cells Few HPF (Negative); WBC >50 HPF (0-5)
[2022-02-05 17:51] LABS: Bacteria Moderate HPF (Negative); C & S Indicated? Yes; Casts Negative LPF (Negative); Crystals Few Calcium Oxalate HPF (Negative); Mucus Negative (Negative)
--- NOTE | 2022-02-05 17:56 | DI.VRAD_ITS ---
PROCEDURE INFORMATION: Exam: CT Chest With Contrast; Diagnostic Exam date and time: 02/05/2022 5:02 PM Age: 81 years old Clinical indication: Abdominal pain and other: Fall, back pain; Other: Fall abd and back pain TECHNIQUE: Imaging protocol: Diagnostic computed tomography of the chest with contrast. Radiation optimization: All CT scans at this facility use at least one of these dose optimization techniques: automated exposure control; mA and/or kV adjustment per patient size (includes targeted exams where dose is matched to clinical indication); or iterative reconstruction. Contrast material: OMNIPAQUE 350; Contrast volume: 100 ml; Contrast route: INTRAVENOUS (IV); Other contrast: fall,; COMPARISON: CT CHEST/ABD/PEL W 01/13/2022 8:59 PM FINDINGS: Lungs: Unremarkable. No consolidation. No masses. Pleural spaces: Unremarkable. No pneumothorax. No pleural effusion. Heart: Unremarkable. No cardiomegaly. No pericardial effusion. Lymph nodes: Unremarkable. No enlarged lymph nodes. Vasculature: Unremarkable. No aortic aneurysm. Bones/joints: Unremarkable. No acute fracture. Soft tissues: Unremarkable. IMPRESSION: No acute findings. PROCEDURE INFORMATION: Exam: CT Abdomen And Pelvis With Contrast Exam date and time: 02/05/2022 5:02 PM Age: 81 years old Clinical indication: Abdominal pain and other: Fall, back pain; Other: Fall abd and back pain TECHNIQUE: Imaging protocol: Computed tomography of the abdomen and pelvis with contrast. Radiation optimization: All CT scans at this facility use at least one of these dose optimization techniques: automated exposure control; mA and/or kV adjustment per patient size (includes targeted exams where dose is matched to clinical indication); or iterative reconstruction. Contrast material: OMNIPAQUE 350; Contrast volume: 100 ml; Contrast route: INTRAVENOUS (IV); Other contrast: fall,; COMPARISON: CT CHEST/ABD/PEL W 01/13/2022 8:59 PM FINDINGS: Liver: Normal. No mass. Gallbladder and bile ducts: Cholecystectomy clips. Intrahepatic biliary ductal dilatation. The common bile duct measures 8 mm. Findings may suggest post cholecystectomy ectasia. Pancreas: Normal. No ductal dilation. Spleen: Normal. No splenomegaly. Adrenal glands: Normal. No mass. Kidneys and ureters: 3 mm nonobstructing calculus in the midpole of left kidney. Multiple cysts in the left kidney with the largest measuring 1.4 cm in the midpole region. Stomach and bowel: Diverticulosis of the sigmoid colon. Appendix: No evidence of appendicitis. Intraperitoneal space: Unremarkable. No free air. No significant fluid collection. Vasculature: Unremarkable. No abdominal aortic aneurysm. Lymph nodes: Unremarkable. No enlarged lymph nodes. Urinary bladder: Unremarkable as visualized. Reproductive: Unremarkable as visualized. Bones/joints: Acute fracture of superior endplate of T11 vertebra. Soft tissues: Unremarkable. IMPRESSION: Acute fracture of the superior endplate of T11 vertebra. Dictated and Authenticated by: Chun Cortes MD. Ordering:GISELLA Flores MD
--- NOTE | 2022-02-05 18:48 | NUR.NOTE ---
Nursing Note: Referral faxed to PCP for Tspine fx and UTI; in 1 week.
[2022-02-05] MEDS: Cephalexin 500 MG CAP PO (18:54)
== END 2022-02-05 19:09 | disposition home or self-care (01) ==
PROVIDERS: Physician Assistant; Emergency Provider Nurse Practitioner Family; PCP Family Medicine
DX: S22.089A Unspecified fracture of T11-T12 vertebra, initial encounter for closed fracture (principal); N39.0 Urinary tract infection, site not specified; Z86.711 Personal history of pulmonary embolism; Z79.01 Long term (current) use of anticoagulants; W19.XXXA Unspecified fall, initial encounter; Y93.K1 Activity, walking an animal
CPT/HCPCS: 74177; 80053; 83690; 96374; 99285; 70450; 71260; 72125; 72128; 72131; 81003; 81015; 85025; 87086; 99284; J0131; J3490

== ENCOUNTER 2022-02-27 02:45 | Outpatient (CLI) | payer MEDICARE, OTHER, SELFPAY ==
[2022-02-27 13:10] LABS: TSH (W/Ref FT4) 0.17 uIU/mL (0.36-3.74)
[2022-02-27 13:44] LABS: FREE T4 1.05 ng/dL (0.76-1.46)
== END 2022-02-27 02:46 | disposition home or self-care (01) ==
LOC: LOS 02:45
PROVIDERS: PCP Family Medicine; Visit Provider Family Medicine
DX: E03.9 Hypothyroidism, unspecified (principal)
CPT/HCPCS: 36415; 84439; 84443

== ENCOUNTER → 2022-03-12 13:20 | Outpatient (BNVA) | payer MEDICARE, OTHER, SELFPAY | PROVIDERS: PCP Family Medicine; Visit Provider Internal Medicine Cardiovascular Disease | DX: R26.89 Other abnormalities of gait and mobility (principal); R29.6 Repeated falls; R00.2 Palpitations; I47.1 Supraventricular tachycardia; I10 Essential (primary) hypertension | CPT/HCPCS: 99213 ==

== ENCOUNTER 2022-05-01 11:08 | Outpatient (CLI) | payer MEDICARE, OTHER, SELFPAY ==
[2022-05-01 14:06] LABS: Hemoglobin A1C 5.6 % (<5.7)
== END 2022-05-01 11:09 | disposition home or self-care (01) ==
LOC: LOS 11:09
PROVIDERS: PCP Family Medicine; Visit Provider Family Medicine
DX: E83.42 Hypomagnesemia (principal); R73.9 Hyperglycemia, unspecified
CPT/HCPCS: 36415; 83036; 83735

== ENCOUNTER 2022-05-26 08:55 | Emergency (ER) | payer MEDICARE, OTHER, SELFPAY ==
[2022-05-26 09:02] VITALS: BP 116/65; PULSE 77; RESP 20; TEMP 36.6; O2SAT 97
--- NOTE | 2022-05-26 09:17 | W.ED.GENAD ---
Discharge Plan Disposition Patient Disposition: Home Condition: Stable Discharge Details Clinical Impression: Chronic diarrhea Primary Care Provider: Matheus Santana ED Provider: Alena Jiménez Home Meds and New Rx's Prescriptions: New Saccharomyces boulardii [Florastor] 250 mg capsule 250 mg PO BID Qty: 14 0RF azithromycin 500 mg tablet 500 mg PO DAILY 3 Days Qty: 3 0RF Continued CPAP miscellaneous acetaminophen [Tylenol Extra Strength] 500 mg tablet 1,000 mg PO TID multivitamin Capsule 1 cap PO DAILY elderberry fruit and flower 460-115 mg capsule PO ondansetron HCl [Zofran] 4 mg tablet 4 mg PO BID PRN (Reason: nausea and vomiting post op) Qty: 30 0RF nystatin 100,000 unit/gram powder 1 applic Topical BID PRN (Reason: fungal rash) Qty: 180 3RF Rx Instructions: 1-3 GM BID buspirone 10 mg tablet 5 mg PO BID Qty: 90 3RF fluticasone propionate [Flovent HFA] 110 mcg/actuation HFA aerosol inhaler 1 puff Inhalation BID Qty: 12 5RF diltiazem HCl 120 mg capsule,extended release 12 hr 120 mg PO Q12H Qty: 180 3RF escitalopram oxalate 10 mg tablet 10 mg PO DAILY Qty: 90 3RF levothyroxine 100 mcg tablet 50 - 100 mcg PO DAILY Qty: 90 3RF Rx Instructions: take 1/2 tab on Sundays01/01/22 MS rabeprazole [AcipHex] 20 mg tablet,delayed release (DR/EC) 20 mg PO BID Qty: 180 3RF magnesium 200 mg tablet 400 mg PO TID Qty: 180 11RF cholestyramine (with sugar) 4 gram powder 4 g PO DAILY Qty: 756 3RF Rx Instructions: administer w/meal; avoid other meds within 1hr before or 4-6hr after dose (DME) nebulizer and compressor [PulmoNeb LT Compressor Nebul] 1 EACH device 1 ea Miscellaneous PRN Eliquis 2.5 mg tablet 2.5 mg PO BID garlic 1,000 mg Capsule 1,000 mg PO DAILY cholecalciferol (vitamin D3) [Vitamin D3] 50 mcg (2,000 unit) capsule 5,000 unit PO DAILY albuterol sulfate 90 mcg/actuation aerosol powdr breath activated 2 inh IH Q4H PRN (Reason: shortness of breath or wheezing) Qty: 1 0RF Discharge Instructions Instructions: Acute Diarrhea (ED) Additional Instructions: Take the Florastor and antibiotic as prescribed Yogurt daily while on this antibiotic Recheck with your primary care physician on Friday Your stool culture results will likely return within 24 to 48 hours Return earlier should you have weakness, dizziness, or with any new or worsening complaints Referrals: Matheus Santana MD [Primary Care Provider] - 1 day Medical Decision Making This 81-year-old female who presents with diarrhea in the absence of abdominal pain, weakness, dizziness C. difficile negative, stool culture pending Secondary to age, I did initiate antibiotics, azithromycin 500 mg 3 times daily after reviewing the algorithm for diarrhea Return precautions discussed and patient expressed understanding No indication for labs or CT scans at this time Given the threshold to return should she have new or worsening complaints Recheck with primary care physician tomorrow recommended Ambulatory with steady safe gait Vitals stable Medical Records Medical records reviewed: Yes I reviewed the patient's medical records. Lab Data Lab results reviewed: Yes I reviewed the patient's lab results. ECG Data Prior ECG tracings: available for review HPI General Date/Time Provider Initiated Documentation: 05/26/22 09:11. HPI Narrative: This 81-year-old female presents with report of loose stools. Symptoms have been present for the past 4 to 5 days. She states that she has had intermittent diarrhea in the past. She is denies any associated pain. She states she had episodes all day yesterday. She denies any weakness or dizziness. Denies blood. Denies recent antibiotics. Denies known sick contacts. Denies recent hospitalizations. Related Data Home Medications Medication Instructions Recorded Confirmed nebulizer and compressor (PulmoNeb 02/07/16 05/01/22 LT Compressor Nebul) garlic 1,000 mg capsule 1,000 mg PO DAILY 03/11/18 05/26/22 acetaminophen 500 mg tablet 1,000 mg PO TID 07/01/18 05/26/22 (Tylenol Extra Strength) albuterol sulfate 90 mcg/actuation 2 inh inhalation Q4H PRN shortness 03/07/19 05/26/22 breath activated powder inhaler of breath or wheezing #1 ea cholecalciferol (vitamin D3) 50 5,000 unit PO DAILY 05/17/19 05/26/22 mcg (2,000 unit) capsule (Vitamin D3) CPAP miscellaneous 07/23/19 05/01/22 multivitamin 1 cap PO DAILY 11/09/19 05/26/22 apixaban 2.5 mg tablet (Eliquis) 2.5 mg PO BID 04/21/20 05/26/22 elderberry fruit 460 mg-elderberry cap PO 11/21/20 05/01/22 flower 115 mg capsule ondansetron HCl 4 mg tablet 4 mg PO BID PRN nausea and 12/25/20 05/26/22 (Zofran) vomiting post op #30 tabs nystatin 100,000 unit/gram topical 1 applic topical BID PRN fungal 03/08/21 05/26/22 powder rash #180 grams buspirone 10 mg tablet 5 mg PO BID #90 tabs 08/27/21 05/26/22 fluticasone propionate 110 1 puff inhalation BID #12 grams 12/24/21 05/26/22 mcg/actuation HFA aerosol inhaler (Flovent HFA) diltiazem HCl 120 mg 120 mg PO Q12H #180 caps 01/18/22 05/26/22 capsule,extended release 12 hr escitalopram oxalate 10 mg tablet 10 mg PO DAILY #90 tabs 01/22/22 05/26/22 levothyroxine 100 mcg tablet 50 - 100 mcg PO DAILY #90 tabs 02/06/22 05/26/22 rabeprazole 20 mg tablet,delayed 20 mg PO BID #180 tabs 02/22/22 05/26/22 release (AcipHex) magnesium 200 mg tablet 400 mg PO TID #180 tabs 05/14/22 05/26/22 cholestyramine (with sugar) 4 gram 4 g PO DAILY hyperlipidemia #756 05/16/22 05/26/22 oral powder grams Saccharomyces boulardii 250 mg 250 mg PO BID #14 caps 05/26/22 capsule (Florastor) azithromycin 500 mg tablet 500 mg PO DAILY 3 days #3 tabs 05/26/22 Previous Rx's Medication Instructions Recorded albuterol sulfate 90 mcg/actuation 2 inh inhalation Q4H PRN shortness 03/07/19 breath activated powder inhaler of breath or wheezing #1 ea ondansetron HCl 4 mg tablet 4 mg PO BID PRN nausea and 12/25/20 (Zofran) vomiting post op #30 tabs nystatin 100,000 unit/gram topical 1 applic topical BID PRN fungal 03/08/21 powder rash #180 grams buspirone 10 mg tablet 5 mg PO BID #90 tabs 08/27/21 fluticasone propionate 110 1 puff inhalation BID #12 grams 12/24/21 mcg/actuation HFA aerosol inhaler (Flovent HFA) diltiazem HCl 120 mg 120 mg PO Q12H #180 caps 01/18/22 capsule,extended release 12 hr escitalopram oxalate 10 mg tablet 10 mg PO DAILY #90 tabs 01/22/22 levothyroxine 100 mcg tablet 50 - 100 mcg PO DAILY #90 tabs 02/06/22 rabeprazole 20 mg tablet,delayed 20 mg PO BID #180 tabs 02/22/22 release (AcipHex) magnesium 200 mg tablet 400 mg PO TID #180 tabs 05/14/22 cholestyramine (with sugar) 4 gram 4 g PO DAILY hyperlipidemia #756 05/16/22 oral powder grams Saccharomyces boulardii 250 mg 250 mg PO BID #14 caps 05/26/22 capsule (Florastor) azithromycin 500 mg tablet 500 mg PO DAILY 3 days #3 tabs 05/26/22 Allergies Allergy/AdvReac Type Severity Reaction Status Date / Time hylan G- 20 Allergy SWELLING Verified 05/26/22 09:06 AND PAIN metronidazole [From Flagyl] Allergy Skin Rash Verified 05/26/22 09:06 Pyrazolones [Pyrazoles] Allergy Verified 05/26/22 09:06 tolterodine Allergy DIFFICULTY Verified 05/26/22 09:06 BREATHING methylprednisolone AdvReac Intermediate weakness Verified 05/26/22 09:06 and unable mood. hydromorphone AdvReac Mild Nausea Verified 05/26/22 09:06 amitriptyline AdvReac NAUSEA Verified 05/26/22 09:06 aspartame AdvReac HEART Verified 05/26/22 09:06 RACING ondansetron HCl [From Zofran] AdvReac HALLUCINATI Verified 05/26/22 09:06 ON General Stated Complaint: Nausea/Vomit/Diar MANDY: 4 Review of Systems All systems reviewed & are unremarkable except as noted in HPI and below PFSH All Active Problems (Updated 05/26/22 @ 10:39 by CAILIN Vargas) Chest pain (Acute) Nasopharyngeal mass (Acute) Leg swelling (Acute) Headache (Acute) Essential hypertension (Acute) Foot pain, right (Acute) Acute knee pain (Acute) Palpitations (Acute) 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 controlled w/ cholestyramine Pain in female pelvis (Acute 01/04/14) Lung mass (Acute 06/03/14) Hypomagnesemia (Acute 05/27/17) History of surgical procedure (Acute) History of arthroscopy of knee (Acute) Gastroenteritis (Acute 05/15/17) Full thickness rotator cuff tear (Acute) Fatigue (Acute 08/22/16) Fatigue (Acute 06/16/12) Epistaxis (Acute 11/14/14) Elevated liver function tests (Acute 05/14/14) Decreased thyroid stimulating hormone (TSH) level (Acute 11/07/14) Atypical facial pain (Acute 01/07/12) Adhesive capsulitis of shoulder (Acute) Right shoulder strain (Acute) RUQ abdominal pain (Acute) DVT prophylaxis (Acute) Cough (Acute) Osteoarthritis of both knees (Acute) Polyarthralgia (Acute) Bleeding hemorrhoids (Acute) Supraventricular tachycardia (Chronic) History of pulmonary embolism (Acute) DJD (degenerative joint disease) (Chronic) Chronic bilateral low back pain (Acute) Hypothyroidism (Chronic) Acute left ankle pain (Acute) Acromioclavicular joint arthritis (Acute) Diverticula of colon (Acute) Chronic diarrhea (Acute) Ulcer of rectum (Acute) Incomplete rectal prolapse (Acute) Internal hemorrhoid, bleeding (Acute) Bleeding hemorrhoids (Acute) Multiple gastric polyps (Chronic) Epigastric pain (Chronic) Status post cataract extraction and insertion of intraocular lens of right eye (Chronic 03/27/18) Epiretinal membrane (ERM) of right eye (Chronic) 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 stricture, no HH Essential hypertension (Chronic 02/19/13) Elevated fasting glucose (Chronic 06/27/14) Diverticulosis of colon without diverticulitis (Chronic) Depressive disorder (Chronic) refuses medication Asthma (Chronic) Arthritis (Chronic) both ankles S/P fracture S/P surgery Anxiety (Chronic) Allergic eosinophilia (Chronic) 09/23/11 COLONOSCOPY BIOPSY SHOWS FOCAL EOSINOPHILIC CRYPTITS Adrenal mass, right (Chronic 12/11/16) seen on CT Ab 12/26 - STABLE. Will repeat Primary osteoarthritis of both knees (Chronic) MARILYN (generalized anxiety disorder) (Chronic) Patient with palpitations with negative Zio patch. She complained of symptoms during normal sinus rhythm on 40 occasions. With anxiety. Intolerant to buspirone. Will start recheck in 2 weeks. Medical History Cortical cataract of left eye Cortical cataract of right eye Nuclear sclerotic cataract of left eye Nuclear sclerotic cataract of right eye Palpitations Posterior subcapsular age-related cataract of left eye Posterior subcapsular age-related cataract, right eye Pulmonary embolism Thyroid malignant neoplasm papillary Surgical History Cholecystectomy Colonoscopy - MAC DIVERTICULITIS History of back surgery History of surgery on arm History of ventral hernia repair (~04/03/20) Hysterectomy, Laproscopic PROLAPSE; STILL HAS OVARIES Rotator Cuff Repair R SHOULDER; DR. MAGALYS [place] SHOULDER 01/25 Status post arthroscopic knee surgery 1) RIGHT KNEE; DR. LOPEZ 2) LEFT KNEE; DR. DUNCAN STOMACH STITCH (~08/2014) Thyroid (~09/2014) Family History Mother , OLD AGE at age 95. Stroke Father , GI BLEED at age 85. Diabetes GI bleed Heart disease Sister Diabetes Essential hypertension Neoplasm BREAST Brother Macular degeneration 1 EYE Grandfather Heart disease Neoplasm Grandfather No problems noted. Grandmother Heart disease Grandmother Neoplasm Son Neoplasm BRAIN Son No problems noted. Daughter Neoplasm BREAST Daughter No problems noted. Child No problems noted. Social History Smoking/Tobacco Use Status: Never Smoking risk assessment performed?: Yes Alcohol Intake: never Drug use: Never Substance use type: does not use Pets and animals: Yes Pets and animals: cat(s) and dog(s) Current gender identity: female What type of physical activity do you participate in: walking and additional Details: walks the block with her dog. Li/Congregation: [employer] Special li needs: No Do you feel safe at home: Yes Do you feel safe in your relationship?: Yes Additional Social history: lives alone Exam Const General: cooperative, comfortable and no acute distress HENMT Other: Moist mucous membranes Eyes Sclera: sclerae normal Resp Effort & Inspection: normal respiratory effort Auscultation: clear to auscultation bilaterally Cardio Rate: regular rate Rhythm: regular rhythm GI Inspection: normal to inspection Auscultation: normal bowel sounds Skin General skin exam: no rashes or lesions noted Neuro General: patient alert and patient oriented x3 Course Vital Signs Vital signs: Vital Signs Temperature 36.6 C 05/26/22 09:02 Pulse 77 05/26/22 09:02 Respiratory Rate 20 05/26/22 09:02 Blood Pressure 116/65 05/26/22 09:02 Pulse Oximetry 97 05/26/22 09:02 Temperature 36.6 C 05/26/22 09:02 Temperature Source Temporal Artery Scan 05/26/22 09:02 Pulse 77 05/26/22 09:02 Respiratory Rate 20 05/26/22 09:02 Respiratory Effort Non-Labored 05/26/22 09:12 Blood Pressure 116/65 05/26/22 09:02 Blood Pressure Position Sitting 05/26/22 09:02 Pulse Oximetry 97 05/26/22 09:02 Oxygen Delivery Method Room Air 05/26/22 09:02 Oxygen Flow Rate 0 05/26/22 09:02 Pain Level 0 05/26/22 09:02
[2022-05-26 10:15] LABS: C Diff PCR Negative (Negative)
[2022-05-26 11:04] VITALS: BP 125/52; PULSE 66; RESP 20; O2SAT 98
[2022-05-27 19:46] LABS: Campylobacter PCR Negative (Negative); Salmonella PCR Negative (Negative); Shiga Toxin PCR Negative (Negative); Shigella/Enteroinvasive Ecoli Negative (Negative)
== END 2022-05-26 11:05 | disposition home or self-care (01) ==
PROVIDERS: Emergency Provider Physician Assistant; PCP Family Medicine
DX: K52.9 Noninfective gastroenteritis and colitis, unspecified (principal)
CPT/HCPCS: 87493; 87505; 99283; 99284

== ENCOUNTER 2022-06-22 01:43 | Emergency (ER) | payer MEDICARE, OTHER, SELFPAY ==
[2022-06-22 01:49] VITALS: BP 164/76; PULSE 87; RESP 16; TEMP 36.5; O2SAT 96
--- NOTE | 2022-06-22 01:55 | ED.GENADUL_ITS ---
Discharge Plan Disposition Patient Disposition: Home Condition: Stable Discharge Details Clinical Impression: Acute UTI Primary Care Provider: Matheus Santana ED Provider: Zhen Pichardo Home Meds and New Rx's Prescriptions: New nitrofurantoin monohyd/m-cryst [Macrobid] 100 mg capsule 100 mg PO Q12H 5 Days Qty: 10 0RF Rx Instructions: must administer with a meal/food Continued CPAP miscellaneous acetaminophen [Tylenol Extra Strength] 500 mg tablet 1,000 mg PO TID PRN multivitamin Capsule 1 cap PO DAILY elderberry fruit and flower 460-115 mg capsule PO ondansetron HCl [Zofran] 4 mg tablet 4 mg PO BID PRN (Reason: nausea and vomiting post op) Qty: 30 0RF diltiazem HCl 120 mg capsule,extended release 12 hr 120 mg PO Q12H Qty: 180 3RF buspirone 10 mg tablet 5 mg PO BID Qty: 90 3RF fluticasone propionate [Flovent HFA] 110 mcg/actuation HFA aerosol inhaler 1 puff Inhalation BID Qty: 12 5RF escitalopram oxalate 10 mg tablet 10 mg PO DAILY Qty: 90 3RF levothyroxine 100 mcg tablet 50 - 100 mcg PO DAILY Qty: 90 3RF Rx Instructions: take 1/2 tab on Sundays/ MS rabeprazole [AcipHex] 20 mg tablet,delayed release (DR/EC) 20 mg PO BID Qty: 180 3RF magnesium 200 mg tablet 400 mg PO TID Qty: 180 11RF cholestyramine (with sugar) 4 gram powder 4 g PO DAILY Qty: 756 3RF Rx Instructions: administer w/meal; avoid other meds within 1hr before or 4-6hr after dose (DME) nebulizer and compressor [PulmoNeb LT Compressor Nebul] 1 EACH device 1 ea Miscellaneous PRN Eliquis 2.5 mg tablet 2.5 mg PO BID garlic 1,000 mg Capsule 1,000 mg PO DAILY cholecalciferol (vitamin D3) [Vitamin D3] 50 mcg (2,000 unit) capsule 5,000 unit PO DAILY albuterol sulfate 90 mcg/actuation aerosol powdr breath activated 2 inh IH Q4H PRN (Reason: shortness of breath or wheezing) Qty: 1 0RF Discharge Instructions Instructions: Urinary Tract Infection in Women (ED) Additional Instructions: if symptoms continue this week follow up with your primary care provider if you feel more ill, have severe back pain or fevers return to the emergency department Medical Decision Making 81 yo female with hx of afib, asthma, who comes in with urinary frequency and burning since noon time yesterday. She denies fevers, chills, abdominal pain, vomiting, or back pain. She arrives stable appears well in no distress. She has no abdominal tenderness or cva tenderness. Her symptoms seem typical for uti, will obtain ua ua shows hematuria and leuks with few bacteria, culture ordered and will initiate macrobid, no findings on history or exam to suggest pyelo. She is stable for d/c, she will f/u with pcp if not improving, return precautions given Differential Diagnosis Differential Diagnosis: cystitis, uretheritis Medical Records Medical records reviewed: Yes I reviewed the patient's medical records. Lab Data Lab results reviewed: Yes I reviewed the patient's lab results. HPI General Mode of arrival: ambulatory . Date/Time Provider Initiated Documentation: 06/22/22 01:44 . Limitations to Documentation: no limitations . Information obtained by: patient . History of Present Illness 81 year old F presents to the emergency department with the chief complaint of dysuria, described as moderate, Quality is described as burning, Patient reports no radiation. Patient started experiencing this hour(s) (12) and it has been constant. No relieving factors improve symptom(s), No exacerbating factors reported . Patient notes denies fever/chills and nausea/vomiting. Patient did receive the following treatments prior to arrival, none Related Data Home Medications Medication Instructions Recorded Confirmed nebulizer and compressor (PulmoNeb 02/07/16 06/11/22 LT Compressor Nebul) garlic 1,000 mg capsule 1,000 mg PO DAILY 03/11/18 06/22/22 albuterol sulfate 90 mcg/actuation 2 inh inhalation Q4H PRN shortness 03/07/19 06/22/22 breath activated powder inhaler of breath or wheezing #1 ea cholecalciferol (vitamin D3) 50 5,000 unit PO DAILY 05/17/19 06/22/22 mcg (2,000 unit) capsule (Vitamin D3) CPAP miscellaneous 07/23/19 06/11/22 multivitamin 1 cap PO DAILY 11/09/19 06/22/22 apixaban 2.5 mg tablet (Eliquis) 2.5 mg PO BID 04/21/20 06/22/22 elderberry fruit 460 mg-elderberry cap PO 11/21/20 06/11/22 flower 115 mg capsule ondansetron HCl 4 mg tablet 4 mg PO BID PRN nausea and 12/25/20 06/22/22 (Zofran) vomiting post op #30 tabs buspirone 10 mg tablet 5 mg PO BID #90 tabs 08/27/21 06/22/22 fluticasone propionate 110 1 puff inhalation BID #12 grams 12/24/21 06/22/22 mcg/actuation HFA aerosol inhaler (Flovent HFA) escitalopram oxalate 10 mg tablet 10 mg PO DAILY #90 tabs 01/22/22 06/22/22 levothyroxine 100 mcg tablet 50 - 100 mcg PO DAILY #90 tabs 02/06/22 06/22/22 rabeprazole 20 mg tablet,delayed 20 mg PO BID #180 tabs 02/22/22 06/22/22 release (AcipHex) magnesium 200 mg tablet 400 mg PO TID #180 tabs 05/14/22 06/22/22 cholestyramine (with sugar) 4 gram 4 g PO DAILY hyperlipidemia #756 05/16/22 06/22/22 oral powder grams acetaminophen 500 mg tablet 1,000 mg PO TID PRN 06/11/22 06/22/22 (Tylenol Extra Strength) diltiazem HCl 120 mg 120 mg PO Q12H #180 caps 06/11/22 06/22/22 capsule,extended release 12 hr nitrofurantoin 100 mg PO Q12H 5 days #10 caps 06/22/22 monohydrate/macrocrystals 100 mg capsule (Macrobid) Previous Rx's Medication Instructions Recorded albuterol sulfate 90 mcg/actuation 2 inh inhalation Q4H PRN shortness 03/07/19 breath activated powder inhaler of breath or wheezing #1 ea ondansetron HCl 4 mg tablet 4 mg PO BID PRN nausea and 12/25/20 (Zofran) vomiting post op #30 tabs buspirone 10 mg tablet 5 mg PO BID #90 tabs 08/27/21 fluticasone propionate 110 1 puff inhalation BID #12 grams 12/24/21 mcg/actuation HFA aerosol inhaler (Flovent HFA) escitalopram oxalate 10 mg tablet 10 mg PO DAILY #90 tabs 01/22/22 levothyroxine 100 mcg tablet 50 - 100 mcg PO DAILY #90 tabs 02/06/22 rabeprazole 20 mg tablet,delayed 20 mg PO BID #180 tabs 02/22/22 release (AcipHex) magnesium 200 mg tablet 400 mg PO TID #180 tabs 05/14/22 cholestyramine (with sugar) 4 gram 4 g PO DAILY hyperlipidemia #756 05/16/22 oral powder grams diltiazem HCl 120 mg 120 mg PO Q12H #180 caps 06/11/22 capsule,extended release 12 hr nitrofurantoin 100 mg PO Q12H 5 days #10 caps 06/22/22 monohydrate/macrocrystals 100 mg capsule (Macrobid) Allergies Allergy/AdvReac Type Severity Reaction Status Date / Time hylan G-F 20 Allergy SWELLING Verified 06/22/22 01:54 AND PAIN metronidazole [From Flagyl] Allergy Skin Rash Verified 06/22/22 01:54 Pyrazolones [Pyrazoles] Allergy Verified 06/22/22 01:54 tolterodine Allergy DIFFICULTY Verified 06/22/22 01:54 BREATHING methylprednisolone AdvReac Intermediate weakness Verified 06/22/22 01:54 and unable mood. hydromorphone AdvReac Mild Nausea Verified 06/22/22 01:54 amitriptyline AdvReac NAUSEA Verified 06/22/22 01:54 aspartame AdvReac HEART Verified 06/22/22 01:54 RACING ondansetron HCl [From Zofran] AdvReac HALLUCINATI Verified 06/22/22 01:54 ON General Stated Complaint: Urinary MANDY: 4 Review of Systems All systems reviewed & are unremarkable except as noted in HPI and below Constitutional Constitutional: Denies chills, Denies fever(s) and Denies weakness Cardiovascular Cardiovascular: Denies chest pain and Denies dyspnea Respiratory Respiratory: Denies cough and Denies dyspnea Gastrointestinal Gastrointestinal: Denies abdominal pain, Denies nausea and Denies vomiting Neurologic Neurologic: Denies weakness PFSH All Active Problems (Updated 06/22/22 @ 02:11 by Zhen Pcihardo MD) Acute UTI (Acute) Chest pain (Acute) Nasopharyngeal mass (Acute) Leg swelling (Acute) Headache (Acute) Essential hypertension (Acute) Foot pain, right (Acute) Acute knee pain (Acute) Palpitations (Acute) 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 controlled w/ cholestyramine Pain in female pelvis (Acute 01/04/14) Lung mass (Acute 06/03/14) Hypomagnesemia (Acute 05/27/17) History of surgical procedure (Acute) History of arthroscopy of knee (Acute) Gastroenteritis (Acute 05/15/17) Full thickness rotator cuff tear (Acute) Fatigue (Acute 08/22/16) Fatigue (Acute 06/16/12) Epistaxis (Acute 11/14/14) Elevated liver function tests (Acute 05/14/14) Decreased thyroid stimulating hormone (TSH) level (Acute 11/07/14) Atypical facial pain (Acute 01/07/12) Adhesive capsulitis of shoulder (Acute) Right shoulder strain (Acute) RUQ abdominal pain (Acute) DVT prophylaxis (Acute) Cough (Acute) Osteoarthritis of both knees (Acute) Polyarthralgia (Acute) Bleeding hemorrhoids (Acute) Supraventricular tachycardia (Chronic) History of pulmonary embolism (Acute) DJD (degenerative joint disease) (Chronic) Chronic bilateral low back pain (Acute) Hypothyroidism (Chronic) Acute left ankle pain (Acute) Acromioclavicular joint arthritis (Acute) Diverticula of colon (Acute) Chronic diarrhea (Acute) Ulcer of rectum (Acute) Incomplete rectal prolapse (Acute) Internal hemorrhoid, bleeding (Acute) Bleeding hemorrhoids (Acute) Multiple gastric polyps (Chronic) Epigastric pain (Chronic) Status post cataract extraction and insertion of intraocular lens of right eye (Chronic 03/27/18) Epiretinal membrane (ERM) of right eye (Chronic) 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 stricture, no HH Essential hypertension (Chronic 02/19/13) Elevated fasting glucose (Chronic 06/27/14) Diverticulosis of colon without diverticulitis (Chronic) Depressive disorder (Chronic) refuses medication Asthma (Chronic) Arthritis (Chronic) both ankles S/P fracture S/P surgery Anxiety (Chronic) Allergic eosinophilia (Chronic) 09/23/11 COLONOSCOPY BIOPSY SHOWS FOCAL EOSINOPHILIC CRYPTITS Adrenal mass, right (Chronic 12/11/16) seen on CT Ab 12/26 - STABLE. Will repeat Primary osteoarthritis of both knees (Chronic) MARILYN (generalized anxiety disorder) (Chronic) Patient with palpitations with negative Zio patch. She complained of symptoms during normal sinus rhythm on 40 occasions. With anxiety. Intolerant to buspirone. Will start recheck in 2 weeks. Medical History Cortical cataract of left eye Cortical cataract of right eye Nuclear sclerotic cataract of left eye Nuclear sclerotic cataract of right eye Palpitations Posterior subcapsular age-related cataract of left eye Posterior subcapsular age-related cataract, right eye Pulmonary embolism Thyroid malignant neoplasm papillary Surgical History Cholecystectomy Colonoscopy - MAC DIVERTICULITIS History of back surgery History of surgery on arm History of ventral hernia repair (~04/03/20) Hysterectomy, Laproscopic PROLAPSE; STILL HAS OVARIES Rotator Cuff Repair R SHOULDER; DR. DOWELL L SHOULDER 01/25 Status post arthroscopic knee surgery 1) RIGHT KNEE; DR. LOPEZ 2) LEFT KNEE; DR. DUNCAN STOMACH STITCH (~08/2014) Thyroid (~09/2014) Family History Mother , OLD AGE at age 95. Stroke Father , GI BLEED at age 85. Diabetes GI bleed Heart disease Sister Diabetes Essential hypertension Neoplasm BREAST Brother Macular degeneration 1 EYE Grandfather Heart disease Neoplasm Grandfather No problems noted. Grandmother Heart disease Grandmother Neoplasm Son Neoplasm BRAIN Son No problems noted. Daughter Neoplasm BREAST Daughter No problems noted. Child No problems noted. Social History Smoking/Tobacco Use Status: Never Smoking risk assessment performed?: Yes Alcohol Intake: never Drug use: Never Substance use type: does not use Pets and animals: Yes Pets and animals: cat(s) and dog(s) Current gender identity: female What type of physical activity do you participate in: walking and additional Details: walks the block with her dog. Li/Adventism: [employer] Special li needs: No Do you feel safe at home: Yes Do you feel safe in your relationship?: Yes Additional Social history: lives alone Exam Const General: no acute distress Orientation: alert HENMT Head: normal to inspection Ears: external ears normal General nose exam: external nose normal Mouth: moist mucous membranes Eyes General: appearance normal, both eyes and all related structures Neck Neck: normal visual inspection Resp Effort & Inspection: normal respiratory effort and able to speak in complete sentences Cardio Rate: regular rate GI Palpation: soft and nontender Skin General skin exam: no rashes or lesions noted Neuro General: patient alert and patient oriented x3 Extrem General: normal to inspection Psych Mental Status: mental status grossly normal Course Vital Signs Vital signs: Vital Signs Temperature 36.5 C 06/22/22 01:49 Pulse 87 06/22/22 01:49 Respiratory Rate 16 06/22/22 01:49 Blood Pressure 164/76 H 06/22/22 01:49 Pulse Oximetry 96 06/22/22 01:49 Temperature 36.5 C 06/22/22 01:49 Temperature Source Temporal Artery Scan 06/22/22 01:49 Pulse 87 06/22/22 01:49 Respiratory Rate 16 06/22/22 01:49 Respiratory Effort Normal 06/22/22 01:49 Blood Pressure 164/76 H 06/22/22 01:49 Blood Pressure Position Sitting 06/22/22 01:49 Pulse Oximetry 96 06/22/22 01:49 Oxygen Delivery Method Room Air 06/22/22 01:49 Oxygen Flow Rate 0 06/22/22 01:49 Pain Level 5 06/22/22 01:49
[2022-06-22 01:58] LABS: Bilirubin Negative (Negative); Blood Moderate (Negative); Clarity Clear (Clear); Glucose Negative (Negative); Ketones Negative (Negative); Leukocyte Esterase Small (Negative); Nitrite Negative (Negative); Urobilinogen 0.2 EU/dL (Up TO 0.2)
--- OUTSIDE RECORDS SUMMARY | 2022-06-22 01:59 | XMS_ITS ---
Author Name Julian Hogan Address [address], [place] [id number] [facility] Address [address], [place] [id number] Care Team Providers Care Arc Cutter Plasma Arc Name Role Phone Dieter Hoganolas Unavailable [phone] PROBLEMS Type Condition ICD9-CM Code RIY53-VQ Code Onset Dates Condition Status SNOMED Code Problem Hyperlipidemia 272.4 Active 54921696 Problem Thyroid cancer 193 Active 486289081 Problem SCREEN MAL NEOP-RECTUM V76.41 Active 319902287 Problem Supraventricular tachycardia 427.89 Active 2463013 Problem Diverticulosis 562.10 Active 016158946 Problem Obstructive sleep apnea 327.23 Active 64986515 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 But Augmentin well tolerated, no rash Non Drug Allergy Jan, Active Hylan swelling and pain Drug Allergy Jan, Act rosario Ondansetron hallucination Drug Allergy 14 Sep, 2022 Active Cipro heart palpatations Drug Allergy 14 Jan, 2022 Ac tive Elavil Nausea Non Drug Allergy 14 Jan, 2022 Active Detrol LA Dyspnea Drug Allergy 14 Jan, 2022 Active Flagyl rash Drug Allergy 14 Jan, 2022 Active solu medrol Unknown Non Drug Allergy 14 Jan, 2022 Activ e Hydromorphone HCl Anaphylaxis Drug Allergy 14 Jan, 2022 Ac tive ENCOUNTERS Encounter Location Date Diagnosis [address] [place] [id number] 15 Jan, 2022 Breast cancer screening by mammogram Z12.[address] [place], [place] [id number] 14 Jan, 2022 Ulcer of abdomen wall, limited to breakdown of skin L98.[address] [place] [id number] 01 Jan, 2022 Ulcer of abdomen wall, limited to breakdown of skin L98.491 [facility] [address] [place] [address] [address] [place], [place] [id number] 15 Dec, 2021 N E [facility] ChelsieDustin [address], [address] [id number] 15 Dec, [address] [place] [id number] 18 Feb, [address] [place] [address] [id number] 27 Jan, 2021 Vaginal yeast infection B37.[address] [place] [id number] 21 Jan, 2021 Encounter for screening mammogram for malignant neoplasm of breast Z12.[address] [place] [address] [id number] 16 Mar, [address] [place] [address] [id number] 04 Mar, [address] [place] [address] [id number] 28 Feb, 2020 Subacute vulvitis N76.3 and Idiopathic vulvodynia N94.[address] [place] [id number] 13 Feb, 2020 Subacute vulvitis N76.3 ; Dysuria R30.0 and Idiopathic vulvodynia N94.[address] [id number] Feb, [address] [id number] Feb, Subacute vulvitis N76.[address] [id number] Feb, [address] [id number] Jan, Vulvitis N76.[address] [id number] Jan, Encounter for screening mammogram for malignant neoplasm of breast Z12.[address] [id number] Jan, Encounter for screening mammogram for malignant neoplasm of breast Z12.[address] [id number] September, Vagina itching N89.8 ; Vagina, candidiasis B37.3 ; Postmenopause atrophic vaginitis N95.2 and Pneumonia, bacterial J15.[address] [id number] September, [address] [id number] Mar, Postmenopausal atrophic vaginitis N95.2 and Subacute vulvitis N76.[address] [id number] Dec, [address] [id number] Dec, Postmenopausal atrophic vaginitis N95.2 and Encounter for screening mammogram for breast cancer Z12.[address] [id number] Aug, Subacute vulvitis N76.[address] [id number] May, [address] [id number] Apr, [address] [place] [address] [id number] Dec, Subacute vulvitis N76.3 ; Postmenopausal atrophic vaginitis N95.2 and Other screening mammogram Z12.[address] [place] [address] [id number] Nov, Subacute vulvitis N76.3 and Postmenopausal atrophic vaginitis N95.[address] [id number] Nov, Subacute vulvitis N76.[address] [id number] Oct, Dysuria R30.0 ; Acute vulvitis N76.2 ; 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 and Postmenopausal atrophic vaginitis N95.2 [facility] [address] [place] [address] [place] [id number] Nov, [facility] [address] [place] [address] [place] [address] [id number] Nov, Recurrent epistaxis 784.7 [facility] [address] [place] [address] [place] [address] [id number] Nov, [facility] [address] [place] [address] [place] [address] [id number] Nov, Recurrent epistaxis 784.7 [facility] [address] [place] [address] [place] [address] [id number] Nov, [facility] [address], [address] [id number] Nov, Epistaxis 784.7 Juan R Luis MD [address] [place], [place] [id number] Oct, Juan R Luis MD [address] [place], [place] [id number] Oct, Candidiasis of vagina 112.1 ; Atrophy of vagina 627.3 and Vaginal pain 625.9 [facility] [address] [place] [address] [place] [address] [id number] Jul, [facility] [address] [place] [address] [place] [address] [id number] Jul, Thyroid nodule 241.0 [facility] [address] [facility] [address] [place], [place] [id number] Jun, Thyroid nodule 241.0 Juan R Luis MD [address], [place] [id number] Oct, SCREEN MAL NEOP-RECTUM V76.41 Juan R Luis MD [address] [place], [place] [id number] September, Atrophy of vagina 627.3 and Hyperlipidemia 272.4 Juan R Luis MD [address] [place], [place] [id number] September, Juan R Luis MD [address] [place], [place] [id number] September, Juan R Luis MD [address] [place], [place] [id number] Aug, Juan R Luis MD [address] [place], [place] [id number] Aug, HSV (herpes simplex virus) anogenital infection 054.9 ; Vulvitis 616.10 and SVT [Supraventricular tachycardia] 427.89 [facility] [address] [place] [id number] May, Dysuria 788.1 and Urinary frequency 788.[address] [facility] [address] [id number] May, [facility] [address] [id number] Apr, Urinary frequency 788.[address] [facility] [address] [id number] Apr, Urinary frequency 788.[address] [facility] [address] [id number] Apr, Dysuria 788.1 and Urinary frequency 788.[address] [facility] [address] [id number] Apr, Urethralgia 788.[address] [facility] [address] [id number] Jan, [facility] [address] [id number] Dec, Hematuria, gross 599.71 and Pollakiuria 788.[address] [facility] [address] [place], [place] [id number] Dec, IMMUNIZATIONS No Known Immunizations SOCIAL HISTORY Qualifiers Date Never Smoker REASON FOR REFERRAL FUNCTIONAL STATUS PLAN OF CARE Activity Details VITAL SIGNS Height 59 in 2022-01-23 Height 59 in 2022-01-10 Height 59 in 2020-03-08 Height 59 in 2020-02-22 Height 59 in 2020-02-11 Height 59 in 2020-02-03 Height 59 in 2018-10-01 Height 59 in 2018-03-17 Height 59 in 2017-12-17 Height 59 in 2017-08-13 Height 59 in 2016-12-16 Height 59 in 2016-11-26 Height 59 in 2016-11-18 Height 59 in 2016-10-25 Height 59 in 2014-11-18 Height 59 in 2014-11-14 Height 59 in 2014-10-11 Height 59 in 2014-06-17 Height 59 in 2013-10-01 Height 59 in 2013-08-30 Weight 168.4 lbs 2022-01-10 Weight 162.8 lbs 2020-03-08 Weight 160.2 lbs 2020-02-22 Weight 160 lbs 2020-02-11 Weight 162.6 lbs 2020-02-03 Weight 165 lb 0 oz lbs 2018-10-01 Weight 168.0 lbs 2018-03-17 Weight 165.8 lbs 2017-12-17 Weight 170.2 lbs 2017-08-13 Weight 160.8 lbs 2016-12-16 Weight 158.2 lbs 2016-11-26 Weight 158.2 lbs 2016-11-18 Weight 157 lbs 2016-10-25 Weight 163 lbs 2014-11-18 Weight 163 lbs 2014-11-14 Weight 162 lbs 2014-10-11 Weight 157 lbs 2014-06-17 Weight 160 lbs 2013-10-01 Weight 161 lbs 2013-08-30 Weight 156 lbs 2009-04-12 Weight 155 lbs 2009-01-06 Heart Rate 74 /min 2014-11-18 Heart Rate 78 /min 2014-06-17 Heart Rate 70 /min 2013-10-01 Heart Rate 689 /min 2011-05-07 Heart Rate 64 /min 2009-04-12 Heart Rate 76 /min 2009-01-06 Respiratory Rate 16 /min 2014-11-18 Respiratory Rate 16 /min 2011-05-07 BMI 34.01 kg/m2 2022-01-10 BMI 32.88 kg/m2 2020-03-08 BMI 32.35 kg/m2 2020-02-22 BMI 32.31 kg/m2 2020-02-11 BMI 32.84 kg/m2 2020-02-03 BMI 33.32 kg/m2 2018-10-01 BMI 33.93 kg/m2 2018-03-17 BMI 33.48 kg/m2 2017-12-17 BMI 34.37 kg/m2 2017-08-13 BMI 32.47 kg/m2 2016-12-16 BMI 31.95 kg/m2 2016-11-26 BMI 31.95 kg/m2 2016-11-18 BMI 31.71 kg/m2 2016-10-25 BMI 32.92 kg/m2 2014-11-18 BMI 32.92 kg/m2 2014-11-14 BMI 32.72 kg/m2 2014-10-11 BMI 31.71 kg/m2 2014-06-17 BMI 32.31 kg/m2 2013-10-01 BMI 32.51 kg/m2 2013-08-30 Blood pressure systolic 138 mm Hg Blood pressure diastolic 74 mm Hg 2022-01 MEDICATIONS Medication Instructions Dosage Frequency Start Date End Date Duration Status Estrace 0.01% USE 1 GRAM VAGINALLY ONCE A DAY Not-Jaskaran warren Flovent Diskus 50 MCG/BLIST Inhalation at night 1 puff Active Synthroid 100 MCG Orally Once a day 1 tablet on an empty stomach in the morning 24h Active Aciphex 20 MG Orally twice daily 1 tablet Active Fluconazole short course 200 MG Orally One tablet today, repeat every 4 days until gone 1 tablet Apr, 12 days Not-Jaskaran warren dilTIAZem HCl 120 MG Orally twice a day 1 tablet before meals 12h Active LORazepam 0.5 MG Orally Twice a day 1 tablet as needed 12h Active busPIRone HCl 5 MG Orally Twice a day 1 tablet 12h Active Nystatin Active Multivitamin Adults - as directed Active Tramadol 50 mg by mouth twice a day 1/2 tab 12h Active Lidocaine 5 % Externally Three times a day 1 application as needed 8h Feb, 30 days Not-Jaskaran warren Eliquis 2.5 MG Orally twice a day as directed 12h Active Estrace 0.1 MG/GM Vaginal Weekly 1 gram as directed 1 year NotOni warren Cholestyramine 4 GM Orally a few times a week 1 packet mixed with water or non-carbonate d drink Active Lexapro 10 MG Orally Once a day 1 tablet 24h Active Magnesium 200 MG Orally Three times a day 2 tablets with a meal 8h Active Tylenol Extra Strength 500 MG Orally every 6 hrs 1 tablet as needed 6h Active Gabapentin 300 MG Orally bid 1 capsule 12h 13 Feb, 2020 30 day(s) Not-Taki ng Vitamin D-3 125 MCG (5000 UT) Orally Once a day 1 capsule 24h Active PROCEDURES Procedure Date Ordered Result Body Site 26 CYSTOMETROGRAM W/HAMMER SMITH&UP May 10, 2011 TC EMG ELECTROMYOGRAPHY May 10, 2011 26 EMG ELECTROMYOGRAPHY S May 10, 2011 TC COMPLEX UROFLOW May 10, 2011 TC CYSTOMETROGRAM W/HAMMER SMITH&UP May 10, 2011 BLADDER SCAN May 10, 2011 IRINA/[place] VAGINAL Feb 22, 2020 IH URINALYSIS NONAUTO W/O SCOPE Feb 22, 2020 CONTROL OF NOSEBLEED SIMPLE November 14, 2014 26 EMG ELECTROMYOGRAPHY S Jun 08, 2011 26 COMPLEX UROFLOW Jun 08, 2011 IRINA/[place] [place] VAG[facility] Mar 17, 2018 IRINA/[place] VAGINAL November 26, 2016 URINALYSIS NONAUTO W/O SCOPE October 11, 2014 IRINA/[place] [facility]AG[facility] October 01, 2018 CYSTOURETHROSCOPY Jan 11, 2009 [place] VAGIN[facility] August 13, 2017 CONTROL OF NOSEBLEED COMPLEX November 15, 2014 IH URINALYSIS NONAUTO W/O SCOPE October 25, 2016 26 CYSTOMETROGRAM W/HAMMER SMITH&UP Jun 08, 2011 26 AP STUDY Jun 08, 2011 BLADDER SCAN May 07, 2011 26 AP STUDY May 10, 2011 IRINA/[place] [place] [facility]AG[facility] October 11, 2014 IRINA/[place] [place] VAGINAL October 25, 2016 26 COMPLEX UROFLOW May 10, 2011 TC AP STUDY May 10, 2011 CONTROL OF NOSEBLEED COMPLEX November 15, 2014 RESULTS Name Result Date Reference Range MG MAMMOGRAPHY BILATERAL SCREENING 2021-03-01 URINE DIP ([facility]) 2020-02-22 Color yellow Clarity clear Glucose normal Bilirubin negative Ketones negative Specific [place] 1.020 Blood negative PH 5 Protein trace Uro normal Nitrates negative Leukocytes negative MG MAMMOGRAPHY BILATERAL SCREENING 2020-02-22 MG MAMMOGRAPHY BILATERAL SCREENING 2019-02-19 Wet Prep Trichomonas Exam Neg Yeast Exam ++ Clue Cell Exam Neg MG MAMMOGRAPHY BILATERAL SCREENING 2018-02-11 MG MAMMOGRAPHY BILATERAL SCREENING 2017-01-15 URINE DIP ([facility]) 2016-10-25 Color yellow Clarity cloudy Glucose negative Bilirubin negative Ketones negative Specific [place] 1.030 Blood trace PH 5 Protein trace Uro normal Nitrates negative Leukocytes + Wet Prep Trichomonas Exam NEG Yeast Exam NEG Clue Cell Exam NEG CULTURE URINE 2016-10-25 Wet Prep Trichomonas Exam - Yeast Exam + Clue Cell Exam - Occult Blood, Fecal, IA 2013-10-21 Occult Blood, Fecal, IA Neg Pap Lb (Liquid-based) 2013-10-01 . Note: Clinical history: DEZ DIAGNOSIS: Neg. for I.L. or Malignancy Specimen adequacy: Satisfactory Additional comment: Recommendation: Performed by: Electronically signed by: Test ordered: Maturation index: Amended report: Addendum: QC reviewed by: Cytology history: Special procedure: QA comment: Diagnosis provided by: Source: Pathologist provided ICD9: Clinician provided ICD9: Interpretation LBP CPT Code Automation BASIC METABOLIC PROFILE SODIUM 141 POTASSIUM 3.7 CHLORIDE 104 CO2 30.2 CALCIUM 8.9 GLUCOSE 100 BLOOD UREA NITROGEN 10 CREATININE 0.7 eGFR Calculated Value >60.00 EGFR COMMENT OSMOLARITY ANION GAP BUN/CREATININE RATIO Estimated Glom Filt Rate CBC, WITH AUTO DIFF WBC 6.11 WBC SUSPECT FLAGS RBC 4.74 RBC SUSPECT FLAG HEMOGLOBIN 14. HEMATOCRIT 41.9 MCV 88.4 MCH 29.5 MCHC 33.4 PLATELETS 278 RDW 14.3 PLT SUSPECT FLAG MPV 11.3 NEUTROPHIL % LYMPHS % MONOCYTES % EOSINOPHILS % BASOPHILS % NEUTROPHILS # LYMPHOCYTES # MONOCYTES # EOSINOPHILS # BASOPHILS # MANUAL DIFFERENTIAL? PATH? PSR COMMENT SMEAR? SMEAR COMMENT SMEAR COMMENT LIPID PROFILE 2013-08-30 CHOLESTEROL 265 TRIGLYCERIDES 110 HDL CHOLESTEROL 43* L LDL (CALCULATED) 200*H LDL CHOLESTEROL RISK RATIO RISK RATIO INTERP Herpes Simplex Virus I/II, IgG 2013-08-30 HSV I/II IgG pos. type 1, Neg type 2 URINALYSIS, DIP ONLY 2011-05-22 CLARITY mucous COLOR yellow NITRITES wnl REDUCING SUBSTANCES wnl SPECIFIC GRAVITY wnl UROBILINOGEN wnl BILIRUBIN wnl BLOOD wnl GLUCOSE wnl KETONES wnl pH wnl PROTEIN wnl LEUKOCYTES wnl URINALYSIS COMPLETE URINALYSIS COMPLETE COLOR GLU HYALINE RBCS _ WBCS _ _MIC _MUCUS AS_HEM BACTERIA CASTS CRYSTALS EPI CELLS RBC WBC BILIRUBIN BLOOD CLARITY CULTURED GLUCOSE KETONE LEUKOCYTES NITRITE PH PROTEIN REDUC SUB SPEC GRAV SPEC TYPE UROBILINOGEN CULTURE URINE CULTURE URINE & COLONY COUNT CULTURE URINE & COLONY COUNT CULTURE URINE & COLONY COUNT CULTURE URINE & COLONY COUNT CULTURE URINE & COLONY COUNT CULTURE URINE & COLONY COUNT CULTURE URINE & COLONY COUNT CULTURE URINE & COLONY COUNT CULTURE URINE & COLONY COUNT CULTURE URINE & COLONY COUNT CULTURE URINE & COLONY COUNT CULTURE URINE & COLONY COUNT CULTURE URINE & COLONY COUNT CULTURE URINE & COLONY COUNT CULTURE URINE & COLONY COUNT CULTURE URINE & COLONY COUNT CULTURE URINE & COLONY COUNT CULTURE URINE & COLONY COUNT CULTURE URINE & COLONY COUNT CULTURE URINE & COLONY COUNT CULTURE URINE & COLONY COUNT CULTURE URINE & COLONY COUNT CULTURE URINE & COLONY COUNT CULTURE URINE & COLONY COUNT CULTURE URINE & COLONY COUNT CULTURE URINE & COLONY COUNT CULTURE URINE & COLONY COUNT CULTURE URINE & COLONY COUNT CULTURE URINE & COLONY COUNT CULTURE URINE & COLONY COUNT CULTURE URINE & COLONY COUNT CULTURE URINE & COLONY COUNT CULTURE URINE & COLONY COUNT CULTURE URINE & COLONY COUNT CULTURE URINE & COLONY COUNT CULTURE URINE & COLONY COUNT CULTURE URINE & COLONY COUNT CULTURE URINE & COLONY COUNT CULTURE URINE US RENAL/BLADDER 2009-01-11 REASON FOR VISIT ENT HAND IRONER Nasophygeal, ENT- nasophygeal mass, [facility] CT report scanned to pt docs, images available in PACS, ENT HAND IRONER Nasopharyngeak mass, mammo order request, [employer]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 Has tried Nystop powder , Records request for HAND IRONER visit 02/08, PFP Schedule, *yeast infection, yeast infection, mammo, [employer] SHE[employer]ING PRESS OPERATOR 1 month follow up, [employer] SHE[employer] FINISHING PRESS OPERATOR , Medication Request, FY refeeral notice, [employer] SHE[employer] FINISHING PRESS OPERATOR 2 week follow up, stopped the gabapentin due to dizziness , noimprovement , Vulvar f/u, no improvement started wearing pads again Friday , wants urine check for infection , not feeling any better, P[employer] SHE[employer] FINISHING PRESS OPERATOR sore spot, medication not helping, medication not working, P[employer] SHE[employer] FINISHING PRESS OPERATOR sore spot/poss yeast inf?, Mammogram due 02/2020, Mammogram Order, [employer] SHE[employer] FINISHING PRESS OPERATOR ? yeast infection, FYI-? yeast infection, [employer] SHE[employer] FINISHING PRESS OPERATOR 2 month follow up Vulvar check, [employer] SHE[employer] FINISHING PRESS OPERATOR EST 3 MO F/U, still having some irritation, ? Directions- conflicting information, [employer] SHE[employer] FINISHING PRESS OPERATOR 1 year recheck, vaginal irritation off and on, Fluconazole doesn't seem to be helping her, [employer] SHE[employer] FINISHING PRESS OPERATOR EST VAGINAL IRRITATION , rx, rx, P[employer] SHEET FINISHING PRESS OPERATOR EST 2 WKS F/UP, [employer] SHE[employer] FINISHING PRESS OPERATOR 1 week follow up, P[employer] SHE[employer] FINISHING PRESS OPERATOR EST PAIN IN VAG.AREA, OUTBREAK AGAIN , TAKEN 3 DOSES Vacycl, STILL PX, [employer] SHE[employer] FINISHING PRESS OPERATOR ?yeast infection, Call back, ENT nosebleed F/U-PER PFP, nosebleed, ENT nosebleed, nosebleed, ENT epistaxis, seen in ER, 5 bleeds since friday per patient., , P[employer] SHE[employer] FINISHING PRESS OPERATOR EST ? INFECTION, US/labs, ENT-Thyroid , EST G YN, REQUESTED COPIES OF RECENT LABS, P[employer] SHE[employer] FINISHING PRESS OPERATOR EST, Urodynamic Testing Interpretation, needs appt, URO, IC F/U, URO fu urodynamics, URO URODYNAMICS, URO, c/o of pain while urinating and states it smarts afterwards, 3 MO f/u, 3 MO f/u, 1 WK F/U w/ US/LAB, Hematuria, Preload EMR Clinical data Insurance Providers Health Insurance Type Health Plan Insurance Address Health Plan Insurance Phone Health Plan Insurance Name Health Plan Coverage Dates Member ID Patient Relationship to Subscriber Patient Address Patient Phone Patient Name Patient Date of Subscriber ID Subscriber Name Subscriber Date of Group No MEDICARE [address] [facility] [phone] MEDICARE self Priscill a Juliocesar [id number] [facility] - DO NOT BILL (Write Off) [address] [facility] [address] [facility] - DO NOT BILL (Write Off) self Priscill a Juliocesar [id number] MEDICARE PART A [address] [facility] [id number] MEDICARE PART A self Priscill a Juliocesar [id number] [employer] CLAIMS [address] [facility] [id number] [phone] [employer]adoc self Priscill a Juliocesar [id number]
[2022-06-22 02:01] LABS: Bacteria Few HPF (Negative); C & S Indicated? Yes; Casts Negative LPF (Negative); Crystals Negative HPF (Negative); Epithelial Cells Few HPF (Negative); Mucus Negative (Negative)
[2022-06-22] MEDS: MacroBID 100 MG CAP PO (02:11)
[2022-06-22 02:28] VITALS: BP 126/59; PULSE 75; RESP 22; TEMP 36.6; O2SAT 97
--- NOTE | 2022-06-24 08:35 | NUR.NOTE ---
Nursing Note: Accessed chart to look up whether or not on antibiotic.
== END 2022-06-22 02:25 | disposition home or self-care (01) ==
PROVIDERS: Emergency Provider Emergency Medicine; PCP Family Medicine
DX: N39.0 Urinary tract infection, site not specified (principal); I10 Essential (primary) hypertension; J45.909 Unspecified asthma, uncomplicated; Z79.51 Long term (current) use of inhaled steroids
CPT/HCPCS: 99283; 81003; 81015; 87086; 99284

== ENCOUNTER 2022-07-25 10:22 | Outpatient (CLI) | payer MEDICARE, OTHER, SELFPAY ==
[2022-07-25 12:32] LABS: TSH (W/Ref FT4) 0.16 uIU/mL (0.36-3.74)
[2022-07-25 12:57] LABS: FREE T4 1.23 ng/dL (0.76-1.46)
== END 2022-07-25 10:23 | disposition home or self-care (01) ==
LOC: LOS 10:23
PROVIDERS: PCP Family Medicine; Referring Provider Family Medicine; Visit Provider Family Medicine
DX: E03.9 Hypothyroidism, unspecified (principal)
CPT/HCPCS: 36415; 84439; 84443

== ENCOUNTER 2022-08-01 09:56 | Outpatient (RCR) | payer MEDICARE, OTHER, SELFPAY ==
--- NOTE | 2022-08-01 09:55 | HOLTER_ITS ---
APPROVED REPORT Conclusion This is a Holter monitor ordered for palpitations Predominant rhythm was sinus with an average heart rate of 62. Minimum was 35, maximum 108 There were occasional ventricular ectopic beats, rare couplets There were rare atrial premature beats There was no atrial fibrillation, no SVT, no high-grade AV block, no pauses greater than 3 seconds
== END 2022-08-09 23:59 | disposition home or self-care (01) ==
LOC: CARDOPNVT 09:56
PROVIDERS: PCP Family Medicine; Visit Provider Family Medicine
DX: R00.2 Palpitations (principal)
CPT/HCPCS: 93227; 93225; 93226

== ENCOUNTER 2022-10-16 02:45 | Outpatient (CLI) | payer MEDICARE, OTHER, SELFPAY ==
--- NOTE | 2022-10-16 | DI.RAD_ITS ---
Exam(s) XR ABDOMEN FLAT PLATE EXAM: 2D digital imaging was performed. CLINICAL HISTORY: ? CONSTIPATION, EPIGASTRIC PAIN, R10.13. COMPARISON: CR XR ABDOMEN FLAT UPRIGHT from 04/28/2020 TECHNIQUE: Supine views of the abdomen was performed. Two views images were obtained. FINDINGS: LUNG BASES: Clear. BOWEL GAS PATTERN: Nondistended. There is a small to moderate amount of stool within the colon. FREE AIR: None. CALCIFICATIONS: No radiopaque calcifications. OSSEOUS STRUCTURES: Normal for age. Degenerative changes are seen throughout the lumbar spine and the hips bilaterally. OTHER FINDINGS: Surgical clips are again seen in the right upper quadrant of the abdomen. IMPRESSION: Small to moderate amount of stool throughout the colon. DATA REPOSITORY: RADIATION DOSE DELIVERED:
== END 2022-10-16 03:05 ==
LOC: DI 02:50
PROVIDERS: PCP Family Medicine; Visit Provider Internal Medicine Gastroenterology
DX: R10.13 Epigastric pain (principal)
CPT/HCPCS: 74018

== ENCOUNTER 2022-12-20 08:12 | Emergency (ER) | payer MEDICARE, OTHER, SELFPAY ==
[2022-12-20 08:15] VITALS: BP 159/62; PULSE 82; RESP 18; TEMP 36.6; O2SAT 97
--- NOTE | 2022-12-20 08:30 | DI.RAD_ITS ---
Exam(s) XR FOOT LT COMPLETE EXAM: XR FOOT LT COMPLETE CLINICAL HISTORY: lateral foot pain. TECHNIQUE: 2D digital imaging was performed. Three views. COMPARISON: CR XR ANKLE RT COMPLETE from 08/20/2018 FINDINGS: BONES: Acute nondisplaced fracture base 5th metatarsal. Old 3rd and 4th metatarsal fractures. No sepideh ny destructive lesion is seen. JOINTS: No dislocation present. Prior tibiotalar joint effusion. Screws in place. Mild degenerati ve changes talonavicular joint. SOFT TISSUE: Normal. IMPRESSION: Nondisplaced fracture base of 5th metatarsal. DATA REPOSITORY: RADIATION DOSE DELIVERED:
--- NOTE | 2022-12-20 09:29 | ED.GENADUL_ITS ---
Discharge Plan Disposition Patient Disposition: Home Discharge Details Clinical Impression: Closed fracture of fifth metatarsal bone of left foot Primary Care Provider: Matheus Santana ED Provider: Julian Foster Home Meds and New Rx's Prescriptions: No Action CPAP miscellaneous acetaminophen [Tylenol Extra Strength] 500 mg tablet 1,000 mg PO TID PRN multivitamin Capsule 1 cap PO DAILY elderberry fruit and flower 460-115 mg capsule 1 cap PO DAILY rabeprazole [AcipHex] 20 mg tablet,delayed release (DR/EC) 20 mg PO BID Qty: 180 3RF levothyroxine 100 mcg tablet 100 mcg PO DAILY Qty: 90 3RF ondansetron HCl [Zofran] 4 mg tablet 4 mg PO BID PRN (Reason: nausea and vomiting post op) Qty: 30 0RF diltiazem HCl 120 mg capsule,extended release 12 hr 120 mg PO Q12H Qty: 180 3RF lorazepam 0.5 mg tablet 0.5 mg PO Q6H PRN (Reason: anxiety) Qty: 30 0RF escitalopram oxalate 10 mg tablet 5 mg PO DAILY Qty: 90 3RF Rx Instructions: take with a 10 mg to equal 15 mg/day buspirone 10 mg tablet 5 mg PO BID Qty: 90 3RF magnesium 200 mg tablet 400 mg PO TID Qty: 180 11RF cholestyramine (with sugar) 4 gram powder 4 g PO DAILY Qty: 756 3RF Rx Instructions: administer w/meal; avoid other meds within 1hr before or 4-6hr after dose (DME) nebulizer and compressor [PulmoNeb LT Compressor Nebul] 1 EACH device 1 ea Miscellaneous PRN Eliquis 2.5 mg tablet 2.5 mg PO BID fluticasone propionate [Flovent HFA] 110 mcg/actuation HFA aerosol inhaler 1 puff Inhalation DAILY escitalopram oxalate 10 mg tablet 10 mg PO DAILY garlic 1,000 mg Capsule 1,000 mg PO DAILY cholecalciferol (vitamin D3) [Vitamin D3] 50 mcg (2,000 unit) capsule 5,000 unit PO DAILY albuterol sulfate 90 mcg/actuation aerosol powdr breath activated 2 inh IH Q4H PRN (Reason: shortness of breath or wheezing) Qty: 1 0RF Discharge Instructions Instructions: Foot Fracture in Adults (ED) Additional Instructions: Ear x-ray imaging showed a fracture at the base of your fifth metatarsal of your left foot. This does appear like it may be a Bradley fracture and may require orthopedic intervention. Please continue to wear your walking boot and try to minimize as much as possible any weightbearing activities of your left lower extremity. It is very important that you follow-up with the orthopedist at [facility] and it is recommended that you contact them today. If you have any new or significant worsening of symptoms feel free to return the emergency department for reassessment Medical Decision Making Patient presenting to the emergency department for chief complaint of left foot injury. Patient reports yesterday she was dancing and twisted her ankle but due to previous ankle fusion her ankle did not move and she injured her lateral aspect of her foot. Patient denies any other injury or trauma but today while trying to come to the emergency department she was putting the walker in her car and due to lifting the walker she started aggravating her chronic right shoulder pain. Patient denies any injury or trauma to the right shoulder denies all other complaints. She did take acetaminophen prior to arrival. Physical exam is overall unremarkable except for some mild diffuse tenderness to the right shoulder but more specifically to the left foot patient does have tenderness at the base of the fifth metatarsal. Will perform radiological imaging to evaluate for possible dancers or Bradley fracture. Pending results we will give patient Voltaren gel to see if this helps with pain. I reviewed radiological imaging and radiologist interpretation that does show a nondisplaced fracture at the base of the fifth metatarsal. I am concerned this is a Bradley fracture but at the same time I feel that is high risk for patient to be nonweightbearing given her age and that she is on Eliquis and is at high risk of falls. Patient will use a cane or walker when able. Discussed this with patient along with orthopedic follow-up. She states that she gets all of her orthopedic care done in [place] at the [facility] so the disc was prepared and referral placed for her to follow-up with her normal orthopedist. Patient otherwise will continue use of acetaminophen or Voltaren and return for new or worsening symptoms. After discussion of diagnosis and plan of care patient has no further needs, questions, or concerns and states clear understanding to return to the emergency department for any worsening symptoms. This documentation was generated using [employer] system, please disregard any oddities of phrase or misspellings. Imaging Data Radiologic Study: Imaging: X-Ray Radiologist's impression: EXAM: XR FOOT LT COMPLETE CLINICAL HISTORY: lateral foot pain. TECHNIQUE: 2D digital imaging was performed. Three views. COMPARISON: CR XR ANKLE RT COMPLETE from 08/20/2018 FINDINGS: BONES: Acute nondisplaced fracture base 5th metatarsal. Old 3rd and 4th metatarsal fractures. No bony destructive lesion is seen. JOINTS: No dislocation present. Prior tibiotalar joint effusion. Screws in place. Mild degenerative changes talonavicular joint. SOFT TISSUE: Normal. IMPRESSION: Nondisplaced fracture base of 5th metatarsal. HPI General Mode of arrival: wheelchair . Date/Time Provider Initiated Documentation: 12/20/22 08:22 . Limitations to Documentation: no limitations . Information obtained by: patient and RN notes reviewed . History of Present Illness 82 year old F presents to the emergency department with the chief complaint of Left foot injury, described as moderate, Quality is described as sharp, and is localized to the left and lower extremity. Patient started experiencing this day(s) (1) and it has been constant. Immobilization improves symptom(s), Movement worsens symptoms . Patient did receive the following treatments prior to arrival, other (Acetaminophen) Related Data Home Medications Medication Instructions Recorded Confirmed nebulizer and compressor (PulmoNeb 02/07/16 12/17/22 LT Compressor Nebul) garlic 1,000 mg capsule 1,000 mg PO DAILY 03/11/18 12/20/22 albuterol sulfate 90 mcg/actuation 2 inh inhalation Q4H PRN shortness 03/07/19 12/20/22 breath activated powder inhaler of breath or wheezing #1 ea cholecalciferol (vitamin D3) 50 5,000 unit PO DAILY 05/17/19 12/20/22 mcg (2,000 unit) capsule (Vitamin D3) CPAP miscellaneous 07/23/19 12/17/22 multivitamin 1 cap PO DAILY 11/09/19 12/20/22 apixaban 2.5 mg tablet (Eliquis) 2.5 mg PO BID 04/21/20 12/20/22 elderberry fruit 460 mg-elderberry 1 cap PO DAILY 11/21/20 12/20/22 flower 115 mg capsule ondansetron HCl 4 mg tablet 4 mg PO BID PRN nausea and 12/25/20 12/20/22 (Zofran) vomiting post op #30 tabs magnesium 200 mg tablet 400 mg PO TID #180 tabs 05/14/22 12/20/22 cholestyramine (with sugar) 4 gram 4 g PO DAILY hyperlipidemia #756 05/16/22 12/20/22 oral powder grams acetaminophen 500 mg tablet 1,000 mg PO TID PRN 06/11/22 12/20/22 (Tylenol Extra Strength) diltiazem HCl 120 mg 120 mg PO Q12H #180 caps 06/11/22 12/20/22 capsule,extended release 12 hr lorazepam 0.5 mg tablet 0.5 mg PO Q6H PRN anxiety #30 07/25/22 12/20/22 tab-caps buspirone 10 mg tablet 5 mg PO BID #90 tabs 08/15/22 12/20/22 escitalopram oxalate 10 mg tablet 5 mg PO DAILY #90 tabs 08/15/22 12/20/22 levothyroxine 100 mcg tablet 100 mcg PO DAILY #90 tabs 12/17/22 12/20/22 rabeprazole 20 mg tablet,delayed 20 mg PO BID #180 tabs 12/17/22 12/20/22 release (AcipHex) escitalopram oxalate 10 mg tablet 10 mg PO DAILY 12/20/22 12/20/22 fluticasone propionate 110 1 puff inhalation DAILY 12/20/22 12/20/22 mcg/actuation HFA aerosol inhaler (Flovent HFA) Previous Rx's Medication Instructions Recorded albuterol sulfate 90 mcg/actuation 2 inh inhalation Q4H PRN shortness 03/07/19 breath activated powder inhaler of breath or wheezing #1 ea ondansetron HCl 4 mg tablet 4 mg PO BID PRN nausea and 12/25/20 (Zofran) vomiting post op #30 tabs magnesium 200 mg tablet 400 mg PO TID #180 tabs 05/14/22 cholestyramine (with sugar) 4 gram 4 g PO DAILY hyperlipidemia #756 05/16/22 oral powder grams diltiazem HCl 120 mg 120 mg PO Q12H #180 caps 06/11/22 capsule,extended release 12 hr lorazepam 0.5 mg tablet 0.5 mg PO Q6H PRN anxiety #30 07/25/22 tab-caps buspirone 10 mg tablet 5 mg PO BID #90 tabs 08/15/22 escitalopram oxalate 10 mg tablet 5 mg PO DAILY #90 tabs 08/15/22 levothyroxine 100 mcg tablet 100 mcg PO DAILY #90 tabs 12/17/22 rabeprazole 20 mg tablet,delayed 20 mg PO BID #180 tabs 12/17/22 release (AcipHex) Allergies Allergy/AdvReac Type Severity Reaction Status Date / Time hylan G-F 20 Allergy SWELLING Verified 12/20/22 08:19 AND PAIN metronidazole [From Flagyl] Allergy Skin Rash Verified 12/20/22 08:19 Pyrazolones [Pyrazoles] Allergy Verified 12/20/22 08:19 tolterodine Allergy DIFFICULTY Verified 12/20/22 08:19 BREATHING loperamide AdvReac Intermediate abd pain. Verified 12/20/22 08:19 methylprednisolone AdvReac Intermediate weakness Verified 12/20/22 08:19 and unable mood. hydromorphone AdvReac Mild Nausea Verified 12/20/22 08:19 amitriptyline AdvReac NAUSEA Verified 12/20/22 08:19 aspartame AdvReac HEART Verified 12/20/22 08:19 RACING ondansetron HCl [From Zofran] AdvReac HALLUCINATI Verified 12/20/22 08:19 ON General Stated Complaint: Orthopedic MANDY: 4 Review of Systems Narrative: 6 systems reviewed and unremarkable except what is marked below. ENT Ears, Nose, Mouth, and Throat: Denies neck pain Musculoskeletal Musculoskeletal: Reports as per HPI, Denies back pain, Denies joint swelling, Denies neck pain, Denies numbness and Denies tingling Integumentary/Breasts Skin/Breast: Denies unusual bruising Neurologic Neurologic: Denies numbness and Denies tingling PFSH All Active Problems (Updated 12/20/22 @ 10:04 by Julian Foster NP) Closed fracture of fifth metatarsal bone of left foot (Acute) Nail dystrophy (Acute) MARILYN (generalized anxiety disorder) (Chronic) Patient with palpitations with negative Zio patch. She complained of symptoms during normal sinus rhythm on 40 occasions. With anxiety. Intolerant to buspirone. Will start recheck in 2 weeks. Primary osteoarthritis of both knees (Chronic) Adrenal mass, right (Chronic 12/11/16) seen on CT Ab 12/26 - STABLE. Will repeat Allergic eosinophilia (Chronic) 09/23/11 COLONOSCOPY BIOPSY SHOWS FOCAL EOSINOPHILIC CRYPTITS Anxiety (Chronic) Arthritis (Chronic) both ankles S/P fracture S/P surgery Asthma (Chronic) Depressive disorder (Chronic) refuses medication Diverticulosis of colon without diverticulitis (Chronic) Elevated fasting glucose (Chronic 06/27/14) Essential hypertension (Chronic 02/19/13) Gastroesophageal reflux disease (Chronic) H/o H pylori, neg 07EGD Mitz 07UGI ? 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 controlled w/ cholestyramine Pain in female pelvis (Acute 01/04/14) Lung mass (Acute 06/03/14) Hypomagnesemia (Acute 05/27/17) History of surgical procedure (Acute) History of arthroscopy of knee (Acute) Gastroenteritis (Acute 05/15/17) Full thickness rotator cuff tear (Acute) Fatigue (Acute 08/22/16) Fatigue (Acute 06/16/12) Epistaxis (Acute 11/14/14) Elevated liver function tests (Acute 05/14/14) Decreased thyroid stimulating hormone (TSH) level (Acute 11/07/14) Atypical facial pain (Acute 01/07/12) Adhesive capsulitis of shoulder (Acute) Bleeding hemorrhoids (Acute) Right shoulder strain (Acute) RUQ abdominal pain (Acute) DVT prophylaxis (Acute) Cough (Acute) Osteoarthritis of both knees (Acute) Polyarthralgia (Acute) Bleeding hemorrhoids (Acute) Internal hemorrhoid, bleeding (Acute) Incomplete rectal prolapse (Acute) Ulcer of rectum (Acute) Chronic diarrhea (Acute) Diverticula of colon (Acute) Supraventricular tachycardia (Chronic) History of pulmonary embolism (Acute) Acromioclavicular joint arthritis (Acute) Acute left ankle pain (Acute) DJD (degenerative joint disease) (Chronic) Hypothyroidism (Chronic) Chronic bilateral low back pain (Acute) Internal and external bleeding hemorrhoids (Acute) 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 Palpitations (Acute) Acute knee pain (Acute) Foot pain, right (Acute) Essential hypertension (Acute) Headache (Acute) Leg swelling (Acute) Nasopharyngeal mass (Acute) Chest pain (Acute) Rash of foot (Acute) Medical History Cortical cataract of left eye Cortical cataract of right eye Nuclear sclerotic cataract of left eye Nuclear sclerotic cataract of right eye Palpitations Posterior subcapsular age-related cataract of left eye Posterior subcapsular age-related cataract, right eye Pulmonary embolism Thyroid malignant neoplasm papillary Surgical History Cholecystectomy Colonoscopy - MAC DIVERTICULITIS History of back surgery History of surgery on arm History of ventral hernia repair (~04/03/20) Hysterectomy, Laproscopic PROLAPSE; STILL HAS OVARIES Rotator Cuff Repair R SHOULDER; DR. MAGALYS [place] SHOULDER 01/25 Status post arthroscopic knee surgery 1) RIGHT KNEE; DR. LOPEZ 2) LEFT KNEE; DR. DUNCAN STOMACH STITCH (~08/2014) Thyroid (~09/2014) Family History Mother , OLD AGE at age 95. Stroke Father , GI BLEED at age 85. Diabetes GI bleed Heart disease Sister Diabetes Essential hypertension Neoplasm BREAST Brother Macular degeneration 1 EYE Grandfather Heart disease Neoplasm Grandfather No problems noted. Grandmother Heart disease Grandmother Neoplasm Son Neoplasm BRAIN Son No problems noted. Daughter Neoplasm BREAST Daughter No problems noted. Child No problems noted. Social History Smoking/Tobacco Use Status: Never Smoking risk assessment performed?: Yes Alcohol Intake: current Alcohol Intake frequency: holidays/special occasions only Alcohol type: hard liquor Drug use: Never Substance use type: does not use Pets and animals: Yes Pets and animals: cat(s) and dog(s) Current gender identity: female What type of physical activity do you participate in: walking and additional Details: walks the block with her dog. Li/Denominational: [employer]ism Special li needs: No Do you feel safe at home: Yes Do you feel safe in your relationship?: Yes Additional Social history: lives alone Exam Const General: cooperative, no acute distress and not ill appearing Orientation: alert, awake and oriented x3 HENMT Mouth: moist mucous membranes Resp Effort & Inspection: normal respiratory effort, able to speak in complete sentences and no respiratory distress Cardio Rate: regular rate Rhythm: regular rhythm Pulses: normal peripheral pulses Skin General skin exam: no rashes or lesions noted Neuro General: patient alert, patient awake, patient oriented x3, moves all extremities and no focal motor deficits Sensory Exam: no sensory deficits noted Extrem General: normal exam except as noted Right upper extremity: shoulder/upper arm Details: tenderness and normal ROM Left lower extremity: ankle Details: no tenderness and no swelling and foot Details: normal to inspection, tenderness Location: of the base of the 5th metatarsal, toes with normal ROM and vascular exam Details: dorsalis pedis pulse present; no ecchymosis Course Vital Signs Vital signs: Vital Signs Temperature 36.6 C 12/20/22 08:15 Pulse 82 12/20/22 08:15 Respiratory Rate 18 12/20/22 08:15 Blood Pressure 159/62 H 12/20/22 08:15 Pulse Oximetry 97 12/20/22 08:15 Temperature 36.6 C 12/20/22 08:15 Temperature Source Oral 12/20/22 08:15 Pulse 82 12/20/22 08:15 Respiratory Rate 18 12/20/22 08:15 Respiratory Effort Normal, Non-Labored 12/20/22 08:23 Blood Pressure 159/62 H 12/20/22 08:15 Blood Pressure Position Sitting 12/20/22 08:15 Pulse Oximetry 97 12/20/22 08:15 Oxygen Delivery Method Room Air 12/20/22 08:15 Oxygen Flow Rate 0 12/20/22 08:15 Pain Level 10 12/20/22 08:15 PAWSS Have you Been Recently Intoxicated or Drunk Within the Last 30 days?: No Have you Ever Experienced Previous Episodes of Alcohol Withdrawal?: No Have you ever Experienced Withdrawal Seizures?: No Have you ever Experienced Delirium Tremens(DT)s?: No Have you ever undergone Alcohol Rehabilitation Treatment (i.e, inpt ot outpatient treatment programs)?: No Have you ever Experienced Blackouts?: No Have you ever Combined Alcohol with other Downers within the last 90 days?: No Have you ever Combined Alcohol with any other Substance of Abuse during the last 90 days?: No Positive Blood Alcohol level on Presentation? [PCS.BAL]: No Evidence of Increased Autonomic Activity (i.e. HR>120, tremor, sweating, agitation, nausea)?: No Result: 0
[2022-12-20] MEDS: Diclofenac 1% Gel 100 GM TUBE TP (09:34)
--- NOTE | 2022-12-20 10:02 | NUR.NOTE ---
Nursing Note: PT needs follow up in 3-5 days with [facility] in [facility] for a Bradley FX of the left foot. Olga, ED
[2022-12-20 10:15] VITALS: BP 148/95; PULSE 70; RESP 16; O2SAT 70
--- NOTE | 2022-12-20 10:15 | NUR.NOTE ---
Nursing Note: Receieved report from Nat PARTIDA at 1015 and immediately discharged patient thereafter.
== END 2022-12-20 10:22 | disposition home or self-care (01) ==
PROVIDERS: Emergency Provider Nurse Practitioner Family; PCP Family Medicine
DX: S92.355A Nondisplaced fracture of fifth metatarsal bone, left foot, initial encounter for closed fracture (principal); I10 Essential (primary) hypertension; Z79.01 Long term (current) use of anticoagulants; X50.9XXA Other and unspecified overexertion or strenuous movements or postures, initial encounter; Y93.41 Activity, dancing; Y92.89 Other specified places as the place of occurrence of the external cause; Y99.9 Unspecified external cause status
CPT/HCPCS: 99283; 73630

== ENCOUNTER 2023-01-30 19:03 | Emergency (ER) | payer MEDICARE, OTHER, SELFPAY ==
[2023-01-30] VITALS (28 sets, daily range): BP systolic 92–163; BP diastolic 46–83; PULSE 61–81; RESP 13–27; TEMP 37.1; O2SAT 96–98
--- NOTE | 2023-01-30 19:45 | RT.EKG_ITS ---
APPROVED REPORT Exam: Resting ECG Reason for Exam: weakness Patient Location: E HR:65 bpm ECG Measurements Heart Rate 65 AXIS IL 162 P 72 QRSd 95 QRS 18 QT 393 T 39 QTc 409 Conclusion Sinus rhythm...normal P axis, V-rate 60- 99 Physician: no stemi
[2023-01-30 19:52] LABS: Abs Immature Grans 0.15 10^3/uL (0.0-0.06); Absolute Basophil Count 0.03 10^3/uL (0.0-0.2); Absolute Eosinophil Count 0.09 10^3/uL (0.0-0.7); Absolute Lymphocyte Count 1.05 10^3/uL (1.2-3.4); Absolute Monocyte Count 0.75 10^3/uL (0.1-0.8); Absolute Neutrophil Count 7.85 10^3/uL (1.2-6.7); Basophils % 0.3; Eosinophils % 0.9; HCT 43.3 % (36.0-46.0); HGB 14.3 g/dL (11.2-15.7); Immature Grans % 1.5; Lymphocytes % 10.6; MCH 29.7 pg (27.0-33.0); MCV 90 fL (80-95); MPV 11.2 fL (8.0-11.0); Monocytes % 7.6; Neutrophils % 79.1; Platelet Count 245 10^3/uL (130-400); RBC 4.82 10^6/uL (3.93-5.22); RDW 16.2 % (11.7-14.6); RDW-SD 52.7 fL; WBC 9.92 10^3/uL (4.4-10.8)
--- NOTE | 2023-01-30 20:00 | DI.RAD_ITS ---
Exam(s) XR PORTABLE CHEST AP EXAM: XR PORTABLE CHEST AP CLINICAL HISTORY: sob TECHNIQUE: 2D digital imaging was performed. COMPARISON: CR,XR XR CHEST 2V PA LATERAL from 04/21/[address] CHEST/ABD/PEL W from 02/05/2022 FINDINGS: Exam is limited by under penetration. Leads overlie the chest. LUNGS: Left lung base not well penetrated. Infiltrate not excluded. Right lung clear. Question tin y pleural effusions. HEART: Normal size. AORTA: Normal diameter. BONES: Unremarkable for age. Soft tissues: Unremarkable. IMPRESSION: Limited exam. Question left lower lobe infiltrate. Question of tiny bilateral pleural effusions. DATA REPOSITORY: RADIATION DOSE DELIVERED:
[2023-01-30] MEDS: Normal Saline 500 ML IV (20:12)
[2023-01-30 20:16] LABS: ALT 33 U/L (14-59); AST 11 U/L (15-37); Albumin 3.2 g/dL (3.4-5.0); Alkaline Phosphatase 55 U/L (46-116); Anion Gap 12.6 mmol/L (3-11); BUN 21 mg/dL (7-18); Bilirubin, Total 0.2 mg/dL (0.2-1.0); CO2 24.4 mmol/L (21.0-32.0); CREATININE 0.8 mg/dL (0.55-1.02); Calcium 9.6 mg/dL (8.5-10.1); Chloride 102 mmol/L (98-107); Estimated GFR 73.52 (mL/min/1.73m2); Glucose 150 mg/dL (74-106); Magnesium 1.5 mg/dL (1.8-2.4); Potassium 3.3 mmol/L (3.5-5.1); Sodium 139 mmol/L (136-145); TSH (W/Ref FT4) 7.39 uIU/mL (0.36-3.74); Total Protein 6.9 g/dL (6.4-8.2); Troponin I < 50 ng/L (<or=60)
[2023-01-30 20:33] LABS: FREE T4 0.77 ng/dL (0.76-1.46)
--- NOTE | 2023-01-30 20:46 | DI.VRAD_ITS ---
PROCEDURE INFORMATION: Exam: XR Chest Exam date and time: 01/30/2023 8:20 PM Age: 82 years old Clinical indication: Shortness of breath; Patient HX: SOB TECHNIQUE: Imaging protocol: Radiologic exam of the chest. Views: 1 view. COMPARISON: CT CHEST/ABD/PEL W 02/05/2022 5:02 PM FINDINGS: Lungs: Left lung base retrocardiac consolidation. Can not exclude infiltrate. Right lung is clear. Pleural spaces: Features suggesting a minor left pleural effusion. No pneumothorax. Heart/Mediastinum: Unremarkable. No cardiomegaly. Bones/joints: Unremarkable. IMPRESSION: 1. Imaging features concerning for left lower lobe infiltrate and minor left pleural effusion. 2. No pleural effusion. Dictated and Authenticated by: Yoni Diaz MD. Ordering:BENITO Mena MD
--- NOTE | 2023-01-30 21:03 | ED.GENADUL_ITS ---
Discharge Plan Disposition Patient Disposition: Home Discharge Details Clinical Impression: Left lower lobe pneumonia Primary Care Provider: Matheus Santana ED Provider: Rajesh Orona Home Meds and New Rx's Prescriptions: New azithromycin 250 mg tablet 250 mg PO DAILY 4 Days Qty: 4 0RF Rx Instructions: start on day 2 of therapy No Action CPAP miscellaneous acetaminophen [Tylenol Extra Strength] 500 mg tablet 1,000 mg PO TID PRN multivitamin Capsule 1 cap PO DAILY elderberry fruit and flower 460-115 mg capsule 1 cap PO DAILY rabeprazole [AcipHex] 20 mg tablet,delayed release (DR/EC) 20 mg PO BID Qty: 180 3RF levothyroxine 100 mcg tablet 100 mcg PO DAILY Qty: 90 3RF ondansetron HCl [Zofran] 4 mg tablet 4 mg PO BID PRN (Reason: nausea and vomiting post op) Qty: 30 0RF lorazepam 0.5 mg tablet 0.5 mg PO Q6H PRN (Reason: anxiety) Qty: 30 0RF escitalopram oxalate 10 mg tablet 5 mg PO DAILY Qty: 90 3RF Rx Instructions: take with a 10 mg to equal 15 mg/day buspirone 10 mg tablet 5 mg PO BID Qty: 90 3RF magnesium 200 mg tablet 400 mg PO TID Qty: 180 11RF cholestyramine (with sugar) 4 gram powder 4 g PO DAILY Qty: 756 3RF Rx Instructions: administer w/meal; avoid other meds within 1hr before or 4-6hr after dose diltiazem HCl 120 mg capsule,extended release 12 hr 120 mg PO Q12H Qty: 180 3RF (DME) nebulizer and compressor [PulmoNeb LT Compressor Nebul] 1 EACH device 1 ea Miscellaneous PRN Eliquis 2.5 mg tablet 2.5 mg PO BID fluticasone propionate [Flovent HFA] 110 mcg/actuation HFA aerosol inhaler 1 puff Inhalation DAILY escitalopram oxalate 10 mg tablet 10 mg PO DAILY garlic 1,000 mg Capsule 1,000 mg PO DAILY cholecalciferol (vitamin D3) [Vitamin D3] 50 mcg (2,000 unit) capsule 5,000 unit PO DAILY albuterol sulfate 90 mcg/actuation aerosol powdr breath activated 2 inh IH Q4H PRN (Reason: shortness of breath or wheezing) Qty: 1 0RF Discharge Instructions Instructions: Pneumonia (ED) Additional Instructions: At this time you have evidence of a mild left-sided pneumonia. I suspect this is the cause of your fatigue and mild shortness of breath. Please take the azithromycin as directed. The prescription has been sent to your pharmacy [facility]. If you notice any worsening of your symptoms, or any new symptoms such as vomiting, diarrhea, fever, chills, shortness of breath, chest pain, numbness, weakness, or fainting , please return immediately to the emergency department for reevaluation. Please follow up with your primary care provider as soon as possible for reassessment and reevaluation. As always, it was a pleasure participating in your medical care today. Referrals: Matheus Santana MD [Primary Care Provider] - Medical Decision Making 82-year-old female with past medical history of generalized anxiety disorder, asthma, GERD, reactive airway disease, previous blood clots on Eliquis, presents today for evaluation of shortness of breath and mild weakness for the last 2 weeks. Patient states that over the last 2 weeks she has had a gradual worsening of weakness and shortness of breath with activity. She has had no chest pain whatsoever. She denies any chest tightness, bandlike sensation, or other chest abnormality otherwise. She denies any significant cough, but does admit to a very mild intermittent cough. She denies any fever or chills. No vomiting or diarrhea. No recent long trips surgeries or procedures. She has been taking her Eliquis as directed. No other complaints at this time. Exam demonstrates a well-appearing female, no hypoxemia. No significant tac hycardia. Differential includes anemia, thyroid dysfunction, and less likely ACS or pneumonia. Will evaluate for these etiologies, monitor closely and reassess. Stool Hemoccult was negative for any gross blood or significant microscopic blood. 10:30 PM X-ray shows evidence of a left lower lobe infiltrate with mild left pleural effusion. TSH is elevated but free T4 is normal, troponin normal, EKG benign. No STEMI. Renal function does demonstrate a BUN of 21, concerning for mild dehydration she was rehydrated with 500 cc. She is feeling much better on reassessment. She had a potassium of 3.3, we did give her oral potassium 40 mill equivalents. Patient will be started on azithromycin here with prescription for home. Discussed red flags which to return. Patient otherwise shows no indication for admission at this time with a normal white count, no bandemia, normal vital signs, with no signs of respiratory compromise. I have extensively reviewed the treatment plan and discharge instructions with the patient. I have addressed all patient concerns at this time. The patient was made aware of what symptoms to monitor for that would warrant a return to the emergency department. Discussed the plan with the patient, they demonstrate verbal understanding and agreement with our assessment and plan at this time. The documentation in this chart was dictated using Pix[employer] dictation software. Please excuse any dictation errors. FINDINGS: Lungs: Left lung base retrocardiac consolidation. Can not exclude infiltrate. Right lung is clear. Pleural spaces: Features suggesting a minor left pleural effusion. No pneumothorax. Heart/Mediastinum: Unremarkable. No cardiomegaly. Bones/joints: Unremarkable. IMPRESSION: 1. Imaging features concerning for left lower lobe infiltrate and minor left pleural effusion. 2. No pleural effusion. Thank you for allowing us to participate in the care of your patient. Dictated and Authenticated by: Yoni Diaz MD 01/30/2023 8:46 PM Eastern Time ([place] & [place]) HPI General Date/Time Provider Initiated Documentation: 01/30/23 19:46 . HPI Narrative: 82-year-old female with past medical history of generalized anxiety disorder, asthma, GERD, reactive airway disease, previous blood clots on Eliquis, presents today for evaluation of shortness of breath and mild weakness for the last 2 weeks. Patient states that over the last 2 weeks she has had a gradual worsening of weakness and shortness of breath with activity. She has had no chest pain whatsoever. She denies any chest tightness, bandlike sensation, or other chest abnormality otherwise. She denies any significant cough, but does admit to a very mild intermittent cough. She denies any fever or chills. No vomiting or diarrhea. No recent long trips surgeries or procedures. She has been taking her Eliquis as directed. No other complaints at this time. Related Data Home Medications Medication Instructions Recorded Confirmed nebulizer and compressor (PulmoNeb 02/07/16 12/17/22 LT Compressor Nebul) garlic 1,000 mg capsule 1,000 mg PO DAILY 03/11/18 12/20/22 albuterol sulfate 90 mcg/actuation 2 inh inhalation Q4H PRN shortness 03/07/19 12/20/22 breath activated powder inhaler of breath or wheezing #1 ea cholecalciferol (vitamin D3) 50 5,000 unit PO DAILY 05/17/19 01/30/23 mcg (2,000 unit) capsule (Vitamin D3) CPAP miscellaneous 07/23/19 12/17/22 multivitamin 1 cap PO DAILY 11/09/19 01/30/23 apixaban 2.5 mg tablet (Eliquis) 2.5 mg PO BID 04/21/20 01/30/23 elderberry fruit 460 mg-elderberry 1 cap PO DAILY 11/21/20 01/30/23 flower 115 mg capsule ondansetron HCl 4 mg tablet 4 mg PO BID PRN nausea and 12/25/20 01/30/23 (Zofran) vomiting post op #30 tabs magnesium 200 mg tablet 400 mg PO TID #180 tabs 05/14/22 01/30/23 cholestyramine (with sugar) 4 gram 4 g PO DAILY hyperlipidemia #756 05/16/22 01/30/23 oral powder grams acetaminophen 500 mg tablet 1,000 mg PO TID PRN 06/11/22 12/20/22 (Tylenol Extra Strength) lorazepam 0.5 mg tablet 0.5 mg PO Q6H PRN anxiety #30 07/25/22 01/30/23 tab-caps buspirone 10 mg tablet 5 mg PO BID #90 tabs 08/15/22 12/20/22 escitalopram oxalate 10 mg tablet 5 mg PO DAILY #90 tabs 08/15/22 01/30/23 levothyroxine 100 mcg tablet 100 mcg PO DAILY #90 tabs 12/17/22 01/30/23 rabeprazole 20 mg tablet,delayed 20 mg PO BID #180 tabs 12/17/22 01/30/23 release (AcipHex) escitalopram oxalate 10 mg tablet 10 mg PO DAILY 12/20/22 01/30/23 fluticasone propionate 110 1 puff inhalation DAILY 12/20/22 01/30/23 mcg/actuation HFA aerosol inhaler (Flovent HFA) diltiazem HCl 120 mg 120 mg PO Q12H #180 caps 01/28/23 01/30/23 capsule,extended release 12 hr azithromycin 250 mg tablet 250 mg PO DAILY 4 days #4 tabs 01/30/23 Previous Rx's Medication Instructions Recorded albuterol sulfate 90 mcg/actuation 2 inh inhalation Q4H PRN shortness 03/07/19 breath activated powder inhaler of breath or wheezing #1 ea ondansetron HCl 4 mg tablet 4 mg PO BID PRN nausea and 12/25/20 (Zofran) vomiting post op #30 tabs magnesium 200 mg tablet 400 mg PO TID #180 tabs 05/14/22 cholestyramine (with sugar) 4 gram 4 g PO DAILY hyperlipidemia #756 05/16/22 oral powder grams lorazepam 0.5 mg tablet 0.5 mg PO Q6H PRN anxiety #30 07/25/22 tab-caps buspirone 10 mg tablet 5 mg PO BID #90 tabs 08/15/22 escitalopram oxalate 10 mg tablet 5 mg PO DAILY #90 tabs 08/15/22 levothyroxine 100 mcg tablet 100 mcg PO DAILY #90 tabs 12/17/22 rabeprazole 20 mg tablet,delayed 20 mg PO BID #180 tabs 12/17/22 release (AcipHex) diltiazem HCl 120 mg 120 mg PO Q12H #180 caps 01/28/23 capsule,extended release 12 hr azithromycin 250 mg tablet 250 mg PO DAILY 4 days #4 tabs 01/30/23 Allergies Allergy/AdvReac Type Severity Reaction Status Date / Time hylan G-F 20 Allergy SWELLING Verified 01/30/23 19:02 AND PAIN metronidazole [From Flagyl] Allergy Skin Rash Verified 01/30/23 19:02 Pyrazolones [Pyrazoles] Allergy Verified 01/30/23 19:02 tolterodine Allergy DIFFICULTY Verified 01/30/23 19:02 BREATHING loperamide AdvReac Intermediate abd pain. Verified 01/30/23 19:02 methylprednisolone AdvReac Intermediate weakness Verified 01/30/23 19:02 and unable mood. hydromorphone AdvReac Mild Nausea Verified 01/30/23 19:02 amitriptyline AdvReac NAUSEA Verified 01/30/23 19:02 aspartame AdvReac HEART Verified 01/30/23 19:02 RACING ondansetron HCl [From Zofran] AdvReac HALLUCINATI Verified 01/30/23 19:02 ON General Stated Complaint: GenMedical MANDY: 3 Review of Systems All systems reviewed & are unremarkable except as noted in HPI and below PFSH All Active Problems Left lower lobe pneumonia (Acute) Nail dystrophy (Acute) MARILYN (generalized anxiety disorder) (Chronic) Patient with palpitations with negative Zio patch. She complained of symptoms during normal sinus rhythm on 40 occasions. With anxiety. Intolerant to buspirone. Will start recheck in 2 weeks. Primary osteoarthritis of both knees (Chronic) Adrenal mass, right (Chronic 12/11/16) seen on CT Ab 12/26 - STABLE. Will repeat Allergic eosinophilia (Chronic) 09/23/11 COLONOSCOPY BIOPSY SHOWS FOCAL EOSINOPHILIC CRYPTITS Anxiety (Chronic) Arthritis (Chronic) both ankles S/P fracture S/P surgery Asthma (Chronic) Depressive disorder (Chronic) refuses medication Diverticulosis of colon without diverticulitis (Chronic) Elevated fasting glucose (Chronic 06/27/14) Essential hypertension (Chronic 02/19/13) Gastroesophageal reflux disease (Chronic) H/o H pylori, neg 07EGD Mitz 07UGI ? 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 controlled w/ cholestyramine Pain in female pelvis (Acute 01/04/14) Lung mass (Acute 06/03/14) Hypomagnesemia (Acute 05/27/17) History of surgical procedure (Acute) History of arthroscopy of knee (Acute) Gastroenteritis (Acute 05/15/17) Full thickness rotator cuff tear (Acute) Fatigue (Acute 08/22/16) Fatigue (Acute 06/16/12) Epistaxis (Acute 11/14/14) Elevated liver function tests (Acute 05/14/14) Decreased thyroid stimulating hormone (TSH) level (Acute 11/07/14) Atypical facial pain (Acute 01/07/12) Adhesive capsulitis of shoulder (Acute) Bleeding hemorrhoids (Acute) Right shoulder strain (Acute) RUQ abdominal pain (Acute) DVT prophylaxis (Acute) Cough (Acute) Osteoarthritis of both knees (Acute) Polyarthralgia (Acute) Bleeding hemorrhoids (Acute) Internal hemorrhoid, bleeding (Acute) Incomplete rectal prolapse (Acute) Ulcer of rectum (Acute) Chronic diarrhea (Acute) Diverticula of colon (Acute) Supraventricular tachycardia (Chronic) History of pulmonary embolism (Acute) Acromioclavicular joint arthritis (Acute) Acute left ankle pain (Acute) DJD (degenerative joint disease) (Chronic) Hypothyroidism (Chronic) Chronic bilateral low back pain (Acute) Internal and external bleeding hemorrhoids (Acute) 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 Palpitations (Acute) Acute knee pain (Acute) Foot pain, right (Acute) Essential hypertension (Acute) Headache (Acute) Leg swelling (Acute) Nasopharyngeal mass (Acute) Chest pain (Acute) Rash of foot (Acute) Medical History Cortical cataract of left eye Cortical cataract of right eye Nuclear sclerotic cataract of left eye Nuclear sclerotic cataract of right eye Palpitations Posterior subcapsular age-related cataract of left eye Posterior subcapsular age-related cataract, right eye Pulmonary embolism Thyroid malignant neoplasm papillary Surgical History Cholecystectomy Colonoscopy - MAC DIVERTICULITIS History of back surgery History of surgery on arm History of ventral hernia repair (~04/03/20) Hysterectomy, Laproscopic PROLAPSE; STILL HAS OVARIES Rotator Cuff Repair R SHOULDER; DR. DOWELL L SHOULDER 01/25 Status post arthroscopic knee surgery 1) RIGHT KNEE; DR. LOPEZ 2) LEFT KNEE; DR. DUNCAN STOMACH STITCH (~08/2014) Thyroid (~09/2014) Family History Mother , OLD AGE at age 95. Stroke Father , GI BLEED at age 85. Diabetes GI bleed Heart disease Sister Diabetes Essential hypertension Neoplasm BREAST Brother Macular degeneration 1 EYE Grandfather Heart disease Neoplasm Grandfather No problems noted. Grandmother Heart disease Grandmother Neoplasm Son Neoplasm BRAIN Son No problems noted. Daughter Neoplasm BREAST Daughter No problems noted. Child No problems noted. Social History Smoking/Tobacco Use Status: Never Smoking risk assessment performed?: Yes Alcohol Intake: current Alcohol Intake frequency: holidays/special occasions only Alcohol type: hard liquor Drug use: Never Substance use type: does not use Pets and animals: Yes Pets and animals: cat(s) and dog(s) Current gender identity: female What type of physical activity do you participate in: walking and additional Details: walks the block with her dog. Li/Pentecostalism: Zoroastrian Special li needs: No Do you feel safe at home: Yes Do you feel safe in your relationship?: Yes Additional Social history: lives alone Exam Narrative Exam Narrative: 1.Const: Well-nourished, Well-developed, appearing stated age 2.Eyes: PERRL, no conjunctival injection, and symmetrical lids. 3.ENT: Atraumatic external nose and ears. Moist MM. Neck: Symmetric, trachea midline, No thyromegaly. 4.CVS: +S1/S2, No murmurs or gallops. Peripheral pulses 2+ and equal in all extremities. Brisk capillary refill in all extremities. 5.RESP: Unlabored respiratory effort. Clear to auscultation bilaterally. No wheezes rales or rhonchi 6.GI: Soft, Nontender/Nondistended, No hepatosplenomegaly. No guarding or rebound. 7.MSK: Normocephalic/Atraumatic, Extremities w/o deformity or ttp No cyanosis or clubbing, Normal movement of all extremities 8.Skin: Warm, Dry. No rashes or lesions. 9.Neuro: spot checker II-XII grossly intact. Sensation grossly intact, no focal neurologic deficits. 10.Psych: (AAO) x3. Appropriate mood and affect Course Vital Signs Vital signs: Vital Signs Temperature 37.1 C 01/30/23 18:57 Pulse 75 01/30/23 18:57 Respiratory Rate 16 01/30/23 18:57 Blood Pressure 92/55 L 01/30/23 18:57 Pulse Oximetry 97 01/30/23 18:57 Temperature 37.1 C 01/30/23 18:57 Temperature Source Temporal Artery Scan 01/30/23 18:57 Pulse 61 01/30/23 20:46 Pulse 62 01/30/23 20:46 Respiratory Rate 22 01/30/23 20:46 Respiratory Effort Normal 01/30/23 19:39 Respiratory Depth Normal 01/30/23 19:39 Respiratory Pattern Normal 01/30/23 19:39 Blood Pressure 134/50 L 01/30/23 20:46 Blood Pressure Mean 77 01/30/23 20:46 Blood Pressure Position Supine 01/30/23 18:57 Pulse Oximetry 97 01/30/23 20:46 Oxygen Delivery Method Room Air 01/30/23 18:57 Oxygen Flow Rate 0 01/30/23 18:57 Pain Level 7 01/30/23 18:57 Lab/Test Results Lab/Test Results: Laboratory Tests Range/Units 01/30/23 01/30/23 19:05 19:05 WBC (4.4-10.8) 10^3/uL 9.92 RBC (3.93-5.22) 10^6/uL 4.82 Hgb (11.2-15.7) g/dL 14.3 Hct (36.0-46.0) % 43.3 MCV (80-95) fL 90 MCH (27.0-33.0) pg 29.7 MCHC (32.0-36.0) % 33.0 RDW (11.7-14.6) % 16.2 H Plt Count (130-400) 10^3/uL 245 MPV (8.0-11.0) fL 11.2 H Immature Gran % 1.5 Neutrophils % 79.1 Lymphocytes % 10.6 Monocytes % 7.6 Eosinophils % 0.9 Basophils % 0.3 Nucleated RBC % (0.0-0.3) % 0.0 Absolute Neutrophils (1.2-6.7) 10^3/uL 7.85 H Absolute Lymphocytes (1.2-3.4) 10^3/uL 1.05 L Absolute Monocytes (0.1-0.8) 10^3/uL 0.75 Absolute Eosinophils (0.0-0.7) 10^3/uL 0.09 Absolute Basophils (0.0-0.2) 10^3/uL 0.03 Sodium (136-145) mmol/L 139 Potassium (3.5-5.1) mmol/L 3.3 L Chloride (98-107) mmol/L 102 Carbon Dioxide (21.0-32.0) mmol/L 24.4 Anion Gap (3-11) mmol/L 12.6 H BUN (7-18) mg/dL 21 H Creatinine (0.55-1.02) mg/dL 0.8 Est GFR (CKD-EPI 2020) (mL/min/1.73m2) 73.52 Glucose (74-106) mg/dL 150 H Calcium (8.5-10.1) mg/dL 9.6 Magnesium (1.8-2.4) mg/dL 1.5 L Total Bilirubin (0.2-1.0) mg/dL 0.2 AST (15-37) U/L 11 L ALT (14-59) U/L 33 Alkaline Phosphatase (46-116) U/L 55 Troponin I (<or=60) ng/L < 50 Total Protein (6.4-8.2) g/dL 6.9 Albumin (3.4-5.0) g/dL 3.2 L TSH (0.36-3.74) uIU/mL 7.39 H Free T4 (0.76-1.46) ng/dL 0.77
[2023-01-30] MEDS: Azithromycin 250 MG TAB 500 MG PO (21:09)
[2023-01-30] MEDS: Potassium Chloride 20 MEQ TABCR 40 MEQ PO (21:09)
== END 2023-01-30 21:33 | disposition home or self-care (01) ==
LOC: ER 21:42
PROVIDERS: Student in an Organized Health Care Education/Training Program; Emergency Provider Student in an Organized Health Care Education/Training Program; PCP Family Medicine
DX: J20.9 Acute bronchitis, unspecified (principal); J45.909 Unspecified asthma, uncomplicated; F41.1 Generalized anxiety disorder; I10 Essential (primary) hypertension; Z86.711 Personal history of pulmonary embolism; Z79.01 Long term (current) use of anticoagulants
CPT/HCPCS: 36415; 80053; 93005; 96360; 99283; 71045; 83735; 84439; 84443; 84484; 85025; 93010

== ENCOUNTER 2023-02-17 11:30 | Outpatient (REF) | payer MEDICARE, OTHER, SELFPAY | END 2023-02-17 11:31 | disposition home or self-care (01) | LOC: LBN 11:30 | PROVIDERS: PCP Family Medicine; Visit Provider Nurse Practitioner Family | DX: N39.0 Urinary tract infection, site not specified (principal) | CPT/HCPCS: 87077; 87086; 87186 ==

== ENCOUNTER 2023-03-18 08:01 | Outpatient (CLI) | payer MEDICARE, OTHER, SELFPAY | END 2023-03-18 08:02 | disposition home or self-care (01) | LOC: DI.CARD 08:02 | PROVIDERS: PCP Family Medicine; Visit Provider Internal Medicine Cardiovascular Disease | DX: R00.2 Palpitations (principal) | CPT/HCPCS: 93010 ==

== ENCOUNTER 2023-04-10 09:20 | Outpatient (CLI) | payer MEDICARE, OTHER, SELFPAY ==
--- NOTE | 2023-04-10 09:15 | RT.EKG_ITS ---
APPROVED REPORT Exam: Resting ECG Reason for Exam: palitations Patient Location: O HR:69 bpm ECG Measurements Heart Rate 69 AXIS NM 158 P 69 QRSd 99 QRS 20 QT 394 T 55 QTc 422 Conclusion Sinus rhythm...normal P axis, V-rate 50- 99 Normal Electrocardiogram
== END 2023-04-10 09:21 | disposition home or self-care (01) ==
LOC: DI.CARD 09:26
PROVIDERS: PCP Family Medicine; Visit Provider Internal Medicine Cardiovascular Disease
DX: R00.2 Palpitations (principal)
CPT/HCPCS: 93010

== ENCOUNTER → 2023-04-10 09:20 | Outpatient (BNVA) | payer MEDICARE, OTHER, SELFPAY | PROVIDERS: PCP Family Medicine; Referring Provider Family Medicine; Visit Provider Internal Medicine Cardiovascular Disease | DX: I47.10 Supraventricular tachycardia, unspecified (principal); Z86.711 Personal history of pulmonary embolism; Z79.01 Long term (current) use of anticoagulants; Z01.810 Encounter for preprocedural cardiovascular examination; I10 Essential (primary) hypertension | CPT/HCPCS: 93005; 99214 ==

== ENCOUNTER 2023-06-02 10:19 | Emergency (ER) | payer MEDICARE, OTHER, SELFPAY ==
[2023-06-02 10:23] VITALS: BP 165/64; PULSE 87; RESP 16; TEMP 36.8; O2SAT 97
[2023-06-02 12:23] VITALS: BP 135/65; PULSE 71; RESP 14; TEMP 36.8; O2SAT 96
== END 2023-06-02 13:10 ==
LOC: ER 10:24
PROVIDERS: PCP Family Medicine
DX: Z53.21 Procedure and treatment not carried out due to patient leaving prior to being seen by health care provider (principal)

== ENCOUNTER 2023-06-03 03:40 | Outpatient (CLI) | payer MEDICARE, OTHER, SELFPAY ==
[2023-06-03 13:25] LABS: Magnesium 1.6 mg/dL (1.8-2.4); Potassium 3.2 mmol/L (3.5-5.1); TSH (W/Ref FT4) 0.09 uIU/mL (0.36-3.74)
[2023-06-03 14:37] LABS: FREE T4 1.25 ng/dL (0.76-1.46)
== END 2023-06-03 03:41 | disposition home or self-care (01) ==
LOC: LOS 03:41
PROVIDERS: PCP Family Medicine; Visit Provider Family Medicine
DX: E03.9 Hypothyroidism, unspecified (principal); I10 Essential (primary) hypertension; E83.42 Hypomagnesemia
CPT/HCPCS: 36415; 83735; 84132; 84439; 84443

== ENCOUNTER 2023-06-05 08:53 | Emergency (ER) | payer MEDICARE, OTHER, SELFPAY ==
[2023-06-05 09:05] VITALS: BP 158/56; PULSE 79; RESP 18; TEMP 37.1; O2SAT 96
[2023-06-05 09:44] LABS: Abs Immature Grans 0.12 10^3/uL (0.0-0.06); Absolute Basophil Count 0.09 10^3/uL (0.0-0.2); Absolute Eosinophil Count 0.23 10^3/uL (0.0-0.7); Absolute Lymphocyte Count 1.52 10^3/uL (1.2-3.4); Absolute Neutrophil Count 8.14 10^3/uL (1.2-6.7); Basophils % 0.8; Eosinophils % 2.1; HGB 13.3 g/dL (11.2-15.7); Immature Grans % 1.1; Lymphocytes % 13.9; MCHC 31.7 % (32.0-36.0); MCV 92 fL (80-95); MPV 10.7 fL (8.0-11.0); Monocytes % 7.8; Neutrophils % 74.3; Platelet Count 359 10^3/uL (130-400); RBC 4.58 10^6/uL (3.93-5.22); RDW 14.1 % (11.7-14.6); RDW-SD 47.7 fL; WBC 10.96 10^3/uL (4.4-10.8)
[2023-06-05 09:45] LABS: Absolute Monocyte Count 0.85 10^3/uL (0.1-0.8)
--- NOTE | 2023-06-05 09:57 | ED.GENADUL_ITS ---
HPI General Date/Time Provider Initiated Documentation: 06/05/23 09:12 . HPI Narrative: This 82-year-old female presents with report of difficulty with bowel movements and rectal pressure and left lower quadrant pain for 2 days. Denies fever or chills. Denies history of similar symptoms in the past. Denies any dysuria or frequency. Denies any flank pain. Denies any exacerbating or alleviating factors aside from when she sits she says it increases the pain in her rectum. Denies known history of colon cancer. Denies any blood in her stool. Last bowel movement was 3 days ago per patient. Denies nausea or vomiting. Related Data Home Medications Medication Instructions Recorded Confirmed nebulizer and compressor (PulmoNeb 02/07/16 06/04/23 LT Compressor Nebul) garlic 1,000 mg capsule 1,000 mg PO DAILY 03/11/18 06/05/23 albuterol sulfate 90 mcg/actuation 2 inh inhalation Q4H PRN shortness 03/07/19 06/05/23 breath activated powder inhaler of breath or wheezing #1 ea cholecalciferol (vitamin D3) 50 5,000 unit PO DAILY 05/17/19 06/05/23 mcg (2,000 unit) capsule (Vitamin D3) CPAP miscellaneous 07/23/19 06/04/23 multivitamin 1 cap PO DAILY 11/09/19 06/05/23 apixaban 2.5 mg tablet (Eliquis) 2.5 mg PO BID 04/21/20 06/05/23 elderberry fruit 460 mg-elderberry 1 cap PO DAILY 11/21/20 06/05/23 flower 115 mg capsule magnesium 200 mg tablet 400 mg (2 x 200 mg) PO TID #180 05/14/22 06/05/23 tabs acetaminophen 500 mg tablet 1,000 mg PO TID PRN 06/11/22 06/05/23 (Tylenol Extra Strength) buspirone 10 mg tablet 5 mg (1/2 x 10 mg) PO BID #90 tabs 08/15/22 06/05/23 levothyroxine 100 mcg tablet 100 mcg PO DAILY #90 tabs 12/17/22 06/05/23 rabeprazole 20 mg tablet,delayed 20 mg PO BID #180 tabs 12/17/22 06/05/23 release (AcipHex) escitalopram oxalate 10 mg tablet 10 mg PO DAILY 12/20/22 06/05/23 fluticasone propionate 110 1 puff inhalation DAILY 12/20/22 06/05/23 mcg/actuation HFA aerosol inhaler (Flovent HFA) diltiazem HCl 120 mg 120 mg PO Q12H #180 caps 01/28/23 06/05/23 capsule,extended release 12 hr lorazepam 0.5 mg tablet 0.5 mg PO Q6H PRN anxiety #30 02/18/23 06/05/23 tab-caps cholestyramine (with sugar) 4 gram 4 g PO DAILY hyperlipidemia #756 04/30/23 06/05/23 oral powder grams ondansetron 8 mg disintegrating 8 mg PO BID PRN nausea and 05/07/23 06/05/23 tablet vomiting #14 tabs potassium chloride 20 mEq/15 mL 10 meq (7.5 mL) PO DAILY #750 mL 06/04/23 06/05/23 oral liquid Previous Rx's Medication Instructions Recorded albuterol sulfate 90 mcg/actuation 2 inh inhalation Q4H PRN shortness 03/07/19 breath activated powder inhaler of breath or wheezing #1 ea magnesium 200 mg tablet 400 mg (2 x 200 mg) PO TID #180 05/14/22 tabs buspirone 10 mg tablet 5 mg (1/2 x 10 mg) PO BID #90 tabs 08/15/22 levothyroxine 100 mcg tablet 100 mcg PO DAILY #90 tabs 12/17/22 rabeprazole 20 mg tablet,delayed 20 mg PO BID #180 tabs 12/17/22 release (AcipHex) diltiazem HCl 120 mg 120 mg PO Q12H #180 caps 01/28/23 capsule,extended release 12 hr lorazepam 0.5 mg tablet 0.5 mg PO Q6H PRN anxiety #30 02/18/23 tab-caps cholestyramine (with sugar) 4 gram 4 g PO DAILY hyperlipidemia #756 04/30/23 oral powder grams ondansetron 8 mg disintegrating 8 mg PO BID PRN nausea and 05/07/23 tablet vomiting #14 tabs potassium chloride 20 mEq/15 mL 10 meq (7.5 mL) PO DAILY #750 mL 06/04/23 oral liquid Allergies Allergy/AdvReac Type Severity Reaction Status Date / Time hylan G-F 20 Allergy SWELLING Verified 06/05/23 09:09 AND PAIN metronidazole [From Flagyl] Allergy Skin Rash Verified 06/05/23 09:09 Pyrazolones [Pyrazoles] Allergy Verified 06/05/23 09:09 tolterodine Allergy DIFFICULTY Verified 06/05/23 09:09 BREATHING loperamide AdvReac Intermediate abd pain. Verified 06/05/23 09:09 methylprednisolone AdvReac Intermediate weakness Verified 06/05/23 09:09 and unable mood. hydromorphone AdvReac Mild Nausea Verified 06/05/23 09:09 amitriptyline AdvReac NAUSEA Verified 06/05/23 09:09 aspartame AdvReac HEART Verified 06/05/23 09:09 RACING ondansetron HCl [From Zofran] AdvReac HALLUCINATI Verified 06/05/23 09:09 ON General Stated Complaint: GenMedical MANDY: 3 Course Vital Signs Vital signs: Vital Signs Temperature 37.1 C 06/05/23 09:05 Pulse 79 06/05/23 09:05 Respiratory Rate 18 06/05/23 09:05 Blood Pressure 158/56 H 06/05/23 09:05 Pulse Oximetry 96 06/05/23 09:05 Temperature 37.1 C 06/05/23 09:05 Temperature Source Temporal Artery Scan 06/05/23 09:05 Pulse 79 06/05/23 09:05 Respiratory Rate 18 06/05/23 09:05 Respiratory Effort Normal, Non-Labored 06/05/23 09:09 Blood Pressure 158/56 H 06/05/23 09:05 Blood Pressure Position Sitting 06/05/23 09:05 Pulse Oximetry 96 06/05/23 09:05 Oxygen Delivery Method Room Air 06/05/23 09:05 Oxygen Flow Rate 0 06/05/23 09:05 Lab/Test Results Lab/Test Results: Laboratory Tests Range/Units 06/05/23 09:38 WBC (4.4-10.8) 10^3/uL 10.96 H RBC (3.93-5.22) 10^6/uL 4.58 Hgb (11.2-15.7) g/dL 13.3 Hct (36.0-46.0) % 42.0 MCV (80-95) fL 92 MCH (27.0-33.0) pg 29.0 MCHC (32.0-36.0) % 31.7 L RDW (11.7-14.6) % 14.1 Plt Count (130-400) 10^3/uL 359 MPV (8.0-11.0) fL 10.7 Immature Gran % 1.1 Neutrophils % 74.3 Lymphocytes % 13.9 Monocytes % 7.8 Eosinophils % 2.1 Basophils % 0.8 Nucleated RBC % (0.0-0.3) % 0.0 Absolute Neutrophils (1.2-6.7) 10^3/uL 8.14 H Absolute Lymphocytes (1.2-3.4) 10^3/uL 1.52 Absolute Monocytes (0.1-0.8) 10^3/uL 0.85 H Absolute Eosinophils (0.0-0.7) 10^3/uL 0.23 Absolute Basophils (0.0-0.2) 10^3/uL 0.09 Medical Decision Making 82-year-old female, no acute distress, alert and oriented presenting with abdominal pain and difficulty of bowel movement, rectal pressure Mild left lower quadrant abdominal tenderness, alert and oriented x 4, lungs clear to auscultation, cardiac rate rhythm regular, distal pulses intact all 4 extremities, no rebound or guarding on abdominal exam, no flank tenderness, no abdominal bruit or pulsatile mass CT does not show evidence of acute abnormality, moderate stool burden, rectal exam performed, moderate stool in vault, patient declined manual disimpaction, agreeable to suppository and magnesium citrate Labs are stable, vitals are stable, patient is requesting discharge home at this time, will attempt glycerin suppository and magnesium citrate, given low threshold to return with new or worsening complaints Outpatient colonoscopy recommended with persistence of symptoms with primary care physician, outpatient follow-up encouraged Quality:SDOH Health Related Social Needs: No Data to Display PFSH All Active Problems (Updated 06/05/23 @ 11:46 by CAILIN Vargas) Abdominal pain (Acute) Anxiety (Chronic) COVID (Acute) Tinea pedis of both feet (Chronic) Olfactory aura (Acute) Obesity (Chronic) Nail dystrophy (Acute) MARILYN (generalized anxiety disorder) (Chronic) Patient with palpitations with negative Zio patch. She complained of symptoms during normal sinus rhythm on 40 occasions. With anxiety. Intolerant to buspirone. Will start recheck in 2 weeks. Primary osteoarthritis of both knees (Chronic) Allergic eosinophilia (Chronic) 09/23/11 COLONOSCOPY BIOPSY SHOWS FOCAL EOSINOPHILIC CRYPTITS Arthritis (Chronic) both ankles S/P fracture S/P surgery Asthma (Chronic) Depressive disorder (Chronic) refuses medication Essential hypertension (Chronic 02/19/13) Gastroesophageal reflux disease (Chronic) H/o H pylori, neg 07EGD Mitz 07UGI ? 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) Epiretinal membrane (ERM) of right eye (Chronic) Epigastric pain (Chronic) Back pain (Acute) Anemia (Chronic) Pain in female pelvis (Acute 01/04/14) Fatigue (Acute 08/22/16) Epistaxis (Acute 11/14/14) Adhesive capsulitis of shoulder (Acute) Bleeding hemorrhoids (Acute) Right shoulder strain (Acute) Osteoarthritis of both knees (Acute) Incomplete rectal prolapse (Acute) Chronic diarrhea (Acute) Acromioclavicular joint arthritis (Acute) DJD (degenerative joint disease) (Chronic) Chronic bilateral low back pain (Acute) Internal and external bleeding hemorrhoids (Acute) 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 Still has some intermittent pain Herpetic vulvovaginitis (04/24/11) Herpes type 1 Herpes zoster without complication (09/01/17) Diverticulosis of colon without diverticulitis Adrenal mass, right (12/11/16) seen on CT Ab 12/26 - STABLE. Will repeat Pulmonary embolism Thyroid malignant neoplasm papillary Surgical History (Updated 04/09/23 @ 11:21 by Aneta Bell MD) History of arthroscopy of knee History of surgical procedure Status post cholecystectomy post migdalia diarrhea. controlled w/ cholestyramine Status post laparoscopic hysterectomy Status post rotator cuff repair H/O esophagogastroduodenoscopy (~05/28/18) Status post cataract extraction and insertion of intraocular lens of right eye (03/27/18) Status post cataract extraction and insertion of intraocular lens of left eye (03/13/18) History of ventral hernia repair (~04/03/20) History of surgery on arm History of back surgery Status post arthroscopic knee surgery 1) RIGHT KNEE; DR. LOPEZ 2) LEFT KNEE; DR. DUNCAN Thyroid (~09/2014) STOMACH STITCH (~08/2014) Rotator Cuff Repair R SHOULDER; DR. MAGALYS [place] SHOULDER 01/25 Hysterectomy, Laproscopic PROLAPSE; STILL HAS OVARIES Colonoscopy - MAC DIVERTICULITIS Cholecystectomy Family History Mother , OLD AGE at age 95. Stroke Father , GI BLEED at age 85. Diabetes GI bleed Heart disease Sister Diabetes Essential hypertension Neoplasm BREAST Brother Macular degeneration 1 EYE Grandfather Heart disease Neoplasm Grandfather No problems noted. Grandmother Heart disease Grandmother Neoplasm Son Neoplasm BRAIN Son No problems noted. Daughter Neoplasm BREAST Daughter No problems noted. Child No problems noted. Social History Smoking/Tobacco Use Status: Never Smoking risk assessment performed?: Yes Alcohol Intake: current Alcohol Intake frequency: holidays/special occasions only Alcohol type: hard liquor Drug use: Never Substance use type: does not use Pets and animals: Yes Pets and animals: cat(s) and dog(s) Current gender identity: female What type of physical activity do you participate in: walking and additional Details: walks the block with her dog. Li/Mormonism: Nondenominational Special li needs: No Do you feel safe at home: Yes Do you feel safe in your relationship?: Yes Additional Social history: lives alone Discharge Plan Disposition Patient Disposition: Home Discharge Details Clinical Impression: Abdominal pain Primary Care Provider: Matheus Santana ED Provider: Alena Jiménez Home Meds and New Rx's Prescriptions: Continued CPAP miscellaneous acetaminophen [Tylenol Extra Strength] 500 mg tablet 1,000 mg PO TID PRN multivitamin Capsule 1 cap PO DAILY elderberry fruit and flower 460-115 mg capsule 1 cap PO DAILY rabeprazole [AcipHex] 20 mg tablet,delayed release (DR/EC) 20 mg PO BID Qty: 180 3RF levothyroxine 100 mcg tablet 100 mcg PO DAILY Qty: 90 3RF buspirone 10 mg tablet 5 mg PO BID Qty: 90 3RF ondansetron 8 mg tablet,disintegrating 8 mg PO BID PRN (Reason: nausea and vomiting) Qty: 14 2RF magnesium 200 mg tablet 400 mg PO TID Qty: 180 11RF diltiazem HCl 120 mg capsule,extended release 12 hr 120 mg PO Q12H Qty: 180 3RF lorazepam 0.5 mg tablet 0.5 mg PO Q6H PRN (Reason: anxiety) Qty: 30 0RF cholestyramine (with sugar) 4 gram powder 4 g PO DAILY Qty: 756 3RF Rx Instructions: administer w/meal; avoid other meds within 1hr before or 4-6hr after dose potassium chloride 20 mEq/15 mL liquid 10 meq PO DAILY Qty: 750 3RF (DME) nebulizer and compressor [PulmoNeb LT Compressor Nebul] 1 EACH device 1 ea Miscellaneous PRN Eliquis 2.5 mg tablet 2.5 mg PO BID fluticasone propionate [Flovent HFA] 110 mcg/actuation HFA aerosol inhaler 1 puff Inhalation DAILY escitalopram oxalate 10 mg tablet 10 mg PO DAILY garlic 1,000 mg Capsule 1,000 mg PO DAILY cholecalciferol (vitamin D3) [Vitamin D3] 50 mcg (2,000 unit) capsule 5,000 unit PO DAILY albuterol sulfate 90 mcg/actuation aerosol powdr breath activated 2 inh IH Q4H PRN (Reason: shortness of breath or wheezing) Qty: 1 0RF Discharge Instructions Instructions: Abdominal Pain (ED) Additional Instructions: You have given a glycerin suppository, this should soften your stool, you may take your magnesium citrate when you get home, take off and then if still no bowel movement in 1 hour, you may take the the remainder take metameucil daily and start on some miralax daily return earlier shoulder you have persistent or worsening symptoms follow- up with your doctor for reassessment and should you continue to have constipation, please follow-upfor colonoscopy Referrals: Matheus Santana MD [Primary Care Provider] - Discharge Data Discharge Date/Time-TO BE ENTERED AT DEPARTURE: 06/05/23 12:08
[2023-06-05 10:01] LABS: ALT 18 U/L (14-59); AST 12 U/L (15-37); Albumin 3.3 g/dL (3.4-5.0); Alkaline Phosphatase 65 U/L (46-116); Anion Gap 9.1 mmol/L (3-11); BUN 8 mg/dL (7-18); Bilirubin, Total 0.3 mg/dL (0.2-1.0); CO2 29.9 mmol/L (21.0-32.0); CREATININE 0.7 mg/dL (0.55-1.02); Calcium 9.9 mg/dL (8.5-10.1); Chloride 106 mmol/L (98-107); Glucose 126 mg/dL (74-106); Lipase 35 U/L (16-77); Sodium 145 mmol/L (136-145); Total Protein 7.5 g/dL (6.4-8.2)
[2023-06-05] MEDS: Normal Saline - Diluent 50 ML VIAL IJ (10:04)
[2023-06-05] MEDS: Omnipaque 350 MG/ML 500 ML BTL-Imaging package 100 ML IJ (10:08)
--- NOTE | 2023-06-05 10:09 | DI.CT_ITS ---
Exam(s) CT ABDOMEN PELVIS W EXAM: CT ABDOMEN PELVIS W CLINICAL HISTORY: abdominal pain, llq TECHNIQUE: Imaging Protocol: Axial computed tomography images with coronal and sagittal reformatted images were created and reviewed CONTRAST MATERIAL: Intravenous: Omnipaque 350 Contrast volume:100 mL Oral: No COMPARISON: CT CT THORACIC LUMBAR SPINE REC from 01/13/[address] CHEST/ABD/PEL W from 02/05/2022 FINDINGS: The examination is limited due to patient motion artifact. ABDOMEN: Lung Bases: Calcified granuloma in the right lower lobe. Liver: Normal density. No measurable mass. Portal, Superior Mesenteric, and Splenic Veins: Unremarkable. Gallbladder and Biliary Tract: Status post cholecystectomy. No significant biliary ductal dilatation . Pancreas: Normal density, no abnormal calcifications or inflammatory process. Spleen: Normal. Adrenals: No masses seen. Kidneys: Normal size, contour and axis. No radiodense stones or obstructive uropathy. Stable right re nal cysts. No follow-up is recommended. Abdominal Aorta: Abdominal portion non-dilated. Atherosclerosis. Bowel: No obstruction or bowel wall thickening. There is diverticulosis of the colon without evidence of diverticulitis. There is a moderate amount of stool in the colon. There is no evidence of appen dicitis. Peritoneal Cavity: No ascites, collection or mesenteric inflammatory response. No free air. Lymph Nodes: Within normal limits. Bones: Within normal limits for the patient's age. There is again seen mild compression of the T11 v ertebral body. Soft Tissues: There is a small fat containing umbilical hernia. PELVIS: Bladder: Symmetric distention, no gross wall thickening. Reproductive Organs: Status post hysterectomy. Lymph Nodes: Within normal limits. Bones: Within normal limits for the patient's age. IMPRESSION: 1. Moderate amount of stool in the colon. 2. Colonic diverticulosis without evidence of acute diverticulitis. RADIATION DOSE DELIVERED: 895.54mGy.cm Total DLP DATA REPOSITORY: All CT scans at this facility are submitted to the National Radiology Data Registry (NRDR) Dose Index Registry (DIR) with the [employer] (A[employer]). RADIATION OPTIMIZATION: All CT scans at this facility use at least one of these dose optimization te chniques: automated exposure control; mA and/or kV adjustment per patient size (includes targeted exa ms where dose is matched to clinical indication); or iterative reconstruction.
[2023-06-05 11:33] LABS: Bilirubin Negative (Negative); Blood Negative (Negative); Clarity Clear (Clear); Glucose Negative (Negative); Ketones Negative (Negative); Leukocyte Esterase Negative (Negative); Nitrite Negative (Negative); Urobilinogen 0.2 mg/dL (Up to 0.2)
[2023-06-05 11:46] VITALS: RESP 18
[2023-06-05] MEDS: Glycerin Adult Suppository JAR 1 SUPP PR (12:00)
[2023-06-05 12:01] VITALS: BP 133/82; PULSE 80; PULSE 88; RESP 12; RESP 17; TEMP 36.7; TEMP 36.8; O2SAT 96; O2SAT 97
== END 2023-06-05 12:08 | disposition home or self-care (01) ==
PROVIDERS: Emergency Provider Physician Assistant; PCP Family Medicine
DX: K59.00 Constipation, unspecified (principal); R10.32 Left lower quadrant pain; I10 Essential (primary) hypertension; Z86.711 Personal history of pulmonary embolism; Z79.01 Long term (current) use of anticoagulants
CPT/HCPCS: 36415; 80053; 83690; 99285; 74177; 81003; 85025; 99284

== ENCOUNTER 2023-07-14 05:12 | Outpatient (CLI) | payer MEDICARE, OTHER, SELFPAY | END 2023-07-14 05:13 | disposition home or self-care (01) | LOC: LOS 05:12 | PROVIDERS: PCP Family Medicine; Visit Provider Family Medicine | DX: I10 Essential (primary) hypertension (principal) | CPT/HCPCS: 36415; 84132 ==

== ENCOUNTER 2023-10-28 05:05 | Outpatient (CLI) | payer MEDICARE, OTHER, SELFPAY ==
[2023-10-28 12:41] LABS: TSH (W/Ref FT4) 3.44 uIU/mL (0.36-3.74)
== END 2023-10-28 05:06 | disposition home or self-care (01) ==
LOC: LOS 05:05
PROVIDERS: PCP Family Medicine; Visit Provider Family Medicine
DX: E03.9 Hypothyroidism, unspecified (principal)
CPT/HCPCS: 36415; 84443

== ENCOUNTER 2023-11-03 17:44 | Emergency (ER) | payer MEDICARE, OTHER, SELFPAY ==
[2023-11-03 17:47] VITALS: BP 156/64; PULSE 72; RESP 16; TEMP 37.2; O2SAT 95
[2023-11-03 18:08] VITALS: BP 156/64; PULSE 72; RESP 16; TEMP 37.2; O2SAT 95
--- NOTE | 2023-11-03 18:25 | ED.GENADUL_ITS ---
Discharge Plan Disposition Patient Disposition: Transfer-Acute Inpatient Care Specific Acute Inpt Facility: Other Condition: Stable Discharge Details Clinical Impression: Head injury due to trauma, Fall Primary Care Provider: Matheus Santana ED Provider: Julian Foster Home Meds and New Rx's Prescriptions: No Action CPAP 1 dose miscellaneous QHS acetaminophen [Tylenol Extra Strength] 500 mg tablet 1,000 mg PO TID PRN multivitamin Capsule 1 cap PO DAILY elderberry fruit and flower 460-115 mg capsule 1 cap PO DAILY rabeprazole [AcipHex] 20 mg tablet,delayed release (DR/EC) 20 mg PO BID Qty: 180 3RF levothyroxine 100 mcg tablet 100 mcg PO DAILY Qty: 90 3RF ondansetron 8 mg tablet,disintegrating 8 mg PO BID PRN (Reason: nausea and vomiting) Qty: 14 2RF ascorbate calcium (vitamin C) 500 mg tablet 500 mg PO DAILY lorazepam 0.5 mg tablet 0.5 mg PO Q6H PRN (Reason: anxiety) Qty: 30 0RF magnesium 200 mg tablet 400 mg PO TID Qty: 180 11RF diltiazem HCl 120 mg capsule,extended release 12 hr 120 mg PO Q12H Qty: 180 3RF cholestyramine (with sugar) 4 gram powder 4 g PO DAILY Qty: 756 3RF Rx Instructions: administer w/meal; avoid other meds within 1hr before or 4-6hr after dose buspirone 10 mg tablet 5 mg PO BID Qty: 90 3RF meclizine 25 mg tablet 25 mg PO TID PRN (Reason: dizziness) Qty: 30 0RF (DME) nebulizer and compressor [PulmoNeb LT Compressor Nebul] 1 EACH device 1 ea Miscellaneous PRN Eliquis 2.5 mg tablet 2.5 mg PO BID fluticasone propionate [Flovent HFA] 110 mcg/actuation HFA aerosol inhaler 1 puff Inhalation DAILY escitalopram oxalate 10 mg tablet 10 mg PO DAILY garlic 1,000 mg Capsule 1,000 mg PO DAILY cholecalciferol (vitamin D3) [Vitamin D3] 50 mcg (2,000 unit) capsule 5,000 unit PO DAILY albuterol sulfate 90 mcg/actuation aerosol powdr breath activated 2 inh IH Q4H PRN (Reason: shortness of breath or wheezing) Qty: 1 0RF Discharge Instructions Additional Instructions: Upon leaving the emergency department here at [facility] you should go immediately to [facility] and check into the emergency department. As discussed you have chosen to go by private vehicle. If patient condition work worsens and route please call 911. Referrals: [facility] [Outside] HPI General Mode of arrival: ambulatory . Date/Time Provider Initiated Documentation: 11/03/23 17:45 . Limitations to Documentation: no limitations . Information obtained by: patient and RN notes reviewed . History of Present Illness 83 year old F presents to the emergency department with the chief complaint of Fall with head injury, described as moderate, Quality is described as aching, and is localized to the head. Patient started experiencing this hour(s) (9) and it has been constant. No relieving factors improve symptom(s), No exacerbating factors reported . Patient did receive the following treatments prior to arrival, none Related Data Home Medications Medication Instructions Recorded Confirmed nebulizer and compressor (PulmoNeb 02/07/16 11/03/23 LT Compressor Nebul) garlic 1,000 mg capsule 1,000 mg PO DAILY 03/11/18 11/03/23 albuterol sulfate 90 mcg/actuation 2 inh inhalation Q4H PRN shortness 03/07/19 11/03/23 breath activated powder inhaler of breath or wheezing #1 ea cholecalciferol (vitamin D3) 50 5,000 unit PO DAILY 05/17/19 11/03/23 mcg (2,000 unit) capsule (Vitamin D3) CPAP 1 dose miscellaneous QHS 07/23/19 11/03/23 multivitamin 1 cap PO DAILY 11/09/19 11/03/23 apixaban 2.5 mg tablet (Eliquis) 2.5 mg PO BID 04/21/20 11/03/23 elderberry fruit 460 mg-elderberry 1 cap PO DAILY 11/21/20 11/03/23 flower 115 mg capsule magnesium 200 mg tablet 400 mg (2 x 200 mg) PO TID #180 05/14/22 11/03/23 tabs acetaminophen 500 mg tablet 1,000 mg PO TID PRN 06/11/22 11/03/23 (Tylenol Extra Strength) levothyroxine 100 mcg tablet 100 mcg PO DAILY #90 tabs 12/17/22 11/03/23 rabeprazole 20 mg tablet,delayed 20 mg PO BID #180 tabs 12/17/22 11/03/23 release (AcipHex) escitalopram oxalate 10 mg tablet 10 mg PO DAILY 12/20/22 11/03/23 fluticasone propionate 110 1 puff inhalation DAILY 12/20/22 11/03/23 mcg/actuation HFA aerosol inhaler (Flovent HFA) diltiazem HCl 120 mg 120 mg PO Q12H #180 caps 01/28/23 11/03/23 capsule,extended release 12 hr cholestyramine (with sugar) 4 gram 4 g PO DAILY hyperlipidemia #756 04/30/23 0 11/03/23 oral powder grams ondansetron 8 mg disintegrating 8 mg PO BID PRN nausea and 05/07/23 11/03/23 tablet vomiting #14 tabs buspirone 10 mg tablet 5 mg (1/2 x 10 mg) PO BID #90 tabs 07/07/23 11/03/23 ascorbate calcium (vitamin C) 500 500 mg PO DAILY 08/20/23 11/03/23 mg tablet lorazepam 0.5 mg tablet 0.5 mg PO Q6H PRN anxiety #30 09/01/23 11/03/23 tab-caps meclizine 25 mg tablet 25 mg PO TID PRN dizziness #30 tabs 10/09/23 11/03/23 Previous Rx's Medication Instructions Recorded albuterol sulfate 90 mcg/actuation 2 inh inhalation Q4H PRN shortness 03/07/19 breath activated powder inhaler of breath or wheezing #1 ea magnesium 200 mg tablet 400 mg (2 x 200 mg) PO TID #180 05/14/22 tabs levothyroxine 100 mcg tablet 100 mcg PO DAILY #90 tabs 12/17/22 rabeprazole 20 mg tablet,delayed 20 mg PO BID #180 tabs 12/17/22 release (AcipHex) diltiazem HCl 120 mg 120 mg PO Q12H #180 caps 01/28/23 capsule,extended release 12 hr cholestyramine (with sugar) 4 gram 4 g PO DAILY hyperlipidemia #756 04/30/23 oral powder grams ondansetron 8 mg disintegrating 8 mg PO BID PRN nausea and 12/27/23 tablet vomiting #14 tabs buspirone 10 mg tablet 5 mg (1/2 x 10 mg) PO BID #90 tabs 07/07/23 lorazepam 0.5 mg tablet 0.5 mg PO Q6H PRN anxiety #30 09/01/23 tab-caps meclizine 25 mg tablet 25 mg PO TID PRN dizziness #30 tabs 10/09/23 Allergies Allergy/AdvReac Type Severity Reaction Status Date / Time hylan G-F 20 Allergy SWELLING Verified 11/03/23 18:06 AND PAIN metronidazole [From Flagyl] Allergy Skin Rash Verified 11/03/23 18:06 Pyrazolones [Pyrazoles] Allergy Unknown Verified 11/03/23 18:06 tolterodine Allergy DIFFICULTY Verified 11/03/23 18:06 BREATHING loperamide AdvReac Intermediate abd pain. Verified 11/03/23 18:06 methylprednisolone AdvReac Intermediate weakness Verified 11/03/23 18:06 and unable mood. hydromorphone AdvReac Mild Nausea Verified 11/03/23 18:06 amitriptyline AdvReac NAUSEA Verified 11/03/23 18:06 aspartame AdvReac HEART Verified 11/03/23 18:06 RACING ondansetron HCl [From Zofran] AdvReac HALLUCINATI Verified 11/03/23 18:06 ON General Stated Complaint: Headache MANDY: 3 Review of Systems Constitutional Constitutional: Reports headache(s) (Mild), Denies lethargy and Reports poor appetite Eyes Eyes: Reports blurry vision ENT Ears, Nose, Mouth, and Throat: Reports dizziness, Denies facial pain, Reports headache(s) (Mild), Denies neck mass and Denies neck pain Cardiovascular Cardiovascular: Denies chest pain, Denies syncope and Denies dyspnea Respiratory Respiratory: Denies dyspnea Gastrointestinal Gastrointestinal: Denies abdominal pain, Reports nausea and Denies vomiting Musculoskeletal Musculoskeletal: Denies neck pain Neurologic Neurologic: Reports as per HPI, Denies confusion, Reports dizziness, Denies syncope, Reports headache(s) (Mild), Denies localized weakness, Denies memory loss, Denies radicular pain, Denies sensory deficit and Denies paresthesias Psychiatric Psychiatric: Denies confusion and Denies memory loss Exam Const General: cooperative, healthy appearing, no acute distress and well groomed Orientation: alert, awake and oriented x3 HENMT Head: normal to inspection Ears: hearing grossly normal bilaterally and TM's normal bilaterally Mouth: oral mucosae normal and moist mucous membranes Throat: posterior oropharynx normal Eyes Visual Amaya: normal visual amaya by confrontation Alignment and Position: alignment normal Periorbital: periorbital findings normal Eyelids: eyelids normal Sclera: sclerae normal Cornea: corneas normal Pupils: PERRL EOM: EOM intact bilaterally Neck Neck: normal visual inspection, full ROM and no meningeal signs Resp Effort & Inspection: normal respiratory effort and able to speak in complete sentences Auscultation: clear to auscultation bilaterally Cardio Rate: regular rate Rhythm: regular rhythm Heart Sounds: S1 normal and S2 normal Neuro General: patient alert, patient awake, patient oriented x3, gait normal, tone normal, moves all extremities, CN's II-XI intact bilaterally and not confused Cognition: normal cognition Speech: speech normal Motor: muscle tone normal throughout, strength 5/5 throughout, no pronator drift, no movement abnormalities noted and no fasciculations Sensory Exam: no sensory deficits noted Coordination: [id number] test normal, Does not sway with eyes open, rapid alternating movement UE normal and rapid alternating movement LE normal Course Vital Signs Vital signs: Vital Signs Temperature 37.2 C 11/03/23 17:47 Pulse 72 11/03/23 17:47 Respiratory Rate 16 11/03/23 17:47 Blood Pressure 156/64 H 11/03/23 17:47 Pulse Oximetry 95 11/03/23 17:47 Temperature 37.2 C 11/03/23 18:08 Temperature Source Tympanic 11/03/23 18:08 Pulse 72 11/03/23 18:08 Respiratory Rate 16 11/03/23 18:08 Respiratory Effort Normal, Non-Labored 11/03/23 18:08 Blood Pressure 156/64 H 11/03/23 18:08 Pulse Oximetry 95 11/03/23 18:08 Oxygen Delivery Method Room Air 11/03/23 18:08 Oxygen Flow Rate 0 11/03/23 18:08 Pain Level 8 11/03/23 18:08 Comment right knee hurts most 11/03/23 18:08 Medical Decision Making Patient presenting to the emergency department for chief complaint of mechanical fall with head injury. Patient reports around 10 AM this morning she was outside working in her yard when she had some uneven ground which caused her to slip and fall hitting her head significantly during the fall and having a brief moment where she states that there was some blackout for a second. As soon as that was done she called for her neighbor who came over and slowly helped her up. Since then she has had nausea, dizziness, and very mild headache. Patient is on Eliquis due to history of blood clots. Only other complaint is that patient does state right knee is slightly sore and tender but is ambulatory. She does have history of knee replacement on that side. Physical exam shows normal cranial nerve exam, no focal motor or sensory deficits, normal cardiac and respiratory exam, no C-spine midline tenderness, otherwise noncontributory exam. Given patient's age and persistent symptoms along with chronic anticoagulation I do feel that she needs radiological imaging. Unfortunately at time of walk-in presentation to the emergency department we do not have CT availability. Did contact closest facility of [facility] whom agreed to have patient transferred by private vehicle. Did discuss with patient and significant other who were offered EMS transport but after discussion of risk and benefit which they both stated understanding of this they opted to go by private vehicle. Given patient's stability at this time I do feel that that is appropriate but they were informed to call 911 for any change in condition enroute. Quality:SDOH Health Related Social Needs: No Data to Display PFSH All Active Problems Fall (Acute) Head injury due to trauma (Acute) Breast mass, right (Acute) Viral URI (Acute) Hypokalemia (Acute) Anxiety (Chronic) COVID (Acute) Tinea pedis of both feet (Chronic) Olfactory aura (Acute) Obesity (Chronic) Nail dystrophy (Acute) MARILYN (generalized anxiety disorder) (Chronic) Patient with palpitations with negative Zio patch. She complained of symptoms during normal sinus rhythm on 40 occasions. With anxiety. Intolerant to buspirone. Will start recheck in 2 weeks. Primary osteoarthritis of both knees (Chronic) Allergic eosinophilia (Chronic) 09/23/11 COLONOSCOPY BIOPSY SHOWS FOCAL EOSINOPHILIC CRYPTITS Arthritis (Chronic) both ankles S/P fracture S/P surgery Asthma (Chronic) Depressive disorder (Chronic) refuses medication Essential hypertension (Chronic 02/19/13) Gastroesophageal reflux disease (Chronic) H/o H pylori, neg 07EGD Mitz 07UGI ? 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) Epiretinal membrane (ERM) of right eye (Chronic) Epigastric pain (Chronic) Back pain (Acute) Anemia (Chronic) Pain in female pelvis (Acute 01/04/14) Fatigue (Acute 08/22/16) Epistaxis (Acute 11/14/14) Adhesive capsulitis of shoulder (Acute) Bleeding hemorrhoids (Acute) Right shoulder strain (Acute) Osteoarthritis of both knees (Acute) Incomplete rectal prolapse (Acute) Chronic diarrhea (Acute) Acromioclavicular joint arthritis (Acute) DJD (degenerative joint disease) (Chronic) Chronic bilateral low back pain (Acute) Internal and external bleeding hemorrhoids (Acute) 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 Still has some intermittent pain Herpetic vulvovaginitis (04/24/11) Herpes type 1 Herpes zoster without complication (09/01/17) Diverticulosis of colon without diverticulitis Adrenal mass, right (12/11/16) seen on CT Ab 12/26 - STABLE. Will repeat Pulmonary embolism Thyroid malignant neoplasm papillary Surgical History History of arthroscopy of knee History of surgical procedure Status post cholecystectomy post migdalia diarrhea. controlled w/ cholestyramine Status post laparoscopic hysterectomy Status post rotator cuff repair H/O esophagogastroduodenoscopy (~05/28/18) Status post cataract extraction and insertion of intraocular lens of right eye (03/27/18) Status post cataract extraction and insertion of intraocular lens of left eye (03/13/18) History of ventral hernia repair (~04/03/20) History of surgery on arm History of back surgery Status post arthroscopic knee surgery 1) RIGHT KNEE; DR. LOPEZ 2) LEFT KNEE; DR. DUNCAN Thyroid (~09/2014) STOMACH STITCH (~08/2014) Rotator Cuff Repair R SHOULDER; DR. DOWELL L SHOULDER 01/25 Hysterectomy, Laproscopic PROLAPSE; STILL HAS OVARIES Colonoscopy - MAC DIVERTICULITIS Cholecystectomy Family History Mother , OLD AGE at age 95. Stroke Father , GI BLEED at age 85. Diabetes GI bleed Heart disease Sister Diabetes Essential hypertension Neoplasm BREAST Brother Macular degeneration 1 EYE Grandfather Heart disease Neoplasm Grandfather No problems noted. Grandmother Heart disease Grandmother Neoplasm Son Neoplasm BRAIN Son No problems noted. Daughter Neoplasm BREAST Daughter No problems noted. Child No problems noted. Social History Smoking/Tobacco Use Status: Never Smoking risk assessment performed?: Yes Alcohol Intake: current Alcohol Intake frequency: holidays/special occasions only Alcohol type: hard liquor Drug use: Never Substance use type: does not use Pets and animals: Yes Pets and animals: cat(s) and dog(s) Current gender identity: female What type of physical activity do you participate in: walking and additional Details: walks the block with her dog. Li/Cheondoism: Faith Special li needs: No Do you feel safe at home: Yes Do you feel safe in your relationship?: Yes Additional Social history: lives alone
== END 2023-11-03 18:44 | disposition short-term general hospital (02) ==
LOC: ER 18:33
PROVIDERS: Emergency Provider Nurse Practitioner Family; PCP Family Medicine
DX: S09.90XA Unspecified injury of head, initial encounter (principal); W01.198A Fall on same level from slipping, tripping and stumbling with subsequent striking against other object, initial encounter
CPT/HCPCS: 99285

== ENCOUNTER → 2023-11-19 18:18 | Outpatient (CLI) | payer MEDICARE, OTHER, SELFPAY ==
--- NOTE | 2023-11-19 11:00 | DI.CT_ITS ---
Exam(s) CT HEAD WO EXAM: CT HEAD WO CLINICAL HISTORY: s/p fall with head injury; headache; on eliquis,r51.9. TECHNIQUE: Imaging Protocol: Axial computed tomography images with coronal and sagittal reformatted images were created and reviewed COMPARISON: CT CT HEAD CERVICAL SPINE WO from 02/05/2022 FINDINGS: Ventricles and Extra axial spaces: Normal in size and morphology for the patient's age. Hemorrhage: None. Cerebral parenchyma: No evidence of acute infarct or mass. Mild atrophy, consistent with the patien t's age. Midline shift: None. Brainstem/Cerebellum: Normal. Calvarium: Normal. Visualized Paranasal sinuses:Clear. Mastoids: Clear. Soft Tissues: Unremarkable. ORBITS: Unremarkable. PITUITARY: Not enlarged. IMPRESSION: No acute intracranial process. RADIATION DOSE DELIVERED: 623.94mGy.cm Total DLP DATA REPOSITORY: All CT scans at this facility are submitted to the National Radiology Data Registry (NRDR) Dose Index Registry (DIR) with the [employer] (ACR). RADIATION OPTIMIZATION: All CT scans at this facility use at least one of these dose optimization te chniques: automated exposure control; mA and/or kV adjustment per patient size (includes targeted exa ms where dose is matched to clinical indication); or iterative reconstruction.
== END ==
PROVIDERS: PCP Family Medicine; Visit Provider Family Medicine
DX: R51.9 Headache, unspecified (principal)
CPT/HCPCS: 70450

== ENCOUNTER 2023-12-30 10:57 | Outpatient (CLI) | payer MEDICARE, OTHER, SELFPAY ==
[2023-12-30 13:02] LABS: Vitamin B12 359 pg/mL (193-986)
[2023-12-30 13:16] LABS: Hemoglobin A1C 5.7 % (<5.7)
== END 2023-12-30 10:58 | disposition home or self-care (01) ==
LOC: LOS 10:57
PROVIDERS: PCP Family Medicine; Referring Provider Family Medicine; Visit Provider Family Medicine
DX: D64.9 Anemia, unspecified (principal); E11.51 Type 2 diabetes mellitus with diabetic peripheral angiopathy without gangrene; I70.209 Unspecified atherosclerosis of native arteries of extremities, unspecified extremity; I10 Essential (primary) hypertension; E66.9 Obesity, unspecified; R60.9 Edema, unspecified; W19.XXXA Unspecified fall, initial encounter
CPT/HCPCS: 36415; 82607; 83036

== ENCOUNTER → 2024-04-16 09:15 | Outpatient (BNVA) | payer MEDICARE, OTHER, SELFPAY | PROVIDERS: PCP Family Medicine; Visit Provider Internal Medicine Cardiovascular Disease | DX: I47.10 Supraventricular tachycardia, unspecified (principal) | CPT/HCPCS: 99213 ==

== ENCOUNTER 2024-05-06 00:06 | Outpatient (CLI) | payer MEDICARE, OTHER, SELFPAY ==
--- NOTE | 2024-05-06 07:00 | DI.MRI_ITS ---
Exam(s) MR BRAIN WO EXAM: MR BRAIN WO CLINICAL HISTORY: new headaches, vision change since concussion 11/02, R51.9 TECHNIQUE: Multiplanar multisequence MRI of the brain was performed. COMPARISON: MR MRI - CERVICAL SPINE WO CONT from 11/09/[address] HEAD WO from 11/19/2023 FINDINGS: VENTRICLES AND EXTRA AXIAL SPACES: Normal in size and morphology for the patient's age. MIDLINE SHIFT: None. CEREBRAL PARENCHYMA: No focus of restricted diffusion to suggest acute infarct. No space-occupying le ephraim identified. Moderate atrophy. Mild to moderate scattered foci of high signal in the white matte r consistent with sequela of chronic microvascular disease. BRAINSTEM/CEREBELLUM: Normal. VISUALIZED PARANASAL SINUSES: Clear. MASTOIDS:Clear. Vasculature: Normal flow void. PITUITARY GLAND: Unremarkable. ORBITS: Unremarkable. Nasopharynx: Midline mixed signal lesion from the roof of the nasopharynx, stable from 2009. 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 IMPRESSION: White matter changes small vessel disease. No acute abnormality. DATA REPOSITORY:
== END 2024-05-06 00:26 ==
LOC: DI 00:06
PROVIDERS: PCP Family Medicine; Visit Provider Nurse Practitioner Family
DX: R90.82 White matter disease, unspecified (principal)
CPT/HCPCS: 70551

== ENCOUNTER 2024-06-09 04:09 | Outpatient (CLI) | payer MEDICARE, OTHER, SELFPAY ==
[2024-06-09 12:42] LABS: Anion Gap 5.2 mmol/L (3-11); BUN 11 mg/dL (7-18); CO2 30.8 mmol/L (21.0-32.0); CREATININE 0.8 mg/dL (0.55-1.02); Calcium 9.6 mg/dL (8.5-10.1); Chloride 106 mmol/L (98-107); Estimated GFR 73.06 (mL/min/1.73m2); Glucose 107 mg/dL (74-106); Magnesium 1.9 mg/dL (1.8-2.4); Sodium 142 mmol/L (136-145); TSH (W/Ref FT4) 6.54 uIU/mL (0.36-3.74)
== END 2024-06-09 04:10 | disposition home or self-care (01) ==
LOC: LOS 04:09
PROVIDERS: PCP Family Medicine; Visit Provider Family Medicine
DX: E03.9 Hypothyroidism, unspecified (principal); Z51.81 Encounter for therapeutic drug level monitoring; E87.6 Hypokalemia
CPT/HCPCS: 36415; 80048; 83735; 84439; 84443

== ENCOUNTER 2024-11-10 10:33 | Outpatient (CLI) | payer MEDICARE, OTHER, SELFPAY ==
--- NOTE | 2024-11-10 10:30 | RT.EKG_ITS ---
APPROVED REPORT Exam: Resting ECG Reason for Exam: shortness of breath Patient Location: O HR:62 bpm ECG Measurements Heart Rate 62 AXIS WA 184 P 90 QRSd 105 QRS 54 QT 428 T 269 QTc 435 Conclusion Sinus rhythm...normal P axis, V-rate 50- 99 Anterior infarct, old...Q >40mS, abnormal ST-T, V2-V5
== END 2024-11-10 10:34 | disposition home or self-care (01) ==
PROVIDERS: PCP Family Medicine; Visit Provider Nurse Practitioner Family
DX: R06.02 Shortness of breath (principal)
CPT/HCPCS: 93010

== ENCOUNTER 2024-11-15 02:52 | Outpatient (CLI) | payer MEDICARE, OTHER, SELFPAY ==
--- NOTE | 2024-11-15 07:15 | DI.CT_ITS ---
Exam(s) CT ABDOMEN PELVIS W EXAM: CT ABDOMEN PELVIS W CLINICAL HISTORY: upper abd pain, nausea,r10.10. TECHNIQUE: Imaging Protocol: Axial computed tomography images with coronal and sagittal reformatted images were created and reviewed CONTRAST MATERIAL: Intravenous: Omnipaque-350 100cc Oral: Yes. Oral contrast was also administered for bowel opacification. COMPARISON: CT CT THORACIC LUMBAR SPINE REC from 01/13/[address] CHEST/ABD/PEL W from 02/05/[address] ABDOMEN PELVIS W from 06/05/2023 FINDINGS: VISUALIZED LUNG BASES: Mild increased markings in the right lung base are unchanged.. ABDOMEN: There is no ascites. LIVER: There is a 3 millimeter hypodensity in the lateral aspect of the right lobe of the liver which has benign appearance probably small cyst or hemangioma. No dilated intrahepatic ducts. GALLBLADDER/BILIARY: Gallbladder is again noted be surgically absent. CBD diameter is upper normal. PANCREAS: No evidence of pancreatic mass nor dilatation of the pancreatic duct. SPLEEN: Spleen is not enlarged. No obvious intrasplenic lesions. Splenic and portal veins are patent. ADRENALS: There is an unchanged fatty lesion in the right adrenal gland which measures 2.9 by 2.4 cm consistent with a myelolipoma. This has not increased in size from 06/05/2023. The opposite-left adrenal gland remains unremarkable. KIDNEYS:Benign small cyst in the left kidney again noted which do not require further workup. There are no solid renal masses nor radiopaque calculi. Slightly dilated right renal pelvis and infundibulum noted. The right ureter below the UPJ is not dilated and there is no obvious radiopaque calculus in the collecting system.. No calculi seen in the nondistended urinary bladder. No obvious bladder masses. ABDOMINAL AORTA: Calcified but not enlarged. Iliac arteries also calcified but not enlarged. LYMPH NODES:There is no retroperitoneal nor paraaortic adenopathy. ABDOMINAL WALL: No evidence of significant anterior abdominal wall nor inguinal hernia. GI: There is no evidence of bowel obstruction, free air, nor abscess. Oral contrast has reached the colon hepatic flexure at the time of image acquisition. Hepatic flexure is noted to be interposed between the liver and the right anterior abdominal wall. The cecum is low-lying in the pelvis on top the urinary bladder. The appendix is not seen and may be surgically absent. There is no evidence of acute appendicitis. PELVIS: GI: There is extensive sigmoid diverticulosis. There is no obvious acute diverticulitis. No free air. No free fluid. LYMPH NODES: There is no intrapelvic nor inguinal adenopathy. REPRODUCTIVE: Uterus is surgically absent. There are no abnormal adnexal masses. No free fluid in the pelvis. URINARY BLADDER: Mild cystocele. No calculi nor masses in the bladder. OSSEOUS: No fractures and no significant osseous lesions. Schmorl's node invagination superior endplate of L2 is unchanged. Mild loss of height of T11 vertebral body is also unchanged. IMPRESSION: 1. Compared to the prior CT scan of May 2023 there is again noted extensive sigmoid diverticulosis but without evidence of acute diverticulitis. 2. The appendix is not seen and may be surgically absent. 3. Unchanged 2.9 x 2.4 cm fatty lesion in the right adrenal gland which is most probably a benign myelolipoma. This is unchanged from CT scans dating back to at least January 2022. Left adrenal gland remains unremarkable. 4. Slight dilatation of the right renal pelvis. No obvious mass nor radiopaque calculi. The right ureter itself is not dilated. Gallbladder is again noted be surgically absent. RADIATION DOSE DELIVERED: 581.39mGy.cm Total DLP DATA REPOSITORY: All CT scans at this facility are submitted to the National Radiology Data Registry (NRDR) Dose Index Registry (DIR) with the [employer] (ACR). RADIATION OPTIMIZATION: All CT scans at this facility use at least one of these dose optimization techniques: automated exposure control; mA and/or kV adjustment per patient size (includes targeted exams where dose is matched to clinical indication); or iterative reconstruction.
[2024-11-15] MEDS: Barium Sulfate 2% W/V-Creamy Vanilla Smoothie 450 ML BTL PO (07:50)
[2024-11-15] MEDS: Barium Sulfate 2% W/V-Berry Smoothie 450 ML BTL PO (07:50)
[2024-11-15 07:59] LABS: Abs Immature Grans 0.05 10^3/uL (0.0-0.06); HCT 40.5 % (36.0-46.0); HGB 13.3 g/dL (11.2-15.7); Immature Grans % 0.6 %; MCH 30.5 pg (27.0-33.0); MCHC 32.8 % (32.0-36.0); MCV 93 fL (80-95); MPV 11.4 fL (8.0-11.0); Platelet Count 281 10^3/uL (130-400); RBC 4.36 10^6/uL (3.93-5.22); RDW 14.1 % (11.7-14.6); RDW-SD 48.4 fL; WBC 7.86 10^3/uL (4.4-10.8)
[2024-11-15 08:32] LABS: ALT 26 U/L (14-59); AST 17 U/L (15-37); Albumin 3.7 g/dL (3.4-5.0); Alkaline Phosphatase 79 U/L (46-116); Amylase 37 U/L (25-115); Anion Gap 10.0 mmol/L (3-11); BUN 10 mg/dL (7-18); Bilirubin, Total 0.5 mg/dL (0.2-1.0); CO2 30.0 mmol/L (21.0-32.0); Calcium 9.5 mg/dL (8.5-10.1); Chloride 103 mmol/L (98-107); Estimated GFR 85.23 (mL/min/1.73m2); Glucose 110 mg/dL (74-106); Lipase 29 U/L (<78); Potassium 3.9 mmol/L (3.5-5.1); Sodium 143 mmol/L (136-145); Total Protein 7.6 g/dL (6.4-8.2)
[2024-11-15 10:09] LABS: Glucose Negative (Negative)
[2024-11-15] MEDS: Normal Saline - Diluent 50 ML VIAL IJ (10:09)
[2024-11-15] MEDS: Omnipaque 350 MG/ML 100 ML BTL IJ (10:10)
[2024-11-15 10:16] LABS: RBC 0-2 HPF (0-2); WBC Negative HPF (0-5)
[2024-11-15 10:17] LABS: C & S Indicated? No
== END 2024-11-15 03:12 ==
PROVIDERS: PCP Family Medicine; Visit Provider Nurse Practitioner Family
DX: K57.30 Diverticulosis of large intestine without perforation or abscess without bleeding (principal); R93.89 Abnormal findings on diagnostic imaging of other specified body structures
CPT/HCPCS: 80053; 83690; 74177; 81003; 81015; 82150; 85025; J3490

== ENCOUNTER 2025-02-03 18:56 | Outpatient (REF) | payer MEDICARE, OTHER, SELFPAY ==
[2025-02-03 21:31] LABS: TSH (W/Ref FT4) 32.93 uIU/mL (0.36-3.74); Vitamin B12 823 pg/mL (193-986)
== END 2025-02-03 18:57 | disposition home or self-care (01) ==
LOC: LBN 18:56
PROVIDERS: PCP Family Medicine; Visit Provider Family Medicine
DX: D64.9 Anemia, unspecified (principal); E03.9 Hypothyroidism, unspecified
CPT/HCPCS: 82607; 84439; 84443

== ENCOUNTER 2025-02-15 12:26 | Outpatient (CLI) | payer MEDICARE, OTHER, SELFPAY ==
[2025-02-15 15:57] LABS: Abs Immature Grans 0.03 10^3/uL (0.0-0.06); HCT 40.4 % (36.0-46.0); HGB 13.3 g/dL (11.2-15.7); Immature Grans % 0.3 %; MCH 31.0 pg (27.0-33.0); MCHC 32.9 % (32.0-36.0); MCV 94 fL (80-95); MPV 11.2 fL (8.0-11.0); Platelet Count 317 10^3/uL (130-400); RBC 4.29 10^6/uL (3.93-5.22); RDW 14.8 % (11.7-14.6); RDW-SD 51.5 fL; WBC 8.61 10^3/uL (4.4-10.8)
[2025-02-15 16:24] LABS: TSH (W/Ref FT4) 46.59 uIU/mL (0.36-3.74)
== END 2025-02-15 12:27 | disposition home or self-care (01) ==
LOC: LOS 12:26
PROVIDERS: PCP Family Medicine; Visit Provider Family Medicine
DX: E03.9 Hypothyroidism, unspecified (principal); K52.9 Noninfective gastroenteritis and colitis, unspecified; D64.9 Anemia, unspecified
CPT/HCPCS: 36415; 83516; 84439; 84443; 85025

== ENCOUNTER 2025-02-19 14:13 | Outpatient (REF) | payer MEDICARE, OTHER, SELFPAY ==
[2025-02-19 11:29] LABS: EPI 027-NAP1-B1 PRESUMPTIVE NEGATIVE
[2025-02-20 11:40] LABS: Campylobacter PCR Negative (Negative); Shiga Toxin PCR Negative (Negative); Shigella/Enteroinvasive Ecoli Negative (Negative)
== END 2025-02-19 14:14 | disposition home or self-care (01) ==
LOC: NCHCN 14:13
PROVIDERS: PCP Family Medicine; Visit Provider Family Medicine
DX: K52.9 Noninfective gastroenteritis and colitis, unspecified (principal)
CPT/HCPCS: 87015; 87269; 87272; 87505

== ENCOUNTER 2025-03-08 11:33 | Outpatient (REF) | payer MEDICARE, OTHER, SELFPAY ==
[2025-03-23 01:30] LABS: Lactoferrin, Qt, Stool <6.25 mcg/mL (<7.25)
== END 2025-03-08 11:34 | disposition home or self-care (01) ==
LOC: LBN 11:33
PROVIDERS: PCP Family Medicine; Visit Provider Internal Medicine Gastroenterology
DX: R19.7 Diarrhea, unspecified (principal); R19.4 Change in bowel habit
CPT/HCPCS: 83631

== ENCOUNTER 2025-03-25 00:16 | Outpatient (CLI) | payer MEDICARE, OTHER, SELFPAY ==
[2025-03-25 14:41] LABS: TSH (W/Ref FT4) 11.81 uIU/mL (0.55-4.78)
== END 2025-03-25 00:17 | disposition home or self-care (01) ==
LOC: LOS 00:18
PROVIDERS: PCP Family Medicine; Visit Provider Family Medicine
DX: E03.9 Hypothyroidism, unspecified (principal)
CPT/HCPCS: 36415; 84439; 84443

== ENCOUNTER → 2025-04-15 09:15 | Outpatient (BNVA) | payer MEDICARE, OTHER, SELFPAY | PROVIDERS: PCP Family Medicine; Visit Provider Internal Medicine Cardiovascular Disease | DX: I47.10 Supraventricular tachycardia, unspecified (principal) | CPT/HCPCS: 99213 ==

== ENCOUNTER → 2025-04-21 01:00 | Outpatient (CLI) | payer MEDICARE, OTHER, SELFPAY ==
--- NOTE | 2025-04-21 | DI.MRI_ITS ---
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 TECHNIQUE: Multiplanar multisequence MRI of the Lumbar spine was performed. COMPARISON: CT CT ABDOMEN PELVIS W from 11/15/2024 FINDINGS: Bones: The last intervertebral disc space is designated the L5/S1 level for the numbering purpose of this examination. There is a mild compression fracture of the superior endplate of T11 and a Schmorl's node at the superior endplate of L2. These appear unchanged from 2023. Alignment: Mild degenerative biconvex scoliosis. The marrow signal characteristics are unremarkable. There is a hemangioma in the L2 vertebral body. Cord: The conus tip ends at the T12 level. It is of normal size and signal intensity. T12-L1: No focal disc herniation is present. No central spinal canal stenosis.No neural foraminal stenosis. L1-2:There is moderate to severe loss of disc height which is eccentric and circumferential endplate osteophytes which are eccentric toward the right. No focal disc herniation is present. No central spinal canal stenosis.Moderate right neural foraminal narrowing. Neural foraminal stenosis. L2-3:Normal disc height. Mild disc bulging. No focal disc herniation is present. No central spinal canal stenosis.No neural foraminal stenosis. L3-4: Eccentric loss of disc height to the left where there are endplate osteophytes. Mild concentric disc bulging.No focal disc herniation is present. Mild facet degenerative changes. No central spinal canal stenosis.Mild left neural foraminal stenosis. L4-5:Severe loss of disc height. Prominent endplate osteophytes. Facet degenerative changes. No focal disc herniation is present. Mild central spinal canal stenosis.Mild neural foraminal stenosis. L5-S1: Severe loss of disc height. Small endplate osteophytes. No focal disc herniation is present. Mild facet degenerative changes. No central spinal canal stenosis.Moderate to severe right neural foraminal narrowing. No significant left neural foraminal stenosis. The visualized SI joints and sacrum are unremarkable. Soft tissues: The paraspinal soft tissues are unremarkable. IMPRESSION: Multilevel degenerative disc changes and facet degenerative changes. There is mild central canal stenosis at L4-5. There is no foraminal narrowing which is moderate to severe at L5-S1.. DATA REPOSITORY:
== END ==
LOC: DI 01:00
PROVIDERS: PCP Family Medicine; Visit Provider Nurse Practitioner Family
DX: M51.362 Other intervertebral disc degeneration, lumbar region with discogenic back pain and lower extremity pain (principal); M54.16 Radiculopathy, lumbar region
CPT/HCPCS: 72148